=== PATIENT | male | born 1985 | race Caucasian/White ===

== ENCOUNTER → 2016-07-11 | Outpatient (CLI) | payer OTHER ==
[~2016-07-11] MED LIST: ABL10 PO; BYTI10 SC; CGN1 PO; FLUO20CA35 PO; HALO0.5T9 PO; HALO2TAB PO; INSU1.2I SC; INSU100I SC; LISI-729 PO; METF-384 PO; MONT1TAB3 PO; OXYC-57 PO; PERP1TAB PO; PERP1TAB8 PO; REPA1TAB42 PO; VILA1TAB3 PO
== END | disposition home or self-care (01) ==
LOC: C.RDSM 08:30
PROVIDERS: ATTEND Orthopaedic Surgery
DX: M65.4 Radial styloid tenosynovitis [de Quervain] (principal)

== ENCOUNTER → 2016-10-10 | Outpatient (CLI) | payer OTHER ==
[~2016-10-10] MED LIST changes: +BENZ-89 PO; -CGN1 PO; +FLUO40CA8 PO; -INSU1.2I SC; +INSU1.2I SQ; -INSU100I SC; +INSU100I SQ; +LOVA20TA4 PO; +ONDA4TAB10 SL; -OXYC-57 PO; +OXYC1TAB3 PO; +REPA1TAB40 PO; -REPA1TAB42 PO
--- NOTE | 2016-10-10 14:23 | DIAGNOSTIC IMAGING REPORT ---
CT SCAN OF THE ABDOMEN AND PELVIS WITHOUT CONTRAST CLINICAL HISTORY: Bilateral flank pain. Microscopic hematuria. Nausea. COMPARISON STUDY: 03/23/2015 TECHNIQUE: CT scan of the abdomen and pelvis was performed from the lung bases to the proximal femurs. Images are reviewed in the axial, sagittal, and coronal planes. IV contrast was not administered for this examination. CT DOSE: FINDINGS: Lower chest: The heart is normal in size and configuration, without pericardial effusion. The lung bases and pleural spaces are clear. Liver: There is severe hepatic steatosis. No focal masses are visualized. Gallbladder: Unremarkable. Spleen: Normal in size and attenuation. Pancreas: Unremarkable. Adrenal glands: Unremarkable. Kidneys: No renal, ureteral, or bladder calculi are visualized. Bowel: There are no transition zones indicate bowel obstruction. The appendix appears surgically absent. There is no acute diverticulitis. Peritoneum: There is no intraperitoneal free air or abdominal ascites. Vasculature: The abdominal aorta is normal in course and caliber. Adenopathy: None. Pelvic viscera: The bladder, and pelvic viscera are unremarkable. Skeletal structures: No destructive osseous lesions are seen. IMPRESSION: 1. No renal, ureteral, or bladder calculi identified 2. Surgically absent appendix. No evidence of diverticulitis 3. No evidence of bowel obstruction. No evidence of free air 4. Hepatic steatosis Electronically signed by: Ezequiel Merritt M.D. 10/10/2016 2:21 PM Dictated Date/Time: 10/10/2016 2:18 PM
== END | disposition home or self-care (01) ==
LOC: C.CTS 13:34
PROVIDERS: ATTEND Nurse Practitioner Family
DX: R10.9 Unspecified abdominal pain (principal); R31.9 Hematuria, unspecified; Z87.442 Personal history of urinary calculi; R11.0 Nausea; K76.0 Fatty (change of) liver, not elsewhere classified

== ENCOUNTER 2016-12-16 21:39 | Observation (INO) | payer OTHER ==
[~2016-12-16] VITALS: Ht 182.9 cm; Wt 112.3 kg
[~2016-12-16 21:39] MED LIST changes: -FLUO20CA35 PO; -FLUO40CA8 PO; -INSU1.2I SQ; -INSU100I SQ; -LISI-729 PO; -LOVA20TA4 PO; -ONDA4TAB10 SL; -OXYC1TAB3 PO; -PERP1TAB PO; -PERP1TAB8 PO
[2016-12-16] MEDS ORDERED: SODIUM CHLORIDE 0.9% 1000ML 1,000 ML IV STA (22:16)
[2016-12-16 22:24] LABS: BASO % 1.3 %; BASO ABS # 0.08 K/uL (0-0.2); COMPLETE YES; EOS % 2.7 %; HEMATOCRIT 45.6 % (42-52); IG% 0.2 %; LYMPH % 37.1 %; LYMPH ABS # 2.24 K/uL (1.2-3.4); MEAN CELL VOLUME 88.4 fL (80-100); MEAN CORPUSCULAR HEMOGLOBIN 29.8 pg (25-34); MEAN CORPUSCULAR HGB CONC 33.8 g/dl (32-36); MEAN PLATELET VOLUME 11.3 fL (7.4-10.4); NEUT % 50.7 %; PLATELET COUNT 144 K/uL (130-400); RED BLOOD COUNT 5.16 M/uL (4.7-6.1); WHITE BLOOD COUNT 6.03 K/uL (4.8-10.8)
--- NOTE | 2016-12-16 22:31 | EMERGENCY ROOM VISIT NOTE ---
ED Visit Note First contact with patient: 22:07 I have seen and examined this patient with Sam Clarke and generally agree with the treatment plan as discussed. Problem List Medical Problems: (1) Asthma Status: Chronic (2) Diabetes Status: Chronic (3) Hypertension Status: Chronic Current/Historical Medications Scheduled Aripiprazole (Abilify), 1 TAB PO DAILY Benztropine Mesylate (Cogentin), 1 TAB PO DAILY Exenatide (Byetta), 10 MCG SC BID Haloperidol (Haloperidol), 1 TAB PO DAILY Metformin Hcl (Glucophage), 1,000 MG PO BID Montelukast Sodium (Singulair), 10 MG PO DAILY Repaglinide (Prandin), 1 TAB PO DAILY Vilazodone Hcl (Viibryd), 1 TAB PO DAILY Miscellaneous Medications Haloperidol (Haldol), 2 MG PO Allergies Coded Allergies: Clozapine (Verified Allergy, Unknown, 07/28/09) Sulfa Drugs (Verified Allergy, Unknown, 07/28/09) Sulfamethoxazole (Verified Allergy, Unknown, 07/28/09) Replaces SULFAMETHOXAZ Trimethoprim (Verified Allergy, Unknown, 07/28/09) Replaces SULFAMETHOXAZ Vital Signs Date Time Temp Pulse Resp B/P (MAP) Pulse Ox O2 Delivery O2 Flow Rate FiO2 12/16/16 22:08 72 12/16/16 22:03 75 20 134/79 97 Room Air 12/16/16 22:01 96 Room Air 12/16/16 21:41 36.7 69 18 155/93 97 Room Air Laboratory Results 12/16/16 22:04 Red Blood Count 5.16, Mean Corpuscular Volume 88.4, Mean Corpuscular Hemoglobin 29.8, Mean Corpuscular Hemoglobin Concent 33.8, Mean Platelet Volume 11.3, Neutrophils (%) (Auto) 50.7, Lymphocytes (%) (Auto) 37.1, Monocytes (%) (Auto) 8.0, Eosinophils (%) (Auto) 2.7, Basophils (%) (Auto) 1.3, Neutrophils # (Auto) 3.06, Lymphocytes # (Auto) 2.24, Monocytes # (Auto) 0.48, Eosinophils # (Auto) 0.16, Basophils # (Auto) 0.08 Test 12/16/16 22:04 White Blood Count 6.03 K/uL (4.8-10.8) Red Blood Count 5.16 M/uL (4.7-6.1) Hemoglobin 15.4 g/dL (14.0-18.0) Hematocrit 45.6 % (42-52) Mean Corpuscular Volume 88.4 fL (80-100) Mean Corpuscular Hemoglobin 29.8 pg (25-34) Mean Corpuscular Hemoglobin Concent 33.8 g/dl (32-36) Platelet Count 144 K/uL (130-400) Mean Platelet Volume 11.3 fL (7.4-10.4) Neutrophils (%) (Auto) 50.7 % Lymphocytes (%) (Auto) 37.1 % Monocytes (%) (Auto) 8.0 % Eosinophils (%) (Auto) 2.7 % Basophils (%) (Auto) 1.3 % Neutrophils # (Auto) 3.06 K/uL (1.4-6.5) Lymphocytes # (Auto) 2.24 K/uL (1.2-3.4) Monocytes # (Auto) 0.48 K/uL (0.11-0.59) Eosinophils # (Auto) 0.16 K/uL (0-0.5) Basophils # (Auto) 0.08 K/uL (0-0.2) RDW Standard Deviation 39.8 fL (36.4-46.3) RDW Coefficient of Variation 12.3 % (11.5-14.5) Immature Granulocyte % (Auto) 0.2 % Immature Granulocyte # (Auto) 0.01 K/uL (0.00-0.02) Departure Information Referrals Brenna Krueger (PCP) Patient Instructions My [facility]
[2016-12-16] MEDS ORDERED: PERP1TAB PO (22:41)
[2016-12-16] MEDS ORDERED: FLUO20CA35 PO (22:41)
[2016-12-16] MEDS ORDERED: INSU1.2I SQ (22:41)
[2016-12-16] MEDS ORDERED: PERP1TAB8 PO (22:41)
[2016-12-16] MEDS ORDERED: LISI-729 PO (22:41)
[2016-12-16] MEDS ORDERED: INSU100I SQ (22:41)
[2016-12-16] MEDS: NITROGLYCERIN 0.4 MG SL PER TAB CHARGE SL PRN ×3 (22:44→23:19)
--- NOTE | 2016-12-16 22:44 | DIAGNOSTIC IMAGING REPORT ---
CHEST ONE VIEW PORTABLE HISTORY: Atypical CHEST PAIN COMPARISON: Chest 02/28/2009. FINDINGS: The lungs are clear. Cardiac silhouette is normal in size. No pleural effusions. No pneumothorax. IMPRESSION: No acute process. Electronically signed by: Santos Navarrete M.D. 12/16/2016 10:42 PM Dictated Date/Time: 12/16/2016 10:41 PM
[2016-12-16 22:45] LABS: ALKALINE PHOSPHATASE 92 U/L (45-117); ALT/SGPT 62 U/L (12-78); AST/SGOT 46 U/L (15-37); BLOOD UREA NITROGEN 9 mg/dl (7-18); BUN/CREATININE RATIO 10.8 (10-20); CALCIUM 8.8 mg/dl (8.5-10.1); CARBON DIOXIDE 27 mmol/L (21-32); CHLORIDE 102 mmol/L (98-107); CREATININE 0.87 mg/dl (0.60-1.40); GLUCOSE 208 mg/dl (70-99); POTASSIUM 3.9 mmol/L (3.5-5.1); SODIUM 136 mmol/L (136-145)
[2016-12-17] MEDS ORDERED: FLUOXETINE HCL 20 MG CAP PO ONE (00:27)
[2016-12-17] MEDS ORDERED: PERPHENAZINE 2 MG TAB PO ONE (00:27)
[2016-12-17] MEDS ORDERED: BENZTROPINE MESYLATE 1 MG TAB PO ONE (00:27)
[2016-12-17] MEDS ORDERED: GLUCAGON FOR INJ 1 MG VIAL SQ PRN (00:30)
[2016-12-17] MEDS ORDERED: ACETAMINOPHEN 325 MG TAB PO PRN (00:30)
[2016-12-17] MEDS ORDERED: ONDANSETRON INJ 2 MG/ML 2 ML VIAL IV PRN (00:30)
[2016-12-17] MEDS ORDERED: GLUCOSE 10 TABS/TUBE PO PRN (00:30)
[2016-12-17] MEDS ORDERED: ZOLPIDEM TARTRATE 5 MG TAB PO PRN (00:30)
[2016-12-17] MEDS ORDERED: DEXTROSE 50% 50 ML SYR IV PRN (00:30)
[2016-12-17] MEDS ORDERED: GLUCOSE 40% GEL 15 GM TUBE PO PRN (00:30)
[2016-12-17] MEDS ORDERED: NITROGLYCERIN 0.4 MG SL PER TAB CHARGE SL PRN (00:30)
--- NOTE | 2016-12-17 00:42 | History and Physical ---
History & Physical Date & Time of Service: Dec 17, 2016 at 00:33. The patient was examined on 12/16/2016. Chief Complaint: Chest Pain Primary Care Physician: Brenna Krueger History of Present Illness Source: patient, parent The patient is a 31-year-old male who developed acute onset of precordial chest pain with radiation to the left side of his neck and left arm shortly after eating dinner tonight. The pain persisted until he was given 3 sublingual nitroglycerin in the emergency department, when it resolved completely. He does not have a history of reflux, and has not had these type of symptoms in the past. His mother has a history of angina. His other risk factors include diabetes mellitus, obesity and hypertension. He has not had any recent travels or sick exposures. 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 Past Medical/Surgical History Medical Problems: (1) Asthma Status: Chronic (2) Diabetes Status: Chronic (3) Hypertension Status: Chronic Family History Diabetes mellitus FH: heart disease Hypertension Kidney stones Social History Smoking Status: Never Smoker Smokeless Tobacco Use: No Alcohol Use: none Drug Use: none Marital Status: single Housing status: lives with family Occupational Status: employed Multi-Drug Resistant Organisms History of MDRO: No Allergies Coded Allergies: Clozapine (Verified Allergy, Unknown, 07/28/09) Sulfa Drugs (Verified Allergy, Unknown, 07/28/09) Sulfamethoxazole (Verified Allergy, Unknown, 07/28/09) Replaces SULFAMETHOXAZ Trimethoprim (Verified Allergy, Unknown, 07/28/09) Replaces SULFAMETHOXAZ Home Medications Scheduled Benztropine Mesylate (Cogentin), 1 MG PO QPM Fluoxetine (Prozac), 20 MG PO QPM Insulin Glargine (Toujeo Solostar), 85 UNITS SC QPM Insulin Lispro (Human) (Humalog), 28 UNITS SC TIDM Lisinopril (Prinivil), 5 MG PO QPM Metformin Hcl (Glucophage), 1,000 MG PO BID Montelukast Sodium (Singulair), 10 MG PO DAILY Perphenazine (Trilafon), 32 MG PO QPM Perphenazine (Trilafon), 16 MG PO QAM Review of Systems The patient denies palpitations, cough, lower extremity swelling, sore throat , fevers, chills, sweats, weight change, fatigue, nausea, vomiting, abdominal pain, pelvic pain, blood in urine or stool, dysuria, urinary frequency or urgency, lightheadedness, dizziness, headache, memory loss, rash, abnormal bruising or bleeding, imbalance, focal or generalized weakness, numbness or tingling in legs, arthralgias or myalgias, back pain, night sweats, or allergy symptoms. The review of systems is otherwise negative other than for that already noted above, and at least 10 systems have been reviewed. Physical Exam Vital Signs Date Time Temp Pulse Resp B/P (MAP) Pulse Ox O2 Delivery O2 Flow Rate FiO2 12/16/16 23:13 72 20 128/76 98 Room Air 12/16/16 22:08 72 12/16/16 22:03 75 20 134/79 97 Room Air 12/16/16 22:01 96 Room Air 12/16/16 21:41 36.7 69 18 155/93 97 Room Air The patient is awake, well-developed and adequately nourished, alert and oriented 3, normocephalic and atraumatic, lying in bed and in no acute distress. HEENT--PERRL, EOMI, mucous membranes and oropharynx normal. Neck--supple, no JVD or bruits, thyroid normal, trachea midline, no adenopathy. Heart--normal S1 and S2, no extra beats, no murmurs, rubs or gallops. Lungs--clear bilaterally with good air movement, no respiratory distress, no accessory muscle use. Abdomen--normal bowel sounds and soft, nontender and nondistended, no hernias or masses, no organomegaly. Extremities--no cyanosis, clubbing or edema. There are good distal pulses b/l. Dermatologic--normal skin turgor, normal color, warm and dry, no abnormal lymph nodes, no rash. Neurologic--cranial nerves II through XII grossly intact, motor and sensory examination normal. Rheumatologic--normal range of motion, nontender, muscles and joints. Psychiatric--normal affect. Diagnostics Laboratory Results Results Past 24 Hours Test 12/16/16 22:04 12/16/16 22:32 Range/Units White Blood Count 6.03 4.8-10.8 K/uL Red Blood Count 5.16 4.7-6.1 M/uL Hemoglobin 15.4 14.0-18.0 g/dL Hematocrit 45.6 42-52 % Mean Corpuscular Volume 88.4 80-100 fL Mean Corpuscular Hemoglobin 29.8 25-34 pg Mean Corpuscular Hemoglobin Concent 33.8 32-36 g/dl Platelet Count 144 130-400 K/uL Mean Platelet Volume 11.3 7.4-10.4 fL Neutrophils (%) (Auto) 50.7 % Lymphocytes (%) (Auto) 37.1 % Monocytes (%) (Auto) 8.0 % Eosinophils (%) (Auto) 2.7 % Basophils (%) (Auto) 1.3 % Neutrophils # (Auto) 3.06 1.4-6.5 K/uL Lymphocytes # (Auto) 2.24 1.2-3.4 K/uL Monocytes # (Auto) 0.48 0.11-0.59 K/uL Eosinophils # (Auto) 0.16 0-0.5 K/uL Basophils # (Auto) 0.08 0-0.2 K/uL RDW Standard Deviation 39.8 36.4-46.3 fL RDW Coefficient of Variation 12.3 11.5-14.5 % Immature Granulocyte % (Auto) 0.2 % Immature Granulocyte # (Auto) 0.01 0.00-0.02 K/uL Sodium Level 136 136-145 mmol/L Potassium Level 3.9 3.5-5.1 mmol/L Chloride Level 102 98-107 mmol/L Carbon Dioxide Level 27 21-32 mmol/L Anion Gap 7.0 3-11 mmol/L Blood Urea Nitrogen 9 7-18 mg/dl Creatinine 0.87 0.60-1.40 mg/dl Est Creatinine Clear Calc Drug Dose 159.8 ml/min Estimated GFR () 133.3 Estimated GFR (Non- 115.0 BUN/Creatinine Ratio 10.8 10-20 Random Glucose 208 70-99 mg/dl Calcium Level 8.8 8.5-10.1 mg/dl Total Bilirubin 0.3 0.2-1 mg/dl Direct Bilirubin < 0.1 0-0.2 mg/dl Aspartate Amino Transf (AST/SGOT) 46 15-37 U/L Alanine Aminotransferase (ALT/SGPT) 62 12-78 U/L Alkaline Phosphatase 92 45-117 U/L Total Protein 7.2 6.4-8.2 gm/dl Albumin 3.8 3.4-5.0 gm/dl Lipase 275 73-393 U/L Chemistry Specimen Hemolysis Bedside Troponin I < 0.030 0-0.045 ng/ml Diagnostic Radiology Patient Name: EDILMA WINTERS Unit Number: [id number] Dictated: 12/16/162240 Transcribed: 12/16/162240 [facility] Printed Date/Time: [~ rep prt dt]/[~ rep prt tm] [~ rep ct labl] - [~ rep ct ivnm] [facility] [place] [place] [address] Dictated: 12/16/162240 Transcribed: 12/16/162240 [facility] Printed Date/Time: [~ rep prt dt]/[~ rep prt tm] [~ rep ct labl] - [~ rep ct ivnm] [~ rep ct add3]] CHEST ONE VIEW PORTABLE HISTORY: Atypical CHEST PAIN COMPARISON: Chest 02/28/2009. FINDINGS: The lungs are clear. Cardiac silhouette is normal in size. No pleural effusions. No pneumothorax. IMPRESSION: No acute process. Electronically signed by: Santos Navarrete M.D. 12/16/2016 10:42 PM Dictated Date/Time: 12/16/2016 10:41 PM The status of this report is Signed. Draft = Not yet reviewed or approved by Radiologist. Signed = Reviewed and approved by Radiologist. <AttendingPhy></AttendingPhy> <FamilyPhy>Brenna KruegerN.P.</FamilyPhy> < PrimaryPhy>Brenna KruegerN.P.</PrimaryPhy> <UnitNumber>[id number]</ UnitNumber> <VisitNumber>[id number]</VisitNumber> <PatientName>EDILMA WINTERS</PatientName> <DateOfBirth>1985</DateOfBirth> <Location>[facility]</Location > <ServiceDate>12/16/16</ServiceDate> <MNE>ESINDI</MNE> <OrderingPhy>Sam Clarke PA-C</OrderingPhy> <OrderingPhyMNE>f rep ord dr allen</OrderingPhyMNE> < DictatingPhyMNE>f rep dict dr allen</DictatingPhyMNE> <CCListMNE>f rep ct mne</ CCListMNE> <AdmittingPhyMNE>f pt admit dr allen</AdmittingPhyMNE> <AttendingPhyMNE >f pt attend dr allen</AttendingPhyMNE> <ConsultingPhyMNE>f pt consult dr allen</ConsultingPhyMNE> <FamilyPhyMNE>f pt fam dr allen</FamilyPhyMNE> <OtherPhyMNE>f pt other dr allen</OtherPhyMNE> < PrimaryPhyMNE>f pt prim care dr allen</PrimaryPhyMNE> <ReferringPhyMNE>f pt referring dr allen</ReferringPhyMNE> EKG EKG shows normal sinus rhythm at 70 beats minute, there are no acute ST-T changes. Impression Assessment and Plan Precordial chest pain with radiation to neck and left arm with resolution with NTG SL 3--the patient will be admitted to the telemetry unit for serial cardiac enzymes, cardiac rhythm monitoring and a 2-D echocardiogram with Dopplers. Continue lisinopril 5 mg by mouth daily. If his cardiac enzymes and rhythm monitoring are normal overnight, he will require a stress test prior to discharge. Diabetes mellitus--continue Toujeo insulin. Hold metformin. Place on Accu- Cheks before meals and at bedtime with NovoLog coverage. Psychiatric--continue benztropine, fluoxetine and perphenazine at current doses. Allergy seasonal--continue montelukast 10 mg by mouth daily. Level of Care Telemetry Advanced Directives Existing Advance Directive: No Existing Living Will: No Existing Power of Technical Testing Engineer: No Resuscitation Status FULL RESUSCITATION VTE Prophylaxis VTE Risk Assessment Done? Y/N: Yes Risk Level: Moderate Given or contraindicated: SCD's Social Service Consult None Apply
[2016-12-17] MEDS ORDERED: IV FLUIDS COMPLETED PRN (01:30)
[2016-12-17 01:31] LABS: CKMB/CK RATIO 0.6 (0-3.0)
--- NOTE | 2016-12-17 01:37 | EMERGENCY ROOM VISIT NOTE ---
ED Visit Note First contact with patient: 22:07 Chief Complaint: Chest pain. History of Present Illness: Mr. Gibson is a 31 year-old white male who ambulates into the ED accompanied by his mother complaining of chest pain. Historically patient reports diabetes, hypertension and cardiomyopathy. Patient reports a acute onset of chest pain that started approximately 1.5 hours ago. Since that time the pain has been constant. The pain is currently described as pressure and crushing. The pain is located over the mid sternal area. The pain is radiating left neck and into the left shoulder and arm. He has not identified any alleviating factors related to the pain. He has 324 mg of aspirin without relief of his discomfort. Currently rates his discomfort . Associated with his pain he reports he feels dizzy. He denies fevers, chills, sweats, skin eruptions, skin color changes, upper respiratory tract symptoms, wheezing, cough, shortness of breath, orthopnea, dependent edema, previous clots, claudication, cramping, recent surgery/ inactivity/extended travel, abdominal pain, nausea, vomiting, diarrhea, constipation, rectal bleeding, black/tarry stools, urinary symptoms, back/flank pain. Review of Systems: As noted above in history of present illness. All body systems were reviewed and found to be negative as noted above. Past Medical History: As previously noted and asthma, pneumonia, kidney stones, depression, schizophrenia, status post right hand surgery and appendectomy. Current Medications: Allergies to Medications: Bactrim, sulfa, clozapine. Social History: Patient is not employed; he feels safe in his home environment; he denies tobacco use and admits to alcohol use. Physical Examination: Vital Signs: Date Time Temp Pulse Resp B/P (MAP) Pulse Ox O2 Delivery O2 Flow Rate FiO2 12/17/16 01:10 76 20 130/90 95 Room Air 12/16/16 23:13 72 20 128/76 98 Room Air 12/16/16 22:08 72 12/16/16 22:03 75 20 134/79 97 Room Air 12/16/16 22:01 96 Room Air 12/16/16 21:41 36.7 69 18 155/93 97 Room Air GENERAL: 31-year-old male in mild distress due to pain, nontoxic-appearing, afebrile and hemodynamically stable. NEUROLOGICAL: Awake, alert and oriented to person, place and time. Answering questions appropriately and following commands. Normal gait. Good hand eye coordination. Patient's affect is blunted. SKIN: Warm, dry and pink. No soft tissue eruptions or trauma noted. HEENT: Atraumatic and normocephalic. PERRLa. Sclera white and conjunctiva pink. Oral cavity moist and pink. Pharynx is nonerythematous or edematous. Speech normal. No lymphadenopathy. Trachea midline. No jugular venous distention. No carotid bruits. BACK: No tenderness over the bony spine. No CVA tenderness. THORAX: Lungs sounds are clear to auscultation and equal bilaterally with symmetrical chest wall. No wheezing, rales or rhonchi. No crepitus, tenderness , subcutaneous air or deformities noted. HEART: Regular rate and rhythm. No gallops, rubs or murmurs are appreciated. No lifts, heaves or thrills. PMI is not displaced. ABDOMEN: Flat, soft and nontender. Positive bowel sounds in all quadrants. No guarding, rigidity or organomegaly. EXTREMITIES: Moves all extremities well on command and with purpose. All distal neurovascular statuses are intact and equal bilaterally. No dependent edema or calf tenderness/cords. ED Course: Patient is assessed as noted above. Laboratory Testing: Test 12/16/16 22:04 12/16/16 22:32 12/17/16 01:05 Range/Units White Blood Count 6.03 4.8-10.8 K/uL Red Blood Count 5.16 4.7-6.1 M/uL Hemoglobin 15.4 14.0-18.0 g/dL Hematocrit 45.6 42-52 % Mean Corpuscular Volume 88.4 80-100 fL Mean Corpuscular Hemoglobin 29.8 25-34 pg Mean Corpuscular Hemoglobin Concent 33.8 32-36 g/dl Platelet Count 144 130-400 K/uL Mean Platelet Volume 11.3 7.4-10.4 fL Neutrophils (%) (Auto) 50.7 % Lymphocytes (%) (Auto) 37.1 % Monocytes (%) (Auto) 8.0 % Eosinophils (%) (Auto) 2.7 % Basophils (%) (Auto) 1.3 % Neutrophils # (Auto) 3.06 1.4-6.5 K/uL Lymphocytes # (Auto) 2.24 1.2-3.4 K/uL Monocytes # (Auto) 0.48 0.11-0.59 K/uL Eosinophils # (Auto) 0.16 0-0.5 K/uL Basophils # (Auto) 0.08 0-0.2 K/uL RDW Standard Deviation 39.8 36.4-46.3 fL RDW Coefficient of Variation 12.3 11.5-14.5 % Immature Granulocyte % (Auto) 0.2 % Immature Granulocyte # (Auto) 0.01 0.00-0.02 K/uL Sodium Level 136 136-145 mmol/L Potassium Level 3.9 3.5-5.1 mmol/L Chloride Level 102 98-107 mmol/L Carbon Dioxide Level 27 21-32 mmol/L Anion Gap 7.0 3-11 mmol/L Blood Urea Nitrogen 9 7-18 mg/dl Creatinine 0.87 0.60-1.40 mg/dl Est Creatinine Clear Calc Drug Dose 159.8 ml/min Estimated GFR () 133.3 Estimated GFR (Non- 115.0 BUN/Creatinine Ratio 10.8 10-20 Random Glucose 208 70-99 mg/dl Calcium Level 8.8 8.5-10.1 mg/dl Total Bilirubin 0.3 0.2-1 mg/dl Direct Bilirubin < 0.1 0-0.2 mg/dl Aspartate Amino Transf (AST/SGOT) 46 15-37 U/L Alanine Aminotransferase (ALT/SGPT) 62 12-78 U/L Alkaline Phosphatase 92 45-117 U/L Total Protein 7.2 6.4-8.2 gm/dl Albumin 3.8 3.4-5.0 gm/dl Lipase 275 73-393 U/L Chemistry Specimen Hemolysis Bedside Troponin I < 0.030 0-0.045 ng/ml Total Creatine Kinase 501 39-308 U/L Creatine Kinase MB 2.8 0.5-3.6 ng/ml Creatine Kinase MB Ratio 0.6 0-3.0 Troponin I 0.027 0-0.045 ng/ml Chest X-Ray: Was read by myself and the radiologist showing no acute infiltrates , effusions or pneumothorax. Normal heart silhouette and bony anatomy. EKG: Was read by myself and reviewed with Dr. Patricio; shows normal sinus rhythm with a ventricular rate of 70 bpm. Normal axis, intervals and complexes. No acute ST changes indicating ischemia, injury or infarction. This was compared to her previous from March 2010 in no acute changes were noted. Patient was hydrated with normal saline and he initially received a nitroglycerin trial for his chest discomfort. On reassessment patient reportedly had resolution of neck and shoulder pain after his first nitroglycerin tablet and on his second and third nitroglycerin tablet he now rates his discomfort 1/10. Patient's case was reviewed with Dr. Germain; we agreed on diagnostic approach, treatment, disposition and plan. Patient's case was consulted with case management and Dr. Price, hospitalist, for medical observation/admission. Patient was educated about today's findings. Clinical Impression: Acute chest pain. Decision-Making: Initially my differential diagnosis I considered acute coronary syndrome, thoracic aneurysm, pneumothorax, pneumonia, pulmonary embolism, musculoskeletal disorder and other causes. Disposition and Plan: Patient be brought in the hospital by Dr. Price; please see his notes and orders for final disposition and plan.
[2016-12-17 01:53] VITALS: BP 141/84; PULSE 80; TEMP 36.7; O2SAT 96; Ht 182.9 cm; Wt 112.3 kg
[2016-12-17] MEDS ORDERED: INSULIN GLARGINE SC SCH ×2 (03:00→21:00)
[2016-12-17 04:00] VITALS: BP 120/90; PULSE 75; TEMP 36.4; O2SAT 96
[2016-12-17] MEDS ORDERED: INSULIN ASPART 100 UNITS/ML 3 ML PEN SC SCH (07:00)
[2016-12-17 08:28] VITALS: BP 122/91; PULSE 75; TEMP 37; O2SAT 97
[2016-12-17] MEDS ORDERED: MONTELUKAST SOD 10 MG TAB PO SCH (09:00)
[2016-12-17 09:27] LABS: CKMB/CK RATIO 0.7 (0-3.0)
--- NOTE | 2016-12-17 10:23 | Discharge Instructions ---
Discharge Instructions Date of Service Dec 17, 2016. Admission Reason for Admission: Chest Pain Radiating To Arm,Precordial Chest Pain Discharge Discharge Diagnosis / Problem: Anxiety/ Chest pain NYD Discharge Goals Goal(s): Diagnostic testing Activity Recommendations Activity Limitations: resume your previous activity . Instructions / Follow-Up Instructions / Follow-Up You were admitted to the hospital of the evaluation of your chest pain. You were admitted to the telemetry floor which allows us to follow your heart rate and there was no irregularities over night. A blood test was also followed called troponin. This blood test allows us to see if there was any damage to the heart. As this was negative a stress test of the heart was done and did not reveal any abnormalities. Anxiety can produce symptoms of crushing chest pain however considering your history we recommend following up with you psychiatrist Dr Masterson. We wish you well Mj Ramos Current Hospital Diet Patient's current hospital diet: AHA Diet (Heart Healthy), Diabetes Type 2 Diet Discharge Diet Recommended Diet: Diabetes Type 2 Diet Pending Studies Studies pending at discharge: no Laboratory Results Results Past 24 Hours Test 12/16/16 22:04 12/16/16 22:32 12/17/16 01:05 12/17/16 04:01 Range/Units White Blood Count 6.03 4.8-10.8 K/uL Red Blood Count 5.16 4.7-6.1 M/uL Hemoglobin 15.4 14.0-18.0 g/dL Hematocrit 45.6 42-52 % Mean Corpuscular Volume 88.4 80-100 fL Mean Corpuscular Hemoglobin 29.8 25-34 pg Mean Corpuscular Hemoglobin Concent 33.8 32-36 g/dl Platelet Count 144 130-400 K/uL Mean Platelet Volume 11.3 7.4-10.4 fL Neutrophils (%) (Auto) 50.7 % Lymphocytes (%) (Auto) 37.1 % Monocytes (%) (Auto) 8.0 % Eosinophils (%) (Auto) 2.7 % Basophils (%) (Auto) 1.3 % Neutrophils # (Auto) 3.06 1.4-6.5 K/uL Lymphocytes # (Auto) 2.24 1.2-3.4 K/uL Monocytes # (Auto) 0.48 0.11-0.59 K/uL Eosinophils # (Auto) 0.16 0-0.5 K/uL Basophils # (Auto) 0.08 0-0.2 K/uL RDW Standard Deviation 39.8 36.4-46.3 fL RDW Coefficient of Variation 12.3 11.5-14.5 % Immature Granulocyte % (Auto) 0.2 % Immature Granulocyte # (Auto) 0.01 0.00-0.02 K/uL Sodium Level 136 136-145 mmol/L Potassium Level 3.9 3.5-5.1 mmol/L Chloride Level 102 98-107 mmol/L Carbon Dioxide Level 27 21-32 mmol/L Anion Gap 7.0 3-11 mmol/L Blood Urea Nitrogen 9 7-18 mg/dl Creatinine 0.87 0.60-1.40 mg/dl Est Creatinine Clear Calc Drug Dose 159.8 ml/min Estimated GFR () 133.3 Estimated GFR (Non- 115.0 BUN/Creatinine Ratio 10.8 10-20 Random Glucose 208 70-99 mg/dl Calcium Level 8.8 8.5-10.1 mg/dl Total Bilirubin 0.3 0.2-1 mg/dl Direct Bilirubin < 0.1 0-0.2 mg/dl Aspartate Amino Transf (AST/SGOT) 46 15-37 U/L Alanine Aminotransferase (ALT/SGPT) 62 12-78 U/L Alkaline Phosphatase 92 45-117 U/L Total Protein 7.2 6.4-8.2 gm/dl Albumin 3.8 3.4-5.0 gm/dl Lipase 275 73-393 U/L Chemistry Specimen Hemolysis Bedside Troponin I < 0.030 0-0.045 ng/ml Total Creatine Kinase 501 39-308 U/L Creatine Kinase MB 2.8 0.5-3.6 ng/ml Creatine Kinase MB Ratio 0.6 0-3.0 Troponin I 0.027 0-0.045 ng/ml Bedside Glucose 161 70-99 mg/dl Test 12/17/16 06:49 12/17/16 08:42 Range/Units Bedside Glucose 189 70-99 mg/dl Total Creatine Kinase 403 39-308 U/L Creatine Kinase MB 3.0 0.5-3.6 ng/ml Creatine Kinase MB Ratio 0.7 0-3.0 Troponin I 0.030 0-0.045 ng/ml Chemistry Specimen Hemolysis Medical Emergencies . Who to Call and When: Medical Emergencies: If at any time you feel your situation is an emergency, please call 911 immediately. . Non-Emergent Contact Non-Emergency issues call your: Primary Care Provider, Specialist Call Non-Emergent contact if: you have a fever, you have any medication questions . . "Provider Documentation" section prepared by Mindy Ramos. . VTE Core Measure Inpt VTE Proph given/why not?: SCD's
[2016-12-17] MEDS ORDERED: PERPHENAZINE 2 MG TAB PO SCH ×2 (11:00→21:00)
[2016-12-17 11:20] VITALS: BP 122/91; PULSE 75; TEMP 37; O2SAT 97
--- NOTE | 2016-12-17 11:26 | Discharge Summary ---
Discharge Summary Date of Service Dec 17, 2016. (Mindy Ramos MD) Discharge Summary Admission Date: Dec 17, 2016 at 00:27 Discharge Date: Dec 17, 2016 Discharge Disposition: Home Principal Diagnosis: Anxiety, chest pain NYD Procedures: Stress echo- Normal (Mindy Ramos MD) Medication Reconciliation Continued Medications: Benztropine Mesylate (Cogentin) 1 Mg Tab 1 MG PO QPM Fluoxetine (Prozac) 20 Mg Cap 20 MG PO QPM Insulin Glargine (Toujeo Solostar) 300 Unit/Ml Inj 85 UNITS SC QPM Insulin Lispro (Human) (Humalog) 100 Unit/Ml Inj 28 UNITS SC TIDM Lisinopril (Prinivil) 5 Mg Tab 5 MG PO QPM Metformin Hcl (Glucophage) 1,000 Mg Tab 1000 MG PO BID, TAB Montelukast Sodium (Singulair) 10 Mg Tab 10 MG PO DAILY, TAB Perphenazine (Trilafon) 16 Mg Tab 32 MG PO QPM Perphenazine (Trilafon) 8 Mg Tab 16 MG PO QAM Discharge Exam Patient did not have any episodes of chest pain since admission. We did discuss the potential etiology of the chest pain and was reassured that it is most likely not cardiac in nature as the testing was WNL. We discussed discharge with mother and patient and he is agreeable to d/c. We also discussed if he would like us to make arrangements for PCP and psych follow up and he states that he will do it on his own. Review of Systems: Constitutional: No fever Eyes: No worsening of vision ENT: No hearing loss Respiratory: No cough, No sputum, No wheezing, No shortness of breath, No dyspnea on exertion, No dyspnea at rest Cardiovascular: No chest pain Abdomen: No pain, No nausea, No vomiting, No diarrhea, No constipation Musculoskeletal: No joint pain, No muscle pain Genitourinary - Male: No hematuria, No dysuria Neurologic: No weakness, No numbness/tingling, No balance problems Psychiatric: No depression symptoms Endocrine: No fatigue Integumentary: No rash Physical Exam: General Appearance: no apparent distress Eyes: normal inspection ENT: normal ENT inspection Neck: supple Respiratory/Chest: normal breath sounds, no respiratory distress, no accessory muscle use Cardiovascular: regular rate, rhythm, no murmur Abdomen / GI: normal bowel sounds, non tender, soft Extremities: normal inspection, no calf tenderness, no pedal edema 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iatric: alert, oriented x 3 Skin: normal color, warm/dry, no rash Lymphatic: no adenopathy (Mindy Ramos MD) continues to have chest pressure. has been anxious. no heartburn Review of Systems: Constitutional: No fever Respiratory: No shortness of breath Cardiovascular: + chest pain (constant pressure - has been anxious) Abdomen: No pain Physical Exam: General Appearance: WD/WN, no apparent distress Respiratory/Chest: chest non-tender, lungs clear, no respiratory distress Cardiovascular: regular rate, rhythm Abdomen / GI: normal bowel sounds, non tender, soft 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iatric: alert, normal mood/affect, oriented x 3 Skin: warm/dry (Zully Hartman M.D.) Hospital Course This is a 31 yo m with a history of paranoid schizophrenia that presented to us with crushing left sided chest pain after eating dinner. He was admitted to the hospital for evaluation. Troponin was negative in the am so stress echo was performed and was WNL. We did discuss anxiety as a potential etiology and encouraged close follow up with psychiatry. No changes in medications however metformin was held during the admission. Total Time Spent: Less than 30 minutes This includes examination of the patient, discharge planning, medication reconciliation, and communication with other providers. (Mindy Ramos MD) Resident Physician Supervision Note: I was present with Dr. Ramos in bedside. I verified the meyers history and physical, reviewed labs and image studies, discussed the case with the resident and agree with the findings and care plan. Total Time Spent: Greater than 30 minutes (Zully Hartman M.D.) Discharge Instructions Please refer to the electronic Patient Visit Report (Discharge Instructions) for additional information. (Mindy Ramos MD) Additional Copies To Brenna Krueger; Rut Masterson
--- NOTE | 2016-12-17 15:55 | EXERCISE STRESS ECHO ---
*NOTICE TO RECEIVING DEMOCRAT AGENCY This information is strictly Confidential and protected under [place] law. [place] law prohibits you from making any further disclosure of this information unless further disclosure is expressly permitted by the written consent of the person to whom it pertains or is authorized by law. A general authorization for the release of medical or other information is not sufficient for this purpose. Hospital accepts no responsibility if the information is made available to any other person, INCLUDING THE PATIENT. Interpretation Summary * Name: EDILMA WINTERS Study Date: 12/17/2016 08:49 AM BP: 137/90 mmHg * Patient Location: .2E\S\E204\S\1 HR: 66 * : 1985 (M/d/yyyy) Gender: Male Height: 72 in * Age: 31 yrs Ethnicity: CA Weight: 248 lb * Ordering Physician: Zully Hartman * Referring Physician: Self, Referred * Performed By: Tracie Castellano RDCS * * Reason For Study: CHEST PAIN * BSA: 2.3 m2 * -- Conclusions -- * Normal stress echocardiogram at 8.6 METS and a peak heart rate of 86% maximum predicted. * No exercised induced chest pain. * No ECG changes. * Baseline echocardiogram notes normal left ventricular systolic function. Procedure Details * ECHOEX, CPT #98915 Left Ventricle * The left ventricle is normal in size. * There is normal left ventricular wall thickness. * Ejection Fraction = 55-60%. * Left ventricular systolic function is normal. * Resting wall motion: Normal. Stress wall motion: Appropriate increase in Left ventricular systolic function and decrease in cavity size. No stress induced segmental wall motion abnormalities. Right Ventricle * The right ventricle is normal in size and function. * The right ventricular systolic function is normal as assessed by tricuspid annular plane systolic excursion (TAPSE) (normal >1.5 cm). Atria * The left atrial size is normal. * Right atrial size is normal. * No ASD detected; PFO is not assessed. Mitral Valve * The mitral valve is normal in structure and function. * There is no mitral valve stenosis. * There is trace mitral regurgitation. Tricuspid Valve * The tricuspid valve is normal in structure and function. * There is no tricuspid stenosis. * There is trace tricuspid regurgitation. Aortic Valve * The aortic valve is normal in structure and function. * No hemodynamically significant valvular aortic stenosis. * No aortic regurgitation is present. Pulmonic Valve * The pulmonary valve is not well seen, but the Doppler examination is normal without significant regurgitation or stenosis. Great Vessels * The aortic root is not well visualized. Pericardium * There is no pericardial effusion. Stress Parameters * Normal baseline electrocardiogram. * Stress ECG: No ST changes. No arrhythmias. * The stress portion of this study was personally supervised by the undersigned interpreting physician. * Rest heart rate was '66' BPM. * Rest blood pressure was '137/90' * Maximum heart rate achieved was 164 bpm. * Maximum heart rate was 86 % of maximum age-predicted heart rate. * Maximum blood pressure was '207/92' * Total exercise time was '7:04' * Maximum exercise MET level achieved was '8.60' METS * Maximum treadmill speed was '3.40' miles per hour. * Maximum treadmill elevation was '14.00'% grade. * Exercise was terminated due to 'ACHIEVING TARGET HR' MMode 2D Measurements and Calculations IVSd 1.1 cm IVSs 1.6 cm LVIDd 4.5 cm LVIDs 3.3 cm LVPWd 1.1 cm LVPWs 1.8 cm IVS/LVPW 0.95 FS 26.8 % EDV(Teich) 91.4 ml ESV(Teich) 43.5 ml EF(Teich) 52.4 % EDV(cubed) 89.8 ml ESV(cubed) 35.3 ml EF(cubed) 60.7 % % IVS thick 50.6 % % LVPW thick 61.2 % LV mass(C)d 173.1 grams LV mass(C)dI 74.2 grams/m\S\2 LV mass(C)s 221.8 grams LV mass(C)sI 95.1 grams/m\S\2 SV(Teich) 47.9 ml SI(Teich) 20.5 ml/m\S\2 SV(cubed) 54.5 ml SI(cubed) 23.4 ml/m\S\2 Ao root diam 3.4 cm Ao root area 9.2 cm\S\2 LA dimension 3.8 cm LA/Ao 1.1 LVAd ap4 42.7 cm\S\2 LVLd ap4 9.5 cm EDV(MOD-sp4) 157.9 ml EDV(sp4-el) 163.3 ml LVAs ap4 27.3 cm\S\2 LVLs ap4 8.3 cm ESV(MOD-sp4) 75.7 ml ESV(sp4-el) 75.9 ml EF(MOD-sp4) 52.0 % EF(sp4-el) 53.5 % SV(MOD-sp4) 82.2 ml SI(MOD-sp4) 35.2 ml/m\S\2 SV(sp4-el) 87.4 ml SI(sp4-el) 37.5 ml/m\S\2 Doppler Measurements and Calculations MV E max yahaira 92.7 cm/sec MV A max yahaira 48.0 cm/sec MV E/A 1.9 MV dec time 0.22 sec Ao V2 max 117.8 cm/sec Ao max PG 5.5 mmHg Ao max PG (full) 2.6 mmHg LV V1 max PG 2.9 mmHg LV V1 max 85.4 cm/sec
[2016-12-17] MEDS ORDERED: BENZTROPINE MESYLATE 1 MG TAB PO SCH (21:00)
[2016-12-17] MEDS ORDERED: LISINOPRIL 5 MG TAB PO SCH (21:00)
[2016-12-17] MEDS ORDERED: FLUOXETINE HCL 20 MG CAP PO SCH (21:00)
== END 2016-12-17 11:43 | disposition home or self-care (01) ==
LOC: C.EDB 21:40 → C.2E 12-17 00:27 → ENRESERV 12-17 01:02
PROVIDERS: ADMIT Hospitalist; ATTEND Family Medicine
DX: F41.9 Anxiety disorder, unspecified (principal); R07.9 Chest pain, unspecified; E11.9 Type 2 diabetes mellitus without complications; I10 Essential (primary) hypertension; F32.9 Major depressive disorder, single episode, unspecified; J45.909 Unspecified asthma, uncomplicated; Z79.4 Long term (current) use of insulin; Z87.01 Personal history of pneumonia (recurrent); Z87.442 Personal history of urinary calculi; Z98.890 Other specified postprocedural states; Z90.89 Acquired absence of other organs; Z88.1 Allergy status to other antibiotic agents; Z88.2 Allergy status to sulfonamides; Z88.3 Allergy status to other anti-infective agents; Z82.49 Family history of ischemic heart disease and other diseases of the circulatory system

== ENCOUNTER 2017-05-02 23:17 | Emergency (ER) | payer OTHER ==
[~2017-05-02] VITALS: Ht 182.9 cm; Wt 114.1 kg
[~2017-05-02 23:17] MED LIST changes: -ABL10 PO; -BYTI10 SC; +FLUO20CA35 PO; -HALO0.5T9 PO; -HALO2TAB PO; +INSU1.2I SQ; +INSU100I SQ; +LISI-729 PO; +PERP1TAB PO; +PERP1TAB8 PO; -REPA1TAB40 PO; -VILA1TAB3 PO
[2017-05-02 23:25] VITALS: TEMP 36.9; Ht 182.9 cm; Wt 114.1 kg
[2017-05-02] MEDS ORDERED: SODIUM CHLORIDE 0.9% 1000ML 1,000 ML IV STA (23:44)
[2017-05-02] MEDS ORDERED: FAMOTIDINE 20MG/5ML IV PUSH IV STA (23:44)
[2017-05-02] MEDS ORDERED: ONDANSETRON 8 MG/54 ML D5W IV STA (23:44)
[2017-05-02] MEDS ORDERED: HYDROmorphone INJ 0.5 MG/0.5 ML SYR IV STA (23:48)
[2017-05-02 23:58] LABS: BASO % 1.2 %; BASO ABS # 0.08 K/uL (0-0.2); COMPLETE YES; EOS % 2.5 %; HEMATOCRIT 46.6 % (42-52); IG% 0.3 %; LYMPH ABS # 2.41 K/uL (1.2-3.4); MEAN CELL VOLUME 87.8 fL (80-100); MEAN CORPUSCULAR HEMOGLOBIN 31.1 pg (25-34); MEAN CORPUSCULAR HGB CONC 35.4 g/dl (32-36); MONO % 7.9 %; NEUT % 52.1 %; PLATELET COUNT 140 K/uL (130-400); RED BLOOD COUNT 5.31 M/uL (4.7-6.1); WHITE BLOOD COUNT 6.69 K/uL (4.8-10.8)
[2017-05-03 00:01] LABS: URINE APPEARANCE CLEAR (CLEAR); URINE BILIRUBIN NEG (NEG); URINE COLOR YELLOW; URINE NITRITE NEG (NEG); URINE PH 6.5 (4.5-7.5); URINE SPECIFIC GRAVITY 1.031 (1.000-1.030); UROBILINOGEN NEG (NEG); ZZUR CULT IF INDIC CLEAN CATCH NO
[2017-05-03 00:02] LABS: MANUAL MICROSCOPIC REQUIRED? NO; REVIEW REQ? NO
[2017-05-03 00:17] LABS: BUN/CREATININE RATIO 11.7 (10-20); CALCIUM 9.1 mg/dl (8.5-10.1); CREATININE 0.71 mg/dl (0.60-1.40); POTASSIUM 3.9 mmol/L (3.5-5.1)
[2017-05-03] MEDS ORDERED: HYDROmorphone INJ 0.5 MG/0.5 ML SYR IV STA (01:43)
[2017-05-03] MEDS ORDERED: FLUO40CA8 PO (02:03)
[2017-05-03] MEDS ORDERED: LOVA20TA4 PO (02:06)
[2017-05-03] MEDS ORDERED: OXYC1TAB3 PO (02:30)
[2017-05-03] MEDS ORDERED: ONDANSETRON HOME PACK 4MG OD TAB PO ONE (02:30)
[2017-05-03] MEDS ORDERED: OXYCODONE IR HOME PACK PO ONE (02:30)
[2017-05-03] MEDS ORDERED: ONDA4TAB10 SL (02:30)
[2017-05-03 02:38] VITALS: BP 137/90; PULSE 79; O2SAT 96
--- NOTE | 2017-05-03 03:07 | EMERGENCY ROOM VISIT NOTE ---
History Report prepared by Triciaibe: Ayaka Araiza Under the Supervision of: Dr. Sam Coleman M.D. First contact with patient: 23:30 Chief Complaint: GI ASSESSMENT Stated Complaint: UPPER R QUADRANT PAIN,VOMITING,BLOOD IN VOMIT Nursing Triage Summary: pt reprots RUQ pain X 3 days today started vomitting noted blood History of Present Illness The patient is a 31 year old male who presents to the Emergency Room with complaints of intermittent RUQ abdominal pain for the past 3 days. He rates his discomfort as a 5/10 in severity. He denies movement worsening his pain. He has taken no medication for his discomfort yet. Earlier this evening, he started experiencing hematemesis. He states the first time he vomited, his dinner came up, but the second and third time, he noticed bright red "blotches of blood" in the vomit. He notes he did start a new diabetes medication 3 days ago, approximately the same time his pain started. The patient has undergone an appendectomy but still has his gallbladder. He denies any recent LOC, headache, fevers, chills, diaphoresis, visual changes, neck pain, chest pain, breathing difficulties, back pain, melena, hematochezia, urinary symptoms, numbness, weakness, lymphadenopathy, rash, or other complaints. Source of History: patient Onset: 3 days [employer] DEVEL[employer] Position: abdomen (RUQ) Symptom Intensity: 5/10 Timing: intermittent Associated Symptoms: + nausea, + vomiting Review of Systems See HPI for pertinent positives and negatives. A total of ten systems were reviewed and were otherwise negative. Past Medical & Surgical Medical Problems: (1) Acute appendicitis (2) Asthma (3) Asthma, Unspecified (4) Chest pain radiating to arm (5) Depressive Disorder Nec (6) Diabetes (7) Hypertension (8) Hypertension Nos (9) Kidney stones (10) Knee pain (11) Paranoid schizophrenia (12) Pneumonia (13) Pneumonia, Organism Nos (14) Precordial chest pain (15) Right shoulder pain (16) Schizoaffective Disorder, Unspecified Surgical Problems: (1) S/P appendectomy Family History Diabetes mellitus FH: heart disease Hypertension Kidney stones Social History Smoking Status: Never Smoker Alcohol Use: none Drug Use: none Marital Status: single Housing Status: lives with family Occupation Status: employed Current/Historical Medications Scheduled Benztropine Mesylate (Cogentin), 2 MG PO QPM Fluoxetine (Prozac), 40 MG PO QPM Insulin Glargine (Toujeo Solostar), 110 UNITS SQ QPM Insulin Lispro (Human) (Humalog), 30 UNITS SQ TIDM Lisinopril (Prinivil), 5 MG PO QPM Lovastatin (Mevacor), 20 MG PO QPM Montelukast Sodium (Singulair), 10 MG PO QPM Ondasetron Odt (Zofran Odt), 4 MG SL Q6H Perphenazine (Trilafon), 40 MG PO QPM Perphenazine (Trilafon), 20 MG PO QAM Scheduled PRN Oxycodone Ir (Roxicodone Ir), 1-2 TAB PO Q4H PRN for Pain Allergies Coded Allergies: Clozapine (Verified Allergy, Unknown, 07/28/09) Sulfa Drugs (Verified Allergy, Unknown, 07/28/09) Sulfamethoxazole (Verified Allergy, Unknown, 07/28/09) Replaces SULFAMETHOXAZ Trimethoprim (Verified Allergy, Unknown, 07/28/09) Replaces SULFAMETHOXAZ Physical Exam Vital Signs Date Time Temp Pulse Resp B/P (MAP) Pulse Ox O2 Delivery O2 Flow Rate FiO2 05/03/17 02:38 79 18 137/90 96 Room Air 05/03/17 01:00 72 18 138/79 98 Room Air 05/02/17 23:25 36.9 91 20 139/91 98 Room Air Physical Exam GENERAL: Awake, alert, well-appearing, in no distress HENT: Normocephalic, atraumatic. Oropharynx unremarkable. EYES: Normal conjunctiva. Sclera non-icteric. NECK: Supple. No nuchal rigidity. FROM. No JVD. RESPIRATORY: Clear to auscultation. CARDIAC: Regular rate, normal rhythm. Extremities warm and well perfused. Pulses equal. ABDOMEN: Soft, non-distended. RUQ tenderness to palpation. No rebound or guarding. No masses. RECTAL: Deferred. MUSCULOSKELETAL: Chest examination reveals no tenderness. The back is symmetrical on inspection without obvious abnormality. There is no CVA tenderness to palpation. No joint edema. LOWER EXTREMITIES: Calves are equal size bilaterally and non-tender. No edema. No discoloration. NEURO: Normal sensorium. No sensory or motor deficits noted. SKIN: No rash or jaundice noted. Medical Decision & Procedures ER Provider Diagnostic Interpretation: Radiology results as stated below per my review and radiologist interpretation: US RUQ: Comparison: CT abdomen pelvis October 10, 2016 Impression: 1. Gallbladder sludge. No sonographic evidence of cholecystitis. 2. Mildly enlarged fatty liver. Comment: No right hydronephrosis. Gallbladder wall is normal thickness. The common bile duct is normal in size, 4 mm. Pancreas not well visualized. Radiologist: Selin Suggs M.D. Laboratory Results 05/02/17 23:40 Red Blood Count 5.31, Mean Corpuscular Volume 87.8, Mean Corpuscular Hemoglobin 31.1, Mean Corpuscular Hemoglobin Concent 35.4, Mean Platelet Volume 11.0, Neutrophils (%) (Auto) 52.1, Lymphocytes (%) (Auto) 36.0, Monocytes (%) (Auto) 7.9, Eosinophils (%) (Auto) 2.5, Basophils (%) (Auto) 1.2, Neutrophils # (Auto) 3.48, Lymphocytes # (Auto) 2.41, Monocytes # (Auto) 0.53, Eosinophils # (Auto) 0.17, Basophils # (Auto) 0.08 05/02/17 23:40 Test 05/02/17 23:40 White Blood Count 6.69 K/uL (4.8-10.8) Red Blood Count 5.31 M/uL (4.7-6.1) Hemoglobin 16.5 g/dL (14.0-18.0) Hematocrit 46.6 % (42-52) Mean Corpuscular Volume 87.8 fL (80-100) Mean Corpuscular Hemoglobin 31.1 pg (25-34) Mean Corpuscular Hemoglobin Concent 35.4 g/dl (32-36) Platelet Count 140 K/uL (130-400) Mean Platelet Volume 11.0 fL (7.4-10.4) Neutrophils (%) (Auto) 52.1 % Lymphocytes (%) (Auto) 36.0 % Monocytes (%) (Auto) 7.9 % Eosinophils (%) (Auto) 2.5 % Basophils (%) (Auto) 1.2 % Neutrophils # (Auto) 3.48 K/uL (1.4-6.5) Lymphocytes # (Auto) 2.41 K/uL (1.2-3.4) Monocytes # (Auto) 0.53 K/uL (0.11-0.59) Eosinophils # (Auto) 0.17 K/uL (0-0.5) Basophils # (Auto) 0.08 K/uL (0-0.2) RDW Standard Deviation 39.8 fL (36.4-46.3) RDW Coefficient of Variation 12.4 % (11.5-14.5) Immature Granulocyte % (Auto) 0.3 % Immature Granulocyte # (Auto) 0.02 K/uL (0.00-0.02) Urine Color YELLOW Urine Appearance CLEAR (CLEAR) Urine pH 6.5 (4.5-7.5) Urine Specific [place] 1.031 (1.000-1.030) Urine Protein NEG (NEG) Urine Glucose (UA) 3+ (NEG) Urine Ketones TRACE (NEG) Urine Occult Blood NEG (NEG) Urine Nitrite NEG (NEG) Urine Bilirubin NEG (NEG) Urine Urobilinogen NEG (NEG) Urine Leukocyte Esterase NEG (NEG) Anion Gap 7.0 mmol/L (3-11) Est Creatinine Clear Calc Drug Dose 196.6 ml/min Estimated GFR () 144.9 Estimated GFR (Non- 125.0 BUN/Creatinine Ratio 11.7 (10-20) Calcium Level 9.1 mg/dl (8.5-10.1) Total Bilirubin 0.5 mg/dl (0.2-1) Direct Bilirubin 0.1 mg/dl (0-0.2) Aspartate Amino Transf (AST/SGOT) 53 U/L (15-37) Alanine Aminotransferase (ALT/SGPT) 97 U/L (12-78) Alkaline Phosphatase 99 U/L (45-117) Total Protein 8.0 gm/dl (6.4-8.2) Albumin 4.1 gm/dl (3.4-5.0) Lipase 117 U/L (73-393) Laboratory results reviewed by me Medications Administered Medications (Trade) Dose Ordered Sig/Rito Route Start Time Stop Time Status Last Admin Dose Admin Ondansetron HCl (Zofran 8mg Iv) 8 mg NOW STAT IV 05/02/17 23:44 05/02/17 23:46 DC 05/03/17 00:44 8 MG Sodium Chloride 1,000 ml @ 999 mls/hr Q1H1M STAT IV 05/02/17 23:44 05/03/17 00:44 DC 05/02/17 23:59 999 MLS/HR Famotidine (Pepcid 20mg Iv Push) 20 mg ONE STAT IV 05/02/17 23:44 05/02/17 23:46 DC 05/02/17 23:57 20 MG Hydromorphone HCl (Dilaudid Inj) 0.5 mg NOW STAT IV 05/02/17 23:48 05/02/17 23:49 DC 05/02/17 23:58 0.5 MG Hydromorphone HCl (Dilaudid Inj) 0.5 mg NOW STAT IV 05/03/17 01:43 05/03/17 01:44 DC 05/03/17 01:56 0.5 MG Oxycodone HCl (Roxicodone Immediate Rel 5MG Home Pack) 1 homepack UD ONCE PO 05/03/17 02:30 05/03/17 02:31 DC 05/03/17 02:44 1 HOMEPACK Ondansetron HCl (ZOFRAN ODT 4MG Home Pack) 1 homepack UD ONCE PO 05/03/17 02:30 05/03/17 02:31 DC 05/03/17 02:44 1 HOMEPACK ED Course 2342: The patient was evaluated in room A11. A complete history and physical exam was performed. 2344: Famotidine 20 mg IV, NSS 1000 ml @ 999 mls/hr IV, Zofran 8 mg IV. 2348: Dilaudid 0.5 mg IV. 0143: Dilaudid 0.5 mg IV. 0213: I reevaluated the patient. He is feeling much better. I discussed his results and discharge instructions and he verbalized complete understanding and agreement. 0230: Zofran 4 mg 1 homepack PO, Oxycodone 5 mg 1 homepack PO. Medical Decision Triage Nursing notes reviewed. The patient's presentation and history were concerning for RUQ abdominal pain. Patient has history of prior appendectomy. Etiologies such as PUD, biliary pathology, Madina-Gregg tear, gastritis, Diverticulitis, obstruction, inflammatory bowel disease, renal colic, pancreatitis, mesenteric ischemia, aortic pathology, infections, genitourinary, UTI, perforated viscus, as well as others were entertained. patient was evaluated. He did not have any peritoneal findings on examination. Hip tenderness in the right upper quadrant. The patient was given Zofran and Dilaudid for symptom control. He was also given IV Pepcid. The patient had unremarkable CBC. Chemistry panel revealed minimal elevation of LFTs which are slightly more prominent than prior. The patient underwent ultrasound imaging. This revealed sludge in the gallbladder but no signs of cholecystitis. Fatty liver noted. A biliary source for the pain is likely. The patient most likely experienced a gastritis or Madina-Gregg tear given the small amounts of blood mixed with vomit. The patient received a second dose of Dilaudid 0.5 mg. On reassessment he was feeling much better. I discussed treatment options with the patient and family. Since he is doing very well I believe a small amount pain medication and nausea medication at home should hopefully keep him comfortable and allow time for follow-up with general surgery. The patient and family felt comfortable. If he worsens he will come back to emergency department immediately. I gave my usual and customary discussion regarding this issue. By the evaluation outlined above other emergent etiologies such as those listed in the differential, as well as others, were deemed relatively unlikely. The patient was educated about the findings as listed above. All questions were answered and the patient was pleased with the treatment. Return instructions were outlined and the patient was discharged in stable condition. The patient was referred to surgery for follow-up for a recheck of the current condition. Medication Reconcilliation Current Medication List: was personally reviewed by me Blood Pressure Screening Patient's blood pressure: Normal blood pressure Blood pressure disposition: Did not require urgent referral Impression Primary Impression: RUQ abdominal pain Scribe Attestation The scribe's documentation has been prepared under my direction and personally reviewed by me in its entirety. I confirm that the note above accurately reflects all work, treatment, procedures, and medical decision making performed by me. Departure Information Dispostion Home / Self-Care Prescriptions Oxycodone Ir (Roxicodone Ir) 5 Mg Tab 1-2 TAB PO Q4H Y for Pain, #8 TAB Prov: Sam Coleman MD 05/03/17 Ondasetron Odt (ZOFRAN ODT) 4 Mg Tab 4 MG SL Q6H for Nausea, #6 TAB Prov: Sam Coleman MD 05/03/17 Referrals Brenna Krueger (PCP) Patient Instructions My [facility] Additional Instructions ABDOMINAL PAIN INSTRUCTIONS: DO NOT drive, drink alcohol, operate machinery, or perform dangerous activities today. You were given medications in the ER that can affect your ability to safely function or operate a vehicle. Oxycodone (OxyIR) 5mg: Take 1-2 pills every four hours for breakthrough pain. Avoid alcohol, operating machinery or dangerous equipment, working on ladders or roofs, DRIVING, or situations where being under the influence may be dangerous. It is recommended to use an [id number] stool softener such as Colace, 100mg twice daily while taking this medication to avoid constipation. Avoid Tylenol and ibuprofen as discussed. Taken [id number] Zantac twice daily for the next 7 days. Zofran 4 mg oral dissolving tablets: take one tablet and allow it to melt in your mouth every 4 hours as needed for nausea. Rest and drink plenty of fluids as tolerated. Slow sips of water or sports drinks are recommended instead of large amounts all at once. Continue current medications. Once your stomach is settled start with a clear liquid diet (jello, soup broth, etc.) and then advance as tolerated. You should avoid full, heavy meals for about 24 hrs from the time your symptoms resolved. Return to the ER immediately for worsening or persistent abdominal pain, vomiting, fevers, chest pains, difficulty breathing, black or bloody stools, worsening of your condition, or as needed. Follow up with [facility] general surgery for a recheck of your current condition. Call the office on Friday. The number is listed below under Dr. Avina.
--- NOTE | 2017-05-03 06:06 | DIAGNOSTIC IMAGING REPORT ---
GALLBLADDER-ABD LIMITED CLINICAL HISTORY: 31 years-old Male presenting with RUQ abd pain. TECHNIQUE: Real-time grayscale and limited color Doppler ultrasound imaging of the abdomen limited to the right upper quadrant was performed. COMPARISON: CT from 10/10/2016. FINDINGS: Pancreas: Largely obscured due to overlying bowel gas. Liver: Moderately hyperechogenic parenchyma with partial obscuration of the right hemidiaphragm, likely indicating moderate steatosis. The liver measures 19.4 cm in maximal sagittal dimension. No sonographic evidence of hepatic mass. Main portal vein patent with normal directional flow. Biliary: No intrahepatic biliary ductal dilatation. Common bile duct measures up to 4 mm in diameter. Gallbladder: Gallbladder sludge. Otherwise no evidence of gallstones, gallbladder wall thickening, gallbladder distention, or pericholecystic fluid or inflammatory change. Right kidney: Normal in appearance. No hydronephrosis. Ascites: None. IMPRESSION: 1. Moderate hepatic steatosis. Correlate with liver enzymes to exclude steatohepatitis as a cause for abdominal pain. 2. Gallbladder sludge. No cholelithiasis or biliary ductal dilatation. Electronically signed by: Esvin Burns M.D. 05/03/2017 6:05 AM Dictated Date/Time: 05/03/2017 6:03 AM
== END 2017-05-03 02:54 | disposition home or self-care (01) ==
LOC: C.EDB 23:18 → C.EDA 05-03 02:54
DX: R10.11 Right upper quadrant pain (principal); I10 Essential (primary) hypertension; E11.9 Type 2 diabetes mellitus without complications; J45.909 Unspecified asthma, uncomplicated; F32.9 Major depressive disorder, single episode, unspecified; F20.0 Paranoid schizophrenia; Z87.442 Personal history of urinary calculi; Z98.890 Other specified postprocedural states; Z79.4 Long term (current) use of insulin; Z79.899 Other long term (current) drug therapy; Z88.2 Allergy status to sulfonamides; Z88.8 Allergy status to other drugs, medicaments and biological substances; Z83.3 Family history of diabetes mellitus; Z82.49 Family history of ischemic heart disease and other diseases of the circulatory system; Z84.1 Family history of disorders of kidney and ureter

== ENCOUNTER 2017-05-04 12:44 | Inpatient (IN) | payer OTHER ==
[~2017-05-04] VITALS: Ht 182.9 cm; Wt 113.1 kg
[~2017-05-04 12:44] MED LIST changes: -FLUO20CA35 PO; +FLUO40CA8 PO; +LOVA20TA4 PO; -METF-384 PO; +ONDA4TAB10 SL; +OXYC1TAB3 PO
[2017-05-04] MEDS ORDERED: HYDROmorphone INJ 1 MG/ML SYR IV STA (13:00)
[2017-05-04] MEDS ORDERED: ONDANSETRON INJ 2 MG/ML 2 ML VIAL IV STA (13:00)
[2017-05-04 13:13] LABS: BASO % 1.8 %; BASO ABS # 0.11 K/uL (0-0.2); COMPLETE YES; EOS % 2.4 %; IG% 0.3 %; LYMPH % 31.1 %; LYMPH ABS # 1.91 K/uL (1.2-3.4); MEAN CELL VOLUME 88.5 fL (80-100); MEAN CORPUSCULAR HEMOGLOBIN 30.9 pg (25-34); MEAN CORPUSCULAR HGB CONC 34.9 g/dl (32-36); MEAN PLATELET VOLUME 10.4 fL (7.4-10.4); MONO % 7.8 %; NEUT % 56.6 %; PLATELET COUNT 135 K/uL (130-400); RED BLOOD COUNT 5.31 M/uL (4.7-6.1); WHITE BLOOD COUNT 6.15 K/uL (4.8-10.8)
[2017-05-04 13:42] LABS: CALCIUM 8.7 mg/dl (8.5-10.1); CREATININE 0.68 mg/dl (0.60-1.40); POTASSIUM 4.2 mmol/L (3.5-5.1)
[2017-05-04 14:31] LABS: URINE APPEARANCE CLEAR (CLEAR); URINE BILIRUBIN NEG (NEG); URINE COLOR YELLOW; URINE NITRITE NEG (NEG); URINE PH 6.5 (4.5-7.5); URINE SPECIFIC GRAVITY 1.016 (1.000-1.030); UROBILINOGEN NEG (NEG); ZZUR CULT IF INDIC CLEAN CATCH NO
[2017-05-04 14:33] LABS: MANUAL MICROSCOPIC REQUIRED? NO; REVIEW REQ? NO
[2017-05-04] MEDS ORDERED: HYDROmorphone INJ 0.5 MG/0.5 ML SYR IV STA (14:51)
--- NOTE | 2017-05-04 16:02 | DIAGNOSTIC IMAGING REPORT ---
GALLBLADDER-ABD LIMITED HISTORY: 31 years-old Male RUQ pain acute right upper quadrant abdominal pain COMPARISON: Right upper quadrant ultrasound 05/03/2017 TECHNIQUE: Multiple real-time sonographic images of the abdominal right upper quadrant were obtained assessing grayscale appearance and color flow FINDINGS: Pancreas is mostly obscured by bowel gas. The imaged portions of the pancreas are unremarkable. Increased echogenicity of the hepatic parenchyma is again seen without focal mass measuring up to 20 cm in length. No intrahepatic biliary ductal dilation. Common bile duct is normal, 5 mm. Layering sludge is again seen within the gallbladder lumen without shadowing cholelithiasis, pericholecystic fluid or gallbladder wall thickening. Imaged right kidney is unremarkable without hydronephrosis. IMPRESSION: 1. Layering gallbladder sludge without cholelithiasis or sonographic evidence of acute cholecystitis. 2. Fatty infiltration of the liver. 3. No biliary ductal dilation. The above report was generated using voice recognition software. It may contain grammatical, syntax or spelling errors. Electronically signed by: Paras Barron M.D. 05/04/2017 4:01 PM Dictated Date/Time: 05/04/2017 3:59 PM
[2017-05-04] MEDS ORDERED: SODIUM CHLORIDE 0.9% 1000ML 1,000 ML IV STA (17:53)
[2017-05-04] MEDS ORDERED: SODIUM CHLORIDE 0.9% 1000ML 1,000 ML IV ONE (18:00)
--- NOTE | 2017-05-04 18:42 | History and Physical ---
History & Physical Date & Time of Service: May 04, 2017 at 18:26 Chief Complaint: Rt Upper Quad Pain,Vomiting Primary Care Physician: Brenna Krueger History of Present Illness Source: patient, family (mother) 31yo male with T1.5DM and paranoid schizophrenia who presents with 5-6 days of RUQ abdominal pain. Initially his pain was intermittent but on Friday the pain became more severe and constant. The pain on Friday started about 1 hour after eating Mac[employer]cheese. He was seen in the ER at [facility] on Friday and diagnosed with gall bladder sludge. He was treated with anti-emetics & pain meds and discharged home; surgical follow-up was recommended. Apparently he had had 1-2 episodes of a small amount of hematemesis prior to that ER visit. He has had none since. On Friday he had ongoing RUQ pain along with nausea/emesis with trying "to eat anything." Then, this am following breakfast, he again had RUQ pain with vomiting and thus came to the ER for evaluation. The patient reports having taken his Toujeo last evening and had 30 units of humalog this AM with breakfast. No insulin since that time. Denies any fevers, chills, radiation of the pain, diarrhea, or sweats. Denies heartburn symptoms. Past Medical/Surgical History PMH: 1. Type "1.5" DM - followed by [facility] 2. intermittent, mild asthma 3. HTN 4. fatty liver 5. hyperlipidemia 6. paranoid schizophrenia 7. fibromyalgia PSH: appendectomy Family History Diabetes mellitus FH: heart disease Hypertension Kidney stones Social History Smoking Status: Never Smoker Smokeless Tobacco Use: No Alcohol Use: occasionally (beer or wine) Drug Use: none Marital Status: single Housing status: lives with family (mom - in [place]) Occupational Status: unemployed Multi-Drug Resistant Organisms History of MDRO: No Allergies Coded Allergies: Clozapine (Verified Allergy, Unknown, 05/04/17) Sulfa Drugs (Verified Allergy, Unknown, 05/04/17) Sulfamethoxazole (Verified Allergy, Unknown, 05/04/17) Replaces SULFAMETHOXAZ Trimethoprim (Verified Allergy, Unknown, 05/04/17) Replaces SULFAMETHOXAZ Home Medications Scheduled Benztropine Mesylate (Cogentin), 2 MG PO QPM Fluoxetine (Prozac), 40 MG PO QPM Insulin Glargine (Toujeo Solostar), 110 UNITS SQ QPM Insulin Lispro (Human) (Humalog), 30 UNITS SQ TIDM Lisinopril (Prinivil), 5 MG PO QPM Lovastatin (Mevacor), 20 MG PO QPM Montelukast Sodium (Singulair), 10 MG PO QPM Ondasetron Odt (Zofran Odt), 4 MG SL Q6H Perphenazine (Trilafon), 40 MG PO QPM Perphenazine (Trilafon), 20 MG PO QAM Scheduled PRN Oxycodone Ir (Roxicodone Ir), 1-2 TAB PO Q4H PRN for Pain Review of Systems Constitutional: No fever, No chills, No weight loss Eyes: No worsening of vision ENT: + sore throat, No nasal symptoms Respiratory: No cough, No shortness of breath, No dyspnea on exertion Cardiovascular: No chest pain Abdomen: + pain, + nausea, + vomiting, + GI bleeding (hematemesis on Friday 2x , none since ), No diarrhea Genitourinary - Male: No dysuria Neurologic: No weakness Psychiatric: No depression symptoms Endocrine: No excessive urination Hematologic / Lymphatic: No abnormal bleeding/bruising Integumentary: No rash Physical Exam Vital Signs Date Time Temp Pulse Resp B/P (MAP) Pulse Ox O2 Delivery O2 Flow Rate FiO2 05/04/17 17:27 64 16 136/80 94 Room Air 05/04/17 15:55 68 18 122/67 96 Room Air 05/04/17 13:58 72 18 136/71 94 Room Air 05/04/17 12:51 36.9 87 15 142/94 96 Room Air General Appearance: no apparent distress, + obese Head: normocephalic, atraumatic Eyes: normal inspection, PERRL ENT: hearing grossly normal, TMs normal, + pharyngeal erythema Neck: supple, no adenopathy, no JVD Respiratory/Chest: lungs clear, no respiratory distress, no accessory muscle use Cardiovascular: regular rate, rhythm, no gallop, no murmur, normal peripheral pulses Abdomen/GI: normal bowel sounds, soft, no organomegaly, + tenderness (RUQ) Back: normal inspection Extremities/Musculoskelatal: no pedal edema 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: no motor/sensory deficits, alert, oriented x 3, + pertinent finding (flat affect) Skin: + pertinent finding (no jaundice; seborrhea on face) Lymphatic: no adenopathy (cervical ) Diagnostics Laboratory Results Results Past 24 Hours Test 05/04/17 13:00 05/04/17 13:10 Range/Units White Blood Count 6.15 4.8-10.8 K/uL Red Blood Count 5.31 4.7-6.1 M/uL Hemoglobin 16.4 14.0-18.0 g/dL Hematocrit 47.0 42-52 % Mean Corpuscular Volume 88.5 80-100 fL Mean Corpuscular Hemoglobin 30.9 25-34 pg Mean Corpuscular Hemoglobin Concent 34.9 32-36 g/dl Platelet Count 135 130-400 K/uL Mean Platelet Volume 10.4 7.4-10.4 fL Neutrophils (%) (Auto) 56.6 % Lymphocytes (%) (Auto) 31.1 % Monocytes (%) (Auto) 7.8 % Eosinophils (%) (Auto) 2.4 % Basophils (%) (Auto) 1.8 % Neutrophils # (Auto) 3.48 1.4-6.5 K/uL Lymphocytes # (Auto) 1.91 1.2-3.4 K/uL Monocytes # (Auto) 0.48 0.11-0.59 K/uL Eosinophils # (Auto) 0.15 0-0.5 K/uL Basophils # (Auto) 0.11 0-0.2 K/uL RDW Standard Deviation 40.9 36.4-46.3 fL RDW Coefficient of Variation 12.8 11.5-14.5 % Immature Granulocyte % (Auto) 0.3 % Immature Granulocyte # (Auto) 0.02 0.00-0.02 K/uL Sodium Level 139 136-145 mmol/L Potassium Level 4.2 3.5-5.1 mmol/L Chloride Level 103 98-107 mmol/L Carbon Dioxide Level 27 21-32 mmol/L Anion Gap 9.0 3-11 mmol/L Blood Urea Nitrogen 8 7-18 mg/dl Creatinine 0.68 0.60-1.40 mg/dl Est Creatinine Clear Calc Drug Dose 204.4 ml/min Estimated GFR () 147.5 Estimated GFR (Non- 127.3 BUN/Creatinine Ratio 12.0 10-20 Random Glucose 141 70-99 mg/dl Calcium Level 8.7 8.5-10.1 mg/dl Total Bilirubin 0.8 0.2-1 mg/dl Aspartate Amino Transf (AST/SGOT) 97 15-37 U/L Alanine Aminotransferase (ALT/SGPT) 136 12-78 U/L Alkaline Phosphatase 100 45-117 U/L Total Protein 7.7 6.4-8.2 gm/dl Albumin 3.9 3.4-5.0 gm/dl Globulin 3.8 2.5-4.0 gm/dl Albumin/Globulin Ratio 1.0 0.9-2 Lipase 146 73-393 U/L Urine Color YELLOW Urine Appearance CLEAR CLEAR Urine pH 6.5 4.5-7.5 Urine Specific [place] 1.016 1.000-1.030 Urine Protein NEG NEG Urine Glucose (UA) NEG NEG Urine Ketones NEG NEG Urine Occult Blood NEG NEG Urine Nitrite NEG NEG Urine Bilirubin NEG NEG Urine Urobilinogen NEG NEG Urine Leukocyte Esterase NEG NEG Diagnostic Radiology RUQ ultrasound: IMPRESSION: 1. Layering gallbladder sludge without cholelithiasis or sonographic evidence of acute cholecystitis. 2. Fatty infiltration of the liver. 3. No biliary ductal dilation. Impression Assessment and Plan 31yo male with T1.5DM and paranoid schizophrenia presenting with recurrent episodes of RUQ abdominal pain, nausea, and vomiting. He apparently had had 2 small episodes of hematemesis on Friday evening but none since. 1. RUQ abdominal pain - suspicious for biliary colic given the gall bladder sludge on ultrasound, his symptoms, and exam findings. No signs of acute cholecystitis, however. Alternatively he could have PUD, gastritis, esophagitis, and/or mesfin-lisa tear from his vomiting. This is felt to be less likely. Plan - * clear liquids until midnight, then NPO after midnight for HIDA with EF in AM * in the event he has a brewing acute cholecystitis will place on cipro/flagyl * IV PPI for any possible upper GI issue * general surgery consult for the AM * serial labs and LFTs * IVF and IV pain meds prn * IV anti-emetics 2. abnormal transaminases - this is chronic and likely due to his fatty liver. Will recheck LFTs in AM. 3. T1.5DM - he needs to be continued on his basal insulin as he could develop DKA without basal coverage. Since he will be NPO after MN will give HALF of his usual Toujeo; thus, lantus 50 units at HS tonight. Novolog for supplemental coverage with correction factor of 10. BSG ac/hs and at 0200. 4. HTN - continue low-dose KATIA. 5. DVT proph - SCDs for now. 6. abdominal pain, recent hematemesis - place on IV PPI for now. If gall bladder w/u is negative then obtain GI consultation for consideration of EGD. 7. paranoid schizophrenia - continue all home meds. 8. hyperlipidemia - hold statin for now. 9. FEN - clears until MN, then NPO for HIDA tomorrow AM. NS w/ KCL at 150cc/ hr. Repeat lytes/mag in AM. Level of Care Med/Surg Resuscitation Status FULL RESUSCITATION VTE Prophylaxis VTE Risk Assessment Done? Y/N: Yes Risk Level: Low Given or contraindicated: SCD's Social Service Consult None Apply Note patient placed on observation status time: 60 minutes Additional Copies To Brenna Krueger
[2017-05-04] MEDS ORDERED: CIPROFLOXACIN 400MG / 200ML D5W IV STA (18:58)
[2017-05-04] MEDS ORDERED: METRONIDAZOLE 500MG / 100ML NSS IV STA (18:58)
[2017-05-04] MEDS ORDERED: ONDANSETRON INJ 2 MG/ML 2 ML VIAL IV PRN (19:00)
[2017-05-04] MEDS ORDERED: IV FLUIDS COMPLETED PRN (19:00)
[2017-05-04 19:29] VITALS: O2SAT 98
[2017-05-04 20:10] VITALS: BP 131/80; PULSE 67; TEMP 36.8; O2SAT 96
[2017-05-04 20:33] VITALS: BP 131/80; PULSE 67; TEMP 36.8; Ht 182.9 cm; Wt 113.1 kg
[2017-05-04] MEDS ORDERED: PANTOprazole INJ 40 MG in SYRINGE 0 ML IV ONE (21:00)
[2017-05-04] MEDS ORDERED: INSULIN ASPART 100 UNITS/ML 3 ML PEN SC SCH (21:00)
--- NOTE | 2017-05-04 21:11 | EMERGENCY ROOM VISIT NOTE ---
History First contact with patient: 12:56 Chief Complaint: ABDOMINAL PAIN Stated Complaint: RUQ ABDOMINAL PAIN Nursing Triage Summary: Here friday with RUQ pain and vomiting. Put on oxycodone and sent home on clear liquid diet. No improvement. Sludge in gallbladder. Pt continues to have RUQ abd pain. Vomiting. History of Present Illness The patient is a 31 year old male who presents to the Emergency Room via private vehicle accompanied by mother with complaints of "right upper quadrant abdominal pain. Patient states that he was seen here on Friday right upper quadrant abdominal pain which he has had over the past few days. He states that he began with vomiting on Friday. He has tried a clear liquid diet with increasing right upper quadrant abdominal pain. There is been no fever, chills , chest pain or shortness of breath. He rates his pain as a 6/10. He is concerned he may be dehydrated. Review of Systems A complete 10-point Review of Systems was discussed with the patient, with pertinent positives and negatives listed in the History of Present Illness. All remaining Review of Systems questions can be considered negative unless otherwise specified. Past Medical/Surgical History Medical Problems: (1) Acute appendicitis (2) Asthma (3) Asthma, Unspecified (4) Chest pain radiating to arm (5) Depressive Disorder Nec (6) Diabetes (7) Hypertension (8) Hypertension Nos (9) Kidney stones (10) Knee pain (11) Paranoid schizophrenia (12) Pneumonia (13) Pneumonia, Organism Nos (14) Precordial chest pain (15) Right shoulder pain (16) RUQ abdominal pain (17) Schizoaffective Disorder, Unspecified Surgical Problems: (1) S/P appendectomy Family History Diabetes mellitus FH: heart disease Hypertension Kidney stones Social History Smoking Status: Never Smoker Smokeless Tobacco Use: No Alcohol Use: none Drug Use: none Marital Status: single Housing Status: lives with family Occupation Status: unemployed Current/Historical Medications Scheduled Benztropine Mesylate (Cogentin), 2 MG PO QPM Fluoxetine (Prozac), 40 MG PO QPM Insulin Glargine (Toujeo Solostar), 110 UNITS SQ QPM Insulin Lispro (Human) (Humalog), 30 UNITS SQ TIDM Lisinopril (Prinivil), 5 MG PO QPM Lovastatin (Mevacor), 20 MG PO QPM Montelukast Sodium (Singulair), 10 MG PO QPM Ondasetron Odt (Zofran Odt), 4 MG SL Q6H Perphenazine (Trilafon), 40 MG PO QPM Perphenazine (Trilafon), 20 MG PO QAM Scheduled PRN Oxycodone Ir (Roxicodone Ir), 1-2 TAB PO Q4H PRN for Pain Allergies Coded Allergies: Clozapine (Verified Allergy, Unknown, 05/04/17) Sulfa Drugs (Verified Allergy, Unknown, 05/04/17) Sulfamethoxazole (Verified Allergy, Unknown, 05/04/17) Replaces SULFAMETHOXAZ Trimethoprim (Verified Allergy, Unknown, 05/04/17) Replaces SULFAMETHOXAZ Physical Exam Vital Signs Date Time Temp Pulse Resp B/P (MAP) Pulse Ox O2 Delivery O2 Flow Rate FiO2 05/04/17 17:27 64 16 136/80 94 Room Air 05/04/17 15:55 68 18 122/67 96 Room Air 05/04/17 13:58 72 18 136/71 94 Room Air 05/04/17 12:51 36.9 87 15 142/94 96 Room Air Physical Exam VITAL SIGNS - Vital signs and nursing notes were reviewed. Stable. Hypertensive. GENERAL - 31-year-old male appearing his stated age who is in no acute distress. Communicates well with provider and answers questions appropriately. SKIN - Without rashes. HEAD - NC/AT. EYES - Sclera anicteric. EARS - No deformities of external structures noted on gross examination bilaterally. NOSE - Midline and without cyanosis. No epistaxis or purulent drainage noted. MOUTH/OROPHARYNX - Without perioral cyanosis. LUNGS - Chest wall symmetric without accessory muscle use, intercostals retractions, or central cyanosis. Normal vesicular breath sounds CTA B/L. No wheezes, rales, or rhonchi appreciated. CARDIAC - RRR with S1/S2. No murmur, rubs, or gallops appreciated. ABDOMEN - Abdominal contour normal without pulsations or visible masses. BS normoactive all four quadrants. There is RUQ abdominal tenderness. - MURPHYS sign. No palpable masses, hepatosplenomegaly, or ascites noted. EXTREMITIES - No clubbing or peripheral cyanosis. No pretibial edema present. Medical Decision & Procedures ER Provider Diagnostic Interpretation: [~ rep ct add3]] GALLBLADDER-ABD LIMITED HISTORY: 31 years-old Male RUQ pain acute right upper quadrant abdominal pain COMPARISON: Right upper quadrant ultrasound 05/03/2017 TECHNIQUE: Multiple real-time sonographic images of the abdominal right upper quadrant were obtained assessing grayscale appearance and color flow FINDINGS: Pancreas is mostly obscured by bowel gas. The imaged portions of the pancreas are unremarkable. Increased echogenicity of the hepatic parenchyma is again seen without focal mass measuring up to 20 cm in length. No intrahepatic biliary ductal dilation. Common bile duct is normal, 5 mm. Layering sludge is again seen within the gallbladder lumen without shadowing cholelithiasis, pericholecystic fluid or gallbladder wall thickening. Imaged right kidney is unremarkable without hydronephrosis. IMPRESSION: 1. Layering gallbladder sludge without cholelithiasis or sonographic evidence of acute cholecystitis. 2. Fatty infiltration of the liver. 3. No biliary ductal dilation. The above report was generated using voice recognition software. It may contain grammatical, syntax or spelling errors. Electronically signed by: Paras Barron M.D. 05/04/2017 4:01 PM Dictated Date/Time: 05/04/2017 3:59 PM Laboratory Results 05/04/17 13:00 Red Blood Count 5.31, Mean Corpuscular Volume 88.5, Mean Corpuscular Hemoglobin 30.9, Mean Corpuscular Hemoglobin Concent 34.9, Mean Platelet Volume 10.4, Neutrophils (%) (Auto) 56.6, Lymphocytes (%) (Auto) 31.1, Monocytes (%) (Auto) 7.8, Eosinophils (%) (Auto) 2.4, Basophils (%) (Auto) 1.8, Neutrophils # (Auto) 3.48, Lymphocytes # (Auto) 1.91, Monocytes # (Auto) 0.48, Eosinophils # (Auto) 0.15, Basophils # (Auto) 0.11 05/04/17 13:00 Test 05/04/17 13:00 05/04/17 13:10 White Blood Count 6.15 K/uL (4.8-10.8) Red Blood Count 5.31 M/uL (4.7-6.1) Hemoglobin 16.4 g/dL (14.0-18.0) Hematocrit 47.0 % (42-52) Mean Corpuscular Volume 88.5 fL (80-100) Mean Corpuscular Hemoglobin 30.9 pg (25-34) Mean Corpuscular Hemoglobin Concent 34.9 g/dl (32-36) Platelet Count 135 K/uL (130-400) Mean Platelet Volume 10.4 fL (7.4-10.4) Neutrophils (%) (Auto) 56.6 % Lymphocytes (%) (Auto) 31.1 % Monocytes (%) (Auto) 7.8 % Eosinophils (%) (Auto) 2.4 % Basophils (%) (Auto) 1.8 % Neutrophils # (Auto) 3.48 K/uL (1.4-6.5) Lymphocytes # (Auto) 1.91 K/uL (1.2-3.4) Monocytes # (Auto) 0.48 K/uL (0.11-0.59) Eosinophils # (Auto) 0.15 K/uL (0-0.5) Basophils # (Auto) 0.11 K/uL (0-0.2) RDW Standard Deviation 40.9 fL (36.4-46.3) RDW Coefficient of Variation 12.8 % (11.5-14.5) Immature Granulocyte % (Auto) 0.3 % Immature Granulocyte # (Auto) 0.02 K/uL (0.00-0.02) Anion Gap 9.0 mmol/L (3-11) Est Creatinine Clear Calc Drug Dose 204.4 ml/min Estimated GFR () 147.5 Estimated GFR (Non- 127.3 BUN/Creatinine Ratio 12.0 (10-20) Calcium Level 8.7 mg/dl (8.5-10.1) Total Bilirubin 0.8 mg/dl (0.2-1) Aspartate Amino Transf (AST/SGOT) 97 U/L (15-37) Alanine Aminotransferase (ALT/SGPT) 136 U/L (12-78) Alkaline Phosphatase 100 U/L (45-117) Total Protein 7.7 gm/dl (6.4-8.2) Albumin 3.9 gm/dl (3.4-5.0) Globulin 3.8 gm/dl (2.5-4.0) Albumin/Globulin Ratio 1.0 (0.9-2) Lipase 146 U/L (73-393) Urine Color YELLOW Urine Appearance CLEAR (CLEAR) Urine pH 6.5 (4.5-7.5) Urine Specific [place] 1.016 (1.000-1.030) Urine Protein NEG (NEG) Urine Glucose (UA) NEG (NEG) Urine Ketones NEG (NEG) Urine Occult Blood NEG (NEG) Urine Nitrite NEG (NEG) Urine Bilirubin NEG (NEG) Urine Urobilinogen NEG (NEG) Urine Leukocyte Esterase NEG (NEG) Medications Administered Medications (Trade) Dose Ordered Sig/Rito Route Start Time Stop Time Status Last Admin Dose Admin Hydromorphone HCl (Dilaudid Inj) 1 mg NOW STAT IV 05/04/17 13:00 05/04/17 13:03 DC 05/04/17 13:09 1 MG Ondansetron HCl (Zofran Inj) 4 mg NOW STAT IV 05/04/17 13:00 05/04/17 13:03 DC 05/04/17 13:09 4 MG Hydromorphone HCl (Dilaudid Inj) 1 mg NOW STAT IV 05/04/17 14:51 05/04/17 14:52 DC 05/04/17 15:36 1 MG Sodium Chloride 1,000 ml @ 999 mls/hr Q1H1M STAT IV 05/04/17 17:53 05/04/17 18:53 DC 05/04/17 17:53 999 MLS/HR Medical Decision Patient was seen and evaluated as above. He presents to us today with right upper quadrant abdominal pain, vomiting and inability to eat food or liquids. He was seen here 2 days ago. He was discharged home. He has worsened. He has now returned with persistent and worsening right upper quadrant abdominal pain. IV access was initiated, and the above workup was performed. I did consult the general surgeon secondary to the patient's presentation. Dr. Jerome and I discussed the case. He recommended repeat ultrasound and if negative then perhaps a HIDA scan. Ultrasound was repeated and found to be stable. I did believe it reasonable to obtain a HIDA but found that the patient cannot have this until nearly 4 hours after the discussion. Because of his presentation and do believe that other etiologies may also be contained and believe that he be doing best in the inpatient setting as his pain is now worsening his LFTs are now increasing. There is her only other etiologies, however after discussing the case with the attending physician decision was made to consult for potential admission. I spoke with the [facility] as well as Dr. Jerome in coordinating the patient's care. It was ultimately the [facility] who admitted the patient but appears surgical consultation will be had. There is no leukocytosis, concerning anemia or other metabolic abnormality. He was given Dilaudid for pain. He was given fluids through the IV for hydration. Please refer to further documentation regarding his stay. In evaluation and treatment of this patient the following differential diagnoses were entertained: Acute cholecystitis, PUD, liver failure, hepatic steatosis, among others. Impression Primary Impression: RUQ abdominal pain Departure Information Dispostion Still a Patient Condition FAIR Referrals Brenna Krueger (PCP) Forms Call Back Authorization, HOME CARE DOCUMENTATION FORM, IMPORTANT VISIT INFORMATION Patient Instructions My [facility]
[2017-05-04] MEDS ORDERED: GLUCOSE 10 TABS/TUBE PO PRN (21:15)
[2017-05-04] MEDS ORDERED: DEXTROSE 50% 50 ML SYR IV PRN (21:15)
[2017-05-04] MEDS ORDERED: GLUCAGON FOR INJ 1 MG VIAL SQ PRN (21:15)
[2017-05-04] MEDS ORDERED: GLUCOSE 40% GEL 15 GM TUBE PO PRN (21:15)
[2017-05-04] MEDS: NSS + 20MEQ KCL 1000ML 1,000 ML IV SCH (21:45)
[2017-05-04] MEDS: MoRPHine SULFATE 2 MG/ML CARP IV PRN (21:46)
[2017-05-04] MEDS: CIPROFLOXACIN / D5W 400 MG in PREMIXED IN D5W 200 ML IV SCH (21:47)
[2017-05-04] MEDS: BENZTROPINE MESYLATE 1 MG TAB PO SCH (21:48)
[2017-05-04] MEDS: MONTELUKAST SOD 10 MG TAB PO SCH (21:49)
[2017-05-04] MEDS: LISINOPRIL 5 MG TAB PO SCH (21:50)
[2017-05-04] MEDS: INSULIN GLARGINE SOLOSTAR 100 UNITS/ML 3 ML PEN SC SCH (22:08)
[2017-05-04] MEDS: FLUOXETINE HCL 20 MG CAP PO SCH (22:14)
[2017-05-04] MEDS: PERPHENAZINE 2 MG TAB PO SCH (22:15)
[2017-05-04] MEDS: METRONIDAZOLE / NSS 500 MG in PREMIXED NSS 100 ML IV SCH (22:18)
[2017-05-04 23:02] VITALS: BP 125/82; PULSE 63; TEMP 36.7; O2SAT 97
[2017-05-04] MEDS ORDERED: NURSING VERBAL MED ORDER ONE (23:30)
[2017-05-05] MEDS ORDERED: NURSING VERBAL MED ORDER ONE ×4 (00:15→23:15)
[2017-05-05] MEDS: MoRPHine SULFATE 2 MG/ML CARP IV PRN ×5 (01:19→21:59)
[2017-05-05] MEDS ORDERED: INSULIN ASPART 100 UNITS/ML 3 ML PEN SC SCH ×2 (02:00→17:15)
[2017-05-05] MEDS: NSS + 20MEQ KCL 1000ML 1,000 ML IV SCH ×3 (04:50→22:03)
[2017-05-05] MEDS: METRONIDAZOLE / NSS 500 MG in PREMIXED NSS 100 ML IV SCH (05:55)
[2017-05-05] MEDS: INSULIN ASPART 100 UNITS/ML 3 ML PEN SC SCH ×5 (06:00→21:24)
[2017-05-05 06:45] VITALS: BP 122/69; PULSE 68; TEMP 36.5; O2SAT 92
[2017-05-05 06:56] LABS: ALT/SGPT 98 U/L (12-78); AST/SGOT 62 U/L (15-37); BLOOD UREA NITROGEN 7 mg/dl (7-18); BUN/CREATININE RATIO 11.5 (10-20); CALCIUM 8.2 mg/dl (8.5-10.1); CARBON DIOXIDE 27 mmol/L (21-32); CHLORIDE 106 mmol/L (98-107); CREATININE 0.62 mg/dl (0.60-1.40); GLUCOSE 76 mg/dl (70-99); MAGNESIUM 2.1 mg/dl (1.8-2.4); POTASSIUM 3.8 mmol/L (3.5-5.1); SODIUM 141 mmol/L (136-145)
[2017-05-05 06:59] LABS: ALKALINE PHOSPHATASE 81 U/L (45-117)
--- NOTE | 2017-05-05 06:59 | Medical Consult ---
Consultation Date of Consultation: May 05, 2017. Attending Physician: Dennys Griffin MD Reason for Consultation: Abdominal pain History of Present Illness 31-year-old male admitted to the hospital yesterday with chief complaint of right-sided abdominal pain. It started on Friday, and it woke him up from sleep. He does not recall any pain after eating. He is seen in emergency department had a right upper quadrant ultrasound that showed some biliary sludge no evidence of cholecystitis. His labs were normal and he was discharged home. His pain continued and he re-presented to the emergency department. His labs were again normal except for some mild transaminitis. Bilirubin was normal. He had a repeat right upper quadrant ultrasound that again demonstrated biliary sludge, but no evidence of cholecystitis. I was contacted regarding continued workup for the patient I recommended HIDA scan, but the nuclear label dye was not available until this morning. The patient denies any nausea or vomiting, reports he is having normal bowel movements. He is never had pain like this before. Denies any history of postprandial pain. He is scheduled for a HIDA scan this morning. Past Medical/Surgical History Past medical history 1. DM 2. intermittent, mild asthma 3. HTN 4. fatty liver 5. hyperlipidemia 6. paranoid schizophrenia 7. fibromyalgia Past surgical history Lap appendectomy Family History Diabetes mellitus FH: heart disease Hypertension Kidney stones Social History Smoking Status: Never Smoker Smokeless Tobacco Use: No Alcohol Use: occasionally (beer or wine) Drug Use: none Marital Status: single Housing Status: lives with family Occupation Status: unemployed Allergies Coded Allergies: Clozapine (Verified Allergy, Unknown, 05/04/17) Sulfa Drugs (Verified Allergy, Unknown, 05/04/17) Sulfamethoxazole (Verified Allergy, Unknown, 05/04/17) Replaces SULFAMETHOXAZ Trimethoprim (Verified Allergy, Unknown, 05/04/17) Replaces SULFAMETHOXAZ Home Medications Active Roxicodone Ir (Oxycodone HCl) 5 Mg Tab 1-2 Tab PO Q4H PRN Zofran Odt (Ondansetron HCl) 4 Mg Tab 4 Mg SL Q6H Reported Mevacor (Lovastatin) 20 Mg Tab 20 Mg PO QPM Prozac (Fluoxetine HCl) 40 Mg Cap 40 Mg PO QPM Trilafon (Perphenazine) 8 Mg Tab 20 Mg PO QAM Trilafon (Perphenazine) 16 Mg Tab 40 Mg PO QPM Prinivil (Lisinopril) 5 Mg Tab 5 Mg PO QPM Toujeo Solostar (Insulin Glargine) 300 Unit/Ml Inj 110 Units SQ QPM Humalog (Insulin Lispro (Human)) 100 Unit/Ml Inj 30 Units SQ TIDM Singulair (Montelukast Sodium) 10 Mg Tab 10 Mg PO QPM Cogentin (Benztropine Mesylate) 1 Mg Tab 2 Mg PO QPM Current Inpatient Medications Current Inpatient Medications Medications (Trade) Dose Ordered Sig/Rito Route Start Time Stop Time Status Last Admin Dose Admin Miscellaneous (Iv Fluids Completed) 1 ea PRN PRN N/A 05/04/17 19:00 05/04/18 18:59 Ondansetron HCl (Zofran Inj) 4 mg Q6H PRN IV 05/04/17 19:00 06/03/17 18:59 05/04/17 21:45 4 MG Benztropine Mesylate (Cogentin Tab) 2 mg QPM PO 05/04/17 21:00 06/03/17 20:59 05/04/17 21:48 2 MG Fluoxetine HCl (Prozac Cap) 40 mg QPM PO 05/04/17 21:00 06/03/17 20:59 05/04/17 22:14 40 MG Lisinopril (Zestril Tab) 5 mg QPM PO 05/04/17 21:00 06/03/17 20:59 05/04/17 21:50 5 MG Montelukast Sodium (Singulair Tab) 10 mg QPM PO 05/04/17 21:00 06/03/17 20:59 05/04/17 21:49 10 MG Insulin Glargine (Lantus Solostar Pen) 50 units HS SC 05/04/17 21:00 06/03/17 20:59 05/04/17 22:08 50 UNITS Perphenazine (Trilafon Tab) 20 mg QAM PO 05/05/17 09:00 06/04/17 08:59 Perphenazine (Trilafon Tab) 40 mg HS PO 05/04/17 21:00 06/03/17 20:59 05/04/17 22:15 40 MG Morphine Sulfate (MoRPHine SULFATE INJ) 2 mg Q3H PRN IV 05/04/17 19:00 05/18/17 18:59 05/05/17 01:19 2 MG Potassium Chloride/Sodium Chloride 1,000 ml @ 150 mls/hr Q6H40M IV 05/04/17 21:00 06/03/17 20:59 05/05/17 04:50 150 MLS/HR Ciprofloxacin/ Dextrose 400 mg/ Prmx 200 ml @ 100 mls/hr Q12H IV 05/04/17 21:00 05/14/17 20:59 05/04/17 21:47 100 MLS/HR Metronidazole 500 mg/Prmx 100 ml @ 100 mls/hr Q8H IV 05/04/17 22:00 05/14/17 21:59 05/05/17 05:55 100 MLS/HR Pantoprazole Sodium 40 mg/ Syringe 10 ml @ 5 mls/min DAILY@11 IV 05/05/17 11:00 06/04/17 10:59 Glucose (Glucose 40% Gel) 15-30 GRAMS 15 GRAMS... UD PRN PO 05/04/17 21:15 06/03/17 21:14 Glucose (Glucose Chew Tab) 4-8 Tablets 4 Tabl... UD PRN PO 05/04/17 21:15 06/03/17 21:14 Dextrose (Dextrose 50% 50ML Syringe) 25-50ML OF 50% DW IV FOR... UD PRN IV 05/04/17 21:15 06/03/17 21:14 Glucagon (Glucagon Inj) 1 mg UD PRN SQ 05/04/17 21:15 06/03/17 21:14 Insulin Aspart (novoLOG ASPART) SLIDING SCALE G... Q6 SC 05/05/17 00:00 06/04/17 00:00 Review of Systems 10 point review of systems negative except as above Physical Exam Date Time Temp Pulse Resp B/P (MAP) Pulse Ox O2 Delivery O2 Flow Rate FiO2 05/05/17 06:45 36.5 68 18 122/69 (86) 92 Room Air 05/05/17 00:08 Room Air 05/04/17 23:02 36.7 63 16 125/82 (96) 97 Room Air 05/04/17 20:33 36.8 67 16 131/80 Room Air 05/04/17 20:10 36.8 67 18 131/80 (97) 96 Room Air 05/04/17 19:29 62 16 142/76 98 Room Air 05/04/17 17:27 64 16 136/80 94 Room Air 05/04/17 15:55 68 18 122/67 96 Room Air 05/04/17 13:58 72 18 136/71 94 Room Air 05/04/17 12:51 36.9 87 15 142/94 96 Room Air General Appearance: WD/WN, no apparent distress Head: normocephalic, atraumatic Eyes: normal inspection, PERRL ENT: normal ENT inspection, hearing grossly normal Neck: supple, no adenopathy Respiratory/Chest: chest non-tender, lungs clear, normal breath sounds, no respiratory distress Cardiovascular: regular rate, rhythm, no edema, no JVD, no murmur, normal peripheral pulses Abdomen/GI: normal bowel sounds, soft, no organomegaly, no pulsatile mass, + tenderness (mild tenderness to palpation in the right upper quadrant, negative Escoto sign) Back: normal inspection, no CVA tenderness Extremities/Musculoskelatal: normal inspection, no calf tenderness, normal capillary refill, no pedal edema 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: 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 II-XII nml as tested, alert, normal mood/affect, oriented x 3 Skin: normal color, warm/dry, no rash Lymphatic: no adenopathy Laboratory Results Last 24 Hours Test 05/04/17 13:00 05/04/17 13:10 05/04/17 18:45 05/04/17 21:24 White Blood Count 6.15 K/uL Red Blood Count 5.31 M/uL Hemoglobin 16.4 g/dL Hematocrit 47.0 % Mean Corpuscular Volume 88.5 fL Mean Corpuscular Hemoglobin 30.9 pg Mean Corpuscular Hemoglobin Concent 34.9 g/dl Platelet Count 135 K/uL Mean Platelet Volume 10.4 fL Neutrophils (%) (Auto) 56.6 % Lymphocytes (%) (Auto) 31.1 % Monocytes (%) (Auto) 7.8 % Eosinophils (%) (Auto) 2.4 % Basophils (%) (Auto) 1.8 % Neutrophils # (Auto) 3.48 K/uL Lymphocytes # (Auto) 1.91 K/uL Monocytes # (Auto) 0.48 K/uL Eosinophils # (Auto) 0.15 K/uL Basophils # (Auto) 0.11 K/uL RDW Standard Deviation 40.9 fL RDW Coefficient of Variation 12.8 % Immature Granulocyte % (Auto) 0.3 % Immature Granulocyte # (Auto) 0.02 K/uL Sodium Level 139 mmol/L Potassium Level 4.2 mmol/L Chloride Level 103 mmol/L Carbon Dioxide Level 27 mmol/L Anion Gap 9.0 mmol/L Blood Urea Nitrogen 8 mg/dl Creatinine 0.68 mg/dl Est Creatinine Clear Calc Drug Dose 204.4 ml/min Estimated GFR () 147.5 Estimated GFR (Non- 127.3 BUN/Creatinine Ratio 12.0 Random Glucose 141 mg/dl Calcium Level 8.7 mg/dl Total Bilirubin 0.8 mg/dl Aspartate Amino Transf (AST/SGOT) 97 U/L Alanine Aminotransferase (ALT/SGPT) 136 U/L Alkaline Phosphatase 100 U/L Total Protein 7.7 gm/dl Albumin 3.9 gm/dl Globulin 3.8 gm/dl Albumin/Globulin Ratio 1.0 Lipase 146 U/L Urine Color YELLOW Urine Appearance CLEAR Urine pH 6.5 Urine Specific [place] 1.016 Urine Protein NEG Urine Glucose (UA) NEG Urine Ketones NEG Urine Occult Blood NEG Urine Nitrite NEG Urine Bilirubin NEG Urine Urobilinogen NEG Urine Leukocyte Esterase NEG Bedside Glucose 92 mg/dl 88 mg/dl Test 05/04/17 23:48 05/05/17 01:57 05/05/17 05:49 Bedside Glucose 104 mg/dl 102 mg/dl GALLBLADDER-ABD LIMITED HISTORY: 31 years-old Male RUQ pain acute right upper quadrant abdominal pain COMPARISON: Right upper quadrant ultrasound 05/03/2017 TECHNIQUE: Multiple real-time sonographic images of the abdominal right upper quadrant were obtained assessing grayscale appearance and color flow FINDINGS: Pancreas is mostly obscured by bowel gas. The imaged portions of the pancreas are unremarkable. Increased echogenicity of the hepatic parenchyma is again seen without focal mass measuring up to 20 cm in length. No intrahepatic biliary ductal dilation. Common bile duct is normal, 5 mm. Layering sludge is again seen within the gallbladder lumen without shadowing cholelithiasis, pericholecystic fluid or gallbladder wall thickening. Imaged right kidney is unremarkable without hydronephrosis. IMPRESSION: 1. Layering gallbladder sludge without cholelithiasis or sonographic evidence of acute cholecystitis. 2. Fatty infiltration of the liver. 3. No biliary ductal dilation. Assessment & Plan 31-year-old male with right-sided abdominal pain. This pain does not necessarily sound with a biliary source to me, and his ultrasound is unremarkable except for some sludge. I HIDA scan will be performed this morning. HIDA scan this morning Nothing by mouth If HIDA scan normal, consider GI consultation If HIDA scan abnormal, then we'll plan for laparoscopic cholecystectomy We did discuss the risks of surgery to include but are not limited to bleeding, infection, retained stone, bile leak, damage to common bile duct or other structures, conversion to open, failure treat symptoms, need for future more extensive surgery, the risks of anesthesia Surgery will continue to follow, call with questions or concerns
[2017-05-05] MEDS ORDERED: SINCALIDE INJ 2.3 MCG in SODIUM CHLORIDE 0.9% 100ML 100 ML IV ONE (08:30)
--- NOTE | 2017-05-05 10:20 | DIAGNOSTIC IMAGING REPORT ---
HEPATOBILIARY EF IMAGING CLINICAL HISTORY: 31 years-old Male presenting with ruq pain, gall bladder sludge. TECHNIQUE: Dynamic imaging of the gallbladder was initiated 65 minutes after administration of 5.5 mCi of technetium 99m Choletec. Imaging was obtained every 5 minutes over a span of 40 minutes. 2.3 mcg of sincalide was injected 5 minutes prior to the start of imaging. The gallbladder ejection fraction was calculated. COMPARISON: Ultrasound from 05/04/2017. FINDINGS: The hepatobiliary scan shows normal filling of the gallbladder at the start of imaging. Expected activity within the bowel also noted. Gallbladder ejection fraction measured at 93% (normal greater than 50%). IMPRESSION: 1. Normal gallbladder ejection fraction. No evidence of chronic cholecystitis. Electronically signed by: Esvin Burns M.D. 05/05/2017 10:18 AM Dictated Date/Time: 05/05/2017 10:17 AM
[2017-05-05] MEDS: CIPROFLOXACIN / D5W 400 MG in PREMIXED IN D5W 200 ML IV SCH (10:27)
[2017-05-05] MEDS: PERPHENAZINE 2 MG TAB PO SCH ×2 (10:29→21:09)
[2017-05-05] MEDS ORDERED: PANTOprazole INJ 40 MG in SYRINGE 0 ML IV SCH (11:00)
--- NOTE | 2017-05-05 12:10 | Gastrointestinal Consultation ---
Gastrointestinal Consultation Date of Consultation: May 05, 2017 Attending Physician: Kat Lancaster Consulting Physician: Aaron Garcia Reason for Consultation: RUQ abd pain History of Present Illness Patient is a 31 year old male w PMHx of DM I, paranoid schizophrenia, asthma, hyperlipidemia, fatty liver, fibromyalgia who is seen for RUQ abd pain. He presented to ED on 05/02 for n/v, had some "blood blotches" in emesis. Labs showed normal CBC, CMP grossly unremarkable except mildly elevated transaminases <100. Gallbladder u/s showed layering sludge but no inflammation, or stones, + fatty liver. He returned again to ED w RUQ abd shart pain, n/v which started last Friday. Reports was eating Mac n Cheese for dinner when pain came about. Eating/drinking makes pain worse usually 45 mins - 1 hour after ingestion. He denies any fever, chills, CP, SOB, reflux/heartburn, or bowel habit changes, rectal bleeding associated w the pain . He hasn't been able to keep any PO food down much since last Friday. Reports new medication recently started last Friday was Victoza but when he c/o abd pain was told to stop this. Denies any regular uses of NSAIDs, ASA, tobacco/illicit drugs abuses. Drinks about 3-4 beers/wine a week. Labs showed again normal CBC, CMP, except mildly elevated AST/ALT same as prior. Gallbladder u/s repeated again w sludge w/o cholecystitis, CBD dilation. + fatty liver. He had HIDA scan which was normal this AM. Past Medical/Surgical History Medical Problems: (1) RUQ abdominal pain Status: Acute Past Medical History: See above Past Surgical History: Appendectomy R thumb fusion Tonsillectomy and adenoidectomy Family History Diabetes mellitus FH: heart disease Hypertension Kidney stones Social History Smoking Status: Never Smoker Alcohol Use: none Drug Use: none Marital Status: single Housing Status: lives with family Occupation Status: unemployed Allergies Coded Allergies: Clozapine (Verified Allergy, Unknown, 05/04/17) Sulfa Drugs (Verified Allergy, Unknown, 05/04/17) Sulfamethoxazole (Verified Allergy, Unknown, 05/04/17) Replaces SULFAMETHOXAZ Trimethoprim (Verified Allergy, Unknown, 05/04/17) Replaces SULFAMETHOXAZ Current Medications Home Meds and Scripts Medications Dose Route/Sig Max Daily Dose Days Date Category Roxicodone Ir (Oxycodone HCl) 5 Mg Tab 1-2 Tab PO Q4H PRN 05/03/17 Rx Zofran Odt (Ondansetron HCl) 4 Mg Tab 4 Mg SL Q6H 05/03/17 Rx Mevacor (Lovastatin) 20 Mg Tab 20 Mg PO QPM 05/03/17 Reported Prozac (Fluoxetine HCl) 40 Mg Cap 40 Mg PO QPM 05/03/17 Reported Trilafon (Perphenazine) 8 Mg Tab 20 Mg PO QAM 12/16/16 Reported Trilafon (Perphenazine) 16 Mg Tab 40 Mg PO QPM 12/16/16 Reported Prinivil (Lisinopril) 5 Mg Tab 5 Mg PO QPM 12/16/16 Reported Toujeo Solostar (Insulin Glargine) 300 Unit/Ml Inj 110 Units SQ QPM 12/16/16 Reported Humalog (Insulin Lispro (Human)) 100 Unit/Ml Inj 30 Units SQ TIDM 12/16/16 Reported Singulair (Montelukast Sodium) 10 Mg Tab 10 Mg PO QPM 02/18/16 Reported Cogentin (Benztropine Mesylate) 1 Mg Tab 2 Mg PO QPM 02/18/16 Reported Review of Systems Constitutional: No fever, No chills Respiratory: No cough, No shortness of breath Abdomen: + pain (ruq ), + nausea, + vomiting, No diarrhea, No GI bleeding Physical Exam Date Time Temp Pulse Resp B/P (MAP) Pulse Ox O2 Delivery O2 Flow Rate FiO2 05/05/17 07:40 Room Air 05/05/17 06:45 36.5 68 18 122/69 (86) 92 Room Air 05/05/17 00:08 Room Air 05/04/17 23:02 36.7 63 16 125/82 (96) 97 Room Air 05/04/17 20:33 36.8 67 16 131/80 Room Air 05/04/17 20:10 36.8 67 18 131/80 (97) 96 Room Air 05/04/17 19:29 62 16 142/76 98 Room Air 05/04/17 17:27 64 16 136/80 94 Room Air 05/04/17 15:55 68 18 122/67 96 Room Air 05/04/17 13:58 72 18 136/71 94 Room Air 05/04/17 12:51 36.9 87 15 142/94 96 Room Air General Appearance: WD/WN, no apparent distress, + obese Eyes: normal inspection, PERRL, EOMI Neck: supple, no JVD, trachea midline Respiratory/Chest: normal breath sounds, no respiratory distress, no accessory muscle use Cardiovascular: regular rate, rhythm, no gallop, no murmur Abdomen: normal bowel sounds, soft, + tenderness (RUQ) Extremities: normal inspection, no pedal edema, no calf tenderness 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: alert, normal mood/affect, oriented x 3 Skin: normal color, no jaundice, no rash Laboratory Results Last 24 Hours Test 05/04/17 13:00 05/04/17 13:10 05/04/17 18:45 05/04/17 21:24 White Blood Count 6.15 K/uL Red Blood Count 5.31 M/uL Hemoglobin 16.4 g/dL Hematocrit 47.0 % Mean Corpuscular Volume 88.5 fL Mean Corpuscular Hemoglobin 30.9 pg Mean Corpuscular Hemoglobin Concent 34.9 g/dl Platelet Count 135 K/uL Mean Platelet Volume 10.4 fL Neutrophils (%) (Auto) 56.6 % Lymphocytes (%) (Auto) 31.1 % Monocytes (%) (Auto) 7.8 % Eosinophils (%) (Auto) 2.4 % Basophils (%) (Auto) 1.8 % Neutrophils # (Auto) 3.48 K/uL Lymphocytes # (Auto) 1.91 K/uL Monocytes # (Auto) 0.48 K/uL Eosinophils # (Auto) 0.15 K/uL Basophils # (Auto) 0.11 K/uL RDW Standard Deviation 40.9 fL RDW Coefficient of Variation 12.8 % Immature Granulocyte % (Auto) 0.3 % Immature Granulocyte # (Auto) 0.02 K/uL Sodium Level 139 mmol/L Potassium Level 4.2 mmol/L Chloride Level 103 mmol/L Carbon Dioxide Level 27 mmol/L Anion Gap 9.0 mmol/L Blood Urea Nitrogen 8 mg/dl Creatinine 0.68 mg/dl Est Creatinine Clear Calc Drug Dose 204.4 ml/min Estimated GFR () 147.5 Estimated GFR (Non- 127.3 BUN/Creatinine Ratio 12.0 Random Glucose 141 mg/dl Calcium Level 8.7 mg/dl Total Bilirubin 0.8 mg/dl Aspartate Amino Transf (AST/SGOT) 97 U/L Alanine Aminotransferase (ALT/SGPT) 136 U/L Alkaline Phosphatase 100 U/L Total Protein 7.7 gm/dl Albumin 3.9 gm/dl Globulin 3.8 gm/dl Albumin/Globulin Ratio 1.0 Lipase 146 U/L Urine Color YELLOW Urine Appearance CLEAR Urine pH 6.5 Urine Specific [place] 1.016 Urine Protein NEG Urine Glucose (UA) NEG Urine Ketones NEG Urine Occult Blood NEG Urine Nitrite NEG Urine Bilirubin NEG Urine Urobilinogen NEG Urine Leukocyte Esterase NEG Bedside Glucose 92 mg/dl 88 mg/dl Test 05/04/17 23:48 05/05/17 01:57 05/05/17 05:49 05/05/17 06:47 Bedside Glucose 104 mg/dl 102 mg/dl 97 mg/dl Sodium Level 141 mmol/L Potassium Level 3.8 mmol/L Chloride Level 106 mmol/L Carbon Dioxide Level 27 mmol/L Anion Gap 8.0 mmol/L Blood Urea Nitrogen 7 mg/dl Creatinine 0.62 mg/dl Est Creatinine Clear Calc Drug Dose 224.2 ml/min Estimated GFR () > 150.0 Estimated GFR (Non- 132.2 BUN/Creatinine Ratio 11.5 Random Glucose 76 mg/dl Calcium Level 8.2 mg/dl Magnesium Level 2.1 mg/dl Total Bilirubin 0.7 mg/dl Aspartate Amino Transf (AST/SGOT) 62 U/L Alanine Aminotransferase (ALT/SGPT) 98 U/L Alkaline Phosphatase 81 U/L Total Protein 6.5 gm/dl Albumin 3.3 gm/dl Globulin 3.2 gm/dl Albumin/Globulin Ratio 1.0 Impression Patient is a 31 year old male w RUQ abd pain, n/v, mild LFT elevation (likely related to fatty liver). Lipase normal. + gallbladder sludge but no stone or inflammation or CBD dilation on u/s. HIDA normal. Pain worse w ingestion of food or fluids 45 mins to 1 hour afterwards. Plan - Increase Protonix to 40mg IV BID - OK to try CL diet today - Keep NPO after midnight for EGD eval to r/o PUD, gastritis, Hpylori tomorrow AM though I explained to him that suspicious for these issues causing his RUQ pain is low. I Have seen and examined the patient with AIYANA Maldonado whose note reflects our findings and plan.
--- NOTE | 2017-05-05 12:51 | Hospitalist Progress Note ---
Hospitalist Progress Note Date of Service May 05, 2017. Subjective Pt evaluation today including: conversation w/ patient, conversation w/ family , physical exam, lab review, review of studies, review of inpatient medication list Voiding: no voiding problems Patient resting in bed. + RUQ pain at 6/10- unchanged since admission. Currently NPO. Denies nausea or vomiting. Patient denies any fever, chills, sweats, lightheadedness, dizziness, vision changes, CP, palpitations, edema, SOB, wheezing, cough, nausea, vomiting, diarrhea, urinary symptoms, melena, numbness/tingling, weakness, muscle/joint pain, anxiety/depression, active bleeding, or new skin discoloration/changes. Medications Current Inpatient Medications Medications (Trade) Dose Ordered Sig/Rito Route Start Time Stop Time Status Last Admin Dose Admin Miscellaneous (Iv Fluids Completed) 1 ea PRN PRN N/A 05/04/17 19:00 05/04/18 18:59 Ondansetron HCl (Zofran Inj) 4 mg Q6H PRN IV 05/04/17 19:00 06/03/17 18:59 05/04/17 21:45 4 MG Benztropine Mesylate (Cogentin Tab) 2 mg QPM PO 05/04/17 21:00 06/03/17 20:59 05/04/17 21:48 2 MG Fluoxetine HCl (Prozac Cap) 40 mg QPM PO 05/04/17 21:00 06/03/17 20:59 05/04/17 22:14 40 MG Lisinopril (Zestril Tab) 5 mg QPM PO 05/04/17 21:00 06/03/17 20:59 05/04/17 21:50 5 MG Montelukast Sodium (Singulair Tab) 10 mg QPM PO 05/04/17 21:00 06/03/17 20:59 05/04/17 21:49 10 MG Insulin Glargine (Lantus Solostar Pen) 50 units HS SC 05/04/17 21:00 06/03/17 20:59 05/04/17 22:08 50 UNITS Perphenazine (Trilafon Tab) 20 mg QAM PO 05/05/17 09:00 06/04/17 08:59 05/05/17 10:29 20 MG Perphenazine (Trilafon Tab) 40 mg HS PO 05/04/17 21:00 06/03/17 20:59 05/04/17 22:15 40 MG Morphine Sulfate (MoRPHine SULFATE INJ) 2 mg Q3H PRN IV 05/04/17 19:00 05/18/17 18:59 05/05/17 10:36 2 MG Potassium Chloride/Sodium Chloride 1,000 ml @ 150 mls/hr Q6H40M IV 05/04/17 21:00 06/03/17 20:59 05/05/17 04:50 150 MLS/HR Ciprofloxacin/ Dextrose 400 mg/ Prmx 200 ml @ 100 mls/hr Q12H IV 05/04/17 21:00 05/14/17 20:59 05/05/17 10:27 100 MLS/HR Metronidazole 500 mg/Prmx 100 ml @ 100 mls/hr Q8H IV 05/04/17 22:00 05/14/17 21:59 05/05/17 05:55 100 MLS/HR Glucose (Glucose 40% Gel) 15-30 GRAMS 15 GRAMS... UD PRN PO 05/04/17 21:15 06/03/17 21:14 Glucose (Glucose Chew Tab) 4-8 Tablets 4 Tabl... UD PRN PO 05/04/17 21:15 06/03/17 21:14 Dextrose (Dextrose 50% 50ML Syringe) 25-50ML OF 50% DW IV FOR... UD PRN IV 05/04/17 21:15 06/03/17 21:14 Glucagon (Glucagon Inj) 1 mg UD PRN SQ 05/04/17 21:15 06/03/17 21:14 Insulin Aspart (novoLOG ASPART) SLIDING SCALE G... Q6 SC 05/05/17 00:00 06/04/17 00:00 Pantoprazole Sodium 40 mg/ Syringe 10 ml @ 5 mls/min BID IV 05/05/17 21:00 06/04/17 20:59 Objective Vital Signs Date Time Temp Pulse Resp B/P (MAP) Pulse Ox O2 Delivery O2 Flow Rate FiO2 05/05/17 07:40 Room Air 05/05/17 06:45 36.5 68 18 122/69 (86) 92 Room Air 05/05/17 00:08 Room Air 05/04/17 23:02 36.7 63 16 125/82 (96) 97 Room Air 05/04/17 20:33 36.8 67 16 131/80 Room Air 05/04/17 20:10 36.8 67 18 131/80 (97) 96 Room Air 05/04/17 19:29 62 16 142/76 98 Room Air 05/04/17 17:27 64 16 136/80 94 Room Air 05/04/17 15:55 68 18 122/67 96 Room Air 05/04/17 13:58 72 18 136/71 94 Room Air 05/04/17 12:51 36.9 87 15 142/94 96 Room Air Physical Exam General Appearance: no apparent distress, + obese Eyes: PERRL ENT: hearing grossly normal Neck: supple Respiratory/Chest: lungs clear, no respiratory distress, no accessory muscle use Cardiovascular: regular rate, rhythm Abdomen: normal bowel sounds, soft, + tenderness (ttp of RUQ ) Extremities: no pedal edema, no calf tenderness 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iatric: alert, normal mood/affect, oriented x 3 Skin: normal color, warm/dry, no rash Laboratory Results Last 24 Hours Test 05/04/17 13:00 05/04/17 13:10 05/04/17 18:45 05/04/17 21:24 White Blood Count 6.15 K/uL Red Blood Count 5.31 M/uL Hemoglobin 16.4 g/dL Hematocrit 47.0 % Mean Corpuscular Volume 88.5 fL Mean Corpuscular Hemoglobin 30.9 pg Mean Corpuscular Hemoglobin Concent 34.9 g/dl Platelet Count 135 K/uL Mean Platelet Volume 10.4 fL Neutrophils (%) (Auto) 56.6 % Lymphocytes (%) (Auto) 31.1 % Monocytes (%) (Auto) 7.8 % Eosinophils (%) (Auto) 2.4 % Basophils (%) (Auto) 1.8 % Neutrophils # (Auto) 3.48 K/uL Lymphocytes # (Auto) 1.91 K/uL Monocytes # (Auto) 0.48 K/uL Eosinophils # (Auto) 0.15 K/uL Basophils # (Auto) 0.11 K/uL RDW Standard Deviation 40.9 fL RDW Coefficient of Variation 12.8 % Immature Granulocyte % (Auto) 0.3 % Immature Granulocyte # (Auto) 0.02 K/uL Sodium Level 139 mmol/L Potassium Level 4.2 mmol/L Chloride Level 103 mmol/L Carbon Dioxide Level 27 mmol/L Anion Gap 9.0 mmol/L Blood Urea Nitrogen 8 mg/dl Creatinine 0.68 mg/dl Est Creatinine Clear Calc Drug Dose 204.4 ml/min Estimated GFR () 147.5 Estimated GFR (Non- 127.3 BUN/Creatinine Ratio 12.0 Random Glucose 141 mg/dl Calcium Level 8.7 mg/dl Total Bilirubin 0.8 mg/dl Aspartate Amino Transf (AST/SGOT) 97 U/L Alanine Aminotransferase (ALT/SGPT) 136 U/L Alkaline Phosphatase 100 U/L Total Protein 7.7 gm/dl Albumin 3.9 gm/dl Globulin 3.8 gm/dl Albumin/Globulin Ratio 1.0 Lipase 146 U/L Urine Color YELLOW Urine Appearance CLEAR Urine pH 6.5 Urine Specific [place] 1.016 Urine Protein NEG Urine Glucose (UA) NEG Urine Ketones NEG Urine Occult Blood NEG Urine Nitrite NEG Urine Bilirubin NEG Urine Urobilinogen NEG Urine Leukocyte Esterase NEG Bedside Glucose 92 mg/dl 88 mg/dl Test 05/04/17 23:48 05/05/17 01:57 05/05/17 05:49 05/05/17 06:47 Bedside Glucose 104 mg/dl 102 mg/dl 97 mg/dl Sodium Level 141 mmol/L Potassium Level 3.8 mmol/L Chloride Level 106 mmol/L Carbon Dioxide Level 27 mmol/L Anion Gap 8.0 mmol/L Blood Urea Nitrogen 7 mg/dl Creatinine 0.62 mg/dl Est Creatinine Clear Calc Drug Dose 224.2 ml/min Estimated GFR () > 150.0 Estimated GFR (Non- 132.2 BUN/Creatinine Ratio 11.5 Random Glucose 76 mg/dl Calcium Level 8.2 mg/dl Magnesium Level 2.1 mg/dl Total Bilirubin 0.7 mg/dl Aspartate Amino Transf (AST/SGOT) 62 U/L Alanine Aminotransferase (ALT/SGPT) 98 U/L Alkaline Phosphatase 81 U/L Total Protein 6.5 gm/dl Albumin 3.3 gm/dl Globulin 3.2 gm/dl Albumin/Globulin Ratio 1.0 Assessment and Plan 31 y/o male with T1.5DM and paranoid schizophrenia presenting with recurrent episodes of RUQ abdominal pain, nausea, and vomiting. He apparently had had 2 small episodes of hematemesis on Friday evening but none since. RUQ abdominal pain - Admit to med/surg - IV Protonix 40 mg BID - Continue IVF until tolerating full diet - IV Cipro + Flagyl for prophylaxis of acute cholecystis- will discontinue, no indication for antibiotic therapy at this time - IV Morphine PRN for pain management - Gallbladder sludge on ultrasound- HIDA scan unremarkable - Advance to clear liquids as per GI- NPO after MD for EGD - UA unremarkable - Consulted General Surgery, appreciate recommendations - Consulted GI, appreciate recommendations -- Planning for EGD tomorrow Abnormal transaminases: LFTs trending down T1.5DM: - Lantus 50 units at HS while inpatient; hold home regimen of Toujeo 110 u HS - BSG ACHS and ISS HTN- STABLE: Continue Lisinopril 5 mg daily Paranoid schizophrenia: Continue Trilafon 20 mg QAM and 40 mg HS, Prozac 40 mg daily Hyperlipidemia: Continue Lovastatin 20 mg HS GI prophylaxis: IV Protonix DVT prophylaxis: SCDS, ambulation Code Status: LEVEL I, FULL Dispo: Discharge to home once medically stable- no discharge needs anticipated
[2017-05-05 15:00] VITALS: BP 124/78; PULSE 68; TEMP 36.7; O2SAT 92
[2017-05-05 15:15] VITALS: BP 124/78; PULSE 68; TEMP 36.7; O2SAT 92
[2017-05-05] MEDS ORDERED: BOOST BREEZE NUTRITION DRINK 1 BOX PO ONE (18:00)
[2017-05-05] MEDS: BENZTROPINE MESYLATE 1 MG TAB PO SCH (21:08)
[2017-05-05] MEDS: FLUOXETINE HCL 20 MG CAP PO SCH (21:08)
[2017-05-05] MEDS: PANTOprazole INJ 40 MG in SYRINGE 0 ML IV SCH (21:08)
[2017-05-05] MEDS: MONTELUKAST SOD 10 MG TAB PO SCH (21:09)
[2017-05-05] MEDS: LISINOPRIL 5 MG TAB PO SCH (21:09)
[2017-05-05] MEDS: INSULIN GLARGINE SOLOSTAR 100 UNITS/ML 3 ML PEN SC SCH (21:23)
[2017-05-05 22:51] VITALS: BP 124/79; PULSE 68; TEMP 36.5; O2SAT 92
[2017-05-06] MEDS: MoRPHine SULFATE 2 MG/ML CARP IV PRN (01:16)
[2017-05-06] MEDS: NSS + 20MEQ KCL 1000ML 1,000 ML IV SCH ×2 (05:06→13:00)
[2017-05-06] MEDS: INSULIN ASPART 100 UNITS/ML 3 ML PEN SC SCH ×3 (05:50→12:00)
[2017-05-06 07:27] VITALS: BP 127/76; PULSE 63; TEMP 36.4; O2SAT 93
[2017-05-06] MEDS: PANTOprazole INJ 40 MG in SYRINGE 0 ML IV SCH (07:40)
[2017-05-06] MEDS: PERPHENAZINE 2 MG TAB PO SCH (07:40)
--- NOTE | 2017-05-06 10:56 | Surgery Progress Note ---
Surgery Progress Note Date of Service May 06, 2017. Subjective 31 year old male with right sided abdominal pain, RUQUS with sludge but no cholecystitis. HIDA with no cholecystitis, patient reports no pain during exam. GI consulted, plan for EGD today. Pain mildly improved Objective Vital Signs: Date Time Temp Pulse Resp B/P (MAP) Pulse Ox O2 Delivery O2 Flow Rate FiO2 05/06/17 08:15 Room Air 05/06/17 07:27 36.4 63 16 127/76 (93) 93 Room Air 05/06/17 00:00 Room Air 05/05/17 22:51 36.5 68 16 124/79 (94) 92 Room Air 05/05/17 15:15 36.7 68 18 124/78 92 Room Air 05/05/17 15:15 Room Air 05/05/17 15:00 36.7 68 18 124/78 (93) 92 Room Air General Appearance: WD/WN, no apparent distress Abdomen: normal bowel sounds, non distended, soft, + tenderness (mild tenderness to palpation on right, neg ortiz's sign) Laboratory Results: Results Past 24 Hours Test 05/05/17 12:15 05/05/17 17:18 05/05/17 20:55 05/06/17 00:00 Range/Units Bedside Glucose 133 79 191 105 70-99 mg/dl Test 05/06/17 05:46 Range/Units Bedside Glucose 81 70-99 mg/dl Diagnostic Interpretation: HEPATOBILIARY EF IMAGING CLINICAL HISTORY: 31 years-old Male presenting with ruq pain, gall bladder sludge. TECHNIQUE: Dynamic imaging of the gallbladder was initiated 65 minutes after administration of 5.5 mCi of technetium 99m Choletec. Imaging was obtained every 5 minutes over a span of 40 minutes. 2.3 mcg of sincalide was injected 5 minutes prior to the start of imaging. The gallbladder ejection fraction was calculated. COMPARISON: Ultrasound from 05/04/2017. FINDINGS: The hepatobiliary scan shows normal filling of the gallbladder at the start of imaging. Expected activity within the bowel also noted. Gallbladder ejection fraction measured at 93% (normal greater than 50%). IMPRESSION: 1. Normal gallbladder ejection fraction. No evidence of chronic cholecystitis. Assessment & Plan 31 year old male with abdominal pain, does not appear to be biliary in nature. GI planning for scope today. Rec: no surgical intervention indicated at this time surgery will follow peripherally, call with questions or concerns
[2017-05-06] MEDS ORDERED: MIDAZOLAM HCL 1 MG/ML 2ML VIAL ONE (11:56)
--- NOTE | 2017-05-06 11:56 | Progress Note ---
Progress Note Date of Service May 06, 2017. Progress Note Pt with ongoing nausea symptoms for upper endoscopy. Patient is alert and without abdominal pain. Abdomen in soft. Stable for endoscopy.
[2017-05-06] MEDS ORDERED: LIDOCAINE HCL 2% 2 ML VIAL (20MG/ML) ONE (11:57)
[2017-05-06] MEDS ORDERED: PROPOFOL IV EMULSION 10 MG/ML 20 ML VIAL IV ONE (11:57)
[2017-05-06] MEDS ORDERED: ONDANSETRON INJ 2 MG/ML 2 ML VIAL ONE (11:57)
--- NOTE | 2017-05-06 12:07 | GI REPORT ---
Procedure Date: 05/06/2017 11:34 AM Procedure: Upper GI endoscopy Indications: Nausea with vomiting Medicines: See the Anesthesia note for documentation of the administered medications Complications: No immediate complications. Estimated Blood Loss: Estimated blood loss: none. Procedure: Pre-Anesthesia Assessment: - Prior to the procedure, a History and Physical was performed, and patient medications, allergies and sensitivities were reviewed. The patient's tolerance of previous anesthesia was reviewed. - The risks and benefits of the procedure and the sedation options and risks were discussed with the patient. All questions were answered and informed consent was obtained. - Patient identification and proposed procedure were verified prior to the procedure by the physician and the nurse. The procedure was verified in the pre-procedure area. - Pre-procedure physical examination revealed no contraindications to sedation. - After reviewing the risks and benefits, the patient was deemed in satisfactory condition to undergo the procedure. After obtaining informed consent, the endoscope was passed under direct vision. Throughout the procedure, the patient's blood pressure, pulse, and oxygen saturations were monitored continuously. The scope was introduced through the mouth, and advanced to the third part of duodenum. The upper GI endoscopy was accomplished without difficulty. The patient tolerated the procedure well. Findings: The esophagus was normal. The stomach was normal. The examined duodenum was normal. The cardia and gastric fundus were normal on retroflexion. Impression: - Normal esophagus. - Normal stomach. - Normal examined duodenum. - No specimens collected. Recommendation: - [facility] patient [facility] for [facility] care. Dinesh Paul M.D. Dinesh Paul MD 05/06/2017 12:07:13 PM This report has been signed electronically. Note Initiated On: 05/06/2017 11:34 AM I attest to the content of the Intraoperative Record and orders documented therein, exceptions below
[2017-05-06] MEDS ORDERED: OXYC1TAB3 PO ×3 (12:22→12:31)
--- NOTE | 2017-05-06 12:29 | Discharge Instructions ---
Discharge Instructions Date of Service May 06, 2017. Admission Reason for Admission: Ruq Abdominal Pain Discharge Discharge Diagnosis / Problem: Right upper quadrant pain Discharge Goals Goal(s): Decrease discomfort, Improve function, Learn about illness, Diagnostic testing, Therapeutic intervention, Prevent Disease Progression Activity Recommendations Activity Limitations: resume your previous activity . Instructions / Follow-Up Instructions / Follow-Up You were admitted to [facility] due to right upper quadrant pain. You were treated with IV fluids and pain medication. Your workup was unremarkable, which included a HIDA scan (to assess gallbladder function) and an EGD (to look at the throat/stomach). The cause of your symptoms is still unknown- it is recommended your follow-up with your PCP within the next few days to continue further workup and management of symptoms. You may take Oxycodone 1-2 tablets by mouth every 4 hours as needed for pain Resume all regular home medications as prescribed. FOLLOW-UPS: Please follow-up with your PCP within 5-7 days Please follow-up/keep all of your subspecialty appointments Current Hospital Diet Patient's current hospital diet: Clear Liquid Diet, Diabetes Type 2 Diet Discharge Diet Recommended Diet: Diabetes Type 2 Diet Procedures Procedures Performed: EGD Pending Studies Studies pending at discharge: no Medical Emergencies . Who to Call and When: Medical Emergencies: If at any time you feel your situation is an emergency, please call 911 immediately. . Non-Emergent Contact Non-Emergency issues call your: Primary Care Provider Call Non-Emergent contact if: you have a fever, your pain is not controlled, your pain is worsening, your pain is unusual for you, your pain is concerning you . . "Provider Documentation" section prepared by Lexi Oconnell. . VTE Core Measure Inpt VTE Proph given/why not?: SCD's
--- NOTE | 2017-05-06 12:43 | Anesthesiology Progress Note ---
Anesthesia Post Op Note Date & Time May 06, 2017 at 12:43 Vital Signs Pain Intensity: 0 Vital Signs Past 12 Hours Date Time Temp Pulse Resp B/P (MAP) Pulse Ox O2 Delivery O2 Flow Rate FiO2 05/06/17 12:26 65 20 120/78 (92) 96 Room Air 05/06/17 12:11 77 24 114/79 (91) 97 Room Air 05/06/17 11:23 37.0 78 18 119/77 (91) 95 Room Air 05/06/17 08:15 Room Air 05/06/17 07:27 36.4 63 16 127/76 (93) 93 Room Air Notes Mental Status: alert / awake / arousable, participated in evaluation Pt Amnestic to Procedure: Yes Nausea / Vomiting: adequately controlled Pain: adequately controlled Airway Patency, RR, SpO2: stable & adequate BP & HR: stable & adequate Hydration State: stable & adequate Anesthetic Complications: no major complications apparent
--- NOTE | 2017-05-06 13:16 | Discharge Summary ---
Discharge Summary Date of Service May 06, 2017. Discharge Summary Admission Date: May 06, 2017 at 08:47 Discharge Date: May 06, 2017 Discharge Disposition: Home Principal Diagnosis: RUQ pain Problems/Secondary Diagnoses: Abnormal transaminases T1.5DM HTN Paranoid schizophrenia Hyperlipidemia Procedures: GALLBLADDER-ABD LIMITED HISTORY: 31 years-old Male RUQ pain acute right upper quadrant abdominal pain COMPARISON: Right upper quadrant ultrasound 05/03/2017 TECHNIQUE: Multiple real-time sonographic images of the abdominal right upper quadrant were obtained assessing grayscale appearance and color flow FINDINGS: Pancreas is mostly obscured by bowel gas. The imaged portions of the pancreas are unremarkable. Increased echogenicity of the hepatic parenchyma is again seen without focal mass measuring up to 20 cm in length. No intrahepatic biliary ductal dilation. Common bile duct is normal, 5 mm. Layering sludge is again seen within the gallbladder lumen without shadowing cholelithiasis, pericholecystic fluid or gallbladder wall thickening. Imaged right kidney is unremarkable without hydronephrosis. IMPRESSION: 1. Layering gallbladder sludge without cholelithiasis or sonographic evidence of acute cholecystitis. 2. Fatty infiltration of the liver. 3. No biliary ductal dilation. The above report was generated using voice recognition software. It may contain grammatical, syntax or spelling errors. Electronically signed by: Paras Barron M.D. 05/04/2017 4:01 PM Dictated Date/Time: 05/04/2017 3:59 PM The status of this report is Signed. Draft = Not yet reviewed or approved by Radiologist. Signed = Reviewed and approved by Radiologist. HEPATOBILIARY EF IMAGING CLINICAL HISTORY: 31 years-old Male presenting with ruq pain, gall bladder sludge. TECHNIQUE: Dynamic imaging of the gallbladder was initiated 65 minutes after administration of 5.5 mCi of technetium 99m Choletec. Imaging was obtained every 5 minutes over a span of 40 minutes. 2.3 mcg of sincalide was injected 5 minutes prior to the start of imaging. The gallbladder ejection fraction was calculated. COMPARISON: Ultrasound from 05/04/2017. FINDINGS: The hepatobiliary scan shows normal filling of the gallbladder at the start of imaging. Expected activity within the bowel also noted. Gallbladder ejection fraction measured at 93% (normal greater than 50%). IMPRESSION: 1. Normal gallbladder ejection fraction. No evidence of chronic cholecystitis. Electronically signed by: Esvin Burns M.D. 05/05/2017 10:18 AM Dictated Date/Time: 05/05/2017 10:17 AM The status of this report is Signed. Draft = Not yet reviewed or approved by Radiologist. Signed = Reviewed and approved by Radiologist. EGD: Findings: - The esophagus was normal. - The stomach was normal. - The examined duodenum was normal. - The cardia and gastric fundus were normal on retroflexion. Impression: - Normal esophagus. - Normal stomach. - Normal examined duodenum. - No specimens collected. Consultations: General surgery GI Medication Reconciliation New Medications: Oxycodone Ir (Roxicodone Ir) 5 Mg Tab 1-2 TAB PO Q4H PRN for Severe Pain, #12 TAB Continued Medications: Benztropine Mesylate (Cogentin) 1 Mg Tab 2 MG PO QPM Fluoxetine (Prozac) 40 Mg Cap 40 MG PO QPM, CAP Insulin Glargine (Toujeo Solostar) 300 Unit/Ml Inj 110 UNITS SQ QPM Insulin Lispro (Human) (Humalog) 100 Unit/Ml Inj 30 UNITS SQ TIDM Lisinopril (Prinivil) 5 Mg Tab 5 MG PO QPM Lovastatin (Mevacor) 20 Mg Tab 20 MG PO QPM, TAB Montelukast Sodium (Singulair) 10 Mg Tab 10 MG PO QPM, TAB Ondasetron Odt (Zofran Odt) 4 Mg Tab 4 MG SL Q6H for Nausea, #6 TAB Perphenazine (Trilafon) 16 Mg Tab 40 MG PO QPM Perphenazine (Trilafon) 8 Mg Tab 20 MG PO QAM Discharge Exam Review of Systems: Constitutional: No fever, No chills, No sweats, No weakness, No fatigue ENT: No hearing loss Respiratory: No cough, No shortness of breath, No hemoptysis Cardiovascular: No chest pain, No edema, No palpitations Abdomen: + pain (RUQ 5/10), No nausea, No vomiting, No diarrhea, No constipation, No GI bleeding Musculoskeletal: No joint pain, No muscle pain, No swelling, No calf pain Genitourinary - Male: No hematuria, No dysuria Neurologic: No weakness, No numbness/tingling Psychiatric: No depression symptoms, No anxiety Endocrine: No fatigue Hematologic / Lymphatic: No abnormal bleeding/bruising Integumentary: No rash, No itch, No new/changing skin lesions Physical Exam: General Appearance: no apparent distress Eyes: normal inspection, PERRL ENT: hearing grossly normal Neck: supple Respiratory/Chest: lungs clear, no respiratory distress, no accessory muscle use Cardiovascular: regular rate, rhythm Abdomen / GI: normal bowel sounds, soft, + tenderness (mild ttp of RUQ ) Extremities: no calf tenderness, no pedal edema 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iatric: alert, oriented x 3, + depressed affect Skin: normal color, warm/dry, no rash Hospital Course Admission H&P: 31 yo male with T1.5DM and paranoid schizophrenia who presents with 5-6 days of RUQ abdominal pain. Initially his pain was intermittent but on Friday the pain became more severe and constant. The pain on Friday started about 1 hour after eating Mac[employer]cheese. He was seen in the ER at [facility] on Friday and diagnosed with gall bladder sludge. He was treated with anti-emetics & pain meds and discharged home; surgical follow-up was recommended. Apparently he had had 1-2 episodes of a small amount of hematemesis prior to that ER visit. He has had none since. On Friday he had ongoing RUQ pain along with nausea/emesis with trying "to eat anything." Then, this am following breakfast, he again had RUQ pain with vomiting and thus came to the ER for evaluation. The patient reports having taken his Toujeo last evening and had 30 units of humalog this AM with breakfast. No insulin since that time. Denies any fevers, chills, radiation of the pain, diarrhea, or sweats. Denies heartburn symptoms. Physical Exam Vital Signs Date Time Temp Pulse Resp B/P (MAP) Pulse Ox O2 Delivery O2 Flow Rate FiO2 05/04/17 17:27 64 16 136/80 94 Room Air 05/04/17 15:55 68 18 122/67 96 Room Air 05/04/17 13:58 72 18 136/71 94 Room Air 05/04/17 12:51 36.9 87 15 142/94 96 Room Air General Appearance: no apparent distress, + obese Head: normocephalic, atraumatic Eyes: normal inspection, PERRL ENT: hearing grossly normal, TMs normal, + pharyngeal erythema Neck: supple, no adenopathy, no JVD Respiratory/Chest: lungs clear, no respiratory distress, no accessory muscle use Cardiovascular: regular rate, rhythm, no gallop, no murmur, normal peripheral pulses Abdomen/GI: normal bowel sounds, soft, no organomegaly, + tenderness (RUQ) Back: normal inspection Extremities/Musculoskelatal: no pedal edema 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: no motor/sensory deficits, alert, oriented x 3, + pertinent finding (flat affect) Skin: + pertinent finding (no jaundice; seborrhea on face) Lymphatic: no adenopathy (cervical ) Hospital Course: 31 y/o male with T1.5DM and paranoid schizophrenia presenting with recurrent episodes of RUQ abdominal pain, nausea, and vomiting. He apparently had had 2 small episodes of hematemesis on Friday evening but none since. RUQ abdominal pain- unknown cause: - Admit to med/surg - IV Protonix 40 mg BID - Treated w/ IVF while NPO - IV Cipro + Flagyl for prophylaxis of acute cholecystis- discontinued, no indication for antibiotic therapy - IV Morphine PRN for pain management- discharged with Roxicodone PRN for pain management - Gallbladder sludge on ultrasound- HIDA scan unremarkable - UA unremarkable - Consulted General Surgery, appreciate recommendations -- No surgical intervention indicated - Consulted GI, appreciate recommendations -- EGD on 05/06- unremarkable Abnormal transaminases- chronic: LFTs trending down T1.5DM: - Lantus 50 units at HS while inpatient; hold home regimen of Toujeo 110 u HS- resume home regimen at discharge - BSG ACHS and ISS HTN- STABLE: Continue Lisinopril 5 mg daily Paranoid schizophrenia: Continue Trilafon 20 mg QAM and 40 mg HS, Prozac 40 mg daily Hyperlipidemia: Continue Lovastatin 20 mg HS GI prophylaxis: IV Protonix DVT prophylaxis: SCDS, ambulation Code Status: LEVEL I, FULL Dispo: Discharge to home Total Time Spent: Greater than 30 minutes This includes examination of the patient, discharge planning, medication reconciliation, and communication with other providers. Discharge Instructions Please refer to the electronic Patient Visit Report (Discharge Instructions) for additional information. Follow-Up Please follow-up with your PCP within 5-7 days Please follow-up/keep all of your subspecialty appointments Additional Copies To Brenna Krueger
[2017-05-06 13:53] VITALS: BP 124/80; PULSE 64; TEMP 37; O2SAT 94
== END 2017-05-06 14:48 | disposition home or self-care (01) | DRG 392 ==
LOC: C.EDB 12:44 → C.MSW 18:26 → ENRESERV 19:01 → CANBEDREQ 21:50 → OBSVTOIN 05-06 08:47
PROVIDERS: ADMIT Internal Medicine; ATTEND Internal Medicine
PROC: 0DJ08ZZ Inspection of Upper Intestinal Tract, Via Natural or Artificial Opening Endoscopic (ICD-10-PCS; principal; 2017-05-06 11:20)
DX: R10.11 Right upper quadrant pain (principal); F20.0 Paranoid schizophrenia; D11.9 Benign neoplasm of major salivary gland, unspecified; J45.909 Unspecified asthma, uncomplicated; I10 Essential (primary) hypertension; K76.0 Fatty (change of) liver, not elsewhere classified; E78.5 Hyperlipidemia, unspecified; M79.7 Fibromyalgia; Z83.3 Family history of diabetes mellitus; Z82.49 Family history of ischemic heart disease and other diseases of the circulatory system; Z79.4 Long term (current) use of insulin

== ENCOUNTER → 2017-06-12 | Day surgery (SDC) | payer OTHER ==
[2017-06-03 12:22] VITALS: BMI 34.0
[~2017-06-12] VITALS: Ht 182.9 cm; Wt 114.1 kg
[~2017-06-12] MED LIST changes: +ACETAMINOPHEN 1000 MG/100 ML IV IV ONE; +ATROPINE SULFATE 0.1 MG/ML 5ML SYR IV PRN; +CHOL2000 PO; +CONRAY 60% 50 ML VIAL ONE; +EpHEDrine SULFATE INJ 50 MG/ML AMP IV PRN; +FENTANYL CITRATE INJ 50 MCG/1 ML 2 ML VIAL IV PRN; +FENTANYL CITRATE INJ 50 MCG/1 ML 2 ML VIAL ONE; +GLYCOPYRROLATE INJ 0.2 MG/ML VIAL ONE; +HYDROmorphone INJ 1 MG/ML SYR IV PRN; +LACTATED RINGER'S 1000ML 1,000 ML IV SCH; +LIDOCAINE HCL 2% 2 ML VIAL (20MG/ML) ONE; +LIDOCAINE/EPINEPHRINE 1% 20 ML VIAL ONE; +METOCLOPRAMIDE HCL INJ 5 MG/ML 2 ML VIAL IV PRN; +METOCLOPRAMIDE HCL INJ 5 MG/ML 2 ML VIAL ONE; +MIDAZOLAM HCL 1 MG/ML 2ML VIAL ONE; +MoRPHine SULFATE 2 MG/ML CARP IV PRN; +NEOSTIGMINE METHYLSULFATE 5 MG/5 ML SYR ONE; -ONDA4TAB10 SL; +ONDANSETRON INJ 2 MG/ML 2 ML VIAL IV PRN; +ONDANSETRON INJ 2 MG/ML 2 ML VIAL ONE; +OXYC-57 PO; +OXYC-90 PO; -OXYC1TAB3 PO; +OXYCODONE HCL IR 5 MG TAB (IMMEDIATE RELEASE) PO PRN; +PROPOFOL IV EMULSION 10 MG/ML 20 ML VIAL IV ONE; +ROCURONIUM BROMIDE 10 MG/ML 5 ML VIAL IV ONE
[2017-06-12 09:16] VITALS: BP 151/90; PULSE 91; TEMP 37; O2SAT 96; Ht 182.9 cm; Wt 114.1 kg
--- NOTE | 2017-06-12 10:53 | Discharge Instructions ---
Discharge Instructions Date of Service Jun 12, 2017. Visit Reason for Visit: Gallbladder Sludge, Diabetes Discharge Discharge Diagnosis / Problem: laparoscopic cholecystectomy Discharge Goals Goal(s): Decrease discomfort Activity Recommendations Activity Limitations: as noted below Lifting Limitations: no more than 10 pounds Shower/Bathe: tomorrow Driving or Machine Use: resume 3 days after discharge Anesthesia . Post Anesthesia Instructions: If you have had General Anesthesia or IV Sedation: * Do not drive today. * Resume driving when surgeon permits. * Do not make important decisions or sign legal documents today. * Call surgeon for: 1. Temperature elevations greater than 101 degrees F. 2. Uncontrollable pain. 3. Excessive bleeding. 4. Persistent nausea and vomiting. 5. Medication intolerance (nausea, vomiting or rash). * For nausea and vomiting use only clear liquids such as: tea, soda, bouillon until nausea subsides, then gradually increase diet as tolerated. * If you have any concerns or questions, call your surgeon's office. If physician is unavailable and it is an emergency, call 911 or go to the nearest emergency room. . Instructions / Follow-Up Instructions / Follow-Up Dr. Correia in 1 week, call [phone] for any questions or to schedule an appt if you do not already have one Diet Recommendations Recommended Home Diet: no limitations Pending Studies Studies pending at discharge: no Medical Emergencies . Who to Call and When: Medical Emergencies: If at any time you feel your situation is an emergency, please call 911 immediately. . Non-Emergent Contact Non-Emergency issues call your: Surgeon Call Non-Emergent contact if: you have a fever, temperature is above 101.5, your pain is not controlled, you have any medication questions . . "Provider Documentation" section prepared by Arsh Esparza. . [place] Drug Monitoring Program Search Results: no issues identified
--- NOTE | 2017-06-12 11:51 | History & Physical Bridge Note ---
H&P Re-Evaluation Bridge Note: I have examined the patient, reviewed the History & Physical and in the interval since the performance of the History & Physical I have noted the following changes of clinical significance: No changes notedso AT BEDSIDE ALLQUESTIONS ANSWERED
--- NOTE | 2017-06-12 13:47 | [facility] Operative Report ---
Operative Report Operative Date Jun 12, 2017. Pre-Operative Diagnosis Sludge in gallbladder Post-Operative Diagnosis Sludge in gallbladder grossly cirrhosis of liver Procedure(s) Performed Laparoscopic Cholecystectomy with Cholangiogram, Juan-cut Liver Biopsy, Right lobe Surgeon Dr. Robin Correia [employer] Team Leader Surgeon(s) Arsh Esparza PA-C Estimated Blood Loss 10 mL Findings mcronodular liver parenchyma cc Specimens Permanent specimens A: Gallbladder and contents B: Liver biopsy Description of Procedure OR summary dictated #[id number] fluoro dictated [id number] I attest to the content of the Intraoperative Record and any orders documented therein. Any exceptions are noted below.
--- NOTE | 2017-06-12 14:17 | Anesthesiology Progress Note ---
Anesthesia Post Op Note Date & Time Jun 12, 2017 at 14:17 Vital Signs Pain Intensity: 4 Vital Signs Past 12 Hours Date Time Temp Pulse Resp B/P (MAP) Pulse Ox O2 Delivery O2 Flow Rate FiO2 06/12/17 14:05 79 13 147/97 95 Oxymask 10 06/12/17 13:55 78 13 157/103 96 Oxymask 10 06/12/17 13:46 36.0 82 12 163/95 96 Oxymask 10 06/12/17 09:16 37 91 18 151/90 (110) 96 Room Air Notes Mental Status: alert / awake / arousable, participated in evaluation Pt Amnestic to Procedure: Yes Nausea / Vomiting: adequately controlled Pain: adequately controlled Airway Patency, RR, SpO2: stable & adequate BP & HR: stable & adequate Hydration State: stable & adequate Anesthetic Complications: no major complications apparent
[2017-06-12 14:33] VITALS: BP 151/89; PULSE 91; TEMP 36.9; O2SAT 94
--- NOTE | 2017-06-12 14:46 | OPERATIVE REPORT ---
DATE OF OPERATION: 06/12/2017 SURGEON: Dr. Correia. SAW MAN: Dr. Arsh Esparza. PREOPERATIVE DIAGNOSIS: Chronic cholecystitis. POSTOPERATIVE DIAGNOSIS: Same with grossly macronodular liver consistent with cirrhosis. PROCEDURE: Laparoscopic cholecystectomy, intraoperative cholangiogram, Juan-Cut biopsy of right lobe of the liver x2. SUMMARY: The patient was brought into the operating room theater. The abdomen was prepped with Betadine scrubbing solution and properly draped. We made a small incision supraumbilically sufficient enough to place a Veress needle followed by CO2 followed by a 5 mm trocar. Point of entry inspected and no injury identified. Under direct visualization, we placed a 5 mm epigastric and two 5 mm subcostal ports with preemptive local analgesia 1% Xylocaine with epinephrine. Once we entered the abdomen, we could see that the liver was grossly abnormal had macronodular consistency, consistent with cirrhosis. There were adhesions particularly adherent to the gallbladder which was we were taken down, they were wrapped around it in the fundus, which were taken down by sharp dissection to avoid getting into the liver parenchyma. Once we were free this up, we stripped the gallbladder all the way down towards the alvin hepatis area and identified an artery that was coursing quite anteriorly onto the gallbladder, we doubly clipped and divided. Then we identified the cystic duct which was very small in size of a toothpick, we were able then to clip it proximally making a small incision and I placed a 4 urethral catheter transversing the abdominal wall and a 14 Angiocath. We were able to see that free flow into the duodenum. There was no evidence of obstruction. On one of the view, it seemed like there may be artifacts at the distal duct, but certainly was not dilated. At this point, the cholangiocatheter was removed. The cystic duct was doubly clipped and divided. The artery had been divided but they were significant rather posterior branches along the liver that we were able to cauterize and clip. We left much of the peritoneum and the gallbladder on to the liver to avoid getting into the liver, which was minimal bleeding. Gallbladder was freed completely from the liver parenchyma, placed in an Endopouch and taken out intact through the epigastric port. The subhepatic and suprahepatic area was then checked for hemostasis and appeared satisfactory. Then, we placed a Juan-Cut needle subcostally through the abdominal wall, we were able to place the right lobe of the liver, get probably quarter inch specimens of liver. This 2 puncture sites were then cauterized and bleeding was stopped. The procedure was tolerated well by the patient. Prior to taking out the liver, the trocars were placed, the camera in subcostal port to visualize the umbilical opening. There were no adhesions identified. No bleeding from any ports. All the trocars were removed. Wounds were closed with 4-0 Monocryl. Steri-Strips applied. The procedure was tolerated well by the patient. Estimated blood loss approximately 10 mL. The patient was taken to recovery room in good condition. I attest to the content of the Intraoperative Record and any orders documented therein. Any exception s are noted below.
--- NOTE | 2017-06-12 14:55 | DIAGNOSTIC IMAGING REPORT ---
CHOLANGIOGRAM O.R. CLINICAL HISTORY: CHOLANGIOGRAM COMPARISON STUDY: None FLUOROSCOPY TIME: 4 seconds. NUMBER OF FLUOROSCOPIC IMAGES: 4 FINDINGS: Contrast was instilled into the common bile duct. The common bile duct is of normal caliber. No ductal filling defects are visualized. There is free flow into the duodenum. IMPRESSION: No retained calculi are visualized. Electronically signed by: Ezequiel Merritt M.D. 06/12/2017 2:53 PM Dictated Date/Time: 06/12/2017 2:53 PM
--- NOTE | 2017-06-12 14:55 | OPERATIVE REPORT ---
DATE OF OPERATION: 06/12/2017 SURGEON: Dr. Correia. PREOPERATIVE DIAGNOSIS: Chronic cholecystitis. POSTOPERATIVE DIAGNOSIS: Same with fatty liver consistent with a much macronodular cirrhosis. PROCEDURE: Laparoscopic cholecystectomy, but we are using the fluoroscopy for the procedure. DESCRIPTION OF PROCEDURE: At this point, once the abdomen has been prepped and draped for cholecystectomy, the cystic duct had been cannulated. Conray was injected and serial x-rays were taken x3 fluoroscopically to visualize the anatomy of the biliary tree. The procedure was tolerated well. I attest to the content of the Intraoperative Record and any orders documented therein. Any exception s are noted below.
[2017-06-12 15:01] VITALS: BP 141/86; PULSE 78; O2SAT 97
[2017-06-12 15:30] VITALS: BP 144/91; PULSE 87; TEMP 36.6; O2SAT 95
== END | disposition home or self-care (01) ==
LOC: C.ACU 08:24
PROVIDERS: ATTEND Surgery
DX: K81.1 Chronic cholecystitis (principal); K75.81 Nonalcoholic steatohepatitis (NASH); I10 Essential (primary) hypertension; E78.5 Hyperlipidemia, unspecified; J45.909 Unspecified asthma, uncomplicated; Z90.89 Acquired absence of other organs; Z98.890 Other specified postprocedural states; Z79.899 Other long term (current) drug therapy; Z79.4 Long term (current) use of insulin; Z88.1 Allergy status to other antibiotic agents; Z88.2 Allergy status to sulfonamides; Z83.3 Family history of diabetes mellitus; Z82.3 Family history of stroke; Z82.49 Family history of ischemic heart disease and other diseases of the circulatory system; Z80.9 Family history of malignant neoplasm, unspecified

== ENCOUNTER → 2017-07-10 | Outpatient (CLI) | payer OTHER ==
[~2017-07-10] MED LIST changes: -ACETAMINOPHEN 1000 MG/100 ML IV IV ONE; -ATROPINE SULFATE 0.1 MG/ML 5ML SYR IV PRN; -CHOL2000 PO; -CONRAY 60% 50 ML VIAL ONE; -EpHEDrine SULFATE INJ 50 MG/ML AMP IV PRN; -FENTANYL CITRATE INJ 50 MCG/1 ML 2 ML VIAL IV PRN; -FENTANYL CITRATE INJ 50 MCG/1 ML 2 ML VIAL ONE; +GADOXETATE DISODIUM IV PRN; -GLYCOPYRROLATE INJ 0.2 MG/ML VIAL ONE; -HYDROmorphone INJ 1 MG/ML SYR IV PRN; -LACTATED RINGER'S 1000ML 1,000 ML IV SCH; -LIDOCAINE HCL 2% 2 ML VIAL (20MG/ML) ONE; -LIDOCAINE/EPINEPHRINE 1% 20 ML VIAL ONE; -METOCLOPRAMIDE HCL INJ 5 MG/ML 2 ML VIAL IV PRN; -METOCLOPRAMIDE HCL INJ 5 MG/ML 2 ML VIAL ONE; -MIDAZOLAM HCL 1 MG/ML 2ML VIAL ONE; -MoRPHine SULFATE 2 MG/ML CARP IV PRN; -NEOSTIGMINE METHYLSULFATE 5 MG/5 ML SYR ONE; -ONDANSETRON INJ 2 MG/ML 2 ML VIAL IV PRN; -ONDANSETRON INJ 2 MG/ML 2 ML VIAL ONE; -OXYC-57 PO; -OXYC-90 PO; +OXYC1TAB3 PO; -OXYCODONE HCL IR 5 MG TAB (IMMEDIATE RELEASE) PO PRN; -PROPOFOL IV EMULSION 10 MG/ML 20 ML VIAL IV ONE; -ROCURONIUM BROMIDE 10 MG/ML 5 ML VIAL IV ONE
--- NOTE | 2017-07-10 18:29 | DIAGNOSTIC IMAGING REPORT ---
MRI OF THE ABDOMEN COMBO CLINICAL HISTORY: Cirrhosis and steatosis. COMPARISON STUDY: Abdominal CT dated 10/10/2016. TECHNIQUE: MRI of the abdomen is performed transverse T1 and T2-weighted sequences in the axial and coronal planes. Contrast enhanced sequences were acquired following the IV administration of 10 cc of Eovist. Diffusion-weighted imaging and subtraction imaging was utilized. High-resolution MRCP images are acquired. 3-D reformats are created and assessed. FINDINGS: Lower chest: No pleural effusion is identified. The heart is normal in size. Liver: The liver is enlarged, measuring 19.2 cm in length. The liver demonstrates diffuse drop in signal on the opposed phase images consistent with hepatic steatosis. Fatty sparing is seen adjacent to gallbladder fossa. There is no nodularity of the surface contour. No focal hepatic lesion is identified. No intrahepatic biliary ductal dilatation is seen. The hepatic veins and portal veins are patent. Gallbladder: The gallbladder is surgically absent. The common bile duct is normal in caliber, measuring up to 3 mm. There is no evidence of choledocholithiasis. The pancreatic duct is normal in caliber. Spleen: Normal in size and signal intensity. Pancreas: Unremarkable. Adrenal glands: Unremarkable. Kidneys: The kidneys are normal in size and without hydronephrosis. The kidneys enhance and excrete symmetrically. Abdominal aorta: Normal in course and caliber. Bowel: Visualized portions of the small bowel and colon show no evidence of obstruction. Peritoneum: There is no abdominal ascites. Lymphadenopathy: None. Skeletal structures: Visualized skeletal structures times are normal marrow signal intensity. IMPRESSION: Hepatomegaly and severe hepatic steatosis. Electronically signed by: Roel Marie M.D. 07/10/2017 6:27 PM Dictated Date/Time: 07/10/2017 6:22 PM
== END | disposition home or self-care (01) ==
LOC: C.MRI 16:29
PROVIDERS: ATTEND Internal Medicine Gastroenterology
DX: K76.0 Fatty (change of) liver, not elsewhere classified (principal)

== ENCOUNTER → 2017-08-06 | Day surgery (SDC) | payer OTHER ==
[2017-07-24 10:59] VITALS: Ht 182.9 cm; Wt 104.5 kg
[~2017-08-06] VITALS: Ht 182.9 cm; Wt 104.5 kg
[~2017-08-06] MED LIST changes: +CHOL2000 PO; +FENTANYL CITRATE INJ 50 MCG/1 ML 2 ML VIAL ONE; -GADOXETATE DISODIUM IV PRN; +LIDOCAINE HCL 2% 2 ML VIAL (20MG/ML) ONE; -OXYC1TAB3 PO; -PERP1TAB PO; +PROPOFOL IV EMULSION 10 MG/ML 20 ML VIAL IV ONE; +SODIUM CHLORIDE 0.9% 500ML 500 ML IV ONE
--- NOTE | 2017-08-06 13:34 | Endo History and Physical ---
History & Physical Date of Service: Aug 06, 2017. Chief Complaint: abnormal imaging GI tract Referring Physician: Brenna BRONSON History of Present Illness abnormal GI imaginh; assess for varices Past Surgical History Hx Cardiac Surgery: No Hx Abdominal Surgery: Yes (APPENDECTOMY; LAP CHOLEY) Hx of Implantable Prosthesis: No Hx Post-Op Nausea and Vomiting: No Hx Cancer Surgery: No Hx Thoracic Surgery: No Hx Orthopedic: Yes (RIGHT THUMB FUSION) Hx Urinary Tract Surgery: No Family History Esophogeal CA Social History Smoking Status: Never Smoker Hx Substance Use: No Hx Alcohol Use: Yes (2-3 DRINKS/WEEK) Allergies Coded Allergies: Clozapine (Verified Allergy, Unknown, CARDIOMYOPATHY, 07/24/17) Sulfamethoxazole (Verified Allergy, Unknown, HIVES, 07/24/17) Replaces SULFAMETHOXAZ [place] Oil (Verified Adverse Reaction, Unknown, TRIGGERS FIBROMYALGIA, ) Current Medications Reported Home Medications Medications Dose Route/Sig Max Daily Dose Days Date Category Vitamin D3 (Cholecalciferol) 2,000 Unit Cap 2,000 Units PO QAM 07/24/17 Reported Trilafon (Perphenazine) 16 Mg Tab 16 Mg PO QAM 07/24/17 Reported Mevacor (Lovastatin) 20 Mg Tab 20 Mg PO QPM 05/03/17 Reported Prozac (Fluoxetine HCl) 40 Mg Cap 40 Mg PO QPM 05/03/17 Reported Trilafon (Perphenazine) 16 Mg Tab 32 Mg PO HS 12/16/16 Reported Prinivil (Lisinopril) 5 Mg Tab 5 Mg PO QPM 12/16/16 Reported Toujeo Solostar (Insulin Glargine) 300 Unit/Ml Inj 110 Units SQ QPM 12/16/16 Reported Humalog (Insulin Lispro (Human)) 100 Unit/Ml Inj 30 Units SQ TIDM 12/16/16 Reported Singulair (Montelukast Sodium) 10 Mg Tab 10 Mg PO QPM 02/18/16 Reported Cogentin (Benztropine Mesylate) 1 Mg Tab 1 Mg PO QPM 02/18/16 Reported Vital Signs Weight (Kilograms): 104.55 Height (Feet): 6 Height (Inches): 0 Date Time Temp Pulse Resp B/P (MAP) Pulse Ox O2 Delivery O2 Flow Rate FiO2 2/14/18 12:35 36.5 96 20 136/89 (105) 99 Room Air Physical Exam General Appearance: WD/WN, no apparent distress Respiratory/Chest: Auscultation: breath sounds normal Cardiovascular: Heart Auscultation: RRR Abdomen: Bowel Sounds: normal Inspection & Palpation: soft, non-distended, no tenderness, guarding & rebound Assessment and Plan EGD mendy
--- NOTE | 2017-08-06 13:58 | Discharge Instructions ---
Endoscopy Patient Instructions Date / Procedure(s) Performed Aug 06, 2017. EGD Allergy Information Coded Allergies: Clozapine (Verified Allergy, Unknown, CARDIOMYOPATHY, 07/24/17) Sulfamethoxazole (Verified Allergy, Unknown, HIVES, 07/24/17) Replaces SULFAMETHOXAZ [place] Oil (Verified Adverse Reaction, Unknown, TRIGGERS FIBROMYALGIA, ) Discharge Date / Findings Aug 06, 2017. 1) gastritis esophagitis biopsied Medication Instructions Restart Stopped Medication(s): Reported Home Medications Medications Dose Route/Sig Max Daily Dose Days Date Category Vitamin D3 (Cholecalciferol) 2,000 Unit Cap 2,000 Units PO QAM 07/24/17 Reported Trilafon (Perphenazine) 16 Mg Tab 16 Mg PO QAM 07/24/17 Reported Mevacor (Lovastatin) 20 Mg Tab 20 Mg PO QPM 05/03/17 Reported Prozac (Fluoxetine HCl) 40 Mg Cap 40 Mg PO QPM 05/03/17 Reported Trilafon (Perphenazine) 16 Mg Tab 32 Mg PO HS 12/16/16 Reported Prinivil (Lisinopril) 5 Mg Tab 5 Mg PO QPM 12/16/16 Reported Toujeo Solostar (Insulin Glargine) 300 Unit/Ml Inj 110 Units SQ QPM 12/16/16 Reported Humalog (Insulin Lispro (Human)) 100 Unit/Ml Inj 30 Units SQ TIDM 12/16/16 Reported Singulair (Montelukast Sodium) 10 Mg Tab 10 Mg PO QPM 02/18/16 Reported Cogentin (Benztropine Mesylate) 1 Mg Tab 1 Mg PO QPM 02/18/16 Reported Prilosec 40mg daily Prilosec 40mg daily Provider Instructions Activity Restrictions - No exercising or heavy lifting for 24 hours. - Do not drink alcohol the day of the procedure. - Do not drive a car or operate machinery until the day after the procedure. - Do not make any important decisions or sign important papers in 24 hours after the procedure. Following Day: - Return to full activity which may include returning to work/school. Diet Start your diet with liquids and light foods (jello, soup, juice, toast). Then eat your usual diet if not nauseated. Treatment For Common After Affects For mild abdominal pain, bloating, or excessive gas: - Rest - Eat lightly - Lie on right side Follow-Up Information Follow-up with Brenna BRONSON as scheduled Anesthesia Information What You Should Know You have had a procedure that required some medicine to reduce anxiety and discomfort. This treatment is called moderate sedation. After receiving the treatment, you may be sleepy, but you will be able to breathe on your own. The effects of the treatment may last for several hours. Follow these instructions along with Activity/Diet recommendations noted above: * Do NOT do anything where dizziness or clumsiness would be dangerous. * Rest quietly at home today, then you can be up and about tomorrow. * Have a responsible person stay with you the rest of today. * You may have had an I.V. today. If so, you may take the dressing off later today. Recommendations Call your doctor if: * Trouble breathing * Continuous vomiting for more than 24 hours * Temperature above 101 degrees * Severe abdominal pain or bloating * Pain not relieved by pain medicine ordered * There is increased drainage or redness from any incision * A large amount of rectal bleeding greater than 2-3 tablespoons. (If you had a polyp/s removed or have hemorrhoids, a small amount of blood - from the rectum is to be expected.) * You have any unanswered questions or concerns. IN THE EVENT OF A SERIOUS EMERGENCY, GO TO THE NEAREST EMERGENCY ROOM Your discharge instructions were prepared by provider Nicolás Harrington. Patient Instructions Signature Page Jluis Gibson Patient (or Guardian) Signature/Date: I have read and understand the instructions given to me by my caregivers. Caregiver/RN/Doctor Signature/Date: The above-named patient and/or guardian has received patient instructions on this date. + Original Patient Signature Page (only) stays with chart. Please make copy for patient.
--- NOTE | 2017-08-06 14:07 | GI REPORT ---
Procedure Date: 08/06/2017 1:43 PM Procedure: Upper GI endoscopy Indications: Hematemesis, Abnormal CT of the GI tract Medicines: Propofol per Anesthesia Complications: No immediate complications. Estimated blood loss: Minimal. Estimated Blood Loss: Estimated blood loss was minimal. Procedure: Pre-Anesthesia Assessment: - Prior to the procedure, a History and Physical was performed, and patient medications and allergies were reviewed. The patient's tolerance of previous anesthesia was also reviewed. The risks and benefits of the procedure and the sedation options and risks were discussed with the patient. All questions were answered, and informed consent was obtained. Prior Anticoagulants: The patient has taken no previous anticoagulant or antiplatelet agents. ASA Grade Assessment: III - A patient with severe systemic disease. After reviewing the risks and benefits, the patient was deemed in satisfactory condition to undergo the procedure. After obtaining informed consent, the endoscope was passed under direct vision. Throughout the procedure, the patient's blood pressure, pulse, and oxygen saturations were monitored continuously. The Scope was introduced through the mouth, and advanced to the second part of duodenum. The upper GI endoscopy was accomplished without difficulty. The patient tolerated the procedure well. Findings: LA Grade B (one or more mucosal breaks greater than 5 mm, not extending between the tops of two mucosal folds) esophagitis with no bleeding was found 35 to 40 cm from the incisors. Patchy mild inflammation characterized by congestion (edema) and erythema was found in the gastric body and in the gastric antrum. Biopsies were taken with a cold forceps for histology. Estimated blood loss was minimal. Verification of patient identification for the specimen was done by the physician and pulmonology technician using the patient's name and medical record number. The examined duodenum was normal. Biopsies for histology were taken with a cold forceps for evaluation of celiac disease. Estimated blood loss was minimal. Verification of patient identification for the specimen was done by the physician and pulmonology technician using the patient's name and medical record number. No evidence for portsl HTN; No esophageal or gastric varices The cardia and gastric fundus were normal on retroflexion. Bilious fluid was found in the gastric body. Impression: - LA Grade B reflux esophagitis. - Gastritis. Biopsied. - Normal examined duodenum. Biopsied. - Bilious gastric fluid. Recommendation: - Discharge patient to home (ambulatory). - Resume regular diet. - Continue present medications. - Await pathology results. - Return to referring physician as previously scheduled. - Use Prilosec (omeprazole) 40 mg PO daily. MD Nicolás Walls MD 08/06/2017 2:06:39 PM This report has been signed electronically. Note Initiated On: 08/06/2017 1:43 PM I attest to the content of the Intraoperative Record and orders documented therein, exceptions below
[2017-08-06 14:12] VITALS: BP 131/46; PULSE 78; O2SAT 99
--- NOTE | 2017-08-06 15:18 | Anesthesiology Progress Note ---
Anesthesia Post Op Note Date & Time Aug 06, 2017 at 15:18 Vital Signs Pain Intensity: 0 Vital Signs Past 12 Hours Date Time Temp Pulse Resp B/P (MAP) Pulse Ox O2 Delivery O2 Flow Rate FiO2 08/06/17 14:12 78 20 131/46 (74) 99 Room Air 08/06/17 13:57 36.2 66 20 119/66 (83) 99 Room Air 08/06/17 12:35 36.5 96 20 136/89 (105) 99 Room Air Notes Mental Status: alert / awake / arousable, participated in evaluation Pt Amnestic to Procedure: Yes Nausea / Vomiting: adequately controlled Pain: adequately controlled Airway Patency, RR, SpO2: stable & adequate BP & HR: stable & adequate Hydration State: stable & adequate Anesthetic Complications: no major complications apparent
== END | disposition home or self-care (01) ==
LOC: C.GI 12:13
PROVIDERS: ATTEND Internal Medicine Gastroenterology
DX: K92.0 Hematemesis (principal); R93.3 Abnormal findings on diagnostic imaging of other parts of digestive tract; K29.50 Unspecified chronic gastritis without bleeding; E11.9 Type 2 diabetes mellitus without complications; J45.909 Unspecified asthma, uncomplicated; I10 Essential (primary) hypertension; K21.0 Gastro-esophageal reflux disease with esophagitis; F20.9 Schizophrenia, unspecified; M79.7 Fibromyalgia; Z87.442 Personal history of urinary calculi; Z88.2 Allergy status to sulfonamides; Z88.8 Allergy status to other drugs, medicaments and biological substances; Z79.4 Long term (current) use of insulin; Z79.899 Other long term (current) drug therapy; Z90.89 Acquired absence of other organs; Z80.0 Family history of malignant neoplasm of digestive organs

== ENCOUNTER 2018-08-15 19:37 | Inpatient (IN) ==
[2018-08-15] MEDS ORDERED: ACETAMINOPHEN 1,000 MG/100 ML VIAL IV STA (20:00)
[2018-08-15] MEDS ORDERED: SODIUM CHLORIDE 0.9% 1000ML 1,000 ML IV SCH (20:00)
[2018-08-15] MEDS ORDERED: ONDANSETRON INJ 2 MG/ML 2 ML VIAL IV STA (20:00)
[2018-08-15 20:18] LABS: Basophils # (auto) 0.08 K/uL (0-0.2); Basophils % (auto) 1.2 %; Eosinophils # (auto) 0.19 K/uL (0-0.5); Eosinophils % (auto) 2.9 %; Hematocrit (blood only) 47.9 % (42-52); Hemoglobin 16.6 g/dL (14.0-18.0); Immature Granulocytes # (auto) 0.01 K/uL (0.00-0.02); Immature Granulocytes % (auto) 0.2 %; Lymphocytes # (auto) 2.69 K/uL (1.2-3.4); Lymphocytes % (auto) 41.4 %; Mean Corpuscular Hgb Conc 34.7 g/dL (32-36); Mean Corpuscular Volume 86.9 fL (80-100); Mean Platelet Volume 10.9 fL (7.4-10.4); Monocytes # (auto) 0.57 K/uL (0.11-0.59); Monocytes % (auto) 8.8 %; Neutrophils # (auto) 2.96 K/uL (1.4-6.5); Neutrophils % (auto) 45.5 %; Platelet Count 146 K/uL (130-400); RDW Coefficient of Variation 12.7 % (11.5-14.5); RDW Standard Deviation 40.7 fL (36.4-46.3); Red Blood Count 5.51 M/uL (4.7-6.1)
[2018-08-15 20:34] LABS: Albumin Level 3.9 gm/dl (3.4-5.0); BUN Creatinine Ratio 12.5 (10-20); Calcium 8.8 mg/dl (8.5-10.1); Creatinine Clr Calc Pharmacy 208.3 ml/min; Est GFR (African American) 148.2; Est GFR (Non-African American) 127.8; Potassium 3.6 mmol/L (3.5-5.1)
[2018-08-15 20:46] LABS: Albumin Globulin Ratio 1.1 (0.9-2); Bilirubin,Total 0.3 mg/dl (0.2-1); Globulin 3.6 gm/dl (2.5-4.0); Total Protein 7.5 gm/dl (6.4-8.2); Troponin I 0.095 ng/ml (0-0.045)
[2018-08-15] MEDS ORDERED: MoRPHine SULFATE 2 MG/ML CARP IV PRN (20:52)
[2018-08-15] MEDS ORDERED: IOVERSOL 100ml IV PRN (21:10)
--- NOTE | 2018-08-15 21:33 | Emergency Department Note ---
Entered by Juan Bejarano acting as a scribe for History of Present Illness General Chief complaint: GI Assessment Stated complaint: VOMITING,DIZZINESS,ABD PAIN,HEADACHE Time Seen by Provider: 08/15/18 19:51 Source: patient History of Present Illness Provider complaint: blood in vomit Onset (ago): day(s) (yesterday) Location: head (general) Pain Consistency: + other (episode) Maximum Pain Intensity: 9 Quality: + other (vomiting) Associated symptoms: + other (right upper abdominal pain, dizziness, generalized fatigure,dry mouth, excessive thirst); no fever/chills (-fever) Treatments prior to arrival: none The patient is a 33 year old male with a past medical history of type 1 diabetes as well as nonalcoholic cirrhosis of the liver who presents to the Emergency Room with complaints of an episode of vomiting mixed with blood that occurred yesterday and then today. The patient states that his sugar levels have been ranging from 65 to the 300's. He states that his insulin pump has administered 100 units of insulin over the past 24 hours. The patient admits to right upper abdominal pain, dizziness, headache, general fatigue, dry mouth, and excessive thirst, but denies any fevers. The patient reports that he drank 2 sugar free powerade bottles today for hydration. He also states that he has a cyst on his liver that he had an ultrasound of four days ago and states that the results revealed that the cyst has not grown at all. He denies ever having pain with the cyst. The patient denies taking anything for his symptoms. He reports a history of fibromyalgia and a cholecystectomy. Home Medications Home Medications Medication Instructions Recorded Confirmed Type atorvastatin 20 mg PO DAILY 05/14/18 08/15/18 History cariprazine [Vraylar] 3 mg PO DAILY 05/14/18 08/15/18 History lisinopril 5 mg PO DAILY 05/14/18 08/15/18 History montelukast [Singulair] 10 mg PO PM 05/14/18 08/15/18 History insulin lispro [Humalog U-100 1 pump CONTINUOUS SUBCUTANEOUS 08/15/18 08/15/18 History Insulin] INFUSION DIRECTED venlafaxine 300 mg PO DAILY 08/15/18 08/15/18 History Allergies Allergy/AdvReac Type Severity Reaction Status Date / Time trimethoprim [From Bactrim] Allergy Mild Hives Verified 08/15/18 20:39 clozapine Allergy Unknown CARDIOMYOPA Verified 08/15/18 20:39 THY sulfamethoxazole Allergy Unknown HIVES Verified 08/15/18 20:39 corn AdvReac Unknown TRIGGERS Verified 08/15/18 20:39 FIBROMYALGIA Past Med/Surg History Medical History Asthma (Chronic) Diabetes (Chronic) Hypertension (Chronic) Paranoid schizophrenia (Chronic) Fibromyalgia Surgical History History of cholecystectomy Social History Current Living Situation: Family Other Information That Helps Us Care for You: No Feels Safe at Home: Yes and No Any Concerns about Your Family Situation: No Would You Like to Speak to Someone About Your Situation: No Safety Concerns: Feels Safe At This Time Smoking Status: Never smoker Do You Dip or Chew Tobacco: No Second Hand Exposure: No Tobacco Cessation Education Requested by Patient: No Hx Alcohol Use: No Hx Substance Use: No Beliefs That Will Affect Care: None Preferred Language: Ecuadorean Communication Ability: Effective Ui Ux Engineer Required: No Review of Systems See HPI for pertinent positives & negatives. and A total of 10 systems reviewed and were otherwise negative Physical Exam Vital Signs Vital Signs - 24 hr 08/15/18 19:42 08/15/18 20:57 08/15/18 23:27 Temperature 36.7 C Temperature Source Oral Sepsis Recent Fever Within 48 Hours No Sepsis Action Taken by Nursing No Action Required Pulse Rate 86 Pulse Rate [Apical] 94 H Pulse Rate [Right Finger] Respiratory Rate 18 18 Respiratory Effort / Characteristics Non-Labored Spontaneous Respiratory Depth Normal Blood Pressure 149/102 H Blood Pressure [Right Arm] 131/87 Blood Pressure Mean 117 Blood Pressure Mean [Right Arm] 101 Blood Pressure Position [Right Arm] Pulse Oximetry 98 98 98 Oxygen Delivery Method Room Air Room Air Room Air 08/15/18 23:55 08/16/18 01:01 08/16/18 07:00 Temperature 36.4 C L 36.3 C L Temperature Source Oral Oral Sepsis Recent Fever Within 48 Hours Sepsis Action Taken by Nursing Pulse Rate Pulse Rate [Apical] Pulse Rate [Right Finger] 76 82 Respiratory Rate 16 18 Respiratory Effort / Characteristics Non-Labored Respiratory Depth Normal Blood Pressure Blood Pressure [Right Arm] 121/73 118/82 Blood Pressure Mean Blood Pressure Mean [Right Arm] 89 94 Blood Pressure Position [Right Arm] Sitting Pulse Oximetry 96 96 Oxygen Delivery Method Room Air Room Air GENERAL: Patient is in no acute distress. HEENT: No acute trauma, normocephalic atraumatic, mucous membranes dry, no nasal congestion, no scleral icterus. NECK: No stridor, no adenopathy, no meningismus, trachea is midline. LUNGS: Clear to auscultation bilaterally, no wheeze, no rhonchi, breath sounds equal. HEART: Without murmurs gallops or rubs, regular rate and rhythm. ABDOMEN: Soft, bowel sounds positive, no hernias, no peritonitis. Mild tenderness to right upper quadrant. EXTREMITIES: No cyanosis or edema, full range of motion of all the joints without pain or difficulty, no signs for acute trauma. NEUROLOGIC: Oriented x 3, no acute motor or sensory deficits, no focal weakness. SKIN: No rash, no jaundice, no diaphoresis. Course 1951: Past medical records reviewed. The patient was evaluated in room C3, and a complete history and physical examination were performed. 2052: I discussed the test results with the patient. He is agreeable with the intended treatment plan. 2057: I reviewed the patient's case with Dr. Pabon, [facility]. He will evaluate the patient for further management. Consultations Consultation #1: Dr. Pabon, [facility] Time: 20:58 Administered Medications Atorvastatin Calcium (Lipitor) 20 mg PO DAILY [facility] Stop: 09/15/18 08:59 Last Admin: 08/16/18 07:42 Dose: 20 mg Enoxaparin Sodium (Lovenox) 40 mg SQ Q24H ЕЛЕНА Stop: 09/15/18 07:59 Last Admin: 08/16/18 07:41 Dose: Not Given Lactated Ringer's (Lr) 1,000 mls @ 250 mls/hr IV .Q4H ЕЛЕНА Stop: 08/16/18 11:57 Last Admin: 08/16/18 07:41 Dose: 250 mls/hr Infusion: 08/16/18 07:41 Dose: 250 mls/hr Admin: 08/16/18 04:46 Dose: 250 mls/hr Infusion: 08/16/18 04:46 Dose: 250 mls/hr Admin: 08/16/18 00:47 Dose: 250 mls/hr Ioversol (Optiray 320 100ml) 94 ml IV ONCE PRN PRN Reason: Interaction Checking Stop: 08/19/18 21:09 Last Admin: 08/15/18 21:11 Dose: 94 ml Ketorolac Tromethamine (Toradol) 15 mg IV Q6H PRN PRN Reason: Pain Stop: 08/20/18 23:57 Last Admin: 08/16/18 01:30 Dose: 15 mg Lisinopril (Zestril) 5 mg PO DAILY [facility] Stop: 09/15/18 08:59 Last Admin: 08/16/18 07:42 Dose: 5 mg Miscellaneous (Order Awaiting Action) 1 ea N/A QS [facility] Stop: 09/15/18 07:59 Last Admin: 08/16/18 10:41 Dose: Not Given Admin: 08/16/18 07:41 Dose: Not Given Morphine Sulfate (Morphine Sulfate) 2 mg IV Q4H PRN PRN Reason: Pain Stop: 08/29/18 23:57 Last Admin: 08/16/18 10:19 Dose: 2 mg Admin: 08/16/18 07:38 Dose: 2 mg Admin: 08/16/18 04:17 Dose: 2 mg Venlafaxine HCl (Effexor Extended Release) 300 mg PO DAILY [facility] Stop: 09/15/18 08:59 Last Admin: 08/16/18 07:42 Dose: 300 mg Discontinued Medications Acetaminophen (Ofirmev) 1,000 mg in 100 mls @ 400 mls/hr IV NOW STA Stop: 08/15/18 20:14 Last Admin: 08/15/18 20:26 Dose: Not Given Sodium Chloride (Nss 1000ml) 1,000 mls @ 999 mls/hr IV .Q1H1M ЕЛЕНА Stop: 08/15/18 21:00 Last Infusion: 08/15/18 23:12 Dose: 0 mls/hr Admin: 08/15/18 20:13 Dose: 999 mls/hr Insulin Aspart (Novolog Flexpen) 0 units SC ACHS ЕЛЕНА Stop: 09/15/18 00:14 Last Admin: 08/16/18 07:45 Dose: Not Given Admin: 08/16/18 00:57 Dose: Not Given Insulin Glargine (Lantus Solostar Pen) 40 units SC NOW ONE Stop: 08/16/18 09:01 Last Admin: 08/16/18 09:33 Dose: 40 units Morphine Sulfate (Morphine Sulfate) 2 mg IV Q15M PRN PRN Reason: Pain Stop: 08/29/18 20:51 Last Admin: 08/15/18 20:54 Dose: 2 mg Ondansetron HCl (Zofran) 4 mg IV NOW STA Stop: 08/15/18 20:01 Last Admin: 08/15/18 20:12 Dose: 4 mg Medical Decision Making Differential Diagnosis Differential: Dehydration, hyperglycemia, gastritis or ulcer, viral illness, electrolyte imbalance, DKA, foodborne illness, pancreatitis or bowel rupture. Medical Records Attestation: I reviewed the patient's medical records. Home Medications Current Medication List: was personally reviewed by me Laboratory Data Attestation: I reviewed the patient's lab results. Result diagrams: 08/15/18 20:10 08/16/18 02:06 Lab Results 08/15/18 08/15/18 08/15/18 Range/Units 20:10 20:10 23:33 WBC 6.50 (4.8-10.8) K/uL RBC 5.51 (4.7-6.1) M/uL Hgb 16.6 (14.0-18.0) g/dL Hct 47.9 (42-52) % MCV 86.9 (80-100) fL MCH 30.1 (25-34) pg MCHC 34.7 (32-36) g/dL RDW Std Deviation 40.7 (36.4-46.3) fL RDW Coeff of Cira 12.7 (11.5-14.5) % Plt Count 146 (130-400) K/uL MPV 10.9 H (7.4-10.4) fL Immature Gran % (Auto) 0.2 % Neut % (Auto) 45.5 % Lymph % (Auto) 41.4 % [place] % (Auto) 8.8 % Eos % (Auto) 2.9 % Baso % (Auto) 1.2 % Immature Gran # (Auto) 0.01 (0.00-0.02) K/uL Neut # (Auto) 2.96 (1.4-6.5) K/uL Lymph # (Auto) 2.69 (1.2-3.4) K/uL [place] # (Auto) 0.57 (0.11-0.59) K/uL Eos # (Auto) 0.19 (0-0.5) K/uL Baso # (Auto) 0.08 (0-0.2) K/uL PT (9.0-12.0) Seconds INR (0.9-1.1) Sodium 139 (136-145) mmol/L Potassium 3.6 (3.5-5.1) mmol/L Chloride 106 (98-107) mmol/L Carbon Dioxide 26 (21-32) mmol/L Anion Gap 6.0 (3-11) BUN 8 (7-18) mg/dl Creatinine 0.65 (0.6-1.4) mg/dl Est Cr Clr Drug Dosing 208.3 ml/min Est GFR ( Amer) 148.2 Est GFR (Non-Af Amer) 127.8 BUN/Creatinine Ratio 12.5 (10-20) Glucose 130 H (70-99) mg/dl POC Glucose 104 H (70-99) Calcium 8.8 (8.5-10.1) mg/dl Magnesium 2.0 (1.8-2.4) mg/dl Total Bilirubin 0.3 (0.2-1) mg/dl AST 39 H (15-37) U/L ALT 70 (12-78) U/L Alkaline Phosphatase 88 (45-117) U/L Troponin I 0.095 H* (0-0.045) ng/ml Total Protein 7.5 (6.4-8.2) gm/dl Albumin 3.9 (3.4-5.0) gm/dl Globulin 3.6 (2.5-4.0) gm/dl Albumin/Globulin Ratio 1.1 (0.9-2) Lipase 2346 H (73-393) U/L Urine Color Urine Appearance (Clear) Urine pH (4.5-7.5) Ur Specific [place] (1.000-1.030) Urine Protein (Negative) Urine Glucose (UA) (Negative) Urine Ketones (Negative) Urine Blood (Negative) Urine Nitrite (Negative) Urine Bilirubin (Negative) Urine Urobilinogen (Negative) Ur Leukocyte Esterase (Negative) Urine Opiates Screen (Neg) Ur Methadone, Qual (Neg) Urine Barbiturates (Neg) Ur Phencyclidine (PCP) (Neg) U Amphetamin/Meth Scrn (Neg) MDMA (Ecstasy) Screen (Neg) U Benzodiazepines Scrn (Neg) Ur Cocaine Metabolite (Neg) U Marijuana (THC) Screen (Neg) 08/16/18 08/16/18 08/16/18 Range/Units 00:15 00:15 00:38 WBC (4.8-10.8) K/uL RBC (4.7-6.1) M/uL Hgb (14.0-18.0) g/dL Hct (42-52) % MCV (80-100) fL MCH (25-34) pg MCHC (32-36) g/dL RDW Std Deviation (36.4-46.3) fL RDW Coeff of Cira (11.5-14.5) % Plt Count (130-400) K/uL MPV (7.4-10.4) fL Immature Gran % (Auto) % Neut % (Auto) % Lymph % (Auto) % [place] % (Auto) % Eos % (Auto) % Baso % (Auto) % Immature Gran # (Auto) (0.00-0.02) K/uL Neut # (Auto) (1.4-6.5) K/uL Lymph # (Auto) (1.2-3.4) K/uL [place] # (Auto) (0.11-0.59) K/uL Eos # (Auto) (0-0.5) K/uL Baso # (Auto) (0-0.2) K/uL PT (9.0-12.0) Seconds INR (0.9-1.1) Sodium (136-145) mmol/L Potassium (3.5-5.1) mmol/L Chloride (98-107) mmol/L Carbon Dioxide (21-32) mmol/L Anion Gap (3-11) BUN (7-18) mg/dl Creatinine (0.6-1.4) mg/dl Est Cr Clr Drug Dosing ml/min Est GFR ( Amer) Est GFR (Non-Af Amer) BUN/Creatinine Ratio (10-20) Glucose (70-99) mg/dl POC Glucose 88 (70-99) Calcium (8.5-10.1) mg/dl Magnesium (1.8-2.4) mg/dl Total Bilirubin (0.2-1) mg/dl AST (15-37) U/L ALT (12-78) U/L Alkaline Phosphatase (45-117) U/L Troponin I (0-0.045) ng/ml Total Protein (6.4-8.2) gm/dl Albumin (3.4-5.0) gm/dl Globulin (2.5-4.0) gm/dl Albumin/Globulin Ratio (0.9-2) Lipase (73-393) U/L Urine Color Yellow Urine Appearance Clear (Clear) Urine pH 6.5 (4.5-7.5) Ur Specific [place] 1.039 H (1.000-1.030) Urine Protein Negative (Negative) Urine Glucose (UA) Negative (Negative) Urine Ketones Negative (Negative) Urine Blood Negative (Negative) Urine Nitrite Negative (Negative) Urine Bilirubin Negative (Negative) Urine Urobilinogen Negative (Negative) Ur Leukocyte Esterase Negative (Negative) Urine Opiates Screen Pos H (Neg) Ur Methadone, Qual Neg (Neg) Urine Barbiturates Neg (Neg) Ur Phencyclidine (PCP) Neg (Neg) U Amphetamin/Meth Scrn Neg (Neg) MDMA (Ecstasy) Screen Neg (Neg) U Benzodiazepines Scrn Neg (Neg) Ur Cocaine Metabolite Neg (Neg) U Marijuana (THC) Screen Neg (Neg) 08/16/18 08/16/18 08/16/18 Range/Units 01:37 02:06 02:06 WBC (4.8-10.8) K/uL RBC (4.7-6.1) M/uL Hgb (14.0-18.0) g/dL Hct (42-52) % MCV (80-100) fL MCH (25-34) pg MCHC (32-36) g/dL RDW Std Deviation (36.4-46.3) fL RDW Coeff of Cira (11.5-14.5) % Plt Count (130-400) K/uL MPV (7.4-10.4) fL Immature Gran % (Auto) % Neut % (Auto) % Lymph % (Auto) % [place] % (Auto) % Eos % (Auto) % Baso % (Auto) % Immature Gran # (Auto) (0.00-0.02) K/uL Neut # (Auto) (1.4-6.5) K/uL Lymph # (Auto) (1.2-3.4) K/uL [place] # (Auto) (0.11-0.59) K/uL Eos # (Auto) (0-0.5) K/uL Baso # (Auto) (0-0.2) K/uL PT 12.5 H (9.0-12.0) Seconds INR 1.2 H (0.9-1.1) Sodium 142 (136-145) mmol/L Potassium 3.4 L (3.5-5.1) mmol/L Chloride 109 H (98-107) mmol/L Carbon Dioxide 29 (21-32) mmol/L Anion Gap 4.0 (3-11) BUN 7 (7-18) mg/dl Creatinine 0.61 (0.6-1.4) mg/dl Est Cr Clr Drug Dosing 221.7 ml/min Est GFR ( Amer) > 150.0 Est GFR (Non-Af Amer) 131.2 BUN/Creatinine Ratio 11.6 (10-20) Glucose 81 (70-99) mg/dl POC Glucose 85 (70-99) Calcium 7.8 L (8.5-10.1) mg/dl Magnesium (1.8-2.4) mg/dl Total Bilirubin 0.3 (0.2-1) mg/dl AST 35 (15-37) U/L ALT 61 (12-78) U/L Alkaline Phosphatase 66 (45-117) U/L Troponin I 0.089 H* (0-0.045) ng/ml Total Protein 6.4 (6.4-8.2) gm/dl Albumin 3.3 L (3.4-5.0) gm/dl Globulin 3.1 (2.5-4.0) gm/dl Albumin/Globulin Ratio 1.1 (0.9-2) Lipase 389 (73-393) U/L Urine Color Urine Appearance (Clear) Urine pH (4.5-7.5) Ur Specific [place] (1.000-1.030) Urine Protein (Negative) Urine Glucose (UA) (Negative) Urine Ketones (Negative) Urine Blood (Negative) Urine Nitrite (Negative) Urine Bilirubin (Negative) Urine Urobilinogen (Negative) Ur Leukocyte Esterase (Negative) Urine Opiates Screen (Neg) Ur Methadone, Qual (Neg) Urine Barbiturates (Neg) Ur Phencyclidine (PCP) (Neg) U Amphetamin/Meth Scrn (Neg) MDMA (Ecstasy) Screen (Neg) U Benzodiazepines Scrn (Neg) Ur Cocaine Metabolite (Neg) U Marijuana (THC) Screen (Neg) 08/16/18 08/16/18 08/16/18 Range/Units 04:06 07:31 07:50 WBC (4.8-10.8) K/uL RBC (4.7-6.1) M/uL Hgb (14.0-18.0) g/dL Hct (42-52) % MCV (80-100) fL MCH (25-34) pg MCHC (32-36) g/dL RDW Std Deviation (36.4-46.3) fL RDW Coeff of Cira (11.5-14.5) % Plt Count (130-400) K/uL MPV (7.4-10.4) fL Immature Gran % (Auto) % Neut % (Auto) % Lymph % (Auto) % [place] % (Auto) % Eos % (Auto) % Baso % (Auto) % Immature Gran # (Auto) (0.00-0.02) K/uL Neut # (Auto) (1.4-6.5) K/uL Lymph # (Auto) (1.2-3.4) K/uL [place] # (Auto) (0.11-0.59) K/uL Eos # (Auto) (0-0.5) K/uL Baso # (Auto) (0-0.2) K/uL PT (9.0-12.0) Seconds INR (0.9-1.1) Sodium (136-145) mmol/L Potassium (3.5-5.1) mmol/L Chloride (98-107) mmol/L Carbon Dioxide (21-32) mmol/L Anion Gap (3-11) BUN (7-18) mg/dl Creatinine (0.6-1.4) mg/dl Est Cr Clr Drug Dosing ml/min Est GFR ( Amer) Est GFR (Non-Af Amer) BUN/Creatinine Ratio (10-20) Glucose (70-99) mg/dl POC Glucose 93 107 H (70-99) Calcium (8.5-10.1) mg/dl Magnesium (1.8-2.4) mg/dl Total Bilirubin (0.2-1) mg/dl AST (15-37) U/L ALT (12-78) U/L Alkaline Phosphatase (45-117) U/L Troponin I 0.108 H* (0-0.045) ng/ml Total Protein (6.4-8.2) gm/dl Albumin (3.4-5.0) gm/dl Globulin (2.5-4.0) gm/dl Albumin/Globulin Ratio (0.9-2) Lipase (73-393) U/L Urine Color Urine Appearance (Clear) Urine pH (4.5-7.5) Ur Specific [place] (1.000-1.030) Urine Protein (Negative) Urine Glucose (UA) (Negative) Urine Ketones (Negative) Urine Blood (Negative) Urine Nitrite (Negative) Urine Bilirubin (Negative) Urine Urobilinogen (Negative) Ur Leukocyte Esterase (Negative) Urine Opiates Screen (Neg) Ur Methadone, Qual (Neg) Urine Barbiturates (Neg) Ur Phencyclidine (PCP) (Neg) U Amphetamin/Meth Scrn (Neg) MDMA (Ecstasy) Screen (Neg) U Benzodiazepines Scrn (Neg) Ur Cocaine Metabolite (Neg) U Marijuana (THC) Screen (Neg) 08/16/18 Range/Units 10:29 WBC (4.8-10.8) K/uL RBC (4.7-6.1) M/uL Hgb (14.0-18.0) g/dL Hct (42-52) % MCV (80-100) fL MCH (25-34) pg MCHC (32-36) g/dL RDW Std Deviation (36.4-46.3) fL RDW Coeff of Cira (11.5-14.5) % Plt Count (130-400) K/uL MPV (7.4-10.4) fL Immature Gran % (Auto) % Neut % (Auto) % Lymph % (Auto) % [place] % (Auto) % Eos % (Auto) % Baso % (Auto) % Immature Gran # (Auto) (0.00-0.02) K/uL Neut # (Auto) (1.4-6.5) K/uL Lymph # (Auto) (1.2-3.4) K/uL [place] # (Auto) (0.11-0.59) K/uL Eos # (Auto) (0-0.5) K/uL Baso # (Auto) (0-0.2) K/uL PT (9.0-12.0) Seconds INR (0.9-1.1) Sodium (136-145) mmol/L Potassium (3.5-5.1) mmol/L Chloride (98-107) mmol/L Carbon Dioxide (21-32) mmol/L Anion Gap (3-11) BUN (7-18) mg/dl Creatinine (0.6-1.4) mg/dl Est Cr Clr Drug Dosing ml/min Est GFR ( Amer) Est GFR (Non-Af Amer) BUN/Creatinine Ratio (10-20) Glucose (70-99) mg/dl POC Glucose 130 H (70-99) Calcium (8.5-10.1) mg/dl Magnesium (1.8-2.4) mg/dl Total Bilirubin (0.2-1) mg/dl AST (15-37) U/L ALT (12-78) U/L Alkaline Phosphatase (45-117) U/L Troponin I (0-0.045) ng/ml Total Protein (6.4-8.2) gm/dl Albumin (3.4-5.0) gm/dl Globulin (2.5-4.0) gm/dl Albumin/Globulin Ratio (0.9-2) Lipase (73-393) U/L Urine Color Urine Appearance (Clear) Urine pH (4.5-7.5) Ur Specific [place] (1.000-1.030) Urine Protein (Negative) Urine Glucose (UA) (Negative) Urine Ketones (Negative) Urine Blood (Negative) Urine Nitrite (Negative) Urine Bilirubin (Negative) Urine Urobilinogen (Negative) Ur Leukocyte Esterase (Negative) Urine Opiates Screen (Neg) Ur Methadone, Qual (Neg) Urine Barbiturates (Neg) Ur Phencyclidine (PCP) (Neg) U Amphetamin/Meth Scrn (Neg) MDMA (Ecstasy) Screen (Neg) U Benzodiazepines Scrn (Neg) Ur Cocaine Metabolite (Neg) U Marijuana (THC) Screen (Neg) Imaging Data Radiologist's Impression: Radiology results as stated below per my review and the radiologist's interpretation: ABDOMEN AND PELVIS CT WITH IV CONTRAST CT DOSE: 892.63 mGy.cm HISTORY: Acute right upper quadrant abdominal pain ruq pain, poss rupture or bleeding TECHNIQUE: Multiaxial CT images of the abdomen and pelvis were performed following the use of intravenous contrast. A dose lowering technique was utilized adhering to the principles of ALARA. COMPARISON STUDY: Right upper quadrant abdominal ultrasound 08/12/2018, CT abdomen and pelvis 10/10/2016. FINDINGS: The imaged lung bases appear generally clear. There is no pneumatosis or pneumoperitoneum. The imaged inferior cardiac chambers appear unremarkable. Hepatic steatosis with otherwise unremarkable appearance of the liver. Prior cholecystectomy. Patency of the hepatic and portal veins. Mild intrahepatic and extrahepatic biliary ductal dilation is likely on a postsurgical basis. Spleen is mildly enlarged, 13.7 cm. Pancreas and adrenal glands are unremarkable. The kidneys are unremarkable. No hydronephrosis. Mild dilation of the distal ureters bilaterally. Mild circumferential wall thickening about the urinary bladder. Prostate appears unremarkable. Aorta and IVC are within normal limits. No adenopathy. No bowel obstruction or focal bowel wall thickening. Postoperative changes from prior appendectomy. There are several fluid-filled loops of small bowel noted about the abdomen and pelvis with a few scattered air-fluid levels, likely physiologic. No ascites or mesenteric inflammation. Soft tissues are unremarkable. Nonspecific nonspecific mild stranding about the anterior subcutaneous abdominal wall. Tiny fat filled periumbilical hernia. The bones appear to be intact. IMPRESSION: 1. No bowel obstruction or focal bowel wall thickening. 2. Mild circumferential wall thickening of the urinary bladder. Correlate with urinalysis to exclude cystitis. 3. Prior cholecystectomy and appendectomy. 4. Mild splenomegaly. 5. Hepatic steatosis. Electronically signed by: Paras Barron M.D. 08/15/2018 9:33 PM ECG Data Attestation: I personally reviewed and interpreted this ECG as follows: Indication: abdominal pain Rate (beats per minute): 89 Rhythm: normal sinus (with LVH) Findings: no PVC and no ST elevation Blood Pressure Blood Pressure Findings: Normal blood pressure Blood Pressure Disposition: did not require urgent referral MDM Narrative There is no leukocytosis or concerning anemia. No significant electrolyte abnormality or kidney failure. Blood sugar is 130. There is no hepatitis. Lipase is elevated at over 2000, consistent with pancreatitis. EKG shows a sinus rhythm with LVH, no acute ischemia. Cardiac troponin is slightly elevated , this could be from mismatch or possibly some cardiac strain. Abdominal and pelvis CT shows bladder thickening, no issue with the pancreas, no bowel obstruction, no free air. The patient received IV saline 1 L. He was given IV morphine for pain, IV Zofran for nausea. He was kept n.p.o. The patient has acute pancreatitis, this explains his symptoms. He does require a hospital stay. I spoke to the patient and case management. The on- call hospitalist was consulted. Impression & Plan Acute pancreatitis, Elevated troponin, Vomiting, Hyperglycemia Discharge Plan Visit Data *Final* Discharge Date/Time: 08/15/18 23:24 Chief Complaint: GI Assessment Stated Complaint: VOMITING,DIZZINESS,ABD PAIN,HEADACHE ED Provider: Roel Sears Discharge Problem: Acute pancreatitis, Elevated troponin, Vomiting, Hyperglycemia Patient Disposition: Admitted As Inpatient Discharge Instructions Interventions: ED Discharge Assessment Last Done: 08/15/18 23:24 The sathyaibe's documentation has been prepared under my direction and personally reviewed by me in its entirety. I confirm that the note above accurately reflects all work, treatment, procedures, and medical decision making performed by me.
--- NOTE | 2018-08-15 21:34 | CT Scan Report ---
ABDOMEN AND PELVIS CT WITH IV CONTRAST CT DOSE: 892.63 mGy.cm HISTORY: Acute right upper quadrant abdominal pain ruq pain, poss rupture or bleeding TECHNIQUE: Multiaxial CT images of the abdomen and pelvis were performed following the use of intrave nous contrast. A dose lowering technique was utilized adhering to the principles of ALARA. COMPARISON STUDY: Right upper quadrant abdominal ultrasound 08/12/2018, CT abdomen and pelvis 7. FINDINGS: The imaged lung bases appear generally clear. There is no pneumatosis or pneumoperitoneum. The imaged inferior cardiac chambers appear unremarkable. Hepatic steatosis with otherwise unremarkable appearance of the liver. Prior cholecystectomy. Patency of the hepatic and portal veins. Mild intrahepatic and extrahepatic biliary ductal dilation is likel y on a postsurgical basis. Spleen is mildly enlarged, 13.7 cm. Pancreas and adrenal glands are unrema rkable. The kidneys are unremarkable. No hydronephrosis. Mild dilation of the distal ureters bilatera lly. Mild circumferential wall thickening about the urinary bladder. Prostate appears unremarkable. A otto and IVC are within normal limits. No adenopathy. No bowel obstruction or focal bowel wall thickening. Postoperative changes from prior appendectomy. T here are several fluid-filled loops of small bowel noted about the abdomen and pelvis with a few scat tered air-fluid levels, likely physiologic. No ascites or mesenteric inflammation. Soft tissues are u nremarkable. Nonspecific nonspecific mild stranding about the anterior subcutaneous abdominal wall. T iny fat filled periumbilical hernia. The bones appear to be intact. IMPRESSION: 1. No bowel obstruction or focal bowel wall thickening. 2. Mild circumferential wall thickening of the urinary bladder. Correlate with urinalysis to exclude cystitis. 3. Prior cholecystectomy and appendectomy. 4. Mild splenomegaly. 5. Hepatic steatosis. Electronically signed by: Paras Barron M.D. 08/15/2018 9:33 PM
--- NOTE | 2018-08-15 21:53 | History & Physical Report ---
Date of Service August 15, 2018 Assessment & Plan (1) RUQ abdominal pain: Mr. Gibson is a 33 year old male with a history of paranoid schizophrenia , diabetes, hypertension, nonalcoholic liver cirrhosis, and asthma who presents to the emergency department due to nausea, vomiting and abdominal pain. Patient received 2 mg IV morphine, 4 mg IV Zofran and 1 L of normal saline in the emergency department. -Admit to med/surg -CT scan showed hepatic steatosis, mild circumferential wall thickening of urinary bladder, prior cholecystectomy, mild intrahepatic and extrahepatic biliary ductal dilation -Abdominal ultrasound on 08/12/18 did not show any biliary ductal dilation -ddx for RUQ pain, n/v: viral gastroenteritis vs. ?possibly due to gallstone/ sludge in biliary tree causing new biliary ductal dilation -LFTs unremarkable except for slight AST elevation at 39 -Consider MRCP to further investigate if patient does not improve with conservative treatment (2) Elevated lipase: -Lipase elevated at 2346 -No evidence of pancreatitis seen on CT scan -Possibly secondary to a viral process -No other identifiable causes of pancreatitis - no recent alcohol abuse, steroids use, recent trauma. Triglycerides recently checked and within normal limits. Calcium level normal. -Urine drug screen ordered in ER -Patient received 1 L of NS in the emergency department -Begin LR at 250 mLs/hour x3bags -toradol 15mg q6h prn and morphine 2mg q4h prn for pain -zofran 4mg IV q6h prn for nausea -NPO (3) Elevated troponin: -Troponin elevated at 0.095 -Patient does not endorse chest pain, EKG without evidence for ischemia -Trend troponin every 6 hours x2, likely elevated due to supply/demand mismatch in setting of illness (4) Asthma: -Continue Singulair -No evidence of asthma exacerbation at this time (5) Diabetes: -glycemic management, pt has insulin pump at home. States it ran out due to having received large amounts of insulin today -Hba1c checked on 08/14 and was 9% (6) Hypertension: -Continue lisinopril 5 mg daily (7) Paranoid schizophrenia: -Continue cariprazine and venlafaxine (8) Hypercholesteremia: -Continue atorvastatin CODE STATUS: Full DVT prophylaxis: Lovenox q24h F/E/N: N.p.o. No electrolyte abnormalites noted. LR at 250 mls/hr x3 bags. History of Present Illness Primary Care Provider: AIYANA Forbes Mr. Gibson is a 33 year old male with a history of paranoid schizophrenia, diabetes, hypertension, nonalcoholic liver cirrhosis, and asthma who presents to the emergency department due to nausea, vomiting and abdominal pain. He states that he was in his usual state of health until approximately 24 hours ago. He notices at this time his blood sugars were difficult to control and ranged from 65-300. He received 128 units of insulin via his insulin pump in the last 12 hours he also reports that he has had nausea, several episodes of vomiting and severe abdominal pain. He states the pain is located over the right side of his abdomen and can be as severe as a 9/10 in severity. He states the pain is a dull ache and radiates to his back as well as his shoulder. He states that this has never happened to him before. He also endorses a headache, fatigue and several loose stools, without the presence of blood. He denies fever or chills. He notes that he has a history of moderate nonalcoholic cirrhosis, secondary to fatty liver disease. He follows with Dr. Coburn for this. He is was recently given a hepatitis A vaccination. He denies recent use of antibiotics, steroids, recent travel. He had his gallbladder removed 1 year ago. Of note, he is a non-smoker and denies use of alcohol or recreational drugs. Allergies Allergy/AdvReac Type Severity Reaction Status Date / Time trimethoprim [From Bactrim] Allergy Mild Hives Verified 08/15/18 20:39 clozapine Allergy Unknown CARDIOMYOPA Verified 08/15/18 20:39 THY sulfamethoxazole Allergy Unknown HIVES Verified 08/15/18 20:39 corn AdvReac Unknown TRIGGERS Verified 08/15/18 20:39 FIBROMYALGIA Home Medications Home Medications Medication Instructions Recorded Confirmed Type atorvastatin 20 mg PO DAILY 05/14/18 08/15/18 History cariprazine [Vraylar] 3 mg PO DAILY 05/14/18 08/15/18 History lisinopril 5 mg PO DAILY 05/14/18 08/15/18 History montelukast [Singulair] 10 mg PO PM 05/14/18 08/15/18 History insulin lispro [Humalog U-100 1 pump CONTINUOUS SUBCUTANEOUS 08/15/18 08/15/18 History Insulin] INFUSION DIRECTED venlafaxine 300 mg PO DAILY 08/15/18 08/15/18 History Past Med/Surg History Medical History Asthma (Chronic) Diabetes (Chronic) Hypertension (Chronic) Paranoid schizophrenia (Chronic) Fibromyalgia Surgical History History of cholecystectomy Social History Current Living Situation: Family Other Information That Helps Us Care for You: No Feels Safe at Home: Yes and No Any Concerns about Your Family Situation: No Would You Like to Speak to Someone About Your Situation: No Safety Concerns: Feels Safe At This Time Smoking Status: Never smoker Do You Dip or Chew Tobacco: No Second Hand Exposure: No Tobacco Cessation Education Requested by Patient: No Hx Alcohol Use: No Hx Substance Use: No Beliefs That Will Affect Care: None Preferred Language: Swedish Communication Ability: Effective Machine Presser Required: No Review of Systems Constitutional: + fatigue and + anorexia; no fever and no chills Respiratory: no cough and no wheezing Cardiovascular: no chest pain, no edema and no calf pain Gastrointestinal: + abdominal pain, + nausea, + vomiting and + diarrhea/loose stools; no hematemesis Genitourinary (Male): no dysuria, no urinary frequency and no urinary hesitancy Musculoskeletal: + back pain Integumentary: no rash and no lesions Physical Exam 2 Vital Signs (Past 24 Hours): Last Vital Signs Temp 36.7 C 08/15/18 19:42 Pulse 86 08/15/18 19:42 Resp 18 08/15/18 19:42 BP 149/102 H 08/15/18 19:42 Pulse Ox 98 08/15/18 20:57 Constitutional: WD/WN, vitals as above + obese Eyes: PERRL, conjunctivae normal, anicteric sclerae ENMT: external ear and nose normal, oropharynx normal (Dry mucous membranes) Respiratory: normal respiratory effort, lungs clear to auscultation Cardiovascular: RRR, no murmur, no edema Gastrointestinal (Abdomen): Percussion/Palpation: + abdomen tender (Tender over right upper quadrant and to a lesser degree, over epigastric region) and abdomen soft; no guarding and abdomen not rigid No flank tenderness Skin: no rashes, warm and dry Psychiatric: A+Ox3, euthymic affect Results & Data Laboratory Results Laboratory Results - last 24 hr 08/15/18 08/15/18 20:10 20:10 WBC 6.50 RBC 5.51 Hgb 16.6 Hct 47.9 MCV 86.9 MCH 30.1 MCHC 34.7 RDW Std Deviation 40.7 RDW Coeff of Cira 12.7 Plt Count 146 MPV 10.9 H Immature Gran % (Auto) 0.2 Neut % (Auto) 45.5 Lymph % (Auto) 41.4 [place] % (Auto) 8.8 Eos % (Auto) 2.9 Baso % (Auto) 1.2 Immature Gran # (Auto) 0.01 Neut # (Auto) 2.96 Lymph # (Auto) 2.69 [place] # (Auto) 0.57 Eos # (Auto) 0.19 Baso # (Auto) 0.08 Sodium 139 Potassium 3.6 Chloride 106 Carbon Dioxide 26 Anion Gap 6.0 BUN 8 Creatinine 0.65 Est Cr Clr Drug Dosing 208.3 Est GFR ( Amer) 148.2 Est GFR (Non-Af Amer) 127.8 BUN/Creatinine Ratio 12.5 Glucose 130 H Calcium 8.8 Magnesium 2.0 Total Bilirubin 0.3 AST 39 H ALT 70 Alkaline Phosphatase 88 Troponin I 0.095 H* Total Protein 7.5 Albumin 3.9 Globulin 3.6 Albumin/Globulin Ratio 1.1 Lipase 2346 H Medications Administered Current Inpatient Medications Ioversol (Optiray 320 100ml) 94 ml IV ONCE PRN PRN Reason: Interaction Checking Stop: 08/19/18 21:09 Last Admin: 08/15/18 21:11 Dose: 94 ml Morphine Sulfate (Morphine Sulfate) 2 mg IV Q15M PRN PRN Reason: Pain Stop: 08/29/18 20:51 Last Admin: 08/15/18 20:54 Dose: 2 mg Supervising Physician Co-Signing Physician Notes Attending addendum: I have physically seen this patient, have supervised the medical residents activities, and agree with the H&P unless as otherwise noted. Assessment and Plan: Pancreatitis/history nonalcoholic liver cirrhosis-- CT without acute findings specifically related to the pancreas. Mild intrahepatic and extrahepatic biliary ductal dilatation. Order an MRCP. More aggressively replace IV fluids. Zofran 4 mg IV every 6 hours as needed. Pantoprazole 40 mg IV daily. Consult gastroenterology, as patient may need an ERCP. Elevated troponin of 0.095-- The patient will be admitted to telemetry for serial cardiac enzymes, serial EKG's, cardiac rhythm monitoring and a 2-D echocardiogram with Dopplers. Remainder of orders and notations as noted. Resident Activity Tracking Resident Involvement: Resident Care Provided Care Provided: Adult [facility]
[2018-08-15] MEDS ORDERED: ONDANSETRON INJ 2 MG/ML 2 ML VIAL IV PRN (23:58)
[2018-08-16] MEDS ORDERED: PHARMACY GLYCEMIC MGMT CONSULT PRN (00:10)
[2018-08-16] MEDS ORDERED: GLUCOSE 10 TABS/TUBE PO PRN (00:16)
[2018-08-16] MEDS ORDERED: CARBOHYDRATES FOR HYPOGLYCEMIA PO PRN (00:16)
[2018-08-16] MEDS ORDERED: DEXTROSE 50% 50 ML SYRINGE IV PRN (00:16)
[2018-08-16] MEDS ORDERED: GLUCOSE 40% GEL 15 GM TUBE PO PRN (00:16)
[2018-08-16] MEDS ORDERED: GLUCAGON FOR INJ 1 MG VIAL SQ PRN (00:16)
[2018-08-16 00:19] LABS: Appearance Urine Clear (Clear); Bilirubin Urine Negative (Negative); Color Urine Yellow; Glucose Urine UA Negative (Negative); Ketones Urine Negative (Negative); Leukocyte Esterase Urine Negative (Negative); Nitrite Urine Negative (Negative); Protein Urine Negative (Negative); Specific Gravity Urine 1.039 (1.000-1.030); Urobilinogen Urine Negative (Negative); pH Urine 6.5 (4.5-7.5)
[2018-08-16 00:37] LABS: Amphetamines+Metham, Urine Neg (Neg); Barbiturates, Urine Neg (Neg); Benzodiazepine, Urine Neg (Neg); Cocaine, Urine Neg (Neg); MDMA (Ecstacy), Urine Neg (Neg); Methadone, Urine Neg (Neg); Opiate, Urine Pos (Neg); Phencyclidine, Urine Neg (Neg)
[2018-08-16] MEDS: LACTATED RINGER'S 1,000 ML IV SCH ×3 (00:47→07:41)
[2018-08-16] MEDS: INSULIN ASPART 100 UNITS/ML 3 ML PEN SC SCH ×4 (00:57→21:15)
[2018-08-16] MEDS: KETOROLAC TROMETHAMINE 15 MG/ML VIAL IV PRN ×2 (01:30→20:11)
[2018-08-16 03:07] LABS: INR 1.2 (0.9-1.1); Prothrombin Time 12.5 Seconds (9.0-12.0)
[2018-08-16 03:16] LABS: Alanine Aminotransferase 61 U/L (12-78); Albumin Level 3.3 gm/dl (3.4-5.0); Aspartate Aminotransferase 35 U/L (15-37); BUN Creatinine Ratio 11.6 (10-20); Blood Urea Nitrogen 7 mg/dl (7-18); Calcium 7.8 mg/dl (8.5-10.1); Carbon Dioxide 29 mmol/L (21-32); Chloride 109 mmol/L (98-107); Creatinine Clr Calc Pharmacy 221.7 ml/min; Est GFR (African American) > 150.0; Est GFR (Non-African American) 131.2; Glucose 81 mg/dl (70-99); Potassium 3.4 mmol/L (3.5-5.1); Sodium 142 mmol/L (136-145)
[2018-08-16 03:26] LABS: Albumin Globulin Ratio 1.1 (0.9-2); Alkaline Phosphatase 66 U/L (45-117); Bilirubin,Total 0.3 mg/dl (0.2-1); Globulin 3.1 gm/dl (2.5-4.0); Total Protein 6.4 gm/dl (6.4-8.2); Troponin I 0.089 ng/ml (0-0.045)
[2018-08-16] MEDS: MoRPHine SULFATE 4 MG/ML 1 ML CARP\\VIAL IV PRN ×5 (04:17→18:01)
[2018-08-16] MEDS: ENOXAPARIN INJ 40 MG/0.4 ML SYR SQ SCH (07:41)
[2018-08-16] MEDS: [UNRECOGNIZED DRUG - OTHER] SCH ×2 (07:41→10:41)
[2018-08-16] MEDS: LISINOPRIL 5 MG TAB PO SCH (07:42)
[2018-08-16] MEDS: VENLAFAXINE HCL XR 150 MG CAPXR PO SCH (07:42)
[2018-08-16] MEDS: ATORVASTATIN 20 MG TAB PO SCH (07:42)
[2018-08-16] MEDS ORDERED: INSULIN GLARGINE SOLOSTAR 100 UNITS/ML 3 ML PEN SC ONE (09:00)
--- NOTE | 2018-08-16 10:17 | Pharmacy Report ---
Glycemic Control Consultation - Date of Service August 16, 2018 - Scope Scope: Glycemic Pharmacist consulted by Dr Branham on 08/16/18 for glycemic control and to write orders per [facility] inpatient glycemic control protocol - Objective Weight: 111.1 kg Accuchecks BSG (last 24hrs): 08/15/18 08/15/18 08/16/18 20:10 23:33 00:38 Glucose 130 H POC Glucose 104 H 88 08/16/18 08/16/18 08/16/18 01:37 02:06 04:06 Glucose 81 POC Glucose 85 93 08/16/18 07:31 Glucose POC Glucose 107 H Laboratory Data (last 24hrs): 08/15/18 08/16/18 20:10 02:06 Potassium 3.6 3.4 L Carbon Dioxide 26 29 Anion Gap 6.0 4.0 Creatinine 0.65 0.61 Est Cr Clr Drug Dosing 208.3 221.7 - Recent Pertinent Medications Outpatient Anti-diabetic Regimen: * Insulin pump with unknown settings * PRIOR to insulin pump (started about 2 weeks ago) patient receiving * Tresiba 110 units at night * Humalog 40 units with meals plus scale * A1c = 9 % 08/14/18 Risk Factors for Insulin Resistance: * Diet: NPO - Assessment & Plan Assessment & Plan: ASSESSMENT: * Mr Gibson is a 33 y/o M with a history of moderately controlled type 1.5 diabetes (late onset T1DM) dx 2014. Patient did respond to oral agents as an outpatient. Now on insulin. Patient was set up with an insulin pump about 2 weeks ago and he does not know his settings. Settings are also not found in [employer]. Prior to pump the patient received about 230 units of insulin per day. * Since patient is NPO and is a Type 1.5 it is reasonable to start basal insulin as uncertain how much pancreatic function the patient retains. Will give 40 units (about 60% of home dose and weight-based stress of 2 full Lantus dose). Scale ordered this evening in case blood sugars trend upwards. * Novolog ordered at weight-based stress of 2 with slightly higher goal range for NPO status. PLAN FOR INPATIENT GLYCEMIC CONTROL: * Basal insulin * Lantus 40 units SQ x 1 then 10-20 units SQ HS (hold if blood sugar under 160 mg/dL; 10 units if blood sugar 160 -180 mg/dL; 20 units if blood sugar over 180 mg/dL) * Lantus 30-50 units qAM starting tomorrow (30 units if blood sugar under 140 mg/dL; 40 units if blood sugar 140-180 mg/dL; 50 units if blood sugar over 180 mg/dL) * Bolus insulin * NovoLog per scale ACHS or Q6hrs while NPO * Goal Range: Low 120 mg/dL - High 160 mg/dL * Correction Factor: 20 mg/dL/unit * Nutritional / Prandial insulin per carb ratio of 1 unit per 7 grams CHO consumed * Please note that the plan above was derived based on current level of insulin resistance and hospital stress. These recommendations are appropriate for inpatient admission only. Plan of care upon discharge will need to be reassessed to avoid potential outpatient hypo/hyperglycemia. Thank you.
--- NOTE | 2018-08-16 10:46 | Family Medicine Progress Note ---
Date of Service August 16, 2018 Assessment & Plan (1) RUQ abdominal pain: Mr. Gibson is a 33-year-old male with a past medical history of adult onset type 1 diabetes (type 1.5, ID), nonalcoholic fatty liver disease, paranoid schizophrenia, asthma, hypertension, and hyperlipidemia who presented with 24 hours of labile glucose readings, severe right upper quadrant abdominal pain radiating to the back, and emesis with mildly increased lipase and mildly increased troponins noted on admit. RUQ abdominal pain CTA: Hepatic steatosis, bladder thickening, intra-and extra hepatic biliary ductal dilation without evidence of pancreatitis. Comparison abU/S 08/12/18 without biliary ductal dilation AST/ALT WNL today Lipase initially elevated to 2346, down trended to 389 today with aggressive fluids. - s/p cholecystectomy 1 year ago Unclear etiology; Choledocholithiasis/sludge vs oddi dysfunction vs viral gastroenteritis; steatohepatitis unlikely given normal transaminases - MRCP eval pending Denies recent alcohol abuse, triglycerides normal, calcium normal Toradol 15 mg every 6 hours as needed Morphine 2 mg every 4 hours as needed Zofran 4 mg IV every 6 hours as needed N.p.o. - GI cocktail ordered x1 + famotidine x1 IVP - Aggressive IVFM started on admit for concern of pancreatitis (250cc/hr x3L) - Decrease to 75cc-100cc after above. No signs of volume overload. 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 Labile glucose prior to admission with increased insulin requirements, pump currently removed Pharmacy consulted for glycemic control, see note for current basal-bolus dosing -Given his fatty liver disease and A1C=9 would benefit from pioglitazone addition to insulin therapy. Discussed tzd mechanism, treatment, and potential benefit. Clarified and discussed old data on TZD and heart attack risk. Elevated troponin 0.09 on admit, 0.08 on recheck, repeat pending Without chest pain or shortness of breath. EKG shows NSR with no signs of ischemia Troponins are likely demand, although this is unusual given his non-toxic appearance. His Cr is normal, so do not suspect a clearance problem causing transient elevation. He has extensive coronary risk factors including poorly controlled DM and diabetes. Non-stress ECHO shows no wall motion abnormality, would benefit from a stress echo once he is no longer acutely ill to assess for early ischemic/CAD disease. Asthma No acute exacerbation Continue [employer] monteleukast 10mg PO qHS Paranoid schizophrenia Cariprazine 3mg PO daily held Venlafaxine 300mg PO daily Hyperlipidemia [employer] atorvastatin 20 mg daily DVT prophylaxis: Enoxaparin 40 mg SQ daily (2) Diabetes mellitus type 1.5, managed as type 1: (3) Elevated lipase: (4) Elevated troponin: (5) Asthma: (6) Hypertension: (7) Paranoid schizophrenia: (8) Hypercholesteremia: Supervising Physician Co-Signing Physician Notes I personally examined the patient and verified all meyers points of history and exam, discussed case, and agree with decision making with Dr Sylvester. Feeling better although his pain is gone. He does not notice much of a difference with the Maalox/viscous lidocaine/Pepcid although it has only been may be 20 minutes since he had it whenever I come to the room. Vitals noted, in general he is in no distress. H EENT normocephalic atraumatic mucous membranes are moist. Abdomen is soft he has right upper quadrant tenderness without guarding rebound or rigidity and minimal epigastric tenderness far less than the right. The rest of his abdomen is totally benign. Skin shows no rashes no pallor icterus Abdominal paingiven his elevated lipase the dropped precipitously, combined with a degree of biliary ductal dilation on imaging last night that is not present on MRCP today, it seems most consistent with a stone that has passed. However continue to follow, advance diet as tolerated, if he is not able to tolerate diet or his pain does not improve, then we will need to consider endoscopic workup. Nashlifestyle change/diabetes control/ongoing follow-up with GI Otherwise as above Subjective Eliseo reports he feels Ok this morning, but is still having some abdominal pain. He notes that his blood sugars were fluctuating between 65 and the low 300s before admission, and that he was having nausea with one episode of vomiting in addition to abdominal pain, headache, increased thirst, and increased urine output. He has been having 9 out of 10 right upper quadrant abdominal pain not affected by meals and which has improved to 7 out of 10 with morphine. He describes the quality of the pain is dull and achy, like a punch, and which radiates through to his back and shoulder. He has had one episode of loose stool without blood or melena. Denies fever, chills, sweats today. Denies polyuria, dysuria today. He notes that he has a history of nonalcoholic fatty liver disease followed by Dr. Coburn who told him he would have 8-10 years before needing a transplant. He endorses that he would normally drink 1-2 drinks per week, but has had nothing in the last 11 days. Denies any history of tobacco or recreational drug use. Denies easy bruising, bleeding, confusion. Review of Systems All systems reviewed & are unremarkable except as noted in HPI & below See HPI Physical Exam 2 Vital Signs (Past 24 Hours): Last Vital Signs Temp 36.3 C L 08/16/18 07:00 Pulse 82 08/16/18 07:00 Resp 18 08/16/18 07:00 BP 118/82 08/16/18 07:00 Pulse Ox 96 08/16/18 07:00 Physical Exam: General: A&Ox3. NAD. Cooperative. Speech intact with normal volume, prosody. Thought process goal-directed. Good eye contact, euthymic affect. HEENT: Atraumatic, normocephalic. Pulm: CTAB A&P. -wheezes, -rales, -rhonchi. Symmetrical chest rise. No increase work of breathing. No respiratory distress. Cardiac: RRR, -mrg. Radial pulses intact and symmetrical. Abdominal: RUQ tender to palpation. No radiation of pain. LLQ/LUQ minimally tender to palpation. Rovsing's negative. Bowel sounds intact. Soft, no distention. Results & Data Laboratory Results 08/16/18 08/16/18 08/16/18 Range/Units 07:50 07:31 04:06 WBC (4.8-10.8) K/uL RBC (4.7-6.1) M/uL Hgb (14.0-18.0) g/dL Hct (42-52) % MCV (80-100) fL MCH (25-34) pg MCHC (32-36) g/dL RDW Std Deviation (36.4-46.3) fL RDW Coeff of Cira (11.5-14.5) % Plt Count (130-400) K/uL MPV (7.4-10.4) fL Immature Gran % (Auto) % Neut % (Auto) % Lymph % (Auto) % [place] % (Auto) % Eos % (Auto) % Baso % (Auto) % Immature Gran # (Auto) (0.00-0.02) K/uL Neut # (Auto) (1.4-6.5) K/uL Lymph # (Auto) (1.2-3.4) K/uL [place] # (Auto) (0.11-0.59) K/uL Eos # (Auto) (0-0.5) K/uL Baso # (Auto) (0-0.2) K/uL PT (9.0-12.0) Seconds INR (0.9-1.1) Sodium (136-145) mmol/L Potassium (3.5-5.1) mmol/L Chloride (98-107) mmol/L Carbon Dioxide (21-32) mmol/L Anion Gap (3-11) BUN (7-18) mg/dl Creatinine (0.6-1.4) mg/dl Est Cr Clr Drug Dosing ml/min Est GFR ( Amer) Est GFR (Non-Af Amer) BUN/Creatinine Ratio (10-20) Glucose (70-99) mg/dl POC Glucose 107 H 93 (70-99) Calcium (8.5-10.1) mg/dl Magnesium (1.8-2.4) mg/dl Total Bilirubin (0.2-1) mg/dl AST (15-37) U/L ALT (12-78) U/L Alkaline Phosphatase (45-117) U/L Troponin I 0.108 H* (0-0.045) ng/ml Total Protein (6.4-8.2) gm/dl Albumin (3.4-5.0) gm/dl Globulin (2.5-4.0) gm/dl Albumin/Globulin Ratio (0.9-2) Lipase (73-393) U/L Urine Color Urine Appearance (Clear) Urine pH (4.5-7.5) Ur Specific [place] (1.000-1.030) Urine Protein (Negative) Urine Glucose (UA) (Negative) Urine Ketones (Negative) Urine Blood (Negative) Urine Nitrite (Negative) Urine Bilirubin (Negative) Urine Urobilinogen (Negative) Ur Leukocyte Esterase (Negative) Urine Opiates Screen (Neg) U Codeine Confrm GC/MS Ur Morphine (GC/MS) Ur Hydrocodone (GC/MS) Ur Norhydrocodone Ur Noroxycodone Urine Oxycodone (GC/MS) U Oxymorphone GC/MS Ur Methadone, Qual (Neg) Ur Hydromorphone (GC/MS) Urine Barbiturates (Neg) Ur Phencyclidine (PCP) (Neg) U Amphetamin/Meth Scrn (Neg) MDMA (Ecstasy) Screen (Neg) U Benzodiazepines Scrn (Neg) Ur Cocaine Metabolite (Neg) U Marijuana (THC) Screen (Neg) 08/16/18 08/16/18 08/16/18 Range/Units 02:06 02:06 01:37 WBC (4.8-10.8) K/uL RBC (4.7-6.1) M/uL Hgb (14.0-18.0) g/dL Hct (42-52) % MCV (80-100) fL MCH (25-34) pg MCHC (32-36) g/dL RDW Std Deviation (36.4-46.3) fL RDW Coeff of Cira (11.5-14.5) % Plt Count (130-400) K/uL MPV (7.4-10.4) fL Immature Gran % (Auto) % Neut % (Auto) % Lymph % (Auto) % [place] % (Auto) % Eos % (Auto) % Baso % (Auto) % Immature Gran # (Auto) (0.00-0.02) K/uL Neut # (Auto) (1.4-6.5) K/uL Lymph # (Auto) (1.2-3.4) K/uL [place] # (Auto) (0.11-0.59) K/uL Eos # (Auto) (0-0.5) K/uL Baso # (Auto) (0-0.2) K/uL PT 12.5 H (9.0-12.0) Seconds INR 1.2 H (0.9-1.1) Sodium 142 (136-145) mmol/L Potassium 3.4 L (3.5-5.1) mmol/L Chloride 109 H (98-107) mmol/L Carbon Dioxide 29 (21-32) mmol/L Anion Gap 4.0 (3-11) BUN 7 (7-18) mg/dl Creatinine 0.61 (0.6-1.4) mg/dl Est Cr Clr Drug Dosing 221.7 ml/min Est GFR ( Amer) > 150.0 Est GFR (Non-Af Amer) 131.2 BUN/Creatinine Ratio 11.6 (10-20) Glucose 81 (70-99) mg/dl POC Glucose 85 (70-99) Calcium 7.8 L (8.5-10.1) mg/dl Magnesium (1.8-2.4) mg/dl Total Bilirubin 0.3 (0.2-1) mg/dl AST 35 (15-37) U/L ALT 61 (12-78) U/L Alkaline Phosphatase 66 (45-117) U/L Troponin I 0.089 H* (0-0.045) ng/ml Total Protein 6.4 (6.4-8.2) gm/dl Albumin 3.3 L (3.4-5.0) gm/dl Globulin 3.1 (2.5-4.0) gm/dl Albumin/Globulin Ratio 1.1 (0.9-2) Lipase 389 (73-393) U/L Urine Color Urine Appearance (Clear) Urine pH (4.5-7.5) Ur Specific [place] (1.000-1.030) Urine Protein (Negative) Urine Glucose (UA) (Negative) Urine Ketones (Negative) Urine Blood (Negative) Urine Nitrite (Negative) Urine Bilirubin (Negative) Urine Urobilinogen (Negative) Ur Leukocyte Esterase (Negative) Urine Opiates Screen (Neg) U Codeine Confrm GC/MS Ur Morphine (GC/MS) Ur Hydrocodone (GC/MS) Ur Norhydrocodone Ur Noroxycodone Urine Oxycodone (GC/MS) U Oxymorphone GC/MS Ur Methadone, Qual (Neg) Ur Hydromorphone (GC/MS) Urine Barbiturates (Neg) Ur Phencyclidine (PCP) (Neg) U Amphetamin/Meth Scrn (Neg) MDMA (Ecstasy) Screen (Neg) U Benzodiazepines Scrn (Neg) Ur Cocaine Metabolite (Neg) U Marijuana (THC) Screen (Neg) 08/16/18 08/16/18 08/16/18 Range/Units 00:38 00:15 00:15 WBC (4.8-10.8) K/uL RBC (4.7-6.1) M/uL Hgb (14.0-18.0) g/dL Hct (42-52) % MCV (80-100) fL MCH (25-34) pg MCHC (32-36) g/dL RDW Std Deviation (36.4-46.3) fL RDW Coeff of Cira (11.5-14.5) % Plt Count (130-400) K/uL MPV (7.4-10.4) fL Immature Gran % (Auto) % Neut % (Auto) % Lymph % (Auto) % [place] % (Auto) % Eos % (Auto) % Baso % (Auto) % Immature Gran # (Auto) (0.00-0.02) K/uL Neut # (Auto) (1.4-6.5) K/uL Lymph # (Auto) (1.2-3.4) K/uL [place] # (Auto) (0.11-0.59) K/uL Eos # (Auto) (0-0.5) K/uL Baso # (Auto) (0-0.2) K/uL PT (9.0-12.0) Seconds INR (0.9-1.1) Sodium (136-145) mmol/L Potassium (3.5-5.1) mmol/L Chloride (98-107) mmol/L Carbon Dioxide (21-32) mmol/L Anion Gap (3-11) BUN (7-18) mg/dl Creatinine (0.6-1.4) mg/dl Est Cr Clr Drug Dosing ml/min Est GFR ( Amer) Est GFR (Non-Af Amer) BUN/Creatinine Ratio (10-20) Glucose (70-99) mg/dl POC Glucose 88 (70-99) Calcium (8.5-10.1) mg/dl Magnesium (1.8-2.4) mg/dl Total Bilirubin (0.2-1) mg/dl AST (15-37) U/L ALT (12-78) U/L Alkaline Phosphatase (45-117) U/L Troponin I (0-0.045) ng/ml Total Protein (6.4-8.2) gm/dl Albumin (3.4-5.0) gm/dl Globulin (2.5-4.0) gm/dl Albumin/Globulin Ratio (0.9-2) Lipase (73-393) U/L Urine Color Yellow Urine Appearance Clear (Clear) Urine pH 6.5 (4.5-7.5) Ur Specific [place] 1.039 H (1.000-1.030) Urine Protein Negative (Negative) Urine Glucose (UA) Negative (Negative) Urine Ketones Negative (Negative) Urine Blood Negative (Negative) Urine Nitrite Negative (Negative) Urine Bilirubin Negative (Negative) Urine Urobilinogen Negative (Negative) Ur Leukocyte Esterase Negative (Negative) Urine Opiates Screen (Neg) U Codeine Confrm GC/MS Pending Ur Morphine (GC/MS) Pending Ur Hydrocodone (GC/MS) Pending Ur Norhydrocodone Pending Ur Noroxycodone Pending Urine Oxycodone (GC/MS) Pending U Oxymorphone GC/MS Pending Ur Methadone, Qual (Neg) Ur Hydromorphone (GC/MS) Pending Urine Barbiturates (Neg) Ur Phencyclidine (PCP) (Neg) U Amphetamin/Meth Scrn (Neg) MDMA (Ecstasy) Screen (Neg) U Benzodiazepines Scrn (Neg) Ur Cocaine Metabolite (Neg) U Marijuana (THC) Screen (Neg) 08/16/18 08/15/18 08/15/18 Range/Units 00:15 23:33 20:10 WBC (4.8-10.8) K/uL RBC (4.7-6.1) M/uL Hgb (14.0-18.0) g/dL Hct (42-52) % MCV (80-100) fL MCH (25-34) pg MCHC (32-36) g/dL RDW Std Deviation (36.4-46.3) fL RDW Coeff of Cira (11.5-14.5) % Plt Count (130-400) K/uL MPV (7.4-10.4) fL Immature Gran % (Auto) % Neut % (Auto) % Lymph % (Auto) % [place] % (Auto) % Eos % (Auto) % Baso % (Auto) % Immature Gran # (Auto) (0.00-0.02) K/uL Neut # (Auto) (1.4-6.5) K/uL Lymph # (Auto) (1.2-3.4) K/uL [place] # (Auto) (0.11-0.59) K/uL Eos # (Auto) (0-0.5) K/uL Baso # (Auto) (0-0.2) K/uL PT (9.0-12.0) Seconds INR (0.9-1.1) Sodium 139 (136-145) mmol/L Potassium 3.6 (3.5-5.1) mmol/L Chloride 106 (98-107) mmol/L Carbon Dioxide 26 (21-32) mmol/L Anion Gap 6.0 (3-11) BUN 8 (7-18) mg/dl Creatinine 0.65 (0.6-1.4) mg/dl Est Cr Clr Drug Dosing 208.3 ml/min Est GFR ( Amer) 148.2 Est GFR (Non-Af Amer) 127.8 BUN/Creatinine Ratio 12.5 (10-20) Glucose 130 H (70-99) mg/dl POC Glucose 104 H (70-99) Calcium 8.8 (8.5-10.1) mg/dl Magnesium 2.0 (1.8-2.4) mg/dl Total Bilirubin 0.3 (0.2-1) mg/dl AST 39 H (15-37) U/L ALT 70 (12-78) U/L Alkaline Phosphatase 88 (45-117) U/L Troponin I 0.095 H* (0-0.045) ng/ml Total Protein 7.5 (6.4-8.2) gm/dl Albumin 3.9 (3.4-5.0) gm/dl Globulin 3.6 (2.5-4.0) gm/dl Albumin/Globulin Ratio 1.1 (0.9-2) Lipase 2346 H (73-393) U/L Urine Color Urine Appearance (Clear) Urine pH (4.5-7.5) Ur Specific [place] (1.000-1.030) Urine Protein (Negative) Urine Glucose (UA) (Negative) Urine Ketones (Negative) Urine Blood (Negative) Urine Nitrite (Negative) Urine Bilirubin (Negative) Urine Urobilinogen (Negative) Ur Leukocyte Esterase (Negative) Urine Opiates Screen Pos H (Neg) U Codeine Confrm GC/MS Ur Morphine (GC/MS) Ur Hydrocodone (GC/MS) Ur Norhydrocodone Ur Noroxycodone Urine Oxycodone (GC/MS) U Oxymorphone GC/MS Ur Methadone, Qual Neg (Neg) Ur Hydromorphone (GC/MS) Urine Barbiturates Neg (Neg) Ur Phencyclidine (PCP) Neg (Neg) U Amphetamin/Meth Scrn Neg (Neg) MDMA (Ecstasy) Screen Neg (Neg) U Benzodiazepines Scrn Neg (Neg) Ur Cocaine Metabolite Neg (Neg) U Marijuana (THC) Screen Neg (Neg) 08/15/18 Range/Units 20:10 WBC 6.50 (4.8-10.8) K/uL RBC 5.51 (4.7-6.1) M/uL Hgb 16.6 (14.0-18.0) g/dL Hct 47.9 (42-52) % MCV 86.9 (80-100) fL MCH 30.1 (25-34) pg MCHC 34.7 (32-36) g/dL RDW Std Deviation 40.7 (36.4-46.3) fL RDW Coeff of Cira 12.7 (11.5-14.5) % Plt Count 146 (130-400) K/uL MPV 10.9 H (7.4-10.4) fL Immature Gran % (Auto) 0.2 % Neut % (Auto) 45.5 % Lymph % (Auto) 41.4 % [place] % (Auto) 8.8 % Eos % (Auto) 2.9 % Baso % (Auto) 1.2 % Immature Gran # (Auto) 0.01 (0.00-0.02) K/uL Neut # (Auto) 2.96 (1.4-6.5) K/uL Lymph # (Auto) 2.69 (1.2-3.4) K/uL [place] # (Auto) 0.57 (0.11-0.59) K/uL Eos # (Auto) 0.19 (0-0.5) K/uL Baso # (Auto) 0.08 (0-0.2) K/uL PT (9.0-12.0) Seconds INR (0.9-1.1) Sodium (136-145) mmol/L Potassium (3.5-5.1) mmol/L Chloride (98-107) mmol/L Carbon Dioxide (21-32) mmol/L Anion Gap (3-11) BUN (7-18) mg/dl Creatinine (0.6-1.4) mg/dl Est Cr Clr Drug Dosing ml/min Est GFR ( Amer) Est GFR (Non-Af Amer) BUN/Creatinine Ratio (10-20) Glucose (70-99) mg/dl POC Glucose (70-99) Calcium (8.5-10.1) mg/dl Magnesium (1.8-2.4) mg/dl Total Bilirubin (0.2-1) mg/dl AST (15-37) U/L ALT (12-78) U/L Alkaline Phosphatase (45-117) U/L Troponin I (0-0.045) ng/ml Total Protein (6.4-8.2) gm/dl Albumin (3.4-5.0) gm/dl Globulin (2.5-4.0) gm/dl Albumin/Globulin Ratio (0.9-2) Lipase (73-393) U/L Urine Color Urine Appearance (Clear) Urine pH (4.5-7.5) Ur Specific [place] (1.000-1.030) Urine Protein (Negative) Urine Glucose (UA) (Negative) Urine Ketones (Negative) Urine Blood (Negative) Urine Nitrite (Negative) Urine Bilirubin (Negative) Urine Urobilinogen (Negative) Ur Leukocyte Esterase (Negative) Urine Opiates Screen (Neg) U Codeine Confrm GC/MS Ur Morphine (GC/MS) Ur Hydrocodone (GC/MS) Ur Norhydrocodone Ur Noroxycodone Urine Oxycodone (GC/MS) U Oxymorphone GC/MS Ur Methadone, Qual (Neg) Ur Hydromorphone (GC/MS) Urine Barbiturates (Neg) Ur Phencyclidine (PCP) (Neg) U Amphetamin/Meth Scrn (Neg) MDMA (Ecstasy) Screen (Neg) U Benzodiazepines Scrn (Neg) Ur Cocaine Metabolite (Neg) U Marijuana (THC) Screen (Neg) Medications Administered Current Inpatient Medications Atorvastatin Calcium (Lipitor) 20 mg PO DAILY ЕЛЕНА Stop: 09/15/18 08:59 Last Admin: 08/16/18 07:42 Dose: 20 mg Dextrose (Dextrose 50%) 25 - 50 ml IV UD PRN; Protocol PRN Reason: Hypoglycemia Protocol Stop: 09/15/18 00:15 Enoxaparin Sodium (Lovenox) 40 mg SQ Q24H ЕЛЕНА Stop: 09/15/18 07:59 Last Admin: 08/16/18 07:41 Dose: Not Given Glucagon (Glucagen) 1 mg SQ UD PRN; Protocol PRN Reason: Hypoglycemia Protocol Stop: 09/15/18 00:15 Glucose (Glucose 40%) 15 - 30 gm PO UD PRN; Protocol PRN Reason: Hypoglycemia Protocol Stop: 09/15/18 00:15 Glucose (Dex4 Glucose) 4 - 8 tabs PO UD PRN; Protocol PRN Reason: Hypoglycemia Protocol Stop: 09/15/18 00:15 Lactated Ringer's (Lr) 1,000 mls @ 250 mls/hr IV .Q4H ЕЛЕНА Stop: 08/16/18 11:57 Last Admin: 08/16/18 07:41 Dose: 250 mls/hr Insulin Aspart (Novolog Flexpen) 0 units SC Q6 ЕЛЕНА Stop: 09/15/18 11:59 Insulin Glargine (Lantus Solostar Pen) 0 units SC QAM ЕЛЕНА; Protocol Stop: 09/16/18 08:59 Insulin Glargine (Lantus Solostar Pen) 0 units SC HS [facility]; Protocol Stop: 09/15/18 20:59 Ioversol (Optiray 320 100ml) 94 ml IV ONCE PRN PRN Reason: Interaction Checking Stop: 08/19/18 21:09 Last Admin: 08/15/18 21:11 Dose: 94 ml Ketorolac Tromethamine (Toradol) 15 mg IV Q6H PRN PRN Reason: Pain Stop: 08/20/18 23:57 Last Admin: 08/16/18 01:30 Dose: 15 mg Lisinopril (Zestril) 5 mg PO DAILY ЕЛЕНА Stop: 09/15/18 08:59 Last Admin: 08/16/18 07:42 Dose: 5 mg Miscellaneous (Order Awaiting Action) 1 ea N/A QS ЕЛЕНА Stop: 09/15/18 07:59 Last Admin: 08/16/18 07:41 Dose: Not Given Miscellaneous (Carbohydrates For Hypoglycemia) 15 - 30 gm PO UD PRN PRN Reason: Hypoglycemia Treatment Stop: 09/15/18 00:15 Miscellaneous Information (Consult Glycemic Management Pharmacy) 1 ea N/A DAILY PRN PRN Reason: Consult Stop: 09/15/18 00:09 Montelukast Sodium (Singulair) 10 mg PO PM [facility] Stop: 09/15/18 20:59 Morphine Sulfate (Morphine Sulfate) 2 mg IV Q4H PRN PRN Reason: Pain Stop: 08/29/18 23:57 Last Admin: 08/16/18 10:19 Dose: 2 mg Ondansetron HCl (Zofran) 4 mg IV Q6H PRN PRN Reason: nausea Stop: 09/14/18 23:57 Venlafaxine HCl (Effexor Extended Release) 300 mg PO DAILY [facility] Stop: 09/15/18 08:59 Last Admin: 08/16/18 07:42 Dose: 300 mg Resident Activity Tracking Resident Involvement: Resident Care Provided Care Provided: Adult Hospital Medicine
[2018-08-16] MEDS ORDERED: INSULIN ASPART 100 UNITS/ML 3 ML PEN SC SCH (12:00)
[2018-08-16] MEDS ORDERED: FAMOTIDINE 20 MG in SYRINGE 3 ML IV ONE (13:00)
[2018-08-16] MEDS ORDERED: ALUMINUM/MAGNESIUM SUSP 18 ML, LIDOCAINE HCL VISCOUS 2% 6 ML, BARCODE IDENTIFIER 1 EA PO ONE (13:00)
--- NOTE | 2018-08-16 13:45 | Magnetic Resonance Report ---
MR MRCP CLINICAL HISTORY: 33 years-old Male presenting with severe RUQ pain. TECHNIQUE: Multisequence, multiplanar MR imaging of the abdomen was performed without the use of intr avenous contrast. Dedicated MRCP protocol was utilized. 3-D volumetric and/or maximum intensity proje ction (MIP) images were subsequently reconstructed for review. IV contrast: None. COMPARISON: CT from 08/15/2018. FINDINGS: Localizer images: Unremarkable. Lung bases: Lung base clear. Normal heart size. No pericardial or pleural effusion. Liver: Fine micronodular texture of the liver parenchyma. Biliary: Mild biliary ductal prominence likely a reservoir effect in the post cholecystectomy state. Gallbladder surgically absent. Pancreas: Normal noncontrast appearance. Spleen: Normal noncontrast appearance. Adrenal glands: Normal noncontrast appearance. Kidneys and ureters: Normal noncontrast appearance. No hydronephrosis. Normal ureters. Bowel: Normal noncontrast appearance. No bowel obstruction. Peritoneal cavity: No free fluid. Lymph nodes: No gross lymphadenopathy allowing for noncontrast technique. Vasculature: Normal noncontrast appearance. Abdominal wall: Normal. Musculoskeletal: Normal. IMPRESSION: 1. Status post cholecystectomy. No significant biliary ductal dilatation. No evidence of choledochol ithiasis. 2. Micronodular texture of the liver with suggests underlying liver pathology, likely hepatic steato sis. Electronically signed by: Esvin Burns M.D. 08/16/2018 1:44 PM
[2018-08-16] MEDS ORDERED: PIOGLITAZONE HCL 15 MG TAB PO STA (15:21)
[2018-08-16] MEDS ORDERED: Nursing to Pharmacy Communication ONE (16:14)
[2018-08-16] MEDS ORDERED: VRAYLAR 3 MG PO SCH (21:00)
[2018-08-16] MEDS ORDERED: INSULIN GLARGINE SOLOSTAR 100 UNITS/ML 3 ML PEN SC SCH (21:00)
[2018-08-16] MEDS ORDERED: MONTELUKAST SODIUM 10 MG TABLET PO SCH (21:00)
[2018-08-17] MEDS: ENOXAPARIN INJ 40 MG/0.4 ML SYR SQ SCH (07:26)
[2018-08-17] MEDS: ATORVASTATIN 20 MG TAB PO SCH (08:25)
[2018-08-17] MEDS: LISINOPRIL 5 MG TAB PO SCH (08:25)
[2018-08-17] MEDS: VENLAFAXINE HCL XR 150 MG CAPXR PO SCH (08:26)
[2018-08-17] MEDS: INSULIN ASPART 100 UNITS/ML 3 ML PEN SC SCH ×2 (08:28→13:02)
[2018-08-17] MEDS ORDERED: INSULIN GLARGINE SOLOSTAR 100 UNITS/ML 3 ML PEN SC SCH (09:00)
[2018-08-17] MEDS ORDERED: PIOGLITAZONE HCL 15 MG TAB PO SCH (09:00)
[2018-08-17 09:41] LABS: BUN Creatinine Ratio 11.7 (10-20); Calcium 8.2 mg/dl (8.5-10.1); Creatinine Clr Calc Pharmacy 211.3 ml/min; Est GFR (African American) 149.1; Est GFR (Non-African American) 128.6; Potassium 3.9 mmol/L (3.5-5.1)
--- NOTE | 2018-08-17 13:43 | Discharge Summary ---
Date of Service August 17, 2018 Admission HPI Per Admitting Provider Mr. Gibson is a 33 year old male with a history of paranoid schizophrenia, diabetes, hypertension, nonalcoholic liver cirrhosis, and asthma who presents to the emergency department due to nausea, vomiting and abdominal pain. He states that he was in his usual state of health until approximately 24 hours ago. He notices at this time his blood sugars were difficult to control and ranged from 65-300. He received 128 units of insulin via his insulin pump in the last 12 hours he also reports that he has had nausea, several episodes of vomiting and severe abdominal pain. He states the pain is located over the right side of his abdomen and can be as severe as a 9/10 in severity. He states the pain is a dull ache and radiates to his back as well as his shoulder. He states that this has never happened to him before. He also endorses a headache, fatigue and several loose stools, without the presence of blood. He denies fever or chills. He notes that he has a history of moderate nonalcoholic cirrhosis, secondary to fatty liver disease. He follows with Dr. Coburn for this. He is was recently given a hepatitis A vaccination. He denies recent use of antibiotics, steroids, recent travel. He had his gallbladder removed 1 year ago. Of note, he is a non-smoker and denies use of alcohol or recreational drugs. Admission Exam Per Admitting Provider Constitutional: WD/WN, vitals as above + obese Eyes: PERRL, conjunctivae normal, anicteric sclerae ENMT: external ear and nose normal, oropharynx normal (Dry mucous membranes) Respiratory: normal respiratory effort, lungs clear to auscultation Cardiovascular: RRR, no murmur, no edema Gastrointestinal (Abdomen): Percussion/Palpation: + abdomen tender (Tender over right upper quadrant and to a lesser degree, over epigastric region) and abdomen soft; no guarding and abdomen not rigid No flank tenderness Skin: no rashes, warm and dry Psychiatric: A+Ox3, euthymic affect Principal Diagnosis Acute Pancreatitis; elevated troponin Discharge Exam Constitutional WD/WN, vitals as above cooperative and comfortable Eyes + anicteric sclerae and PERRL ENMT Mouth: oral mucous membranes not dry Neck normal visual inspection and trachea midline Respiratory normal respiratory effort, lungs clear to auscultation Cardiovascular RRR, no murmur, no edema Gastrointestinal (Abdomen) Inspection/Auscultation: abdomen normal to inspection and normal bowel sounds Percussion/Palpation: abdomen soft; abdomen nontender, no guarding and abdomen not rigid Musculoskeletal Head/Neck/Chest: normocephalic and head atraumatic Extremities: extremities normal to inspection Skin no rashes, warm and dry Neurologic moves all extremities and awake Psychiatric A+Ox3, euthymic affect Discharge Data Allergies Allergy/AdvReac Type Severity Reaction Status Date / Time trimethoprim [From Bactrim] Allergy Mild Hives Verified 08/15/18 20:39 clozapine Allergy Unknown CARDIOMYOPA Verified 08/15/18 20:39 THY sulfamethoxazole Allergy Unknown HIVES Verified 08/15/18 20:39 corn AdvReac Unknown TRIGGERS Verified 08/15/18 20:39 FIBROMYALGIA Consultations 08/15/18 20:58 ED Decision to Admit Stat Ordered Studies 08/15/18 20:00 CT abd pelvis IV con only Stat IMPRESSION: 1. No bowel obstruction or focal bowel wall thickening. 2. Mild circumferential wall thickening of the urinary bladder. Correlate with urinalysis to exclude cystitis. 3. Prior cholecystectomy and appendectomy. 4. Mild splenomegaly. 5. Hepatic steatosis. 08/16/18 12:28 MR MRCP Routine IMPRESSION: 1. Status post cholecystectomy. No significant biliary ductal dilatation. No evidence of choledocholithiasis. 2. Micronodular texture of the liver with suggests underlying liver pathology, likely hepatic steatosis. Echocardiogram results were normal with an EF of 55-60% Hospital Course (1) RUQ abdominal pain: Mr. Gibson is a 33-year-old male with a past medical history of adult onset type 1 diabetes (type 1.5, ID), nonalcoholic fatty liver disease, paranoid schizophrenia, asthma, hypertension, and hyperlipidemia who presented with 24 hours of labile glucose readings, severe right upper quadrant abdominal pain radiating to the back, and emesis with mildly increased lipase and mildly increased troponins noted on admit. RUQ abdominal pain CTA: Hepatic steatosis, bladder thickening, intra-and extra hepatic biliary ductal dilation without evidence of pancreatitis. Comparison abU/S 08/12/18 without biliary ductal dilation AST/ALT WNL Lipase initially elevated to 2346, down trended to 389 today with aggressive fluids. - s/p cholecystectomy 1 year ago Unclear etiology; Choledocholithiasis/sludge vs oddi dysfunction vs viral gastroenteritis; steatohepatitis unlikely given normal transaminases - MRCP eval no significant biliary ductal dilatation, no evidence of choledoholithiatsius, found micronodular texture of the liver with suggestion for hepatic steatosis. Denies recent alcohol abuse, triglycerides normal, calcium normal Toradol 15 mg every 6 hours as needed Morphine 2 mg every 4 hours as needed Zofran 4 mg IV every 6 hours as needed Tolerated food well prior to discharge - GI cocktail ordered x1 + famotidine x1 IVP during stay - Aggressive IVFM started on admit for concern of pancreatitis (250cc/hr x3L) - Decrease to 75cc-100cc after above. No signs of volume overload. 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 Labile glucose prior to admission with increased insulin requirements, pump currently removed Pharmacy consulted for glycemic control, see note for current basal-bolus dosing -Given his fatty liver disease and A1C=9 was given pioglitazone addition to insulin therapy from weekend team, however discussed with patient to follow up with Endocrinology for diabetic management and will disconintue Actos. Elevated troponin 0.09 on admit, 0.08 on recheck, and was stable with plateau on 3rd value. Most likely demand ischemia because of volume depletion Without chest pain or shortness of breath. EKG shows NSR with no signs of ischemia Troponins are likely demand, although this is unusual given his non-toxic appearance. His Cr is normal, so do not suspect a clearance problem causing transient elevation. He has extensive coronary risk factors including poorly controlled DM and diabetes. Non-stress ECHO shows no wall motion abnormality, would benefit from a stress echo once he is no longer acutely ill to assess for early ischemic/CAD disease. Asthma No acute exacerbation Continue [employer] monteleukast 10mg PO qHS Paranoid schizophrenia Cariprazine 3mg PO daily held Venlafaxine 300mg PO daily Hyperlipidemia [employer] atorvastatin 20 mg daily DVT prophylaxis: Enoxaparin 40 mg SQ daily (2) Diabetes mellitus type 1.5, managed as type 1: (3) Elevated lipase: -Lipase elevated at 2346 -No evidence of pancreatitis seen on CT scan but values 3xgreater than upper limit suggest pancreatitis. -Possibly secondary to a viral process which could be consistent with mild splenomegaly as well. -No other identifiable causes of pancreatitis - no recent alcohol abuse, steroids use, recent trauma. Triglycerides recently checked and within normal limits. Calcium level normal. -Urine drug screen ordered in ER and was negative -Patient received 1 L of NS in the emergency department -Begin LR at 250 mLs/hour x3bags -toradol 15mg q6h prn and morphine 2mg q4h prn for pain -zofran 4mg IV q6h prn for nausea -handling diet without difficulty -patient is pain free on discharge. (4) Elevated troponin: 0.09 on admit, 0.08 on recheck, and was stable with plateau on 3rd value. Most likely demand ischemia because of volume depletion Without chest pain or shortness of breath. EKG shows NSR with no signs of ischemia Troponins are likely demand, although this is unusual given his non-toxic appearance. His Cr is normal, so do not suspect a clearance problem causing transient elevation. He has extensive coronary risk factors including poorly controlled DM and diabetes. Non-stress ECHO shows no wall motion abnormality, would benefit from a stress echo once he is no longer acutely ill to assess for early ischemic/CAD disease. (5) Asthma: -Continue Singulair -No evidence of asthma exacerbation at this time (6) Hypertension: (7) Paranoid schizophrenia: -Continue cariprazine and venlafaxine (8) Hypercholesteremia: -Continue atorvastatin CODE STATUS: Full DVT prophylaxis: Lovenox q24h F/E/N: N.p.o. No electrolyte abnormalites noted. LR at 250 mls/hr x3 bags. Total Time Total Time Spent Total Time Spent (In Minutes): 30 Total Time Includes: Examination of the Patient, Discharge Planning and Medication Reconciliation Discharge Plan Discharge Items Patient Disposition: Home - Self-Care Reason For Visit: PANCREATITIS, ELEVATED TROP Discharge Diagnosis: Pancreatitis, elevated troponin Condition: Good Discharge Goals: Improve disease control Activity: Per 'Additional Instructions' section Non-emergency contact: Primary Care Provider Call non-emergency contact if: you have any medication questions, your symptoms worsen and your pain is not controlled Diet: Carb Count or DM1 Addtl Provider Instructions: We believe that your abdominal pain was related to passing a retained biliary duct stone. Radiology studies did not show a stone present in your biliary duct but possible dilatation of duct, which is because the stone is believed to have passed the stone. Passing of the stone could explain why your pain improved. Radiology imaging also noted Mild circumferential wall thickening of the urinary bladder, but there was no blood in your urine to suggest concern for inflammation of your bladd or interstitial cystitis. You were found to have fatty liver on imaging and a mildly enlarged spleen. Also, your lipase was elevated for the diagnosis of pancreatitis or inflammation of your pancreas. On repeat labwork, your lipase level improved to within normal limits. Your troponin level which is a marker for heart damage was mildly elevated on admission, but this was not consistent with a heart attack. This elevated level likely represents strain on your heart from being dehydrated. You received Actos a diabetic medication in the hospital. You will stop this medication on discharge. We would like you to discuss diabetic management and medications with your [employer]. Please call them for next available appointment. Please continue all your previous medications for your diabetes that you were on prior to this hospitalization. If your pain returns or worsens, please contact your primary care provider. If your pain is concerning for you, return to the Emergency Department for re- evaluation. Please call your primary care provider's office for next available appointment. Please ensure to drink plenty of clear fluids to remain hydrated. Prescriptions: Continue venlafaxine 150 mg capsule,extended release 24hr 300 mg PO DAILY RF: 0 insulin lispro 100 unit/mL solution 1 pump Continuous Subcutaneous Infusion DIRECTED RF: 0 atorvastatin 20 mg Tablet 20 mg PO DAILY RF: 0 montelukast [Singulair] 10 mg Tablet 10 mg PO PM RF: 0 lisinopril 5 mg Tablet 5 mg PO DAILY RF: 0 cariprazine [Vraylar] 3 mg Capsule 3 mg PO DAILY RF: 0 Stand-Alone Forms: My [facility]/Other Patient Handouts: Lipase, Pancreatitis, Dehydration Rehydration Ch , Diabetes Insulin Pump Ch Discharge Orders: Discharge Order (Routine); Ordered 08/17/18 Ordered By: Arsh Garrison Admission Data Admit Date/Time: 08/15/18 22:25 Attending Provider: Russell Zaldivar Admit Provider: Alex Branham Primary Care Provider: Brenna Krueger Other Providers: Anjum Pabon Service: Medical Other Interventions: Discharge Summary Assessment (RN) Last Done: 08/17/18 14:23 DC Date/Time DO NOT enter until pt leaves facility: 08/17/18 15:12 Supervising Physician Co-Signing Physician Notes I saw the patient with resident physician and confirmed the meyers portions of the history and physical exam. I agree with the resident documentation as noted above. Upon my examination, the patient is alert and oriented. He is in no acute distress. He denies any abdominal pain at this time. The patient is tolerating a oral diet without nausea or vomiting. Upon palpation, the patient has no abdominal tenderness noted. Given the patient's elevated lipase combined with degree of biliary ductal dilatation on imaging (that was resolved on subsequent MRCP), a history could be consistent with a past CBD stone. Given that he is now pain-free and tolerating a diet without difficulty, discharge home is reasonable today. The patient will notify our office should he have any recurrent pain or other symptoms post discharged. He will follow-up with his endocrinology as scheduled for continued management of his insulin-dependent diabetes.
[2018-08-19 14:29] LABS: Hydrocodone Urine NEGATIVE NG/ML (CUTOFF=50); Hydromor Urine NEGATIVE NG/ML (CUTOFF=50); Morphine Urine 951 NG/ML (CUTOFF=50); Norhydrocodone Conf Ur NEGATIVE NG/ML (CUTOFF=50); Noroxycodone Urine NEGATIVE NG/ML (CUTOFF=50); Oxycodone Urine NEGATIVE NG/ML (CUTOFF=50)
== END 2018-08-17 15:12 | disposition home or self-care (01) | DRG 439 ==
LOC: ED 19:37 → SUATTDRO 22:25 → 4E 22:25

== ENCOUNTER 2021-01-14 16:51 | Observation (INO) ==
[2021-01-14] MEDS ORDERED: ASPIRIN CHEW 324 MG PO STA (16:56)
[2021-01-14] MEDS: NITROGLYCERIN SL 0.4 MG/TAB TAB SL PRN ×2 (17:05→17:10)
--- NOTE | 2021-01-14 17:10 | Emergency Department Note ---
History of Present Illness General Chief Complaint: Cardiac Assessment Stated Complaint: HERE ON FRIDAY FOR CARDIAC ISSUES-GETTING WORSE Time Seen by Provider: 01/14/21 16:56 History of Present Illness Provider Complaint: chest pain Onset (ago): day(s) 2 Duration: intermittent Onset: during rest Pain Location: substernal Pain Radiation: LUE and neck Severity: moderate Maximum Pain Intensity: 4 Current Pain Intensity: 4 Quality: + dull Relieved By: + nothing Exacerbated By: + nothing Context: no recent illness, no recent surgery, no recent immobilization, no recent travel, no trauma/injury, no new medications or no history of DVT/PE Associated symptoms: no nausea, no vomiting, no dyspnea, no syncope, no palpitations, no fever, no cough or no leg swelling Home Medications Medication Instructions Recorded Confirmed Type montelukast 10 mg tablet 10 mg PO HS 05/14/18 01/14/21 History (Singulair) cariprazine 3 mg capsule (Vraylar) 3 mg PO HS 04/06/19 01/14/21 History empagliflozin 10 mg tablet 10 mg PO QAM 07/30/19 01/14/21 History (Jardiance) metoprolol succinate 25 mg 25 mg PO HS 08/19/19 01/14/21 History tablet,extended release 24 hr (Toprol XL) bupropion HCl 300 mg 24 hr tablet, 300 mg PO QAM 11/25/19 01/14/21 History extended release (Wellbutrin XL) cholecalciferol (vitamin D3) 125 125 mcg PO QAM 11/25/19 01/14/21 History mcg (5,000 unit) tablet (Vitamin D3) krill 1 cap PO QAM 11/25/19 01/14/21 History [id number]-zy-[id number]-vbj-rytmkieifprmb 300 mg-90 mg-24 mg-50 mg capsule (krill oil) insulin lispro 100 unit/mL See Rx Instructions .ROUTE .COMPLEX 03/31/20 01/14/21 History subcutaneous solution (Humalog U-100 Insulin) amlodipine 5 mg tablet (Norvasc) 5 mg PO QAM 08/08/20 01/14/21 History lisinopril 20 mg tablet (Prinivil) 20 mg PO HS 08/08/20 01/14/21 History pantoprazole 40 mg tablet,delayed 40 mg PO QAM 12/25/20 01/14/21 History release (Protonix) rosuvastatin 20 mg tablet (Crestor) 20 mg PO HS 12/25/20 01/14/21 History diclofenac sodium 1 % topical gel 2 g TOPICAL QID PRN #100 g 01/12/21 01/14/21 Rx (Voltaren Arthritis Pain) lorazepam 1 mg tablet (Ativan) 1 mg PO DAILY PRN 01/12/21 01/14/21 History Allergies Allergy/AdvReac Type Severity Reaction Status Date / Time clozapine Allergy Severe Cardiomyopa Verified 01/14/21 17:23 thy losartan [From Cozaar] Allergy Intermediate Gastrointestinal Verified 01/14/21 17:23 Upset Sulfa (Sulfonamide Allergy Intermediate Hives Verified 01/14/21 17:23 Antibiotics) sulfamethoxazole Allergy Intermediate Hives Verified 01/14/21 17:23 trimethoprim [From Bactrim] Allergy Intermediate Hives Verified 01/14/21 17:23 metformin AdvReac Unknown nausea Verified 01/14/21 17:23 Past Med/Surg History Medical History Anxiety and depression Asthma "COUGH INDUCED ASTHMA" NO ACTIVE INHALER PRN CURRENLTY Cardiomyopathy AGE 16 (SEE ALLERGY LIST, MED INDUCED CARDIOMYOPATHY) CURRENT NORMAL HEART FUNCTION Change in bowel habits Degenerative disc disease Depression Diabetes mellitus INSULIN PUMP Fibromyalgia Hypertension 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 follows with [facility] (nonalcoholic steatohepatitis) Schizophrenia Surgical History H/O thumb surgery RT THUMB FUSION WITH HARDWARE History of appendectomy History of cholecystectomy History of esophagogastroduodenoscopy (EGD) History of myringotomy History of tonsillectomy and adenoidectomy [place] teeth removed Family History Father Diabetes Grandfather (Paternal) Family history of esophageal cancer Other Cancer Hypertension Kidney disease Social History Smoking Status: Never smoker Second Hand Exposure: No; Hx Alcohol Use: No Hx Substance Use: No Preferred Language: Tamazight Communication Ability: Effective Visual Impairment: Limited Hearing Ability: Normal Manager Internal Required: No Beliefs That Will Affect Care: None marital status: Single Current Living Situation: Family current occupational status: unemployed Feels Safe at Home: Yes Assistive Devices: Glasses Review of Systems A total of 10 systems reviewed and were otherwise negative Physical Exam Vital Signs Vital Signs - 24 hr 01/14/21 16:51 01/14/21 16:52 01/14/21 16:56 Temperature 37 C 36.8 C Temperature Source Oral Temporal Artery Scan Pulse Rate 89 Pulse Rate [Right Finger] 94 H Pulse Rhythm Regular Respiratory Rate 18 18 Respiratory Effort / Characteristics Non-Labored Spontaneous Respiratory Depth Normal Blood Pressure 158/86 H Blood Pressure [Right Arm] 127/97 Blood Pressure Mean 110 Blood Pressure Mean [Right Arm] 107 Blood Pressure Position [Right Arm] Lying Pulse Oximetry 95 95 95 Oxygen Delivery Method Room Air Room Air Room Air Sepsis Recent Fever Within 48 Hours No Sepsis New/Unexplained Change in Mental Status No Sepsis Action Taken by Nursing No Action Required Physical Exam GENERAL: He is oriented to person, place, and time. He appears well-developed a nd well-nourished. He does not appear distressed. HENT: Exam performed. - Head: Normocephalic and atraumatic. - Right Ear: External ear normal. No mastoid tenderness. - Left Ear: External ear normal. No mastoid tenderness. - Mouth/Throat: The oropharynx is clear and moist. No trismus in the jaw. No dental abscesses or uvula swelling. No oropharyngeal exudate or tonsillar abscesses. EYES: Conjunctivae and EOM are normal. Pupils are equal, round, and reactive to light. Right eye exhibits no discharge. Left eye exhibits no discharge. No scleral icterus. NECK: Normal range of motion. Neck supple. No JVD present. No spinous process tenderness present. No carotid bruit present. No rigidity. No tracheal deviation and normal range of motion present. No Brudzinski's sign and no Kernig's sign noted. CV: Normal rate, regular rhythm, normal heart sounds and intact distal pulses. There is no peripheral edema. Palpable radial pulses bue. PULM/CHEST: Effort normal and breath sounds normal. No respiratory distress. No stridor. He has no wheezes. He has no rales. - Chest Wall: He exhibits no tenderness. ABD: The abdomen is soft. Bowel sounds are normal. He has no distension. No mass is present. There is no tenderness. There is no rebound, no guarding, no Escoto's sign and no tenderness at McBurney's point. Rovsig negative. MUSC/SKEL: Normal range of motion. There is no peripheral edema, tenderness or deformity. LYMPH: No cervical adenopathy. NEURO: He is alert and oriented to person, place, and time. He has normal strength. No cranial nerve deficit or sensory deficit. Coordination and gait normal. GCS eye subscore is 4. GCS verbal subscore is 5. GCS motor subscore is 6. Cerebellar tests wnl. SKIN: Skin is warm and dry. He is not diaphoretic. PSYCH: He has a normal mood and affect. Behavior is normal. Judgment and thought content normal. Course Course 1655: The patient was evaluated in room B7. A complete history and physical exam was performed Cardiac monitoring: An order was placed for continuous cardiac monitoring. The monitor shows a rate of 80 with sinus rhythm EMR reviewed. Patient was seen in the emergency department January 12, 2021, 2 days ago. At that time the patient had 2 negative troponins and a negative CTA of the chest. 180: Vital signs stable. Labs and imaging are within normal limits. Troponin 0 0.024, lower than his previous 2 troponins done 2 days ago. Patient be discharged with follow-up PCP. DISCHARGE - Plan of care discussed with patient and questions answered. The patient was given both verbal and printed discharge instructions. The patient verbalized understanding and ability to comply. The patient is to seek outpatient follow up as noted in the discharge instructions. The patient verbalized understanding and ability to comply. The patient is discharged in stable condition. The patient was instructed to return for worsening symptoms. Administered Medications Nitroglycerin (Nitroglycerin Sl 0.4 Mg/Tab Tab) 0.4 mg SL UD PRN PRN Reason: Chest Pain Stop: 02/13/21 16:55 Last Admin: 01/14/21 17:10 Dose: 0.4 mg Documented by: [id number] Admin: 01/14/21 17:05 Dose: 0.4 mg Documented by: [id number] Discontinued Medications Aspirin (Aspirin Chew 324 Mg) 324 mg PO NOW STA Stop: 01/14/21 16:57 Last Admin: 01/14/21 17:04 Dose: 324 mg Documented by: [id number] Medical Decision Making Laboratory Data Result diagrams: 01/14/21 17:26 01/14/21 17:26 Labs: Lab Results 01/14/21 01/14/2101/14/21 Range/Units 17:26 17:26 17:26 WBC 6.83 (4.8-10.8) K/uL RBC 5.62 (4.7-6.1) M/uL Hgb 17.1 (14.0-18.0) g/dL Hct 49.6 (42-52) % MCV 88.3 (80-100) fL MCH 30.4 (25-34) pg MCHC 34.5 (32-36) g/dL RDW Std Deviation 42.0 (36.4-46.3) fL RDW Coeff of Cira 13.0 (11.5-14.5) % Plt Count 163 (130-400) K/uL MPV 10.6 H (7.4-10.4) fL Immature Gran % (Auto) 0.3 % Neut % (Auto) 61.5 % Lymph % (Auto) 26.1 % [place] % (Auto) 9.8 % Eos % (Auto) 1.6 % Baso % (Auto) 0.7 % Neut # (Auto) 4.20 (1.4-6.5) K/uL Lymph # (Auto) 1.78 (1.2-3.4) K/uL [place] # (Auto) 0.67 H (0.11-0.59) K/uL Eos # (Auto) 0.11 (0-0.5) K/uL Baso # (Auto) 0.05 (0-0.2) K/uL Immature Gran # (Auto) 0.02 (0.00-0.02) K/uL PT 11.4 (9.0-12.0) Seconds INR 1.1 (0.9-1.1) APTT 27.2 (21.0-31.0) Seconds PTT Ratio 1.0 Sodium 138 (136-145) mmol/L Potassium 4.0 (3.5-5.1) mmol/L Chloride 107 (98-107) mmol/L Carbon Dioxide 24 (21-32) mmol/L Anion Gap 7.0 (3-11) BUN 13 (7-18) mg/dl Creatinine 0.78 (0.6-1.4) mg/dl Est Cr Clr Drug Dosing 166.7 ml/min Est GFR ( Amer) 135.5 ml/min Est GFR (Non-Af Amer) 116.9 ml/min BUN/Creatinine Ratio 17.0 (10-20) Glucose 153 H (70-99) mg/dl Calcium 9.3 (8.5-10.1) mg/dl Troponin I 0.024 (0-0.045) ng/ml Lipase 200 (73-393) U/L Specimen Hemolysis Imaging Data Chest x-ray: Radiologist's impression: Chest X-Ray 01/14/21 16:56 XR chest 1V portable CLINICAL HISTORY: Chest Pain COMPARISON STUDY: December 13, 2020 FINDINGS: No pneumothorax. No pleural effusion. No large infiltrates or consolidative lesions are seen. Lung volumes are decreased with crowded lung markings. Cardiomediastinal silhouette is within normal limits in size. No significant pulmonary vascular congestion.. Osseous structures: unremarkable IMPRESSION: 1. No acute pulmonary process. ACT 112: Negative or not required by law. The above report was generated using voice recognition software. It may contain grammatical, syntax or spelling errors. Electronically signed by: Leigh Cristina DO 01/14/2021 5:48 PM ECG Data Indication: chest pain Rate (beats per minute): 83 Rhythm: normal sinus Findings: no ST depression, no ST elevation or no prolonged QT Comparison ECG Date: from (2 days ago) Change: no significant change Additional Comments: [facility] Narrative 1656: The patient was evaluated in room B7. A complete history and physical exam was performed Cardiac monitoring: An order was placed for continuous cardiac monitoring. The monitor shows a rate of 80 with sinus rhythm EMR reviewed. Patient was seen in the emergency department January 12, 2021, 2 days ago. At that time the patient had 2 negative troponins and a negative CTA of the chest. 1808: Vital signs stable. Labs and imaging are within normal limits. Troponin 0 0.024, lower than his previous 2 troponins done 2 days ago. Patient be discharged with follow-up PCP. DISCHARGE - Plan of care discussed with patient and questions answered. The patient was given both verbal and printed discharge instructions. The patient verbalized understanding and ability to comply. The patient is to seek outpatient follow up as noted in the discharge instructions. The patient verbalized understanding and ability to comply. The patient is discharged in stable condition. The patient was instructed to return for wo rsening symptoms. Impression & Plan Chest pain Discharge Plan Visit Data Chief Complaint: Cardiac Assessment Stated Complaint: HERE ON FRIDAY FOR CARDIAC ISSUES-GETTING WORSE ED Provider: Ar Fraser Discharge Problem: Chest pain Patient Disposition: Home - Self-Care Discharge Instructions [place]/Other Patient Handouts: ED Chest Pain, Noncardiac Forms Stand Alone Forms: My [facility], Virtual Emergency Department, Important Visit Information Prescriptions Prescriptions: No Action Jardiance 10 mg tablet 10 mg PO QAM RF: 0 bupropion HCl [Wellbutrin XL] 300 mg tablet extended release 24 hr 300 mg PO QAM RF: 0 [id number]-wtaduw [krill oil] 896-69-85-50 mg capsule 1 cap PO QAM RF: 0 cholecalciferol (vitamin D3) [Vitamin D3] 125 mcg (5,000 unit) tablet 125 mcg PO QAM RF: 0 insulin lispro [Humalog U-100 Insulin] 100 unit/mL solution See Rx Instructions .ROUTE .COMPLEX RF: 0 lisinopril [Prinivil] 20 mg tablet 20 mg PO HS RF: 0 amlodipine [Norvasc] 5 mg tablet 5 mg PO QAM RF: 0 montelukast [Singulair] 10 mg Tablet 10 mg PO HS RF: 0 Vraylar 3 mg capsule 3 mg PO HS RF: 0 metoprolol succinate [Toprol XL] 25 mg tablet extended release 24 hr 25 mg PO HS RF: 0 lorazepam [Ativan] 1 mg tablet 1 mg PO DAILY PRN (Reason: Anxiety) RF: 0 diclofenac sodium [Voltaren Arthritis Pain] 1 % gel 2 g topical QID PRN (Reason: pain) Qty: 100 RF: 0 pantoprazole [Protonix] 40 mg tablet,delayed release (DR/EC) 40 mg PO QAM RF: 0 rosuvastatin [Crestor] 20 mg tablet 20 mg PO HS RF: 0 Referrals Referrals: Angel Cooper MD [Physician] - (Follow-up in 1-7 days.) Brenna Krueger CRNP [Primary Care Provider] - (Follow-up in 1-7 days.) Discharge Problem: Chest pain Qualifiers: Chest pain type: unspecified Qualified Code(s): R07.9 - Chest pain, unspecified
[2021-01-14 17:40] LABS: Basophils # (auto) 0.05 K/uL (0-0.2); Basophils % (auto) 0.7 %; Eosinophils # (auto) 0.11 K/uL (0-0.5); Eosinophils % (auto) 1.6 %; Hematocrit (blood only) 49.6 % (42-52); Hemoglobin 17.1 g/dL (14.0-18.0); Immature Granulocytes # (auto) 0.02 K/uL (0.00-0.02); Immature Granulocytes % (auto) 0.3 %; Lymphocytes # (auto) 1.78 K/uL (1.2-3.4); Lymphocytes % (auto) 26.1 %; Mean Corpuscular Hemoglobin 30.4 pg (25-34); Mean Corpuscular Hgb Conc 34.5 g/dL (32-36); Mean Corpuscular Volume 88.3 fL (80-100); Mean Platelet Volume 10.6 fL (7.4-10.4); Monocytes # (auto) 0.67 K/uL (0.11-0.59); Monocytes % (auto) 9.8 %; Neutrophils % (auto) 61.5 %; Platelet Count 163 K/uL (130-400); Red Blood Count 5.62 M/uL (4.7-6.1); White Blood Count 6.83 K/uL (4.8-10.8)
[2021-01-14 17:48] LABS: INR 1.1 (0.9-1.1); Partial Thromboplastin Time 27.2 Seconds (21.0-31.0); Prothrombin Time 11.4 Seconds (9.0-12.0)
--- NOTE | 2021-01-14 17:49 | XRay Report ---
XR chest 1V portable CLINICAL HISTORY: Chest Pain COMPARISON STUDY: December 13, 2020 FINDINGS: No pneumothorax. No pleural effusion. No large infiltrates or consolidative lesions are seen. Lung volumes are decreased with crowded lung markings. Cardiomediastinal silhouette is within normal limits in size. No significant pulmonary vascular congestion.. Osseous structures: unremarkable IMPRESSION: 1. No acute pulmonary process. ACT 112: Negative or not required by law. The above report was generated using voice recognition software. It may contain grammatical, syntax o r spelling errors. Electronically signed by: Leigh Cristina DO 01/14/2021 5:48 PM
[2021-01-14 17:56] LABS: Calcium 9.3 mg/dl (8.5-10.1); Creatinine Clr Calc Pharmacy 166.7 ml/min; Est GFR (African American) 135.5 ml/min; Est GFR (Non-African American) 116.9 ml/min
[2021-01-14 17:59] LABS: Troponin I 0.024 ng/ml (0-0.045)
--- NOTE | 2021-01-14 19:52 | History & Physical Report ---
Date of Service January 14, 2021 Assessment & Plan (1) Chest pain: Plan: Patient with 9 days of chest discomfort, reports exertional in nature with SOB, diaphoresis. Also pleuritic and positional component. Pain reproducible. EKG with no acute ischemic changes. Troponin is detectable at 0.024 which is near patient's baseline. 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 Diaz - mention [facility] - unable to see more recent Cardiology notes. Patient had a stress echocardiogram performed o 12/17/2016 which was normal. Baseline echo with normal LV size and function with EF of 55- 60%. ?Musculoskeletal cause for current pain. Profound diaphoresis is somewhat concerning. -Telemetry monitoring -Trend troponin -check 2D echo in AM -Continue Toprol XL -Continue Lisinopril -Conitnue Crestor -Voltaren gel PRN (2) Paranoid schizophrenia: Plan: Chronic. Stable. 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 Patient with insulin pump and CGM in place. He manages his blood sugars and pump without difficulty. 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 Electrolytes WNL. CC diet as tolerated Ppx - Low risk Code - Full Dispo - Admit to medical with telemetry History of Present Illness Chief Complaint: Chest pain Primary Care Provider: AIYANA Forbes Jluis Gbison is a 35yo male with history of paranoid schizophrenia, cardiomyopathy, DM, HTN and cirrhosis of the liver presenting with 9 days of intermittent chest pain and SOB. Patient was seen in the ER 2 days ago and had a negative workup therefore was discharged home. He reports substernal and left sided chest discomfort that occurs intermittently, often with exertion - 4/10 in severity currently but to 6/10 with exertion associated with SOB and diaphoresis. He has occasional dizziness and states that "everything feels slowed down and muddy" when he tries to get up to ambulate. He presented to the ER today with these complaints. Workup was unremarkable and patient was to be discharged home. When he got up to leave he had an episode of severe chest pain with profound diaphoresis and unsteady gait. Pain is somewhat pleuritic and positional. Patient reports following with Dr. Diaz. He had an echo on 08/16/18 with a normal LV size and function, EF of 55-60% Allergies Allergy/AdvReac Type Severity Reaction Status Date / Time clozapine Allergy Severe Cardiomyopa Verified 01/14/21 17:23 thy losartan [From Cozaar] Allergy Intermediate Gastrointestinal Verified 01/14/21 17:23 Upset Sulfa (Sulfonamide Allergy Intermediate Hives Verified 01/14/21 17:23 Antibiotics) sulfamethoxazole Allergy Intermediate Hives Verified 01/14/21 17:23 trimethoprim [From Bactrim] Allergy Intermediate Hives Verified 01/14/21 17:23 metformin AdvReac Unknown nausea Verified 01/14/21 17:23 Home Medications Medication Instructions Recorded Confirmed Type montelukast 10 mg tablet 10 mg PO HS 05/14/18 01/14/21 History (Singulair) cariprazine 3 mg capsule (Vraylar) 3 mg PO HS 04/06/19 01/14/21 History empagliflozin 10 mg tablet 10 mg PO QAM 07/30/19 01/14/21 History (Jardiance) metoprolol succinate 25 mg 25 mg PO HS 08/19/19 01/14/21 History tablet,extended release 24 hr (Toprol XL) bupropion HCl 300 mg 24 hr tablet, 300 mg PO QAM 11/25/19 01/14/21 History extended release (Wellbutrin XL) cholecalciferol (vitamin D3) 125 125 mcg PO QAM 11/25/19 01/14/21 History mcg (5,000 unit) tablet (Vitamin D3) krill 1 cap PO QAM 11/25/19 01/14/21 History cca-us-0-kvv-sta-hyxzjwvqmpdmb 300 mg-90 mg-24 mg-50 mg capsule (krill oil) insulin lispro 100 unit/mL See Rx Instructions .ROUTE .COMPLEX 03/31/20 01/14/21 History subcutaneous solution (Humalog U-100 Insulin) amlodipine 5 mg tablet (Norvasc) 5 mg PO QAM 08/08/20 01/14/21 History lisinopril 20 mg tablet (Prinivil) 20 mg PO HS 08/08/20 01/14/21 History pantoprazole 40 mg tablet,delayed 40 mg PO QAM 12/25/20 01/14/21 History release (Protonix) rosuvastatin 20 mg tablet (Crestor) 20 mg PO HS 12/25/20 01/14/21 History diclofenac sodium 1 % topical gel 2 g TOPICAL QID PRN #100 g 01/12/21 01/14/21 Rx (Voltaren Arthritis Pain) lorazepam 1 mg tablet (Ativan) 1 mg PO DAILY PRN 01/12/21 01/14/21 History Past Med/Surg History Medical History (Updated 01/14/21 @ 21:12 by Tracie Yeung DO) Anxiety and depression Asthma "COUGH INDUCED ASTHMA" NO ACTIVE INHALER PRN CURRENLTY Cardiomyopathy AGE 16 (SEE ALLERGY LIST, MED INDUCED CARDIOMYOPATHY) CURRENT NORMAL HEART FUNCTION Change in bowel habits Degenerative disc disease Depression Diabetes mellitus INSULIN PUMP Fibromyalgia Hypertension 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 [facility] [place] (nonalcoholic steatohepatitis) Schizophrenia Surgical History H/O thumb surgery RT THUMB FUSION WITH HARDWARE History of appendectomy History of cholecystectomy History of esophagogastroduodenoscopy (EGD) History of myringotomy History of tonsillectomy and adenoidectomy [place] teeth removed Family History Father Diabetes Grandfather (Paternal) Family history of esophageal cancer Other Cancer Hypertension Kidney disease Social History Smoking Status: Never smoker Second Hand Exposure: No; Hx Alcohol Use: No Hx Substance Use: No Preferred Language: Macedonian Communication Ability: Effective Visual Impairment: Limited Hearing Ability: Normal Superintendent Police Required: No Beliefs That Will Affect Care: None marital status: Single Current Living Situation: Family current occupational status: unemployed Feels Safe at Home: Yes Assistive Devices: Glasses Review of Systems Review of Systems: All systems reviewed & are unremarkable except as noted in HPI & below Denies orthopnea, edema, weight gain Had vomiting last week x 1 episode - non-bloody/non-bilious Has chronic diarrhea Denies fever Physical Exam Physical Exam: General: patient resting comfortably, NAD, non-toxic in appearance, AA&O x 4 Skin: warm, dry, intact, no rashes or lesions HEENT: NC/AT, PERRL, EOMI, anicteric sclera, conjunctiva without injection, e xternal ear normal to inspection and nontender, nares patent, moist mucus membranes, dentition intact, no oropharyngeal lesions, neck supple, trachea midline, no LAD, no thyromegaly, no JVD, tenderness with palpation right SCM muscle and left neck Heart: +S1/S2, regular, no m/r/g, +CW tenderness reproducible Lungs: equal air entry bilaterally, no rales/rhonchi/wheezes Abd: +BS, soft, NT/ND, no masses/organomegaly/ascites Ext: warm, 2+ pulses in UE/LE bilaterally, no clubbing/cyanosis or edema, Dexcom in place LUE Neuro: nonfocal, patient AA&O x 4, speech intact, no facial droop, moving all extremities on command with equal strength 5/5 Results & Data Results & Data ([facility]) Vital Signs (Past 12 Hours) Vital Signs Temp Pulse Pulse Resp BP BP Pulse Ox 01/14/21 19:30 87 10 L 149/97 H 96 01/14/21 19:00 77 21 148/99 H 94 01/14/21 18:46 36.9 C 88 18 128/96 96 01/14/21 18:33 100 H 20 128/96 97 01/14/21 18:00 88 22 158/92 H 95 01/14/21 17:30 105 H 20 127/97 95 01/14/21 17:08 98 H 20 144/99 H 95 01/14/21 16:56 95 01/14/21 16:52 36.8 C 89 18 158/86 H 95 01/14/21 16:51 37 C 94 H 18 127/97 95 Laboratory Results Laboratory Results WBC 6.83 K/uL (4.8-10.8) 01/14/21 17:26 RBC 5.62 M/uL (4.7-6.1) 01/14/21 17: Hgb 17.1 g/dL (14.0-18.0) 01/14/21 17: Hct 49.6 % (42-52) 01/14/21 17: MCV 88.3 fL (80-100) 01/14/21 17: MCH 30.4 pg (25-34) 01/14/21 17: MCHC 34.5 g/dL (32-36) 01/14/21 17: RDW Std Deviation 42.0 fL (36.4-46.3) 01/14/21: RDW Coeff of Cira 13.0 % (11.5-14.5) 01/14/21 17: Plt Count 163 K/uL (130-400) 01/14/21 17: MPV 10.6 fL (7.4-10.4) H 01/14/21 17:26 Immature Gran % (Auto) 0.3 % 01/14/21 17:26 Neut % (Auto) 61.5 % 01/14/21 17:26 Lymph % (Auto) 26.1 % 01/14/21 17:26 [place] % (Auto) 9.8 % 01/14/21 17:26 Eos % (Auto) 1.6 % 01/14/21 17:26 Baso % (Auto) 0.7 % 01/14/21 17:26 Neut # (Auto) 4.20 K/uL (1.4-6.5) 01/14/21 17:26 Lymph # (Auto) 1.78 K/uL (1.2-3.4) 01/14/21 17:26 [place] # (Auto) 0.67 K/uL (0.11-0.59) H 01/14/21 17: Eos # (Auto) 0.11 K/uL (0-0.5) 01/14/21 17:26 Baso # (Auto) 0.05 K/uL (0-0.2) 01/14/21 17: Immature Gran # (Auto) 0.02 K/uL (0.00-0.02) 01/14/21 17:26 PT 11.4 Seconds (9.0-12.0) 01/14/21 17: INR 1.1 (0.9-1.1) 01/14/21 17:26 APTT 27.2 Seconds (21.0-31.0) 01/14/21 17: PTT Ratio 1.0 01/14/21 17:26 Sodium 138 mmol/L (136-145) 01/14/21 17:26 Potassium 4.0 mmol/L (3.5-5.1) 01/14/21 17:26 Chloride 107 mmol/L (98-107) 01/14/21 17:26 Carbon Dioxide 24 mmol/L (21-32) 01/14/21 17:26 Anion Gap 7.0 (3-11) 01/14/21 17: BUN 13 mg/dl (7-18) 01/14/21 17: Creatinine 0.78 mg/dl (0.6-1.4) 01/14/21 17:26 Est Cr Clr Drug Dosing 166.7 ml/min 01/14/21 17:26 Est GFR ( Amer) 135.5 ml/min 01/14/21 17:26 Est GFR (Non-Af Amer) 116.9 ml/min 01/14/21 17:26 BUN/Creatinine Ratio 17.0 (10-20) 01/14/21 17: Glucose 153 mg/dl (70-99) H 01/14/21 17:26 Calcium 9.3 mg/dl (8.5-10.1) 01/14/21 17:26 Troponin I 0.024 ng/ml (0-0.045) 01/14/21 17:26 Lipase 200 U/L (73-393) 01/14/21 17:26 Specimen Hemolysis 01/14/21 17:26 COVID-19 Eval Order Covid19 at [facility] 01/14/21 18:42 SARS-CoV-2 (PCR) NEGATIVE (Negative) 01/14/21 18:42 Impressions Chest X-Ray 01/14/21 16:56 XR chest 1V portable CLINICAL HISTORY: Chest Pain COMPARISON STUDY: December 13, 2020 FINDINGS: No pneumothorax. No pleural effusion. No large infiltrates or consolidative lesions are seen. Lung volumes are decreased with crowded lung markings. Cardiomediastinal silhouette is within normal limits in size. No significant pulmonary vascular congestion.. Osseous structures: unremarkable IMPRESSION: 1. No acute pulmonary process. ACT 112: Negative or not required by law. The above report was generated using voice recognition software. It may contain grammatical, syntax or spelling errors. Electronically signed by: Leigh Cristina DO 01/14/2021 5:48 PM ECG Additional Comments: EKG wtih NSR at 88, ZD=742, QRS=84, DBe=461, no acute ischemic changes present Code Status & VTE Plan VTE Prophylaxis Plan VTE Prophylaxis will be ordered: Yes PG Care Time/CCT Total # of Minutes Spent Total Time Spent with Patient: Total time spent is greater than 50% in coordination of care (as documented) at patient's floor/unit and/or counseling patient: Coding Level of Care Code INT OBSERVATION CARE 50M LVL 2 Diagnoses Chest pain R07.9 Chest pain type: unspecified Occipital neuralgia M54.81 Paranoid schizophrenia F20.0 Hypercholesteremia E78.00 Diabetes mellitus type 1.5, managed as type 1 E13.9 Sleep apnea G47.30 Hypertension I10 Hypertension type: unspecified 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
[2021-01-14] MEDS ORDERED: DEXTROSE 50% 50 ML SYRINGE IV PRN (21:10)
[2021-01-14] MEDS ORDERED: GLUCOSE 10 TABS/TUBE PO PRN (21:10)
[2021-01-14] MEDS ORDERED: ACETAMINOPHEN 325 MG TAB PO PRN (21:10)
[2021-01-14] MEDS ORDERED: DICLOFENAC SOD 1% GEL 100 GM TUBE EXT PRN (21:10)
[2021-01-14] MEDS ORDERED: ONDANSETRON INJ 2 MG/ML 2 ML VIAL IV PRN (21:10)
[2021-01-14] MEDS ORDERED: CARBOHYDRATES FOR HYPOGLYCEMIA PO PRN (21:10)
[2021-01-14] MEDS ORDERED: GLUCOSE 40% GEL 15 GM TUBE PO PRN (21:10)
[2021-01-14] MEDS ORDERED: GLUCAGON FOR INJ 1 MG VIAL SQ PRN (21:10)
[2021-01-14] MEDS ORDERED: LORazepam 1 MG TAB PO PRN (21:13)
[2021-01-14] MEDS ORDERED: ROSUVASTATIN CALCIUM 20 MG TAB PO SCH (21:30)
[2021-01-14] MEDS ORDERED: MONTELUKAST SODIUM 10 MG TABLET PO SCH (21:30)
[2021-01-14] MEDS ORDERED: lisinopril 20 MG TAB PO SCH (21:30)
[2021-01-14] MEDS ORDERED: METOPROLOL SUCC 25MG EXT REL TAB PO SCH (21:30)
[2021-01-14 21:44] LABS: Magnesium 2.1 mg/dl (1.8-2.4)
[2021-01-14] MEDS ORDERED: INSULIN HUMAN LISPRO (humaLOG) 100 UNITS/ML VIAL SC PRN (21:45)
[2021-01-15 06:33] LABS: Basophils # (auto) 0.07 K/uL (0-0.2); Eosinophils % (auto) 1.4 %; Hematocrit (blood only) 49.8 % (42-52); Immature Granulocytes # (auto) 0.01 K/uL (0.00-0.02); Immature Granulocytes % (auto) 0.1 %; Lymphocytes # (auto) 2.18 K/uL (1.2-3.4); Lymphocytes % (auto) 30.5 %; Mean Corpuscular Hemoglobin 30.2 pg (25-34); Mean Corpuscular Hgb Conc 34.1 g/dL (32-36); Mean Corpuscular Volume 88.6 fL (80-100); Mean Platelet Volume 10.3 fL (7.4-10.4); Monocytes # (auto) 0.63 K/uL (0.11-0.59); Monocytes % (auto) 8.8 %; Neutrophils # (auto) 4.15 K/uL (1.4-6.5); Neutrophils % (auto) 58.2 %; Platelet Count 154 K/uL (130-400); RDW Standard Deviation 42.5 fL (36.4-46.3); Red Blood Count 5.62 M/uL (4.7-6.1); White Blood Count 7.14 K/uL (4.8-10.8)
[2021-01-15 07:11] LABS: Albumin Level 3.9 gm/dl (3.4-5.0); BUN Creatinine Ratio 19.9 (10-20); Bilirubin Direct 0.1 mg/dl (0-0.2); Calcium 8.8 mg/dl (8.5-10.1); Est GFR (Non-African American) 118.2 ml/min; Potassium 3.8 mmol/L (3.5-5.1)
[2021-01-15 07:14] LABS: Bilirubin,Total 0.6 mg/dl (0.2-1); Total Protein 7.1 gm/dl (6.4-8.2)
[2021-01-15] MEDS ORDERED: amLODIPine BESYLATE 5 MG TAB PO SCH (09:00)
[2021-01-15] MEDS ORDERED: PANTOprazole 40 MG TAB PO SCH (09:00)
[2021-01-15] MEDS ORDERED: buPROPion XL 300 MG TABCR PO SCH (09:00)
--- NOTE | 2021-01-15 09:00 | Electrocardiogram Report ---
Test Reason : Blood Pressure : / mmHG Vent. Rate : 083 BPM Atrial Rate : 083 BPM P-R Int : 146 ms QRS Dur : 090 ms QT Int : 362 ms P-R-T Axes : 030 -13 018 degrees QTc Int : 425 ms Normal sinus rhythm Moderate voltage criteria for LVH, may be normal variant Borderline ECG When compared with ECG of 12-JAN-2021 13:00, No significant change was found Confirmed by Doc Wells ([id number]) on 01/15/2021 8:59:49 AM Referred By: Gisele Alexandra Confirmed By:Doc Wells
--- NOTE | 2021-01-15 09:06 | Electrocardiogram Report ---
Test Reason : Blood Pressure : / mmHG Vent. Rate : 088 BPM Atrial Rate : 088 BPM P-R Int : 140 ms QRS Dur : 084 ms QT Int : 350 ms P-R-T Axes : 039 -11 017 degrees QTc Int : 423 ms Poor data quality, interpretation may be adversely affected Normal sinus rhythm Moderate voltage criteria for LVH, may be normal variant Borderline ECG When compared with ECG of 14-JAN-2021 16:57, No significant change was found Confirmed by Doc Wells ([id number]) on 01/15/2021 9:06:20 AM Referred By: Gisele Alexandra Confirmed By:Doc Wells
--- NOTE | 2021-01-15 10:10 | XCELERA ---
[id number]
--- NOTE | 2021-01-15 10:49 | Hospitalist Progress Note ---
Date of Service January 15, 2021 Assessment & Plan (1) Chest pain: Plan: 35 yo with PMH of paranoid schizophrenia, liver cirrhosis, HLD, HTN presenting with 9 days of chest pain. 1) Chest pain Plan: -Left sided substernal chest pain 5/10 severity with radiation to left neck and left arm, associated with exertional dyspnea and occasional nausea, as well as diaphoresis. ED workup- troponins non-elevated (0.024, 0.021), EKG showing sinus rhythm without ST elevations, clear CXR. Differential includes primary cardiac pathology such as ischemic CAD/angina, less likely to be acute CO. Echo in 2019 showed EF of 55-60%. Other etiologies include chest wall muscle spasm, PE, GERD, somatic anxiety symptoms. -Stress test today per Dr. Wells revealed no evidence of ischemia with fatigue although study nondiagnostic due to patient unable to reach target HR due to his metoprolol. 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 -Echo performed today, awaiting read. May consult cardiology pending results. -Continue trending troponin -Continue telemetry -No PRN pain medications at this time due to low pain severity (2) Diarrhea Plan: -Patient has apparently been experiencing loose stools for at least several months and was scheduled for colonoscopy 01/[address] Coburn prior to admission. Pt can likely receive colonoscopy during this admission. (3) Paranoid schizophrenia: Plan: Chronic. Stable. He reports moods have been fine. -Continue Vraylar at home dose (4) Hypercholesteremia: Plan: Chronic. Stable. -Continue rosuvastatin (5) Diabetes mellitus type 1.5, managed as type 1: Plan: Chronic. Patient with insulin pump and CGM in place. He manages his blood sugars and pump without difficulty. -He may continue home pump -Hold oral agents (6) Sleep apnea: Plan: Chronic. Stable. 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 Electrolytes WNL. 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 Pt states his chest pain has not significantly changed, still 5/10 severity and associated with exertional dyspnea, radiation of pain to left arm and left side of neck, minor nausea. He was able to sleep last night, eating and drinking without issue. He is having loose stools and prior to this admission, was scheduled for colonoscopy with Dr. Coburn for 01/16. Review of Systems Review of Systems: All systems reviewed & are unremarkable except as noted in Subjective Chest pain with exertional dyspnea Minor nausea, loose stools, denies vomiting Denies fever, chills, fatigue Physical Exam Physical Exam: General: patient resting comfortably, NAD, non-toxic in appearance Skin: warm, dry, intact, no rashes or lesions HEENT: NC/AT, EOMI, anicteric sclera, conjunctiva without injection, external ear normal to inspection and nontender, moist mucus membranes, dentition intact, no oropharyngeal lesions, neck supple, trachea midline, no lymphadenopathy, no thyromegaly Heart: Regular rate and rhythm, normal S1/S2 Lungs: equal air entry bilaterally, no rales/rhonchi/wheezes Abd: Soft, nontender, nondistended, no hepatosplenomegaly Ext: warm, 2+ pulses in UE/LE bilaterally, no clubbing/cyanosis or edema Neuro: grossly intact cranial nerves Results & Data Results & Data ([facility]) Vital Signs (Past 12 Hours) Vital Signs Temp Pulse Pulse Resp BP Pulse Ox 01/15/21 09:25 64 01/15/21 07:00 36.5 C 62 20 131/82 94 01/15/21 04:00 36.5 C 72 18 120/69 95 01/15/21 00:00 36.6 C 70 18 114/67 97 01/14/21 23:41 73 01/14/21 22:52 37 C 85 20 153/94 H 94 CBC w Diff Results Results CBC w Diff: RBC 5.62 M/uL (4.7-6.1) 01/15/21 WBC 7.14 K/uL (4.8-10.8) 01/15/21 Hgb 17.0 g/dL (14.0-18.0) 01/15/21 Hct 49.8 % (42-52) 01/15/21 MCV 88.6 fL (80-100) 01/15/21 MCH 30.2 pg (25-34) 01/15/21 MCHC 34.1 g/dL (32-36) 01/15/21 RDW Standard Deviation 42.5 fL (36.4-46.3) 01/15/21 RDW Coefficient of Variation 13.0 % (11.5-14.5) 01/15/21 Plt Count 154 K/uL (130-400) 01/15/21 MPV 10.3 fL (7.4-10.4) 01/15/21 Neutrophils (%) (Auto) 58.2 % 01/15/21 Lymphocytes (%) (Auto) 30.5 % 01/15/21 Monocytes # (Auto) 0.63 K/uL (0.11-0.59) H 01/15/21 Eosinophils # (Auto) 0.10 K/uL (0-0.5) 01/15/21 Immature Granulocyte % (Auto) 0.1 % 01/15/21 Neutrophils # (Auto) 4.15 K/uL (1.4-6.5) 01/15/21 Lymphocytes # (Auto) 2.18 K/uL (1.2-3.4) 01/15/21 Monocytes # (Auto) 0.63 K/uL (0.11-0.59) H 01/15/21 Eosinophils # (Auto) 0.10 K/uL (0-0.5) 01/15/21 Basophils # (Auto) 0.07 K/uL (0-0.2) 01/15/21 Immature Granulocyte # (Auto) 0.01 K/uL (0.00-0.02) 01/15/21 Chemistry Results CMP Results: Na 139 mmol/L (136-145) 01/15/21 K 3.8 mmol/L (3.5-5.1) 01/15/21 Cl 107 mmol/L (98-107) 01/15/21 CO2 30 mmol/L (21-32) 01/15/21 Anion Gap 2.0 (3-11) L 01/15/21 BUN 15 mg/dl (7-18) 01/15/21 Creatinine 0.76 mg/dl (0.6-1.4) 01/15/21 Estimated GFR ( Amer) 137.0 ml/min 01/15/21 Estimated GFR (Non-Af Amer) 118.2 ml/min 01/15/21 BUN/Creatinine Ratio 19.9 (10-20) 01/15/21 Glu 108 mg/dl (70-99) H 01/15/21 Ca 8.8 mg/dl (8.5-10.1) 01/15/21 Phosphorus Level 3.0 mg/dl (2.5-4.9) 01/14/21 Total Bilirubin 0.6 mg/dl (0.2-1) 01/15/21 Direct Bilirubin 0.1 mg/dl (0-0.2) 01/15/21 AST 31 U/L (15-37) 01/15/21 ALT 67 U/L (12-78) 01/15/21 Alkaline Phosphatase 60 U/L (45-117) 01/15/21 TP 7.1 gm/dl (6.4-8.2) 01/15/21 Albumin 3.9 gm/dl (3.4-5.0) 01/15/21 Globulin 3.7 gm/dl (2.5-4.0) 01/12/21 Albumin/Globulin Ratio 1.2 (0.9-2) 01/12/21 Lactate Dehydrogenase 206 U/L (87-241) 03/27/20 (1) Chest pain Chest pain type: unspecified Qualified Code(s): R07.9 - Chest pain, unspecified (2) Hypertension Hypertension type: unspecified Qualified Code(s): I10 - Essential (primary) hypertension
--- NOTE | 2021-01-15 12:03 | Exercise Stress Test ---
Date of Service January 15, 2021 Exercise Stress Test Report Exercise Stress Test Report Exercise treadmill test to rule out myocardial ischemia. Patient exercised for 8 minutes on a Gab protocol achieving a peak heart rate of 142 bpm (76% maximum predicted heart rate, 10 METS). Test terminated due to fatigue and patient discomfort. Patient noted 34/10 chest discomfort at baseline which increased to 67/10 intensity during stress, returned to baseline intensity during recovery. Chest discomfort had a pleuritic component. Baseline ECG showed sinus rhythm and was completely unremarkable. During exercise, ECG showed no ST deviation. No ectopy or dysrhythmias. At the conclusion of the study, patient was hemodynamically stable and had baseline level symptoms (mild chest discomfort). Impression: 1. Nondiagnostic exercise treadmill test for myocardial ischemia due to failure to achieve target heart rate. However, no evidence of myocardial ischemia at fatiguing workload and 76% maximum predicted heart rate. 2. Appropriate blood pressure and blunted heart rate response to exercise and patient on beta-alli therapy. 3. Patient had chest discomfort at baseline which increased during stress, but was atypical for myocardial ischemia (pleuritic component). 4. Good exercise tolerance. [employer] [employer] functional class I. 10 met workload. 5. No ectopy or dysrhythmias. PG Exercise Stress Test Codes Indication for Procedure (1) Chest pain: Procedure Code 58018 Cardiovascular Stress Test
[2021-01-15] MEDS ORDERED: FAMOTIDINE 20 MG TAB PO SCH (12:15)
--- NOTE | 2021-01-15 13:59 | Discharge Summary ---
Date of Service January 15, 2021 Admission HPI Per Admitting Provider Jluis Gibson is a 35yo male with history of paranoid schizophrenia, cardiomyopathy, DM, HTN and cirrhosis of the liver presenting with 9 days of intermittent chest pain and SOB. Patient was seen in the ER 2 days ago and had a negative workup therefore was discharged home. He reports substernal and left sided chest discomfort that occurs intermittently, often with exertion - 4/10 in severity currently but to 6/10 with exertion associated with SOB and diaphoresis. He has occasional dizziness and states that "everything feels slowed down and muddy" when he tries to get up to ambulate. He presented to the ER today with these complaints. Workup was unremarkable and patient was to be discharged home. When he got up to leave he had an episode of severe chest pain with profound diaphoresis and unsteady gait. Pain is somewhat pleuritic and positional. Patient reports following with Dr. Diaz. He had an echo on 08/16/20 with a normal LV size and function, EF of 55-60% Admission Exam Per Admitting Provider General: patient resting comfortably, NAD, non-toxic in appearance, AA&O x 4 Skin: warm, dry, intact, no rashes or lesions HEENT: NC/AT, PERRL, EOMI, anicteric sclera, conjunctiva without injection, external ear normal to inspection and nontender, nares patent, moist mucus membranes, dentition intact, no oropharyngeal lesions, neck supple, trachea midline, no LAD, no thyromegaly, no JVD, tenderness with palpation right SCM muscle and left neck Heart: +S1/S2, regular, no m/r/g, +CW tenderness reproducible Lungs: equal air entry bilaterally, no rales/rhonchi/wheezes Abd: +BS, soft, NT/ND, no masses/organomegaly/ascites Ext: warm, 2+ pulses in UE/LE bilaterally, no clubbing/cyanosis or edema, Dexcom in place LUE Neuro: nonfocal, patient AA&O x 4, speech intact, no facial droop, moving all extremities on command with equal strength 5/5 Principal Diagnosis Chest pain Discharge Exam Constitutional WD/WN, vitals as above cooperative and comfortable Eyes + anicteric sclerae and EOM intact bilaterally ENMT Mouth: oral mucous membranes not dry Neck normal visual inspection and trachea midline Respiratory normal respiratory effort, lungs clear to auscultation Cardiovascular RRR, no murmur, no edema Gastrointestinal (Abdomen) Inspection/Auscultation: abdomen normal to inspection and normal bowel sounds Percussion/Palpation: abdomen soft; abdomen nontender, no guarding and abdomen not rigid Musculoskeletal Head/Neck/Chest: normocephalic and head atraumatic Extremities: extremities normal to inspection Skin no rashes, warm and dry Neurologic moves all extremities and awake Psychiatric A+Ox3, euthymic affect Discharge Data Allergies Allergy/AdvReac Type Severity Reaction Status Date / Time clozapine Allergy Severe Cardiomyopa Verified 01/14/21 17:23 thy losartan [From Cozaar] Allergy Intermediate Gastrointestinal Verified 01/14/21 17:23 Upset Sulfa (Sulfonamide Allergy Intermediate Hives Verified 01/14/21 17:23 Antibiotics) sulfamethoxazole Allergy Intermediate Hives Verified 01/14/21 17:23 trimethoprim [From Bactrim] Allergy Intermediate Hives Verified 01/14/21 17:23 metformin AdvReac Unknown nausea Verified 01/14/21 17:23 Consultations 01/14/21 18:23 ED Decision to Admit Stat Procedures Performed Operation Date: 01/16/21 14:00 <No data on this case meets the specified criteria> Hospital Course (1) Chest pain: 1) Chest pain -Patient was admitted to [facility] from 01/14-01/15 for chest pain. He received supportive care in the ED and underwent extensive workup for his chest pain to rule out myocardial infarction. Serial troponins were consistently within normal limits. EKG on admission showed sinus rhythm without ST elevations. CXR was also unremarkable. Pt's previous echocardiogram from 2019 was non-concerning and featured EF of 55-60%. Repeat echocardiogram during this admission was similarly non-concerning. Pt also received stress testing to rule out ischemic causes of chest pain and study was found to be nondiagnostic due to patient's inability to reach the target HR on metoprolol, though there was no preceding evidence of ischemia with fatigue. Pt's CBC, coagulation studies and CMP were unremarkable. Pt follows with Dr. Diaz for cardiology and was instructed to see him for follow-up soon after discharge. (2) Diarrhea -Patient had apparently been experiencing loose stools for at least several months and was scheduled for colonoscopy 01/[address] Coburn prior to admission. Pt is to receive colonoscopy after discharge as scheduled. (3) Paranoid schizophrenia: -Patient's schizophrenia was managed with home medications without any adjustment. There were no psychiatric symptoms during his hospital stay and he did not experience any adverse effects. (4) Hypercholesteremia: -Patient was continued on his home rosuvastatin and did not experience any adverse effects. 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 (6) Sleep apnea: -Patient continued to receive CPAP qHs for his JUNIOR during hospital course. (7) Hypertension: -Patient's HTN was managed with home medications of Metoprolol, Lisinopril, Amlodipine. 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: (9) Diarrhea: Total Time Total Time Spent Total Time Spent (In Minutes): 40 Discharge Plan Discharge Items Patient Disposition: Home - Self-Care Reason For Visit: CHEST PAIN, DIAPHORESIS Discharge Diagnosis: Chest pain Activity: Per Instructions section Non-emergency contact: Primary Care Provider and Wheat Grower Call non-emergency contact if: you have any medication questions, your symptoms worsen and your pain is worsening Follow-up/Referrals: Brenna Krueger CRNP [Primary Care Provider] - 01/18/21 9:30 am Diet: Regular Addtl Attending Provider Instructions: You were admitted to the hospital for chest pain. You were treated with fluids, pain medication, oxygen and aspirin. You received workup to determine the source of your chest pain. Chest pain -Our workup was comprehensive and included a chest x-ray, electrocardiograms, echocardiograms, bloodwork and stress testing. Our workup was not suggestive of heart disease, heart attack or blood clots. At this time, we don't have a clear understanding of the cause of your chest pain but it is less likely due to serious causes such as heart attack. Other potential causes include acid reflux or muscle spasms. We continued your medications for your other medical conditions as prescribed while you were in the hospital. A discharge summary will be sent to your primary care physician to ensure continuity of care. Please bring this discharge summary with you to your next office appointment so that your provider can review it at that time. Follow-up appointments: Make a follow-up appointment with your PCP within the next week. It is very important that you follow up with them shortly after discharge from the hospital. Follow up with your surface grinder tender Dr. Diaz to discuss this hospital visit and your chest pain. Keep all your follow-up appointments as already scheduled. If you cannot make an appointment, notify your provider. You will be able to receive your colonoscopy with Dr. Coburn on 01/16 as scheduled. Medications: Your medication list has been reviewed and reconciled upon discharge to ensure accuracy and continuity of care. An updated list of all your medications is included with your hospital discharge paperwork. Please review this list closely, and make note of any c hanges. Take your medications as instructed; do not skip a dose of your medicines. Make sure all of your doctors know every medicine you are taking (including [id number] medicines, vitamins, and supplements). Call your primary care provider before taking any new medicines (including [id number] medicines, vitamins, and supplements), because some of these may interact with your current medications, or may make your symptoms worse. Tell your primary care provider if you cannot afford your medications. CONTACT YOUR PRIMARY CARE PROVIDER if you experience any of the following: Persistent moderate chest pain or shortness of breath Fever Difficulty following your treatment plan, or difficulty taking medications CALL 911 OR GO TO THE EMERGENCY DEPARTMENT if you experience any of the following: Sudden, severe abdominal pain or nausea/vomiting Severe chest pain, or chest pain that radiates (moves) to your jaw or arm Sudden, severe shortness of breath or difficulty breathing Thank you for allowing us to participate in your care. Pending Studies at Discharge: No Stand-Alone Forms: My [employer], Smoking Cessation Medications and DC Order Prescriptions: Continued Jardiance 10 mg tablet 10 mg PO QAM RF: 0 bupropion HCl [Wellbutrin XL] 300 mg tablet extended release 24 hr 300 mg PO QAM RF: 0 [id number] [krill oil] 822-90-66-50 mg capsule 1 cap PO QAM RF: 0 cholecalciferol (vitamin D3) [Vitamin D3] 125 mcg (5,000 unit) tablet 125 mcg PO QAM RF: 0 insulin lispro [Humalog U-100 Insulin] 100 unit/mL solution See Rx Instructions .ROUTE .COMPLEX RF: 0 lisinopril [Prinivil] 20 mg tablet 20 mg PO HS RF: 0 amlodipine [Norvasc] 5 mg tablet 5 mg PO QAM RF: 0 montelukast [Singulair] 10 mg Tablet 10 mg PO HS RF: 0 Vraylar 3 mg capsule 3 mg PO HS RF: 0 metoprolol succinate [Toprol XL] 25 mg tablet extended release 24 hr 25 mg PO HS RF: 0 lorazepam [Ativan] 1 mg tablet 1 mg PO DAILY PRN (Reason: Anxiety) RF: 0 diclofenac sodium [Voltaren Arthritis Pain] 1 % gel 2 g topical QID PRN (Reason: pain) Qty: 100 RF: 0 pantoprazole [Protonix] 40 mg tablet,delayed release (DR/EC) 40 mg PO QAM RF: 0 rosuvastatin [Crestor] 20 mg tablet 20 mg PO HS RF: 0 Discharge Orders: Discharge Order (Routine); Ordered 01/15/21 Ordered By: Yessica Burrell Admission Data Admit Date/Time: 01/14/21 19:51 Attending Provider: Zully Hartman Admit Provider: Tracie Yeung Primary Care Provider: Brenna Krueger Other Providers: Shane White ; Tracie Yeung Other Interventions: Discharge Summary Assessment (RN) Last Done: 01/15/21 14:58 Supervising Physician Co-Signing Physician Notes Resident Physician Supervision Note: I independently interviewed and examined the patient and verified the meyers history and physical, reviewed labs and image studies and agree with resident Dr. Burrell findings and care plan.
== END 2021-01-15 15:51 | disposition home or self-care (01) | DRG 313 ==
LOC: ED 16:51 → INTOOBSV 19:51 → 2N 19:51 → SUATTDRO 19:51 → 2N 20:46

== ENCOUNTER 2022-03-14 16:31 | Observation (INO) ==
[2022-03-14 17:09] LABS: Hematocrit (blood only) 47.4 % (40.1-51.0); Hemoglobin 16.3 g/dl (14.0-18.0); Mean Corpuscular Hemoglobin 30.4 pg (25.0-34.0); Mean Corpuscular Hgb Conc 34.4 g/dL (32.0-36.0); Mean Corpuscular Volume 88.3 fL (80.0-100.0); Mean Platelet Volume 10.4 fL (9.4-12.4); Platelet Count 137 K/uL (130-400); RDW Coefficient of Variation 12.8 % (11.5-14.5); RDW Standard Deviation 41.3 fL (36.4-46.3); Red Blood Count 5.37 M/uL (4.63-6.08); White Blood Count 5.69 K/ul (4.8-10.8)
[2022-03-14 17:11] LABS: INR 1.2 (0.9-1.1); Partial Thromboplastin Time 26.8 Seconds (21.0-31.0); Prothrombin Time 12.8 Seconds (9.0-12.0)
[2022-03-14 17:27] LABS: Basophils # (auto) 0.09 K/uL (0-0.2); Basophils % (auto) 1.6 %; Eosinophils # (auto) 0.08 K/uL (0-0.50); Eosinophils % (auto) 1.4 %; Immature Granulocytes # (auto) 0.01 K/uL (0.00-0.02); Immature Granulocytes % (auto) 0.2 %; Lymphocytes # (auto) 1.67 K/uL (1.2-3.4); Lymphocytes % (auto) 29.3 %; Monocytes # (auto) 0.63 K/uL (0.24-0.82); Monocytes % (auto) 11.1 %; Neutrophils # (auto) 3.21 K/uL (1.4-6.5); Neutrophils % (auto) 56.4 %
[2022-03-14 17:30] LABS: Albumin Globulin Ratio 1.5 (0.9-2); Albumin Level 4.6 gm/dl (3.4-5.0); BUN Creatinine Ratio 17.1 (10-20); Bilirubin,Total 0.8 mg/dl (0.2-1.0); Calcium 9.2 mg/dl (8.5-10.1); Creatinine Clr Calc Pharmacy 183.2 ml/min; Est GFR (African American) 140.7 ml/min; Est GFR (Non-African American) 121.4 ml/min; Potassium 3.4 mmol/L (3.5-5.1); Total Protein 7.6 gm/dl (6.0-8.3)
[2022-03-14 17:33] LABS: Troponin I High Sensitivity 13.6 pg/ml (0-20)
--- NOTE | 2022-03-14 17:35 | XRay Report ---
XR chest 1V portable HISTORY: 36 years-old Male Chest Pain acute atypical chest pain COMPARISON: CTA chest and chest radiograph study the 2021 TECHNIQUE: Portable AP view of the chest FINDINGS: Cardiomediastinal and hilar silhouettes are within normal limits. No pneumothorax, pleural effusion, airspace consolidation or overt pulmonary edema. Bones of the chest appear grossly intact. IMPRESSION: No acute process. ACT 112: Negative or not required by law. The above report was generated using voice recognition software. It may contain grammatical, syntax o r spelling errors. Electronically signed by: Phong Barron M.D. 03/14/2022 5:34 PM
[2022-03-14] MEDS ORDERED: MoRPHine SULFATE 2 MG/ML CARP IV STA (17:44)
[2022-03-14] MEDS ORDERED: ONDANSETRON INJ 2 MG/ML 2 ML VIAL IV STA (17:44)
--- NOTE | 2022-03-14 17:53 | Emergency Department Note ---
History of Present Illness General Chief complaint: Chest Pain Stated complaint: REFERRED BY DOCTOR,CHEST PAIN, FATIGUE Time Seen by Provider: 03/14/22 17:29 Source: patient and family (Mother who is at the bedside) Mode of arrival: ambulatory Limitations: no limitations History of Present Illness Maximum Pain Intensity: 6 This patient is 36-year-old male who has a history of diabetes and a hemic cardiomyopathy among other medical problems comes in after chest pain around noon he said it started while sit in a car he describes as achy pressure in the center of his chest he passed out for about 5 minutes he woke up and has pain all over his generalized pain he still feels like he has some discomfort in his chest at times that is worse when he breathes or moves particularly. No trauma or injury. No lower extremity pain or swelling. He is a type I diabetic and says his blood sugars run about 100 all day. He had some nausea. He does a history of fibromyalgia but says this feels different. He has no history of blood clot or PE. He did have an echo last month which she tells me looked okay he was told. He did receive aspirin prior to arrival Home Medications Medication Instructions Recorded Confirmed Type montelukast 10 mg tablet 10 mg PO HS 05/14/18 03/14/22 History (Singulair) cariprazine 3 mg capsule (Vraylar) 3 mg PO HS 04/06/19 03/14/22 History empagliflozin 10 mg tablet 10 mg PO QAM 07/30/19 03/14/22 History (Jardiance) metoprolol succinate 25 mg 25 mg PO HS 08/19/19 03/14/22 History tablet,extended release 24 hr (Toprol XL) bupropion HCl 300 mg 24 hr tablet, 300 mg PO QAM 11/25/19 03/14/22 History extended release (Wellbutrin XL) cholecalciferol (vitamin D3) 125 125 mcg PO QAM 11/25/19 03/14/22 History mcg (5,000 unit) tablet (Vitamin D3) krill 1 cap PO QAM 11/25/19 03/14/22 History [id number]-[id number] 300 mg-90 mg-24 mg-50 mg capsule (krill oil) insulin lispro 100 unit/mL See Rx Instructions .Route .COMPLEX 03/31/20 03/14/22 History subcutaneous solution (Humalog U-100 Insulin) pantoprazole 40 mg tablet,delayed 40 mg PO QAM 12/25/20 03/14/22 History release (Protonix) diclofenac sodium 1 % topical gel 2 g topical QID PRN pain #100 grams 01/12/21 03/14/22 Rx (Voltaren Arthritis Pain) lorazepam 1 mg tablet (Ativan) 1 mg PO DAILY PRN Anxiety 01/12/21 03/14/22 History amlodipine 5 mg tablet (Norvasc) 10 mg PO QAM 07/20/21 03/14/22 History sacubitril 49 mg-valsartan 51 mg 1 tab PO BID 11/16/21 03/14/22 History tablet (Entresto) sertraline 50 mg tablet 50 mg PO DAILY 11/16/21 03/14/22 History rosuvastatin 20 mg tablet (Crestor) 20 mg PO DAILY #90 tabs 02/01/22 03/14/22 Rx Allergies Allergy/AdvReac Type Severity Reaction Status Date / Time clozapine Allergy Severe Cardiomyopa Verified 02/22/22 13:34 thy losartan [From Cozaar] Allergy Intermediate Gastrointestinal Verified 02/22/22 13:34 Upset Sulfa (Sulfonamide Allergy Intermediate Hives Verified 02/22/22 13:34 Antibiotics) sulfamethoxazole Allergy Intermediate Hives Verified 02/22/22 13:34 trimethoprim [From Bactrim] Allergy Intermediate Hives Verified 02/22/22 13:34 lisinopril AdvReac Intermediate Chest pain Verified 02/22/22 13:34 metformin AdvReac Unknown nausea Verified 02/22/22 13:34 Past Med/Surg History Medical History Anxiety and depression Asthma cough variant asthma - treated with Singulair Cardiomyopathy medication induced Degenerative disc disease Diabetes mellitus type 1.5, managed as type 1 Dyslipidemia Hypertension Kidney stones 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 [place] [facility] [place] Obstructive sleep apnea treated with CPAP Occipital neuralgia Schizophrenia Vitamin D deficiency Surgical History H/O thumb surgery RT THUMB FUSION WITH HARDWARE History of appendectomy History of cholecystectomy History of esophagogastroduodenoscopy (EGD) History of myringotomy History of tonsillectomy and adenoidectomy [place] teeth removed Family History Father Diabetes Grandfather (Paternal) Family history of esophageal cancer Other Cancer Hypertension Kidney disease Social History Smoking Status: Never smoker Second Hand Exposure: No; Hx Alcohol Use: No Hx Substance Use: No Preferred Language: Nauruan Communication Ability: Effective Visual Impairment: Limited Hearing Ability: Normal Insurance Processor Required: No Beliefs That Will Affect Care: None marital status: Single Current Living Situation: Family Current Living Situation Comment: Lives with mother current occupational status: unemployed Feels Safe at Home: Yes caffeine: Yes Dental Care, Regularly: No Physical Activity Frequency: Daily Physical Activity Frequency Comment: Walking/ uses standing desk at work Seatbelt Use: always Sunscreen Use: Yes Assistive Devices: CPAP and Glasses Review of Systems A total of 10 systems reviewed and were otherwise negative Physical Exam Vital Signs Vital Signs - 24 hr 03/14/22 16:38 03/14/22 16:38 03/14/22 18:02 Temperature 36.3 C L Temperature Source Temporal Artery Scan Pulse Rate 84 Pulse Rate [Apical] Pulse Rhythm [Apical] Pulse Strength [Apical] Respiratory Rate 21 Respiratory Effort / Characteristics SOB on Exertion Respiratory Depth Respiratory Pattern Blood Pressure 143/90 H Blood Pressure [Left Arm] Blood Pressure Mean 107 Blood Pressure Mean [Left Arm] Blood Pressure Position [Left Arm] Pulse Oximetry 97 Oxygen Delivery Method Room Air Room Air Oxygen Flow Rate 97 Sepsis Recent Fever Within 48 Hours No Sepsis New/Unexplained Change in Mental Status N/A Sepsis Action Taken by Nursing No Action Required 03/14/22 18:02 03/14/22 18:57 Temperature Temperature Source Pulse Rate Pulse Rate [Apical] 75 69 Pulse Rhythm [Apical] Regular Regular Pulse Strength [Apical] Normal Normal Respiratory Rate 18 18 Respiratory Effort / Characteristics Non-Labored Non-Labored Respiratory Depth Normal Normal Respiratory Pattern Regular Blood Pressure Blood Pressure [Left Arm] 139/86 125/72 Blood Pressure Mean Blood Pressure Mean [Left Arm] 103 89 Blood Pressure Position [Left Arm] Lying Pulse Oximetry 95 97 Oxygen Delivery Method Room Air Room Air Oxygen Flow Rate Sepsis Recent Fever Within 48 Hours Sepsis New/Unexplained Change in Mental Status Sepsis Action Taken by Nursing General: Well developed well nourished middle-age male who appears in no acute distress, breathing comfortably on room air. Normal speech HEENT: Normal cephalic atraumatic. Pupils are equal round and reactive to light. Extraocular movements are intact. Oropharynx is pink with moist mucous membranes. No swelling of the mouth lips or tongue. Neck: Supple with a midline trachea. No meningeal signs or stiffness, no JVD or bruits. No Stridor. Chest: Clear to auscultation bilaterally. No wheezes or rhonchi. No increased work of breathing. Heart: Regular rate and rhythm without murmurs or gallops. Abdomen: Soft nontender, nondistended without rebound guarding or rigidity. Extremities: No cyanosis clubbing or edema. No calf tenderness or assymetry Spine/Back. Non tender to palpation. No CVA tenderness Skin: Good turgor without rashes. Neurologic exam: Cranial nerves two through 12 are intact. Motor and sensation are intact and symmetrical throughout. Course Administered Medications Discontinued Medications Ioversol (Optiray 300 500ml) 104 ml IV ONCE ONE Stop: 03/14/22 18:16 Last Admin: 03/14/22 18:17 Dose: 104 ml Documented By: FUAD Morphine Sulfate (Morphine Sulfate 2 Mg/Ml Carp) 2 mg IV NOW STA Stop: 03/14/22 17:45 Last Admin: 03/14/22 17:58 Dose: 2 mg Documented By: RSL Morphine Sulfate (Morphine Sulfate 4 Mg/Ml 1 Ml Carp\Vial) 4 mg IV NOW STA Stop: 03/14/22 19:05 Last Admin: 03/14/22 19:12 Dose: 4 mg Documented By: RSL Ondansetron HCl (Ondansetron Inj 2 Mg/Ml 2 Ml Vial) 4 mg IV NOW STA Stop: 03/14/22 17:45 Last Admin: 03/14/22 17:59 Dose: 4 mg Documented By: RSL Medical Decision Making Differential Diagnosis Acute coronary syndrome, arrhythmia, PE, musculoskeletal, infection, electrolyte or metabolic abnormality Medical Records Attestation: I reviewed the patient's medical records. Home Medications Current Medication List: was personally reviewed by me Laboratory Data Attestation: I reviewed the patient's lab results. Result diagrams: 03/14/22 16:50 03/14/22 16:50 Lab Results 09/22/22 09/22/22 09/22/22 Range/Units 16:50 16:50 16:50 WBC 5.69 (4.8-10.8) K/ul RBC 5.37 (4.63-6.08) M/uL Hgb 16.3 (14.0-18.0) g/dl Hct 47.4 (40.1-51.0) % MCV 88.3 (80.0-100.0) fL MCH 30.4 (25.0-34.0) pg MCHC 34.4 (32.0-36.0) g/dL RDW Std Deviation 41.3 (36.4-46.3) fL RDW Coeff of Cira 12.8 (11.5-14.5) % Plt Count 137 (130-400) K/uL MPV 10.4 (9.4-12.4) fL Immature Gran % (Auto) 0.2 % Neut % (Auto) 56.4 % Lymph % (Auto) 29.3 % [place] % (Auto) 11.1 % Eos % (Auto) 1.4 % Baso % (Auto) 1.6 % Neut # (Auto) 3.21 (1.4-6.5) K/uL Lymph # (Auto) 1.67 (1.2-3.4) K/uL [place] # (Auto) 0.63 (0.24-0.82) K/uL Eos # (Auto) 0.08 (0-0.50) K/uL Baso # (Auto) 0.09 (0-0.2) K/uL Immature Gran # (Auto) 0.01 (0.00-0.02) K/uL PT 12.8 H (9.0-12.0) Seconds INR 1.2 H (0.9-1.1) APTT 26.8 (21.0-31.0) Seconds PTT Ratio 1.0 Sodium 138 (136-145) mmol/L Potassium 3.4 L (3.5-5.1) mmol/L Chloride 102 (98-107) mmol/L Carbon Dioxide 27 (21-32) mmol/L Anion Gap 9 (3-11) BUN 12 (6-23) mg/dl Creatinine 0.70 (0.6-1.4) mg/dl Est Cr Clr Drug Dosing 183.2 ml/min Est GFR ( Amer) 140.7 ml/min Est GFR (Non-Af Amer) 121.4 ml/min BUN/Creatinine Ratio 17.1 (10-20) Glucose 92 (70-99(Fasting)) mg/dl Calcium 9.2 (8.5-10.1) mg/dl Total Bilirubin 0.8 (0.2-1.0) mg/dl AST 88 H (13-39) U/L ALT 95 H (7-52) U/L Alkaline Phosphatase 100 (34-104) U/L Troponin I High Sens 13.6 D (0-20) pg/ml Total Protein 7.6 (6.0-8.3) gm/dl Albumin 4.6 (3.4-5.0) gm/dl Globulin 3.0 (2.5-4.0) gm/dl Albumin/Globulin Ratio 1.5 (0.9-2) SARS-CoV-2, RNA, NAAT (NEGATIVE) 03/14/22 Range/Units 18:05 WBC (4.8-10.8) K/ul RBC (4.63-6.08) M/uL Hgb (14.0-18.0) g/dl Hct (40.1-51.0) % MCV (80.0-100.0) fL MCH (25.0-34.0) pg MCHC (32.0-36.0) g/dL RDW Std Deviation (36.4-46.3) fL RDW Coeff of Cira (11.5-14.5) % Plt Count (130-400) K/uL MPV (9.4-12.4) fL Immature Gran % (Auto) % Neut % (Auto) % Lymph % (Auto) % [place] % (Auto) % Eos % (Auto) % Baso % (Auto) % Neut # (Auto) (1.4-6.5) K/uL Lymph # (Auto) (1.2-3.4) K/uL [place] # (Auto) (0.24-0.82) K/uL Eos # (Auto) (0-0.50) K/uL Baso # (Auto) (0-0.2) K/uL Immature Gran # (Auto) (0.00-0.02) K/uL PT (9.0-12.0) Seconds INR (0.9-1.1) APTT (21.0-31.0) Seconds PTT Ratio Sodium (136-145) mmol/L Potassium (3.5-5.1) mmol/L Chloride (98-107) mmol/L Carbon Dioxide (21-32) mmol/L Anion Gap (3-11) BUN (6-23) mg/dl Creatinine (0.6-1.4) mg/dl Est Cr Clr Drug Dosing ml/min Est GFR ( Amer) ml/min Est GFR (Non-Af Amer) ml/min BUN/Creatinine Ratio (10-20) Glucose (70-99(Fasting)) mg/dl Calcium (8.5-10.1) mg/dl Total Bilirubin (0.2-1.0) mg/dl AST (13-39) U/L ALT (7-52) U/L Alkaline Phosphatase (34-104) U/L Troponin I High Sens (0-20) pg/ml Total Protein (6.0-8.3) gm/dl Albumin (3.4-5.0) gm/dl Globulin (2.5-4.0) gm/dl Albumin/Globulin Ratio (0.9-2) SARS-CoV-2, RNA, NAAT NEGATIVE (NEGATIVE) Imaging Data Attestation: I personally reviewed and interpreted this imaging study as follows: My Impression: Chest x-rayno acute infiltrate, failure, pneumothorax seen Radiologist's Impression: Chest X-Ray 03/14/22 16:42 XR chest 1V portable HISTORY: 36 years-old Male Chest Pain acute atypical chest pain COMPARISON: CTA chest and chest radiograph study the 2021 TECHNIQUE: Portable AP view of the chest FINDINGS: Cardiomediastinal and hilar silhouettes are within normal limits. No pneumothorax, pleural effusion, airspace consolidation or overt pulmonary edema. Bones of the chest appear grossly intact. IMPRESSION: No acute process. ACT 112: Negative or not required by law. The above report was generated using voice recognition software. It may contain grammatical, syntax or spelling errors. Electronically signed by: Phong Barron M.D. 03/14/2022 5:34 PM Chest CTA 03/14/22 17:45 CT angio chest PE protocol CT DOSE: 799.37 mGy.cm HISTORY: 36 years-old Male with PE. Acute chest pain with shortness of breath TECHNIQUE: Multiple CTA images of the chest were obtained after the intravenous administration of 104 ml Optiray. Coronal and sagittal MIPS were obtained from the axial data set and were submitted for review. All measurements were obtained according to NASCET criteria. A dose lowering technique was utilized adhering to the principles of ALARA. COMPARISON: Chest radiograph of same day, CTA chest 01/29/2022 FINDINGS: CTA: The heart is normal in size. Bovine morphology of the thoracic aortic arch. No thoracic aortic aneurysm or dissection. The segmental and subsegmental pulmonary arterial branches are not well opacified secondary to contrast bolus timing. No pulmonary emboli identified. CT CHEST: No thyroid nodule or lymphadenopathy. No pneumothorax, pleural effusion or overt pulmonary edema. No airspace consolidation typical for pneumonia. Mild subsegmental left greater than right bibasilar atelectasis. No suspicious pulmonary nodules or masses. The central airways are patent. Cholecystectomy. Nonspecific distal esophageal wall thickening. Diffusely heterogeneous appearance of the liver with hepatic steatosis. Marginal nodularity of the liver. Mild gynecomastia. No acute fracture. IMPRESSION: 1. No pulmonary emboli identified. 2. No pleural effusion, lymphadenopathy or airspace consolidation. 3. Severe hepatic steatosis. Marginal nodularity of the liver is suggestive of early cirrhosis. 4. Cholecystectomy. ACT 112: Negative or not required by law. The above report was generated using voice recognition software. It may contain grammatical, syntax or spelling errors. Electronically signed by: Phong Barron M.D. 03/14/2022 6:52 PM ECG Data Attestation: I personally reviewed and interpreted this ECG as follows: Indication: + chest pain Rate (beats per minute): 74 Rhythm: + sinus with SA ECG Intervals/blocks: + Normal QRS, + Normal QT, + Normal RI and + Normal QT-c ECG [place]: + Normal ECG ST segments: + Normal ST segments ECG Findings: no PACs or no PVCs Comparison ECG Date: from (03/01/22) Change: no significant change Additional Comments: EKG #2: Normal sinus rhythm rate of 70. LVH. No acute ischemic changes or ectopy seen. No change compared EKG #1 MDM Narrative This patient comes in as described above. He had chest pain and a syncopal episode. Although some of the symptoms are somewhat atypical for cardiac disease he does have multiple cardiac risk factors including diabetes hypertension hypercholesteremia. He also has history of cardiomyopathy which he says was from Clozaril that was used to treat his schizophrenia in the past. His schizophrenia is been stable for many years on the medications he is on. His initial EKG was unremarkable troponin was unremarkable .chest x-ray does not show congestive heart failure pneumonia or pneumothorax he has no significant electrolyte or metabolic abnormalities. I did order a CT as well as additional troponin and chest x-ray. He was given morphine 2 mg IV and Zofran 4 mg IV he was reassessed. His pain is getting better. He was given additional IV morphine. His EKGs x2 do not show any ischemic changes. CTA shows no PE. His second troponin is pending. I do think the patient should be admitted/observed overnight for further cardiac work-up given his syncope and his chest pain and his history I discussed case with Dr. March who agrees. The patient will be admitted/observed for these measures Continuous cardiac monitoring: Orders were placed in the EMR for continuous cardiac monitoring. Upon my interpretation patient noted to be normal sinus rhythm with a of 70. Impression & Plan Anterior chest wall pain, Cardiomyopathy, Schizophrenia, Syncope Discharge Plan Visit Data Chief Complaint: Chest Pain Stated Complaint: REFERRED BY DOCTOR,CHEST PAIN, FATIGUE ED Provider: Luan Escamilla Discharge Problem: Anterior chest wall pain, Cardiomyopathy, Schizophrenia, Syncope Discharge Instructions Activity Restrictions/Additional Instructions: Follow-up with Dr. Magallanes in the office on Friday, his office will call in a Forms Stand Alone Forms: My [facility] Prescriptions Prescriptions: No Action Jardiance 10 mg tablet 10 mg PO QAM rosuvastatin [Crestor] 20 mg tablet 20 mg PO DAILY Qty: 90 3RF bupropion HCl [Wellbutrin XL] 300 mg tablet extended release 24 hr 300 mg PO QAM [id number] [krill oil] [id number] mg capsule 1 cap PO QAM cholecalciferol (vitamin D3) [Vitamin D3] 125 mcg (5,000 unit) tablet 125 mcg PO QAM Entresto 49-51 mg tablet 1 tab PO BID sertraline 50 mg tablet 50 mg PO DAILY insulin lispro [Humalog U-100 Insulin] 100 unit/mL solution See Rx Instructions .ROUTE .COMPLEX Rx Instructions: VIA CONTINUOUS PUMP INFUSION amlodipine [Norvasc] 5 mg tablet 10 mg PO QAM montelukast [Singulair] 10 mg Tablet 10 mg PO HS Vraylar 3 mg capsule 3 mg PO HS metoprolol succinate [Toprol XL] 25 mg tablet extended release 24 hr 25 mg PO HS lorazepam [Ativan] 1 mg tablet 1 mg PO DAILY PRN (Reason: Anxiety) diclofenac sodium [Voltaren Arthritis Pain] 1 % gel 2 g topical QID PRN (Reason: pain) Qty: 100 0RF Rx Instructions: apply to single elbow, wrist or hand; for hand includes palm/fingers/back of hand pantoprazole [Protonix] 40 mg tablet,delayed release (DR/EC) 40 mg PO QAM Referrals Referrals: Maru Ortiz MD [Primary Care Provider] - : Cardiomyopathy Qualifiers: Cardiomyopathy type: due to drug Qualified Code(s): I42.7 - Cardiomyopathy due to drug and external agent Schizophrenia Qualifiers: Schizophrenia type: unspecified Qualified Code(s): F20.9 - Schizophrenia, unspecified Syncope Qualifiers: Syncope type: unspecified Qualified Code(s): R55 - Syncope and collapse
[2022-03-14] MEDS ORDERED: OPTIRAY 300 500mL IV ONE (18:15)
--- NOTE | 2022-03-14 18:54 | CT Scan Report ---
CT angio chest PE protocol CT DOSE: 799.37 mGy.cm HISTORY: 36 years-old Male with PE. Acute chest pain with shortness of breath TECHNIQUE: Multiple CTA images of the chest were obtained after the intravenous administration of 104 ml Optiray. Coronal and sagittal MIPS were obtained from the axial data set and were submitted for review. All measurements were obtained according to NASCET criteria. A dose lowering technique was u tilized adhering to the principles of ALARA. COMPARISON: Chest radiograph of same day, CTA chest 01/29/2022 FINDINGS: CTA: The heart is normal in size. Bovine morphology of the thoracic aortic arch. No thoracic aortic aneury sm or dissection. The segmental and subsegmental pulmonary arterial branches are not well opacified s econdary to contrast bolus timing. No pulmonary emboli identified. CT CHEST: No thyroid nodule or lymphadenopathy. No pneumothorax, pleural effusion or overt pulmonary edema. No airspace consolidation typical for pneumonia. Mild subsegmental left greater than right bibasilar ate lectasis. No suspicious pulmonary nodules or masses. The central airways are patent. Cholecystectomy. Nonspecific distal esophageal wall thickening. Diffusely heterogeneous appearance of the liver with hepatic steatosis. Marginal nodularity of the liver. Mild gynecomastia. No acute frac ture. IMPRESSION: 1. No pulmonary emboli identified. 2. No pleural effusion, lymphadenopathy or airspace consolidation. 3. Severe hepatic steatosis. Marginal nodularity of the liver is suggestive of early cirrhosis. 4. Cholecystectomy. ACT 112: Negative or not required by law. The above report was generated using voice recognition software. It may contain grammatical, syntax o r spelling errors. Electronically signed by: Phong Barron M.D. 03/14/2022 6:52 PM
[2022-03-14] MEDS ORDERED: MoRPHine SULFATE 4 MG/ML 1 ML CARP\\VIAL IV STA (19:04)
--- NOTE | 2022-03-14 20:38 | History & Physical Report ---
Date of Service March 14, 2022 Assessment & Plan (1) Syncope: Plan: Low risk syncope per Czech Syncope Risk Score (-1, 1.2% 30-day risk of , arrhythmia, OK, PE, aortic dissection, hemorrhage, etc.). Likely vasovagal, possibly from chest pain. OK ruled out with two negative troponins. Arrhythmia unlikely with HR ~110 bpm preceding and during the episode. Stroke and seizure unlikely given symptoms/history. - Discussed with cardiology who will see the patient tomorrow ~11:30. Likely discharge home after that, possibly with Holter monitor ordered; defer to cardiology - Monitor on telemetry overnight - Given 2 negative troponins, >6 hours after event, do not see need to trend further. (2) Anterior chest wall pain: Plan: Long-standing hx of chest wall pain. Prior stress testing negative. - Symptomatic treatment PRN (3) Diabetes mellitus type 1.5, managed as type 1: Plan: Uses insulin pump. This was removed in the ER for his CTA. Believes basal rate is 1.8 units/hr. Not sure on bolus dosing. - Insulin glargine 20 units tonight - Entered medium sliding scale - Glycemic pharmacy consult to help with smooth transition to basal-bolus, then back to pump tomorrow hopefully (4) Cardiomyopathy: Plan: Medication-induced. Now EF is 60% per most recent echo (per report from [facility]). - Continue usual meds (5) Schizophrenia: Plan: Well-controlled. - Continue usual meds. Will not have Vraylar tonight as it is non-formulary, but he is ok with missing a single dose. 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 - No inpatient needs (7) Hypertension: Plan: BP in the ER is stable at 130/70. - Continue home meds (8) Asthma: Plan: No acute needs. No wheezing. Some chronic shortness of breath per patient. - Continue montelukast - DuoNebs PRN (9) DVT prophylaxis: Plan: Early ambulation and discharge History of Present Illness Primary Care Provider: Maru Ortiz MD 36yo M w/ hx of medication-related cardiomyopathy who presents with syncope and chest pain. Patient reports he was in his totally normal state of health this morning. He dropped some food off for his mother and was walking back to his car around noon. He had an onset of some left-sided chest pain as he walked back. He reports the pain radiated up to his left jaw and shoulder and was accompanied by palpitations (or "twinges"). He notes that his vision became tunneled, and he reports he passed out for about 5 minutes. He knows this because he was texting with a friend and when he came to, about that much time had elapsed. He reports he had a headache when he woke up and felt overall body aches. He has an Apple watch, and he reports his heart rate was 113 bpm prior to the episode and during that general time. The watch does not have an EKG function, so he was not able to see a heart rhythm. He reports stable home meds with no recent changes. Allergies Allergy/AdvReac Type Severity Reaction Status Date / Time clozapine Allergy Severe Cardiomyopa Verified 02/22/22 13:34 thy losartan [From Cozaar] Allergy Intermediate Gastrointestinal Verified 02/22/22 13:34 Upset Sulfa (Sulfonamide Allergy Intermediate Hives Verified 02/22/22 13:34 Antibiotics) sulfamethoxazole Allergy Intermediate Hives Verified 02/22/22 13:34 trimethoprim [From Bactrim] Allergy Intermediate Hives Verified 02/22/22 13:34 lisinopril AdvReac Intermediate Chest pain Verified 02/22/22 13:34 metformin AdvReac Unknown nausea Verified 02/22/22 13:34 Home Medications Medication Instructions Recorded Confirmed Type montelukast 10 mg tablet 10 mg PO HS 05/14/18 03/14/22 History (Singulair) cariprazine 3 mg capsule (Vraylar) 3 mg PO HS 04/06/19 03/14/22 History empagliflozin 10 mg tablet 10 mg PO QAM 07/30/19 03/14/22 History (Jardiance) metoprolol succinate 25 mg 25 mg PO HS 08/19/19 03/14/22 History tablet,extended release 24 hr (Toprol XL) bupropion HCl 300 mg 24 hr tablet, 300 mg PO QAM 11/25/19 03/14/22 History extended release (Wellbutrin XL) cholecalciferol (vitamin D3) 125 125 mcg PO QAM 11/25/19 03/14/22 History mcg (5,000 unit) tablet (Vitamin D3) krill 1 cap PO QAM 11/25/19 03/14/22 History [id number] 300 mg-90 mg-24 mg-50 mg capsule (krill oil) insulin lispro 100 unit/mL See Rx Instructions .Route .COMPLEX 03/31/20 03/14/22 History subcutaneous solution (Humalog U-100 Insulin) pantoprazole 40 mg tablet,delayed 40 mg PO QAM 12/25/20 03/14/22 History release (Protonix) diclofenac sodium 1 % topical gel 2 g topical QID PRN pain #100 grams 01/12/21 03/14/22 Rx (Voltaren Arthritis Pain) lorazepam 1 mg tablet (Ativan) 1 mg PO DAILY PRN Anxiety 01/12/21 03/14/22 History amlodipine 5 mg tablet (Norvasc) 10 mg PO QAM 07/20/21 03/14/22 History sacubitril 49 mg-valsartan 51 mg 1 tab PO BID 11/16/21 03/14/22 History tablet (Entresto) sertraline 50 mg tablet 50 mg PO DAILY 11/16/21 03/14/22 History rosuvastatin 20 mg tablet (Crestor) 20 mg PO DAILY #90 tabs 02/01/22 03/14/22 Rx Past Med/Surg History Medical History Anxiety and depression Asthma cough variant asthma - treated with Singulair Cardiomyopathy medication induced Degenerative disc disease Diabetes mellitus type 1.5, managed as type 1 Dyslipidemia Hypertension Kidney stones 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 [place] [facility] [place] Obstructive sleep apnea treated with CPAP Occipital neuralgia Schizophrenia Vitamin D deficiency Surgical History H/O thumb surgery RT THUMB FUSION WITH HARDWARE History of appendectomy History of cholecystectomy History of esophagogastroduodenoscopy (EGD) History of myringotomy History of tonsillectomy and adenoidectomy [place] teeth removed Family History Father Diabetes Grandfather (Paternal) Family history of esophageal cancer Other Cancer Hypertension Kidney disease Social History Smoking Status: Never smoker Second Hand Exposure: No; Hx Alcohol Use: No Hx Substance Use: No Preferred Language: Montenegrin Communication Ability: Effective Visual Impairment: Limited Hearing Ability: Normal 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 Beliefs That Will Affect Care: None marital status: Single Current Living Situation: Family Current Living Situation Comment: Lives with mother current occupational status: unemployed Feels Safe at Home: Yes caffeine: Yes Dental Care, Regularly: No Physical Activity Frequency: Daily Physical Activity Frequency Comment: Walking/ uses standing desk at work Seatbelt Use: always Sunscreen Use: Yes Assistive Devices: CPAP and Glasses Review of Systems Review of Systems: All systems reviewed & are unremarkable except as noted in HPI & below Physical Exam Constitutional: WD/WN, vitals as above Eyes: EOM intact bilaterally; no conjunctival abnormality ENMT: external ear and nose normal, oropharynx normal Neck: trachea midline, no thyromegaly normal visual inspection Respiratory: normal respiratory effort, lungs clear to auscultation no respiratory distress Cardiovascular: RRR, no murmur, no edema Gastrointestinal (Abdomen): Inspection/Auscultation: abdomen normal to inspection; abdomen not distended Musculoskeletal: no cyanosis or clubbing, extremities motor strength 5/5 Skin: no rashes, warm and dry Neurologic: moves all extremities and awake Psychiatric: Orientation: alert, oriented to person and cooperative Results & Data Results & Data ([facility]) Vital Signs (Past 12 Hours) Vital Signs Temp Pulse Pulse Resp BP BP Pulse Ox 03/14/22 18:57 69 18 125/72 97 03/14/22 18:02 75 18 139/86 95 03/14/22 18:02 03/14/22 16:38 36.3 C L 84 21 143/90 H 97 O2 Del Method O2 Flow Rate 03/14/22 18:57 Room Air 03/14/22 18:02 Room Air 03/14/22 18:02 Room Air 97 03/14/22 16:38 Room Air Code Status & VTE Plan VTE Prophylaxis Plan VTE Prophylaxis will be ordered: Yes PG Care Time/CCT Total # of Minutes Spent Total Time Spent with Patient: Total time spent is greater than 50% in coordination of care (as documented) at patient's floor/unit and/or counseling patient: Coding Level of Care Code INT OBSERVATION CARE 70M LVL 3 Diagnoses Syncope R55 Syncope type: unspecified Anterior chest wall pain R07.89 Diabetes mellitus type 1.5, managed as type 1 E13.9 Cardiomyopathy I42.7 Cardiomyopathy type: due to drug Schizophrenia F20.9 Schizophrenia type: unspecified 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
[2022-03-14] MEDS ORDERED: GLUCOSE 40% GEL 15 GM TUBE PO PRN (22:01)
[2022-03-14] MEDS ORDERED: PHARMACY GLYCEMIC MGMT CONSULT PRN (22:01)
[2022-03-14] MEDS ORDERED: GLUCOSE 10 TAB/TUBE PO PRN (22:01)
[2022-03-14] MEDS ORDERED: GLUCAGON FOR INJ 1 MG VIAL SQ PRN (22:01)
[2022-03-14] MEDS ORDERED: LORazepam 1 MG TAB PO PRN (22:01)
[2022-03-14] MEDS ORDERED: LANTUS PER UNIT CHARGE SQ SCH (22:01)
[2022-03-14] MEDS ORDERED: ONDANSETRON INJ 2 MG/ML 2 ML VIAL IV PRN (22:01)
[2022-03-14] MEDS ORDERED: DEXTROSE 50% 50 ML SYRINGE IV PRN (22:01)
[2022-03-14] MEDS ORDERED: CARBOHYDRATES FOR HYPOGLYCEMIA PO PRN (22:01)
[2022-03-14] MEDS ORDERED: METOPROLOL SUCC 25MG EXT REL TAB PO SCH (22:01)
[2022-03-14] MEDS ORDERED: MONTELUKAST SODIUM 10 MG TABLET PO SCH (22:01)
[2022-03-14] MEDS: INSULIN ASPART PER UNIT SC SCH (22:24)
[2022-03-14] MEDS: VALSARTAN/SACUBITRIL 51/49 MG TAB PO SCH (22:49)
[2022-03-15] MEDS ORDERED: ACETAMINOPHEN 500 MG TAB PO PRN ×2 (01:47→01:53)
[2022-03-15] MEDS ORDERED: ACETAMINOPHEN 325 MG TAB PO PRN (01:48)
[2022-03-15] MEDS ORDERED: ACETAMINOPHEN 500 MG TAB PO STA (01:51)
[2022-03-15] MEDS ORDERED: KETOROLAC TROMETHAMINE 15 MG/ML VIAL IV ONE (01:51)
[2022-03-15] MEDS ORDERED: INSULIN ASPART PER UNIT SC SCH (02:00)
[2022-03-15] MEDS: INSULIN ASPART PER UNIT SC SCH ×2 (08:37→12:21)
[2022-03-15] MEDS: VALSARTAN/SACUBITRIL 51/49 MG TAB PO SCH (08:38)
[2022-03-15] MEDS ORDERED: PANTOprazole 40 MG TAB PO SCH (09:00)
[2022-03-15] MEDS ORDERED: buPROPion XL 300 MG TABCR PO SCH (09:00)
[2022-03-15] MEDS ORDERED: SERTRALINE HCL 50 MG TABLET PO SCH (09:00)
[2022-03-15] MEDS ORDERED: amLODIPine BESYLATE 5 MG TAB PO SCH (09:00)
[2022-03-15] MEDS ORDERED: ROSUVASTATIN CALCIUM 20 MG TAB PO SCH (09:00)
--- NOTE | 2022-03-15 12:02 | Cardiology Progress Note ---
Date of Service March 15, 2022 Assessment & Plan (1) Syncope: Plan: IMPRESSIONS: 1. a. Nonischemic cardiomyopathy secondary to Clozaril. b. History of mild nonischemic cardiomyopathy with an ejection fraction in the range of 40% now with normal LV function by echo, 01/2022, with normal strain imaging. 2. Improvement in his contractile reserve with exercise. 3. Hypertensive response to exercise with associated baseline hypertension. 4. Non cardiac chest discomfort likely exacerbated by his fibromyalgia. Mr. Nicholss syncope is most likely secondary to vagal episode with his description of nausea and tunnel vision. However, his symptom of right sided weakness is concerning. I discussed with Dr. Covarrubias who will send him for an MRI. If his brain imaging is normal and he is able to be discharged this afternoon, we can put an event monitor on him at the office today. Otherwise, this could be scheduled for Friday. He did not have any events on the tele monitor - sinus renee in the 50s - NSR. He does not have any concerning s/s of ischemia. EKG is stable. HS troponin stayed wnl. Plan Mr. Gibson's syncope Admission and Anticipated Discharge Date Admission Date: March 14, 2022 Subjective Mr. Gibson presents for evaluation of syncope. Yesterday he got in his car and had tunnel vision and nausea and lost consciousness for a few minutes. Upon awakening he had right sided weakness and struggled into his mother's office where someone checked his blood pressure which was 160s/90s. He had chest pain that started just before he fainted and persisted until this morning. His blood sugar was normal and have been well controlled lately. HS Troponins stayed wnl. Review of Systems Review of Systems: All systems reviewed & are unremarkable except as noted in HPI & below Physical Exam Constitutional: WD/WN, vitals as above Cardiovascular: RRR, no murmur, no edema Skin: no rashes, warm and dry Neurologic: Cranial Nerves: PERRL, normal accommodation, EOM intact bilaterally, normal facial strength, tongue midline and symmetric palate elevation right arm and leg weakness Psychiatric: A+Ox3, euthymic affect Results & Data ([facility]) Vital Signs (Past 12 Hours) Vital Signs Temp Pulse Pulse Pulse Resp BP Pulse Ox 03/15/22 10:58 36.5 C 65 16 128/72 96 03/15/22 10:24 52 L 03/15/22 06:21 36.6 C 57 L 18 111/73 97 03/15/22 04:21 36.5 C 60 16 106/66 97 O2 Del Method 03/15/22 10:58 Room Air 03/15/22 10:24 03/15/22 06:21 Room Air 03/15/22 04:21 Room Air (1) Syncope Syncope type: unspecified Qualified Code(s): R55 - Syncope and collapse
--- NOTE | 2022-03-15 12:32 | Electrocardiogram Report ---
Test Reason : Blood Pressure : / mmHG Vent. Rate : 074 BPM Atrial Rate : 074 BPM P-R Int : 140 ms QRS Dur : 084 ms QT Int : 380 ms P-R-T Axes : 048 002 047 degrees QTc Int : 421 ms Normal sinus rhythm with sinus arrhythmia Normal ECG When compared with ECG of 29-JAN-2022 17:34, No significant change was found Confirmed by Wilver Palacios ([id number]) on 03/15/2022 12:31:46 PM Referred By: Maru Ortiz Confirmed By:Wilver Palacios
--- NOTE | 2022-03-15 12:40 | Electrocardiogram Report ---
Test Reason : Blood Pressure : / mmHG Vent. Rate : 070 BPM Atrial Rate : 070 BPM P-R Int : 152 ms QRS Dur : 096 ms QT Int : 414 ms P-R-T Axes : 025 -05 019 degrees QTc Int : 447 ms Normal sinus rhythm Minimal voltage criteria for LVH, may be normal variant Borderline ECG When compared with ECG of 14-MAR-2022 16:44, (unconfirmed) No significant change was found Confirmed by Wilver Palacios ([id number]) on 03/15/2022 12:39:59 PM Referred By: Maru Ortiz Confirmed By:Wilver Palacios
--- NOTE | 2022-03-15 12:53 | Pharmacy Report ---
Pharmacy Glycemic Short Note 2 - Date of Service March 15, 2022 - Glycemic Short BSG Results (Last 24 hours): 03/14/22 03/14/22 03/15/22 16:50 22:13 01:38 Glucose 92 POC Glucose 88 130 H 03/15/22 03/15/22 07:44 11:52 Glucose POC Glucose 113 H 126 H OUTPATIENT ANTIDIABETIC REGIMEN: * Humalog insulin pump * 1.8 units/hr basal * Empagliflozin 10mg PO daily * HbA1c: pending with AM labs tomorrow ASSESSMENT: * Mr Gibson is a 36yo diabetic M admitted last evening after an episode of syncope. * Pt is reportedly a Type 1.5 diabetic, who generally manages himself with an insulin pump. His pump was removed in the ED yesterday prior to CT scan. * Pt was initiated on SQ basal/bolus regimen on admission, which he will continue during inpatient stay. * BSGs have been well-controlled today following 20 units of Lantus last night. Will continue this dose for now. * Pre-lunch BSG was reasonable, indicating that Novolog parameters are appropriate for now. * Will continue to monitor and adjust regimen as indicated. PLAN FOR INPATIENT GLYCEMIC CONTROL: * Hold outpatient oral diabetes medications * Basal insulin * Lantus 20 units SQ qPM * Bolus insulin * NovoLog per scale ACHS or Q6hrs while NPO * Goal Range: Low 110 mg/dL - High 140 mg/dL * Correction Factor: 30 mg/dL/unit * Nutritional / Prandial insulin per carb ratio of 1 unit per 10 grams CHO consumed
[2022-03-15] MEDS ORDERED: GADOBUTROL 65ML VIAL IV ONE (13:09)
--- NOTE | 2022-03-15 13:27 | Magnetic Resonance Report ---
MRI OF THE BRAIN COMBO CLINICAL HISTORY: Right-sided weakness. COMPARISON STUDY: MRI of the brain dated 05/24/2021. TECHNIQUE: MRI of the brain was performed utilizing various T1 and T2-weighted sequences in the axial , sagittal, and coronal planes. Contrast-enhanced sequences were acquired following the administratio n of 10.5 cc of Gadavist. FINDINGS: Brain parenchyma: The brain parenchyma is normal in appearance. There is no hemorrhage or mass effect . There is no restricted diffusion to suggest acute ischemia. No enhancing mass lesion is identified on the postcontrast images. Zhang-white matter differentiation is preserved. No extra-axial fluid luiza ection is seen. The cerebellar tonsils are normal in configuration. Ventricles, sulci, and cisterns: Normal in configuration. Pituitary and sella: Unremarkable. Intracranial vasculature: Normal flow voids are maintained at the skull base. Orbits: The bony orbits are grossly intact. Orbital contents are normal in appearance. Sinuses and mastoids: There is a 1.5 cm retention cyst in the right maxillary antrum. The paranasal s inuses and mastoid vessels are otherwise clear. Calvarium: Unremarkable. Cervical cord: Partially visualized cervical spinal cord is normal in morphology and signal intensity . IMPRESSION: No intracranial abnormality is identified. ACT 112: Negative or not required by law. Electronically signed by: Roel Marie M.D. 03/15/2022 1:26 PM
--- NOTE | 2022-03-15 14:42 | Discharge Summary ---
Date of Service March 15, 2022 Admission HPI Per Admitting Provider 36yo M w/ hx of medication-related cardiomyopathy who presents with syncope and chest pain. Patient reports he was in his totally normal state of health this morning. He dropped some food off for his mother and was walking back to his car around noon. He had an onset of some left-sided chest pain as he walked back. He reports the pain radiated up to his left jaw and shoulder and was accompanied by palpitations (or "twinges"). He notes that his vision became tunneled, and he reports he passed out for about 5 minutes. He knows this because he was texting with a friend and when he came to, about that much time had elapsed. He reports he had a headache when he woke up and felt overall body aches. He has an [employer] watch, and he reports his heart rate was 113 bpm prior to the episode and during that general time. The watch does not have an EKG function, so he was not able to see a heart rhythm. He reports stable home meds with no recent changes. Principal Diagnosis Syncope, possible complex migraine Discharge Exam Vitals reviewed Gen: [AAOx3, NAD] HEENT: [anicteric sclerae, EOMI,PERRLA] CV: [RRR no mgr nl S1S2] Pulm: [CTAB no wcr] Abd: [+BS soft NT ND no masses or hernias] Ext: [no edema, 2+ DP pulses] Skin: [no rashes, warm/dry] Neuro: [full strength throughout except very slight decrease at 4+/5 in RUE and RLE, CN 2-12 intact, DTRs and sensation intact throughout] Discharge Data Allergies Allergy/AdvReac Type Severity Reaction Status Date / Time clozapine Allergy Severe Cardiomyopa Verified 03/25/22 13:47 thy losartan [From Cozaar] Allergy Intermediate Gastrointestinal Verified 03/25/22 13:47 Upset Sulfa (Sulfonamide Allergy Intermediate Hives Verified 03/25/22 13:47 Antibiotics) sulfamethoxazole Allergy Intermediate Hives Verified 03/25/22 13:47 trimethoprim [From Bactrim] Allergy Intermediate Hives Verified 03/25/22 13:47 lisinopril AdvReac Intermediate Chest pain Verified 03/25/22 13:47 metformin AdvReac Unknown nausea Verified 03/25/22 13:47 Consultations 03/14/22 19:11 ED Decision to Admit Stat 03/14/22 22:01 Consult Cardiology Routine Ordered Studies 03/14/22 17:45 CT angio chest PE protocol Stat 03/15/22 12:01 MRI Brain [MR brain wo/w con] Stat Hospital Course (1) Syncope: Presented with syncope preceded by HR 110s, tunnel vision, followed by headache and some right sided mild hemiplegia. Trop neg x 3, ECHO negative, no arrhythmias on tele Seen by Cardiology and not felt to be cardiogenic but recommends cardiac event monitor as outpt after discharge Review of records shows reports of a very similar episode in the past that preceded a migraine headache, Has a h/o tension type ESCALANTE also for which he received injections of steroids and saw a headache specialist at [place]. MRI brain nega for CVA or mass lesion. Do not suspect aneurysm or hemorrhage. Could be vasovagal syncope related to complex migraine headache -dc to home with event monitor to be obtained at Cardiology office -recommend f/u with Neuro and contacted his primary Neurologist, Dr. Jc, to advise of upcoming follow up -otherwise doing well (2) Anterior chest wall pain: Long-standing hx of chest wall pain. Prior stress testing negative. - Symptomatic treatment PRN trop and ECG negative (3) Headache: (4) Diabetes mellitus type 1.5, managed as type 1: Uses insulin pump-was removed on admission and he will replace on discharge treated with Lantus and Novolog here (5) Cardiomyopathy: Medication-induced. Now EF is 60% per most recent echo (per report from [facility]). - Continue usual meds (6) Schizophrenia: Well-controlled. 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 - No inpatient needs (8) Hypertension: BP stable - Continue home meds (9) Asthma: No acute needs. No wheezing. Some chronic shortness of breath per patient. - Continue montelukast - DuoNebs PRN (10) DVT prophylaxis: Early ambulation and discharge Plan Dispo-dc to home Total Time Total Time Spent Total Time Spent (In Minutes): 35 min Discharge Plan Discharge Items Patient Disposition: Home - Self-Care Reason For Visit: SYNCOPE Discharge Diagnosis: Syncope, possible complex migraine Condition on Discharge: Good Activity: Resume your previous activity Non-emergency contact: Primary Care Provider Call non-emergency contact if: you have any medication questions and your symptoms worsen Follow-up/Referrals: Maru Ortiz MD [Primary Care Provider] - 03/25/22 2:00 pm (Follow up within 1-2 weeks) Diet: Carb Count or DM1 and Heart Healthy Addtl Attending Provider Instructions: You were admitted after passing out. Your workup for causes of passing out was n ormal thus far for the heart and the [employer] is recommending you wear a heart monitor. Please go to the [employer]'s office today to get your monitor placed. You had some right sided weakness and your brain MRI was negative for stroke or tumors. It is a possibility that perhaps this weakness along with your initial tunnel vision and passing out are related to a complex migraine of sorts. Please follow up with Dr. Jc of Neurology whom you have seen in the past for headaches. Pending Studies at Discharge: No Stand-Alone Forms: My [place], Smoking Cessation Medications and DC Order Prescriptions: Continued Jardiance 10 mg tablet 10 mg PO QAM rosuvastatin [Crestor] 20 mg tablet 20 mg PO DAILY Qty: 90 3RF bupropion HCl [Wellbutrin XL] 300 mg tablet extended release 24 hr 300 mg PO QAM [id number] [krill oil] [id number] mg capsule 1 cap PO QAM cholecalciferol (vitamin D3) [Vitamin D3] 125 mcg (5,000 unit) tablet 125 mcg PO QAM Entresto 49-51 mg tablet 1 tab PO BID sertraline 50 mg tablet 50 mg PO DAILY insulin lispro [Humalog U-100 Insulin] 100 unit/mL solution See Rx Instructions .ROUTE .COMPLEX Rx Instructions: VIA CONTINUOUS PUMP INFUSION amlodipine [Norvasc] 5 mg tablet 10 mg PO QAM montelukast [Singulair] 10 mg Tablet 10 mg PO HS Vraylar 3 mg capsule 3 mg PO HS metoprolol succinate [Toprol XL] 25 mg tablet extended release 24 hr 25 mg PO HS lorazepam [Ativan] 1 mg tablet 1 mg PO DAILY PRN (Reason: Anxiety) diclofenac sodium [Voltaren Arthritis Pain] 1 % gel 2 g topical QID PRN (Reason: pain) Qty: 100 0RF Rx Instructions: apply to single elbow, wrist or hand; for hand includes palm/fingers/back of hand pantoprazole [Protonix] 40 mg tablet,delayed release (DR/EC) 40 mg PO QAM No Action (DME) medical marijuinia 0 .ROUTE .MEDSUPPLY Discharge Orders: Discharge Order (Routine); Ordered 03/15/22 Ordered By: Britany Erazo/Other Patient Handouts: Causes of Syncope, Self-Care for Headaches, Understanding the Pain Response, Dizziness Fainting Causes, Understanding Headache Pain Admission Data Admit Date/Time: 03/14/22 20:09 Attending Provider: Britany Covarrubias Admit Provider: Blaise March Primary Care Provider: Maru Ortiz Other Providers: Rick Diaz Other Interventions: Discharge Summary Assessment (RN) Last Done: 03/15/22 14:52 Coding Level of Care Code 71226 OBS Care - Discharge Diagnoses Syncope R55 Syncope type: unspecified Anterior chest wall pain R07.89 Headache R51.9 Diabetes mellitus type 1.5, managed as type 1 E13.9 Cardiomyopathy I42.7 Cardiomyopathy type: due to drug Schizophrenia F20.9 Schizophrenia type: unspecified 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
[2022-03-15] MEDS ORDERED: LANTUS PER UNIT CHARGE SQ SCH (21:00)
== END 2022-03-15 15:13 | disposition home or self-care (01) ==
LOC: ED 16:31 → 2W 16:31 → SUATTDRO 20:09 → 2W 21:47
DX: I42.7 Cardiomyopathy due to drug and external agent; J45.909 Unspecified asthma, uncomplicated; K75.81 Nonalcoholic steatohepatitis (NASH); Z88.2 Allergy status to sulfonamides; R55 Syncope and collapse; K74.60 Unspecified cirrhosis of liver; Z88.1 Allergy status to other antibiotic agents; I10 Essential (primary) hypertension; Z79.899 Other long term (current) drug therapy; Z79.4 Long term (current) use of insulin; E13.9 Other specified diabetes mellitus without complications; Z88.8 Allergy status to other drugs, medicaments and biological substances

== ENCOUNTER 2024-09-05 00:23 | Observation (INO) ==
--- OUTSIDE RECORDS SUMMARY | 2024-09-05 00:28 | External Medical Summary | Summary of Care ---
Author Name Unknown Organization [facility] Address [address] [place] [address] Phone [phone] Care Team Providers Care Assistant Boys Track Coach Name Role Phone Maru Ortiz MD Primary Care Provid er Reason for Visit * Reason Onset Date Comments Returning Call 05/24/2024 Encounter Details Date Type Department Care Team (Late st Contact Info) Description 05/24/2024 Telephone Interventional Pain Center, [facility] [address] [place] [phone] Milton Alcocer DO [address] [place] [phone] Returning Call Allergies Active Allergy Reactions Criticality Noted Date Comments Clozapine 10/15/2022 Other reaction(s): cardiomyopathy, purpura Food (See Comments) Nausea/vomiting 04/26/2024 Avocados Lisinopril 10/15/2022 Other reaction(s): chest pain Losartan Cough 10/15/2022 Metformin Nausea/vomiting 10/15/2022 Phenothiazines 06/11/2002 Sulfa Antibiotics 02/19/2001 hives Sulfamethoxazole-Trimethop rim Hives 10/15/2022 documented as of this encounter (statuses as of 08/24/2024) Medications amLODIPine (NORVASC) 2.5 MG Tablet Take 2 Tablets by mouth in the morning. 01/24/2020 Active VRAYLAR 3 MG CAPS Take 1 Capsule by mouth in the morning. 02/14/2020 Active JARDIANCE 10 MG TABS Take 2.5 Tablets by mouth in the morning. In the morning.. 01/18/2020 Active Insulin Disposable Pump (OMNIPOD 5 PACK) MISC CHANGE POD Q 48 H 02/04/2020 Active HUMALOG 100 UNIT/ML injection 2 units and hour 12/23/2019 Active metoprolol succinate XL (TOPROL XL) 25 MG TB24 Take 2 Tablets by mouth every night at bedtime. 02/03/2020 Active nitroglycerin (NITROSTAT) 0.[address] 1 Tablet under the tongue as needed. 12/23/2016 Active rosuvastatin (CRESTOR) 10 MG Tablet Take 1 Tablet by mouth in the morning. 02/04/2020 Active Cholecalciferol (VITAMIN D3) 125 MCG (5000 UT) Tablet Take 1 Capsule by mouth in the morning. 01/13/2017 Active Continuation of patient use of medical marijuana is approved Start: 10/04/22 14:31:00 EDT, 1 cap, PO 03/11/2022 Active Pantoprazole Sodium 40 MG Oral Tablet Delayed Release 1 Tablet. 08/07/2021 Act mynor Promethazine HCl 25 MG Oral Tablet (Phenergan) Take 1 Tablet by mouth every 6 hours as needed for Nausea. Active Entresto 97-103 MG Oral Tablet (sacubitril-norberto sartan 97-103 mg per tab) Take 1 Tablet by mouth in the morning and 1 Tablet before bedtime. Active Sertraline HCl 50 MG Oral Tablet (Zoloft) Take 2 Tablets by mouth in the morning. Takes 150mg daily. 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 Myalgia and myositis documented as of this encounter (statuses as of 08/24/2024) Social History Tobacco Use Types Packs/Day Years Used Date Smoking Tobacco: Never Smokeless Tobacco: Never Alcohol Use Standard Drinks/Week Comments Yes 0 (1 standard drink = 0.6 oz pur e alcohol) rare Sex and Gender Information Value Date Recorded Sex Assigned at Not on file Legal Sex Male 6:01 AM EST Gender Identity Not on file Sexual Orientation Not on file Occupation Industry Job Start Date Job End Date student Not on file Not on file Not on file documented as of this encounter Miscellaneous Notes * Telephone Encounter - Ele Quiroz LPN - 05/24/2024 2:36 PM EST See nurse enc from today. * Telephone Encounter - Maria Victoria Hernandez OSA - 05/24/2024 1:39 PM EST Patient returned missed call from the clinic Please call to further assist, thank you documented in this encounter Plan of Treatment Upcoming Encounters Date Type Department Care Team (Late st Contact Info) Description 09/20/2024 11:00 AM EDT Scheduled Telephone Interventional Pain Center [facility] [address] [place] [phone] Nurse Shine Phone Call Interventional Pain [facility] [address] [place] [phone] 10/04/2024 2:11 PM EDT Hospital Encounter [facility], Operating [facility] [address] [place] [address] [place] [address] Milton Alcocer, [address] [place] [phone] 10/04/2024 2:11 PM EDT - 10/04/2024 2:32 PM EDT Surgery [place] [facility], Operating Room [facility] [address] [place] [address] [place] [phone] Milton Alcocer, [address] [place] [phone] INJECTION SACROILIAC JOINT Scheduled Procedures Name Priority Associated Diagnoses Date/Ti me INJECTION SACROILIAC JOINT Sacroiliac pain 10/04/2024 2:11 PM EDT Health Maintenance Due Date Last Done Comments Depression Screening 1997 HIV Screening 2000 DTap/Tdap Vaccines (1 - Tdap) 2004 Hepatitis B Vaccine (1 of 3 - 19+ 3-dose series) 2004 COVID-19 Vaccine (6 - 2023- season) 2024 04/15/2023, 03/07/2022, 04/18/2021, Additional history exists Influenza Vaccine (FLU shot) (#1) 2024 05/15/2018, 05/09/2017, 03/17/2015, Additional history exists Diabetes Screening 04/21/2027 04/21/2024, 0 08/06/2002, 11/07/2001, Additional history exists Pneumococcal Vaccine: Pediatrics (0 to 5 Years) and At-Risk Patients (6 to 18 Years and 19+ Years) Completed 06/20/2023, 03/19/2012 HPV (Gardasil) Vaccine Aged Out No lo nger eligible based on patient's age to complete this topic MENINGOCOCCAL (MENACTRA/MENVEO) Aged Out No longer eligible based on patient's age to complete this topic Meningitis B Vaccine (Bexsero/Trumemba) Aged Out No longer eligible based on patient's age to complete this topic documented as of this encounter Medical Devices Not on filedocumented as of this encounter Care Teams Assistant Boys Track Coach Relationship Specialty Start Date End Date Maru Ortiz MD [address] [place] [address] [place] [phone] PCP - General Internal Medicine 11/11/22 documented as of this encounter
--- OUTSIDE RECORDS SUMMARY | 2024-09-05 00:28 | External Medical Summary | Summary of Care ---
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] Procedures PARAVERTEBRAL BLOCK, THORACIC; SINGLE INJ PARAVERTEBRAL BLOCK (PVB) (PARASPINOUS BLOCK), THORACIC; SINGLE INJECTION SITE (INCLUDES IMAGING GUIDANCE, WHEN PERFORMED) Milton Alcocer DO [address] [place] [phone] Phone: tel: fax: OR [facility], Operating Room [facility] [address] [place] [phone] Phone: tel: Referral ID Status Reason Start Date Expiration Date Visits Re quested Visits Authorized [id number] Encounter Details Date Type Department Care Team (Latest Contact Info) Description 08/16/2024 7:51 AM EST - 08/16/2024 9:09 AM EST Hospital Encounter [facility], Operating Room [facility] [address] [place] [phone] Milton Alcocer DO [address] [place] [phone] Discharge Disposition: Home - Self Care Allergies Active Allergy Reactions Criticality Noted Date Comments Clozapine 10/15/2022 Other reaction(s): cardiomyopathy, purpura Food (See Comments) Nausea/vomiting 04/26/2024 Avocados Lisinopril 10/15/2022 Other reaction(s): chest pain Losartan Cough 10/15/2022 Metformin Nausea/vomiting 10/15/2022 Phenothiazines 06/11/2002 Sulfa Antibiotics 02/19/2001 hives Sulfamethoxazole-Trimethop rim Hives 10/15/2022 documented as of this encounter (statuses as of 08/17/2024) Medications amLODIPine (NORVASC) 2.5 MG Tablet Take [...] in the morning. Takes 150mg daily. Active traMADol HCl 100 MG Oral Tablet Take by mouth. 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 Myalgia and myositis documented as of this encounter (statuses as of 08/17/2024) Social History Tobacco Use Types Packs/Day Years [...] on file documented as of this encounter Last Filed Vital Signs Vital Sign Reading Time Taken Comments Blood Pressure 126/71 08/16/2024 9:05 AM EST Pulse 73 08/16/2024 9:05 AM EST Temperature 36.2 C (97.1 F) 08/16/2024 9:05 AM ES T Respiratory Rate 15 08/16/2024 9:05 AM EST Oxygen Saturation 100% 08/16/2024 9:05 AM EST Inhaled Oxygen Concentration - - Weight - - Height - - Body Mass Index - - documented in this encounter Discharge Instructions * Discharge Instr - AVS* Milton Alcocer DO - 08/16/2024 9:05 AM EST [facility] [address] [facility], [place] [id number] Discharge Date: 08/16/2024 You may call [facility] at [phone] during business hours. For after-hours emergencies call 911. Your attending physician at the time of your discharge was: Milton Alcocer DO [address] [place] [phone] The information below provides you with the instructions and the list of medications you need to betaking following discharge from the hospital. If you have any questions, please ask before leaving.Please carry this letter with you when you see your doctor in the clinic. Diet: Resume your normal diet If you are diabetic, follow your blood sugars closely for next 2-3 days as they are likely to be elevated. If you are having difficulty controlling your blood sugars call your family doctor or the physician that treats your diabetes. Activity: Do not engage in strenuous activity today Resume your normal activities tomorrow Do not soak in water for 24 hours. No swimming, hot tub or bath but showering is allowed. Do not use heat on the injection site for 24 hours. If uncomfortable ice may be helpful. Some injections may make your arms or legs weak for a few hours. Be extremely careful when walking or changing positions that you do not fall. Have someone assist you for the next 6 hours. If weakness or numbness becomes progressive CALL IMMEDIATELY or GO TO THE NEAREST EMERGENCY ROOM Do not restart physical therapy or chiropractic manipulation until 48 hours after your injection Call : If weakness or numbness suddenly becomes worse or become progressive If the injection site becomes red, swollen, warm to the touch, begins to bleed or drain fluid, or is excessively painful. If you have any questions Medications: Resume all the medications you were taking prior to your injection. Resume your anticoagulants tomorrow unless otherwise instructed by your family physician, dental laboratory worker or the anticoagulation clinic. Additional Instructions: None Driving: You may resume driving in 12-24 hours if no weakness is noted . Date you may return to work or school: N/A Follow Up: Please make a follow-up telephone appointment with our nursing staff in 4-6 weeks. documented in this encounter Progress Notes * Milton Alcocer DO - 08/16/2024 9:05 AM EST [facility] [place] [address] [place] [phone] OUTPATIENT SURGERY DISCHARGE SUMMARY NOTE Name: Jluis Gibson Location: OR [facility]/OR Date: 08/16/2024 Time: 9:05 AM Surgery Date: 08/16/2024 Procedure: PARAVERTEBRAL BLOCK (PVB) (PARASPINOUS BLOCK), THORACIC; SINGLE INJECTION SITE (INCLUDESIMAGING GUIDANCE, WHEN PERFORMED) No laterality found for procedure #1 Surgeon: Milton Alcocer DO Discharge Diagnosis: 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 Discharge instructions were given to the patient. Milton Alcocer DO OR [facility], Operating Room [facility] [address] [facility] [phone] documented in this encounter H&P Notes * Milton Alcocer DO - 08/16/2024 8:44 AM EST Interventional Pain H&P Subjective: History of Present Illness: Jluis Gibson is a 39 year old year-old male with a past medical history significant for chronicchest wall pain and intercostal neuralgia who is presenting for repeat T10 BEATA to improve his pain and function. his pain is essentially unchanged since our last office visit with him. ASA 3 AW nml Review of Systems: A focused 12-pt ROS were of reviewed with the patient including difficulty with sleep, snoring, aspiration history, dysphagia, stomach pain, nausea and vomiting, severe headaches, confusion, open skin lesions or wounds, chest pain, shortness of breath, excessive thirst, somnolence, dysuria, incomplete bladder emptying, easy bruising, recent clotting problems or bleeding, depression or rushed thoughts unless noted previously. Review of patient's allergies indicates: Allergen Reactions Clozapine Other reaction(s): cardiomyopathy, purpura Food (See Comments) Nausea/vomiting Avocados Lisinopril Other reaction(s): chest pain Losartan Cough Metformin Nausea/vomiting Phenothiazines Sulfa Antibiotics hives Sulfamethoxazole-Trimethoprim Hives Medications, Past Medical History, Past Surgical History reviewed and documented in Epic. See detailed report if needed. Pertinent Labs/Test Results: INR (no units) Date Value 08/06/2002 1.01 INR - OUTSIDE LAB (no units) Date Value 06/14/2024 1.4 No results found for: "CREATININE" Hemoglobin A1C (%) Date Value 04/20/2001 5.1 HEMOGLOBIN, [id number] LAB (%) Date Value 04/21/2024 5.9 Lab Results Component Value Date/Time AMPHETAMINES SCREEN - [facility] NOT DETECTED 10/30/2001 06:40 AM BARBITURATES SCREEN - [facility] NOT DETECTED 10/30/2001 06:40 AM BENZODIAZEPINES SCREEN - [facility] NOT DETECTED 10/30/2001 06:40 AM CANNABINOIDS SCREEN - [facility] NOT DETECTED 10/30/2001 06:40 AM FLUORO INTERVENTIONAL PAIN PROCEDURE NONBILLABLE This procedure will not be read by a Radiologist. Please see operative note. Objective Physical Exam: Vital Signs: BP 136/65 | Pulse 81 | Temp 36.2 C (97.1 F) (Tympanic) | Resp 16 | SpO2 99% There is no height or weight on file to calculate BMI. General: No apparent distress. Eyes: pupils equal and round, sclera white, pupils midsize. ENT: mucous membranes moist Resp: Non-labored breathing CV: Extremities warm and well-perfused. Psych: Oriented; affect warm, insight good. Skin: No rashes or lesions appreciated on exposed skin Neuromuscular Exam: TTP over thoracic spine Assessment: Jluis is a 39 year old year-old male with: Right-sided chronic chest wall pain Intercostal neuralgia Plan: The patient is undergoing right T10 therapeutic erector spinae plane block today to alleviate his pain and improve his function. The risks, benefits and alternatives to the procedure were reviewed atlength and the patient was provided the opportunity to ask questions which were answered to their voiced understanding. Following this comprehensive discussion, the patient opted to proceed. The patient was consented to the procedure following this comprehensive conversation. Milton Alcocer DO OR [facility], Operating Room [facility] [address] [facility] [phone] documented in this encounter Nursing Notes * Ai Clay, RN - 08/16/2024 9:09 AM EST Pt tolerated procedure well. Pt has been visited by Dr. Alcocer. Discharge instructions reviewed with pt and pt has verbalized understanding of these teachings. Pt ready for discharge. * Jessica Valenzuela RN - 08/16/2024 9:02 AM EST Band aid applied to area. Patient transferred to PACU 11 via wheelchair * Jessica Valenzuela RN - 08/16/2024 8:59 AM EST Patient tolerating pain management injection well. documented in this encounter OR Notes * OR Surgeon - Milton Alcocer DO - 08/16/2024 9:04 AM EST THERAPEUTIC ERECTOR SPINAE PLANE BLOCK DATE: 08/16/2024 PHYSICIAN: Milton Alcocer DO PREOPERATIVE DIAGNOSIS: Right-sided Chest Wall Pain Right-sided Intercostal Neuralgia POSTOPERATIVE DIAGNOSIS: Right-sided Chest Wall Pain Right-sided Intercostal Neuralgia PROCEDURE PERFORMED: Right-sided Therapeutic Erector Spinae Plane Block with a Corticosteroid and Local Anesthetic at the level of T10 Fluoroscopy for precise needle placement. ANESTHESIA: Local infiltration with 1% lidocaine. MONITORS: Automatic blood pressure cuff, pulse oximetry. There was no medical records assistant, EBL or drains placed during this procedure. INDICATIONS: I had the pleasure of seeing Jluis Gibson ([id number]) in the [facility]. Jluis Gibson is a 39 year old year-old male has a history of chest wallpain. he is here today for an erector spinae plane block to alleviate his pain. MEDICATIONS: No current facility-administered medications for this encounter. ALLERGIES: Review of patient's allergies indicates: Allergen Reactions Clozapine Other reaction(s): cardiomyopathy, purpura Food (See Comments) Nausea/vomiting Avocados Lisinopril Other reaction(s): chest pain Losartan Cough Metformin Nausea/vomiting Phenothiazines Sulfa Antibiotics hives Sulfamethoxazole-Trimethoprim Hives REVIEW OF SYSTEMS: Negative for fever, chills, chest pain, SOB, bleeding abnormalities, nausea, vomiting, diarrhea, worsening edema, or new rashes. FOCUSED PHYSICAL EXAMINATION: The patient is awake, alert and oriented, and is in no acute distress. Vital signs are stable. The patient is afebrile. The rest of the PE is essentially unchanged from the patient's recent visit to our office. I explained the procedure to the patient including the risks, benefits and alternatives to the procedure. The risks discussed with the patient included but were not limited to: bleeding, infection, and damage to surrounding nerves, tissues, and organs, paralysis, increased pain, pain at the site ofinjection, allergic reaction, blood pressure instability, seizures, heart block, headaches, increase in blood sugar, worsening of glaucoma, blindness, manic episodes, mood instability, . Alternatives to the procedure were also explained and include: do nothing, surgery, medications, and physical therapy. The patient verbalized understanding and was willing to proceed. PROCEDURE IN DETAIL: An informed consent was obtained. The patient was taken to the procedure room,was positively identified by the staff and attending physician. The patient was positioned prone onthe procedure bed. Vital signs were monitored as above and remained stable throughout the procedure. The skin was prepped and draped in a standard sterile fashion. A surgical pause time-out was performed and agreed upon by the members of the team. Fluoroscopic view of the thoracic spine was obtained and the area of interest was identified on the right side. The skin and subcutaneous tissues were anesthetized using 1% lidocaine and 25-gauge 1-1/2 inch needle. After that, the same needle was advanced toward the transverse process of T10 on the right side in the AP view. The needle's position was additionally verified by injecting radiopaque dye, which showed longitudinal spread of the dye deep to the the erector spinae muscle. After negative aspiration for CSF and blood, 40 mg of Kenalog diluted in 5 mL of 0.25% bupivacaine and 4mL of sterile PFNS was i njected into erector spinae plane. The needle was withdrawn. The patient tolerated the procedure well. COMPLICATIONS: None. DISPOSITION: 1. Return to clinic in 1-2 months for follow-up evaluation, sooner as needed. 2. Resume activity as tolerated. 3. Patient can drive after 12-24 hours if no weakness noted. Milton Alcocer DO [facility], Operating Room [facility] [address] [place] [address] documented in this encounter Plan of Treatment Upcoming Encounters Date Type Department Care Team (Late st Contact Info) Description 09/20/2024 11:00 AM EDT Scheduled Telephone Interventional Pain Center [facility] [address] [place] [phone] Nurse Shine Phone Call Interventional Pain [facility] [address] [place] [phone] 10/04/2024 2:11 PM EDT Hospital Encounter [facility], Operating Room [facility] [address] [place] [phone] Milton Alcocer DO [address] [place] [phone] 10/04/2024 2:11 PM EDT - 10/04/2024 2:32 PM EDT Surgery [facility], [facility] [address] [place] [phone] Milton Alcocer DO [address] [place] [phone] INJECTION SACROILIAC JOINT Scheduled Procedures Name Priority Associated Diagnoses Date/Ti me INJECTION SACROILIAC JOINT Sacroiliac pain 10/04/2024 2:11 PM EDT Health Maintenance Due Date Last Done Comments Depression Screening 1997 HIV Screening 2000 DTap/Tdap Vaccines (1 - Tdap) 2004 Hepatitis B Vaccine (1 of 3 - 19+ 3-dose series) 2004 COVID-19 Vaccine ( season) 2024 04/15/2023, 03/07/2022, 04/18/2021, Additional history [...] Not on filedocumented as of this encounter Procedures Procedure Name Priority Date/Time Associated Diagnosis Comments FLUORO INTERVENTIONAL PAIN PROCEDURE NONBILLABLE Routine 08/16/2024 9:08 AM EST documented in this encounter Results * FLUORO INTERVENTIONAL PAIN PROCEDURE NONBILLABLE (08/16/2024 9:08 AM EST) Narrative Scheduling, Silent - 08/16/2024 9:08 AM EST This procedure will not be read by a Radiologist. Please see operative note. Milton Alcocer DO RAD FLUOROSCOPY Final Result documented in this encounter Administered Medications Inactive Administered Medications - up to 3 most recent administrations Medication Order MAR Action Action Date Dose Rate Site bupivacaine (Sensorcaine) 0.25 % inj 2.5 mg 2.5 mg (1 mL), Injection, ONCE, On Fri08/16/24 at 0900, For 1 dose Given 08/16/2024 9:01 AM EST 5 mL Iohexol (Omnipaque 240) inj 0.25 mL 0.25 mL, Epidural, ONCE, On Fri08/16/24 at 0845, For 1 dose, For cervical epidural Given 08/16/2024 9:01 AM EST 1.5 mL lidocaine 1 % inj 15 mg 15 mg (1.5 mL), Subcutaneous, ONCE, On Fri08/16/24 at 0845, For 1 dose Given 08/16/2024 8:59 AM EST 5 mL Other -Specify Triamcinolone Acetonide (Kenalog) 40 MG/ML inj 40 mg 40 mg, Injection, ONCE, On Fri08/16/24 at 0845, For 1 dose Given 08/16/2024 9:01 AM EST 40 mg documented in this encounter Active and Recently Administered Medications Times are shown in EST. Scheduled Medication Order 08/14/2024 08/15/2024 08/16/2024 bupivacaine (Sensorcaine) 0.25 % inj 2.5 mg (COMPLETED) 2.5 mg (1 mL), Injection, ONCE, On Fri08/16/24 at 0900, For 1 dose 09 (Given - Provid er: Jessica Valenzuela RN) Iohexol (Omnipaque 240) inj 0.25 mL (COMPLETED) 0.25 mL, Epidural, ONCE, On Fri08/16/24 at 0845, For 1 dose, For cervical epidural 09 (Given - Provid er: Jessica Valenzuela RN) lidocaine 1 % inj 15 mg (COMPLETED) 15 mg (1.5 mL), Subcutaneous, ONCE, On Fri08/16/24 at 0845, For 1 dose 0859 (Given - Provid er: Jessica Valenzuela RN) Triamcinolone Acetonide (Kenalog) 40 MG/ML inj 40 mg (COMPLETED) 40 mg, Injection, ONCE, On Fri08/16/24 at 0845, For 1 dose 09 (Given - Provid er: Jessica Valenzuela RN) documented in this encounter Care Teams Electrical Apprentice Relationship Specialty Start Date End Date Maru Ortiz MD [address] [place] [address] [place] [id number] PCP - General Internal Medicine 11/11/22 documented as of this encounter
[2024-09-05] MEDS: SODIUM CHLORIDE 0.9% 500 ML IV ONE (00:47)
[2024-09-05] MEDS: ONDANSETRON INJ 2 MG/ML 2 ML VIAL IV STA (00:47)
[2024-09-05] MEDS: FAMOTIDINE 20MG IV PUSH 20 MG/5 ML SYR IV STA (00:47)
--- NOTE | 2024-09-05 00:56 | Emergency Department Note ---
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 PLAN: Disposition: Admit MEDICAL DECISION MAKING: The patient is a 39-year-old gentleman with a past medical history of cirrhosis secondary to Angeles, chronic pain, fibromyalgia, schizophrenia, hyperlipidemia, diabetes, medical marijuana use, alcohol use, depression anxiety who presents to the emergency department via walk-in for evaluation of ongoing abdominal pain worse from his baseline over the past several days and development of bloody emesis that occurred tonight where he reports having 3 episodes that were bright red to dark red. He reports the "blood filled the toilet". Patient reports he suspected his abdominal pain may have been related to a recurrence of pancreatitis and had an attempt to manage this at home with a clear diet. Patient follows with [facility] hepatology in [place]. He reports last having an endoscopy in the fall 2023. Review of prior records demonstrates EGD performed in August 2023 aft [facility] which demonstrated no obvious esophageal varices, mild gastropathy and question of nodular type GAVE was present. EGD at [facility] [place] in November 2023 demonstrated normal esophagus. Gastritis seen. Duodenum was normal. On evaluation the patient is no acute distress, afebrile stable vital signs. He appears clinically dry. He exhibits generalized abdominal discomfort without discrete tenderness. There is no crepitus of the neck or chest. EKG without overt acute ischemia. CXR negative for acute cardiopulmonary process per my personal preliminary review/interpretation with lungs better characterized on CT imaging subsequently. WBC 4.7K with out neutrophilia no left shift. H/H 14.4/42.4, within normal limits. Platelets 57K in the setting of chronic thrombocytopenia. INR 1.4, similar to prior range of values. Chemistry without metabolic acidosis. Potassium 3.3 and electrolytes otherwise without significant normality. LFTs with total bilirubin 2.8, direct bilirubin 1.1 and AST and ALT 158 and 114, respectively. Alk phos is 126. LFTs are similar to prior values over the past year. Lipase is not elevated. Medical alcohol was 50.5. CT of the chest and CT of the abdomen pelvis were performed and did not demonstrate acute findings. Patient is known cirrhosis with evidence of portal hypertension is described. The patient was treated with IV fluid hydration, IV Protonix, famotidine, Zofran, octreotide bolus and drip as well as IM dicyclomine. Upon evaluation the patient denied any improvement in his abdominal pain (though component of this is chronic) however he did not have any hematemesis in the emergency department. Given the patient's history of cirrhosis he does agree with plan for admission for further monitoring and management. Suspect symptoms likely related to patient's known gastritis likely provoked by patient's alcohol use. Case was discussed with Dr. Pabon, [facility] hospitalist, who will evaluate the patient for admission. Further management per admitting team. Triage Nursing notes reviewed and agree them. Prior/external medical records reviewed Vital Signs: reviewed Differential diagnosis: Diverticulosis, AVM, coagulopathy, colitis, inflammatory bowel disease, malignancy, Madina-Gregg tear, esophagitis, peptic ulcer disease, variceal bleed, gastritis, epistaxis, fissure, hemorrhoids, as well as other pathologies. ER treatment provided: See below. Diagnostics interpreted by me: ECG: Normal sinus rhythm, 78 bpm, no ectopy, no overt ST elevation or depression, QTc 437, QRS 94. Cardiac Monitoring: An order for continuous cardiac monitoring was placed and demonstrated normal sinus rhythm, 78 bpm, no ectopy. Laboratory studies: See below Imaging studies: See below Consultation(s): Case was discussed with Dr. Pabon, [facility] hospitalist, who will evaluate the patient for admission. HPI: The patient is a 39-year-old gentleman with a past medical history of cirrhosis secondary to Angeles, chronic pain, fibromyalgia, schizophrenia, hyperlipidemia, diabetes, medical marijuana use, alcohol use, depression anxiety who presents to the emergency department via walk-in for evaluation of ongoing abdominal pain worse from his baseline over the past several days and development of bloody emesis that occurred tonight where he reports having 3 episodes that were bright red to dark red. He reports the "blood filled the toilet". Patient reports he suspected his abdominal pain may have been related to a recurrence of pancreatitis and had an attempt to manage this at home with a clear diet. Patient follows with [facility] hepatology in [place]. He reports last having an endoscopy in the fall 2023. Review of prior records demonstrates EGD performed in August 2023 aft [facility] which demonstrated no obvious esophageal varices, mild gastropathy and question of nodular type GAVE was present. EGD at [facility] [place] in November 2023 demonstrated normal esophagus. Gastritis seen. Duodenum was normal. ROS: See above HPI for pertinent positives & negatives. A total of 10 systems reviewed and were otherwise negative. VITALS:See Below PHYSICAL EXAMINATION: GENERAL: Awake, alert, in no distress HENT: Normocephalic, atraumatic. Oropharynx with dry mucous membranes and otherwise unremarkable. EYES: Normal conjunctiva. Sclera non-icteric. NECK: Supple. No nuchal rigidity. FROM. No JVD. No crepitus. RESPIRATORY: Clear to auscultation. CARDIAC: Regular rate, normal rhythm. Extremities warm and well perfused. Pulses equal. ABDOMEN: Soft, non-distended. Generalized abdominal discomfort without discrete tenderness to palpation. No rebound or guarding. MUSCULOSKELETAL: Chest examination reveals no tenderness. No crepitus. The back is symmetrical on inspection without obvious abnormality. There is no CVA tenderness to palpation. No joint edema. LOWER EXTREMITIES: Calves are equal size bilaterally and non-tender. No edema. No discoloration. NEURO: Normal sensorium. No sensory or motor deficits noted. SKIN: No rash or jaundice noted. 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 (Chronic) Schizophrenia (Chronic) Dyslipidemia (Chronic) Anxiety and depression (Chronic) 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, managed as type 1 (Chronic) Hypertension (Chronic) Asthma (Chronic) cough variant asthma - treated with Singulair Medical History Alcohol intoxication Schizophrenia Sleep apnea CPAP 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 Liver doctor - [facility] - Yearly visit Insulin pump in place Hypertension Dyslipidemia MAHMOOD (dyspnea on exertion) follows [facility] Diabetes mellitus type 1.5 Insulin Pump Chronic pain Lower back and LUQ Hx of migraines Cardiomyopathy medicatin induced - follows [facility] History of asthma Occipital neuralgia Vitamin D deficiency Gastritis Hematemesis intermittent as per pt History of kidney stones x2 - one time passed on own - other time surgical intervention needed Surgical History Hx of lithotripsy History of colonoscopy H/O thumb surgery Right - with hardware History of esophagogastroduodenoscopy (EGD) [place] teeth removed History of myringotomy History of tonsillectomy and adenoidectomy History of appendectomy History of cholecystectomy Family History Father Diabetes Grandfather (Paternal) Family history of esophageal cancer Cancer Grandmother (Maternal) Hypertension Stroke Mother Hypertension Grandfather (Maternal) Hypertension Other Heart disease Kidney disease Denies family history of Ovarian cancer Prostate cancer Breast cancer Colorectal cancer Social History Smoking Status: Never smoker Second Hand Exposure: No; Do You Dip or Chew Tobacco: No; Hx Alcohol Use: Yes Alcohol type: beer, wine and hard liquor Hx Substance Use: Yes Last Used Substance: Unknown Last Used Substance Other:: Advised Substance Use Type Other:: Medical MJ Vape Preferred Language: Iranian Communication Ability: Effective Visual Impairment: Limited Hearing Ability: Normal Tobacco Sampler Required: No Beliefs That Will Affect Care: None marital status: Single Current Living Situation: Parent Current Living Situation Comment: Lives with mother current occupational status: unemployed and disabled Feels Safe at Home: Yes Childhood Exposure to Second-Hand Smoke: Yes Diet: regular caffeine: Yes Dental Care, Regularly: Yes Physical Activity Frequency: Daily Physical Activity Frequency Comment: Walking/ uses standing desk at work Seatbelt Use: always Sunscreen Use: Yes Assistive Devices: CPAP, Glasses and Other Allergies Allergies Allergy/AdvReac Type Severity Reaction Status Date / Time Sulfa (Sulfonamide Allergy Intermediate Hives Verified 08/05/24 14:38 Antibiotics) sulfamethoxazole Allergy Intermediate Hives Verified 08/05/24 14:38 trimethoprim [From Bactrim] Allergy Intermediate Hives Verified 08/05/24 14:38 avocado AdvReac Severe Gastrointestinal Verified 08/05/24 14:38 Upset and nausea clozapine AdvReac Severe Cardiomyopa Verified 08/05/24 14:38 thy coconut AdvReac Severe Gastrointestinal Verified 08/05/24 14:38 Upset and nausea lisinopril AdvReac Severe Chest pain Verified 08/05/24 14:38 losartan [From Cozaar] AdvReac Intermediate Gastrointestinal Verified 08/05/24 14:38 Upset metformin AdvReac Intermediate Nausea Verified 08/05/24 14:38 pregabalin [From Lyrica] AdvReac Intermediate Nausea Verified 08/05/24 14:38 Colarel AdvReac Severe Cardiomyopa Uncoded 08/05/24 14:38 thy Home Meds Home Medications Medication Instructions Recorded Confirmed cariprazine 3 mg capsule (Vraylar) 3 mg PO HS 04/06/19 09/05/24 cholecalciferol (vitamin D3) 125 125 mcg PO QAM 11/25/19 09/05/24 mcg (5,000 unit) tablet (Vitamin D3) insulin lispro 100 unit/mL 0 unit continuous subcutaneous 03/31/20 09/05/24 subcutaneous solution (Humalog infusion CONTINOUS U-100 Insulin) Medical Marijuana 1 dose inhalation DIRECTED PRN 09/19/22 09/05/24 Pain amlodipine 5 mg tablet (Norvasc) 5 mg PO QAM 02/21/23 09/05/24 empagliflozin 25 mg tablet 25 mg PO QAM 04/14/23 09/05/24 (Jardiance) metoprolol succinate 50 mg 50 mg PO HS 09/07/23 09/05/24 tablet,extended release 24 hr potassium chloride 10 mEq 10 meq PO BID 12/05/23 09/05/24 tablet,extended release sertraline 100 mg tablet (Zoloft) 100 mg PO QAM 01/30/24 09/05/24 pantoprazole 40 mg tablet,delayed 40 mg PO BID 04/06/24 09/05/24 release (Protonix) rosuvastatin 20 mg tablet 20 mg PO QAM 04/06/24 09/05/24 tizanidine 4 mg tablet (Zanaflex) 4 mg PO BID PRN muscle spasticity 04/30/24 09/05/24 sertraline 50 mg tablet (Zoloft) 50 mg PO QAM 07/06/24 09/05/24 tramadol 50 mg tablet 50 - 100 mg PO HS PRN Pain 09/05/24 09/05/24 Previous Rx's Medication Instructions Recorded sacubitril 97 mg-valsartan 103 mg 1 tab PO BID #60 tabs 02/21/23 tablet (Entresto) promethazine 25 mg tablet 25 mg PO TID PRN nausea and 07/06/24 vomiting #20 tabs Results & Data (ED) Vital Signs Vital Signs - 24 hr 09/05/24 00:29 09/05/24 00:45 09/05/24 01:26 Temperature 36.6 C Temperature Source Temporal Artery Scan Pulse Rate 86 83 83 Pulse Rate [Apical] Pulse Rate from SpO2 Sensor Respiratory Rate 18 Respiratory Effort / Characteristics Respiratory Depth Respiratory Pattern Blood Pressure 139/83 125/74 Blood Pressure [Left Arm] Blood Pressure Mean 101 89 Blood Pressure Mean [Left Arm] Blood Pressure Position [Left Arm] Pulse Oximetry 97 96 Oxygen Delivery Method Room Air Room Air Sepsis Recent Fever Within 48 Hours No Sepsis New/Unexplained Change in Mental Status No Sepsis Action Taken by Nursing No Action Required 09/05/24 02:06 09/05/24 02:42 09/05/24 03:00 Temperature Temperature Source Pulse Rate 86 104 H Pulse Rate [Apical] 90 Pulse Rate from SpO2 Sensor 85 106 H Respiratory Rate 14 18 20 Respiratory Effort / Characteristics Non-Labored Spontaneous Respiratory Depth Normal Respiratory Pattern Regular Blood Pressure 133/87 Blood Pressure [Left Arm] 131/73 Blood Pressure Mean 102 Blood Pressure Mean [Left Arm] 92 Blood Pressure Position [Left Arm] Pulse Oximetry 96 97 96 Oxygen Delivery Method Room Air Room Air Room Air Sepsis Recent Fever Within 48 Hours Sepsis New/Unexplained Change in Mental Status Sepsis Action Taken by Nursing 09/05/24 04:45 09/05/24 06:00 09/05/24 07:28 Temperature Temperature Source Pulse Rate 77 Pulse Rate [Apical] 84 78 Pulse Rate from SpO2 Sensor Respiratory Rate 19 17 Respiratory Effort / Characteristics Non-Labored Spontaneous Non-Labored Spontaneous Respiratory Depth Normal Normal Respiratory Pattern Regular Blood Pressure Blood Pressure [Left Arm] 123/77 125/78 Blood Pressure Mean Blood Pressure Mean [Left Arm] 92 93 Blood Pressure Position [Left Arm] Semi-fowlers Pulse Oximetry 95 92 Oxygen Delivery Method Room Air Room Air Sepsis Recent Fever Within 48 Hours Sepsis New/Unexplained Change in Mental Status Sepsis Action Taken by Nursing Laboratory Data Attestation: I reviewed the patient's lab results. 09/05/24 00:38 09/05/24 00:38 Lab Results 09/05/24 09/05/24 09/05/24 Range/Units 00:38 00:46 01:16 WBC 4.71 L (4.8-10.8) K/ul RBC 4.55 L (4.70-6.10) M/uL Hgb 14.4 (14.0-18.0) g/dl Hct 42.4 (42.0-52.0) % MCV 93.2 (80.0-100.0) fL MCH 31.6 (25.0-34.0) pg MCHC 34.0 (32.0-36.0) g/dL RDW Std Deviation 59.4 H (36.4-46.3) fL RDW Coeff of Cira 17.4 H (11.5-14.5) % Plt Count 57 L (130-400) K/uL MPV 11.3 (9.4-12.4) fL Immature Gran % (Auto) 0.2 % Neut % (Auto) 62.6 % Lymph % (Auto) 22.7 % Polk % (Auto) 11.7 % Eos % (Auto) 1.7 % Baso % (Auto) 1.1 % Neut # (Auto) 2.95 (1.40-6.50) K/uL Lymph # (Auto) 1.07 L (1.20-3.40) K/uL Polk # (Auto) 0.55 (0.11-0.59) K/uL Eos # (Auto) 0.08 (0.00-0.50) K/uL Baso # (Auto) 0.05 (0.00-0.20) K/uL Immature Gran # (Auto) 0.01 (0.01-0.20) K/uL PT 14.8 H (9.0-12.0) Seconds INR 1.4 H (0.9-1.1) Sodium 137 (136-145) mmol/L Potassium 3.3 L (3.5-5.1) mmol/L Chloride 101 (98-107) mmol/L Carbon Dioxide 32 (21-32) mmol/L Anion Gap 4 (3-11) BUN 6 (6-23) mg/dl Creatinine 0.46 L (0.6-1.4) mg/dl Est Cr Clr Drug Dosing 256.8 ml/min eGFR 136.45 BUN/Creatinine Ratio 13.0 (10-20) Glucose 136 H (70-99(Fasting)) mg/dl Calcium 8.8 (8.6-10.3) mg/dl Magnesium 1.7 (1.7-2.4) mg/dl Total Bilirubin 2.8 H (0.2-1.0) mg/dl Direct Bilirubin 1.1 H (0-0.2) mg/dl AST 158 H (13-39) U/L ALT 114 H (7-52) U/L Alkaline Phosphatase 126 H (34-104) U/L Troponin I High Sens 19.2 (0-20) pg/ml Total Protein 7.1 (6.0-8.3) gm/dl Albumin 3.8 (3.4-5.0) gm/dl Globulin 3.3 (2.5-4.0) gm/dl Albumin/Globulin Ratio 1.2 (0.9-2) Lipase 74 (11-82) U/L Ethyl Alcohol mg/dL 50.5 H (<10.0) mg/dl Blood Type A Positive Antibody Screen NEGATIVE Administered Medications Octreotide Acetate 500 mcg/ (Sodium Chloride) 100.5 mls @ 10.05 mls/hr IV .Q10H ЕЛЕНА Stop: 10/05/24 00:59 Last Admin: 09/05/24 01:23 Dose: 50 mcg/hr, 10.1 mls/hr Documented By: MIA Potassium Chloride (K Mason / Wtr) 10 meq in 100 mls @ 100 mls/hr IV Q1H ЕЛЕНА Stop: 09/05/24 09:59 Last Admin: 09/05/24 07:41 Dose: 100 mls/hr Documented By: AMS Discontinued Medications Dicyclomine HCl (Dicyclomine Hcl 10 Mg/Ml 2 Ml Amp/Vial) 20 mg IM NOW ONE Stop: 09/05/24 00:54 Last Admin: 09/05/24 01:05 Dose: 20 mg Documented By: BLAKEF Famotidine (Pepcid 20mg Iv Push) 20 mg in 5 mls @ 2.5 mls/min IV NOW STA Stop: 09/05/24 00:40 Last Admin: 09/05/24 00:47 Dose: 2.5 mls/min Documented By: MIA Sodium Chloride (Nss) 500 mls @ 999 mls/hr IV .Q31M ONE Stop: 09/05/24 01:11 Last Infusion: 09/05/24 01:39 Dose: Infused Documented By: Admin: 09/05/24 00:47 Dose: 999 mls/hr Documented By: MIA Pantoprazole Sodium (Protonix) 40 mg in 10 mls @ 5 mls/min IV NOW ONE Stop: 09/05/24 00:54 Last Admin: 09/05/24 01:05 Dose: 5 mls/min Documented By: MIA Octreotide Acetate 50 mcg/ (Syringe) 10 mls @ 3 mls/min IV ONE STA Stop: 09/05/24 00:56 Last Admin: 09/05/24 01:22 Dose: 3 mls/min Documented By: MIA Ioversol (Optiray 320 100ml) 93 ml IV ONCE ONE Stop: 09/05/24 01:35 Last Admin: 09/05/24 01:34 Dose: 93 ml Documented By: LISBET Miscellaneous (Stat Iv/Im) 1 each N/A NOW STA Stop: 09/05/24 00:54 Last Admin: 09/05/24 01:23 Dose: Not Given Documented By: MIA Ondansetron HCl (Ondansetron Inj 2 Mg/Ml 2 Ml Vial) 4 mg IV NOW STA Stop: 09/05/24 00:40 Last Admin: 09/05/24 00:47 Dose: 4 mg Documented By: MIA Sucralfate (Sucralfate 1 Gm/10 Ml Udc) 1 gm PO NOW STA Stop: 09/05/24 04:40 Last Admin: 09/05/24 05:13 Dose: 1 gm Documented By: [facility] Imaging Data Radiologist's Impression: Chest X-Ray 09/05/24 00:38 EXAM: XR chest 1V portable CLINICAL HISTORY: Chest pain, nonspecific. TECHNIQUE: An X-ray image of the chest is obtained in AP projection. COMPARISON: 04/06/[address] dated same day (09/05/2024). FINDINGS: Pulmonary Parenchyma: Bilateral parahilar congestion with suggestion of focal opacities. No evidence of consolidation, collapse, or focal opacities. No pulmonary nodules are identified. No evidence of pleural effusion or pleural thickening. Heart and Mediastinum: Apparent cardiomegaly may be due to supine AP expiratory film. No mediastinal widening or masses. No hilar or mediastinal lymphadenopathy. Bony Thorax: Bony thorax appears intact without fractures or deformities. Soft Tissues: Soft tissues overlying the chest wall are unremarkable. IMPRESSION: Bilateral parahilar congestion with additional focal opacities, mildly increased since the last examination. Clinical?lab correlation is suggested to rule out infective/inflammatory etiology. Electronically signed by Daniel Garrison 09-05-2024 02:44 AM Abdomen/Pelvis CT 09/05/24 00:53 EXAM: CT abd pelvis IV con only CLINICAL HISTORY: hematemesis, abdominal pain, cirrhosis. TECHNIQUE: Contrast-enhanced CT of the abdomen and pelvis was performed, with the following protocol: axial images with and reconstructed coronal and sagittal images. 93 cc opti 320 Intravenous contrast was administered. One of the following dose reduction techniques was utilized for this exam: Automated exposure control, adjustment of the mA and/or kV according to patient size, and use of iterative reconstruction. DLP: 2326.05 mGy.cm. COMPARISON: 07/24/2023 CT. FINDINGS: Abdomen: Liver: Cirrhotic liver with irregular undulating margins and nodular appearance. Multiple bilobar, small, sub-centimeter hypodense nodules are seen. Dilated portal vein and branches. Biliary ducts are unremarkable. Multiple dilated tortuous collateral vessels seen in the marianne hepatis, lower esophagus, splenic hilum, and gastrosplenic region, secondary to the hepatic disease. Multiple prominent marianne hepatis nodes with mesenteric congestion and stranding. Gallbladder and Biliary System: Cholecystectomy. The common bile duct is normal in caliber without dilation. Pancreas: Pancreatic head, body, and tail are visualized and appear normal in size and density. No pancreatic masses or calcifications were noted. The pancreatic duct is not dilated. Spleen: Enlarged. No splenic lesions or masses were identified. Kidneys and Adrenal Glands: Both kidneys are normal in size, shape, and position. Cortical thickness is within normal limits. No renal calculi or hydronephrosis. Adrenal glands are unremarkable, with no evidence of masses or hyperplasia. Pelvis: Urinary Bladder: Normal in contour and wall thickness. No intraluminal lesions were identified. Prostate: Normal in size and contour. No focal lesions or masses were identified. Seminal Vesicles: Normal in size and appearance. No abnormalities were noted. Rectum and Sigmoid Colon: Normal wall thickness and no evidence of mass. Peritoneal and Retroperitoneal Structures: No free fluid or abnormal fluid collections were identified within the abdomen or pelvis. No lymphadenopathy was noted. Bowel: Minimal wall congestion seen in small and large bowel. No evidence of bowel obstruction or wall thickening. Bones and Soft Tissues: Pelvic bones and soft tissues are unremarkable. No fractures or abnormal masses were identified. IMPRESSION: 1. Cirrhotic liver with nodular appearance. Dedicated triple phase liver imaging (CT/MR) is recommended to characterise the hepatic nodules 2. Splenomegaly. 3. Marianne hepatis, lower esophagus, and splenic hilum variceal collaterals 4. Mesenteric congestion. Findings keeping with sequelae of chronic liver parenchymal disease unchanged since the prior CT study Electronically signed by Daniel Garrison 09-05-2024 03:[address] 09/05/24 00:53 EXAM: CT chest diagnostic w con CLINICAL HISTORY: hematemesis, abd pain, cirrhosis TECHNIQUE: Contiguous axial images were obtained from the neck base through the upper abdomen without contrast. In addition, sagittal and coronal reconstructions were performed to potentially increase the sensitivity for the detection of disease. CT scan was performed according to ALARA (as low as reasonable achievable). COMPARISON: April 06/2024 13:05:16 CONTROL INSPECTOR FINDINGS: The lungs are clear, with no focal areas of consolidation. No pulmonary nodules are seen. The central airways are patent. There are no pleural effusions. No pneumothorax is seen. Evaluation of the mediastinum and jimenez is limited due to the lack of intravenous contrast. No axillary or mediastinal adenopathy is identified. The thyroid is unremarkable. The heart, aorta, and pulmonary arteries are of normal size and configuration. There are no appreciable coronary artery and aortic atherosclerotic calcifications. No pericardial effusion is identified. Imaged portions of the upper abdomen shows hepatomegaly with heterogeneous parenchymal nodular surface - cirrhosis changes. Splenomegaly. No aggressive appearing osseous lesions are identified. IMPRESSION: No significant intrathoracic abnormality seen. Prior upper lobe lung infiltrates are completely resolved in present scan. Electronically signed by Cosmo Moore 09-05-2024 02:59 AM Discharge Plan Visit Data Chief Complaint: Vomiting Stated Complaint: VOMITING BRIGHT RED AND RUST COLORED BLOOD ED Provider: Herbert Balderrama Discharge Problem: Gastritis, 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, Chronic abdominal pain, Hematemesis Forms Stand Alone Forms: My [facility] [employer] Prescriptions Prescriptions: No Action amlodipine [Norvasc] 5 mg tablet 5 mg PO QAM Entresto 97-103 mg tablet 1 tab PO BID Qty: 60 2RF cholecalciferol (vitamin D3) [Vitamin D3] 125 mcg (5,000 unit) tablet 125 mcg PO QAM metoprolol succinate 50 mg tablet extended release 24 hr 50 mg PO HS sertraline [Zoloft] 50 mg tablet 50 mg PO QAM promethazine 25 mg tablet 25 mg PO TID PRN (Reason: nausea and vomiting) Qty: 20 0RF sertraline [Zoloft] 100 mg tablet 100 mg PO QAM insulin lispro [Humalog U-100 Insulin] 100 unit/mL solution 0 unit continuous subcutaneous infusion CONTINOUS Rx Instructions: VIA CONTINUOUS PUMP INFUSION Vraylar 3 mg capsule 3 mg PO HS Medical Marijuana 1 dose inhalation DIRECTED PRN (Reason: Pain) Rx Instructions: PER PT VAPS Jardiance 25 mg tablet 25 mg PO QAM pantoprazole [Protonix] 40 mg tablet,delayed release (DR/EC) 40 mg PO BID Rx Instructions: TAKE 1 TABLET BY MOUTH TWICE DAILY rosuvastatin 20 mg tablet 20 mg PO QAM Rx Instructions: TAKE 1 TABLET BY MOUTH DAILY potassium chloride 10 mEq tablet extended release 10 meq PO BID tizanidine [Zanaflex] 4 mg tablet 4 mg PO BID PRN (Reason: muscle spasticity) tramadol 50 mg tablet 50 - 100 mg PO HS PRN (Reason: Pain) Referrals Referrals: Maru Ortiz MD [Primary Care Provider] - Discharge Problem: Gastritis Qualifiers: Gastritis type: unspecified gastritis Chronicity: chronic Gastritis bleeding: p resence of bleeding unspecified Qualified Code(s): K29.50 - Unspecified chronic gastritis without bleeding Hematemesis Qualifiers: Nausea presence: with nausea Qualified Code(s): K92.0 - Hematemesis
[2024-09-05] MEDS: DICYCLOMINE HCL 10 MG/ML 2 ML AMP/VIAL IM ONE (01:05)
[2024-09-05] MEDS: PANTOprazole 40 MG/10 ML SYR IV ONE (01:05)
[2024-09-05 01:15] LABS: Basophils # (auto) 0.05 K/uL (0.00-0.20); Basophils % (auto) 1.1 %; Eosinophils # (auto) 0.08 K/uL (0.00-0.50); Eosinophils % (auto) 1.7 %; Hematocrit (blood only) 42.4 % (42.0-52.0); Hemoglobin 14.4 g/dl (14.0-18.0); Immature Granulocytes # (auto) 0.01 K/uL (0.01-0.20); Immature Granulocytes % (auto) 0.2 %; Lymphocytes # (auto) 1.07 K/uL (1.20-3.40); Lymphocytes % (auto) 22.7 %; Mean Corpuscular Hemoglobin 31.6 pg (25.0-34.0); Mean Corpuscular Volume 93.2 fL (80.0-100.0); Mean Platelet Volume 11.3 fL (9.4-12.4); Monocytes # (auto) 0.55 K/uL (0.11-0.59); Monocytes % (auto) 11.7 %; Neutrophils # (auto) 2.95 K/uL (1.40-6.50); Neutrophils % (auto) 62.6 %; Platelet Count 57 K/uL (130-400); RDW Coefficient of Variation 17.4 % (11.5-14.5); RDW Standard Deviation 59.4 fL (36.4-46.3); Red Blood Count 4.55 M/uL (4.70-6.10); White Blood Count 4.71 K/ul (4.8-10.8)
[2024-09-05 01:18] LABS: Albumin Globulin Ratio 1.2 (0.9-2); Albumin Level 3.8 gm/dl (3.4-5.0); Bilirubin Direct 1.1 mg/dl (0-0.2); Bilirubin,Total 2.8 mg/dl (0.2-1.0); Calcium 8.8 mg/dl (8.6-10.3); Creatinine Clr Calc Pharmacy 256.8 ml/min; Globulin 3.3 gm/dl (2.5-4.0); Magnesium 1.7 mg/dl (1.7-2.4); Potassium 3.3 mmol/L (3.5-5.1); Total Protein 7.1 gm/dl (6.0-8.3)
[2024-09-05] MEDS: OCTREOTIDE ACETATE 50 MCG in SYRINGE 9.5 ML IV STA (01:22)
[2024-09-05] MEDS: STAT IV/IM STA (01:23)
[2024-09-05] MEDS: OCTREOTIDE ACETATE 500 MCG in SODIUM CHLORIDE 0.9% 100 ML IV SCH (01:23)
[2024-09-05 01:24] LABS: Troponin I High Sensitivity 19.2 pg/ml (0-20)
[2024-09-05 01:27] LABS: INR 1.4 (0.9-1.1); Prothrombin Time 14.8 Seconds (9.0-12.0)
[2024-09-05] MEDS: OPTIRAY 320 100ml IV ONE (01:34)
--- NOTE | 2024-09-05 02:44 | XRay Report ---
EXAM: XR chest 1V portable CLINICAL HISTORY: Chest pain, nonspecific. TECHNIQUE: An X-ray image of the chest is obtained in AP projection. COMPARISON: 04/06/[address] dated same day (09/05/2024). FINDINGS: Pulmonary Parenchyma: Bilateral parahilar congestion with suggestion of focal opacities. No evidence of consolidation, collapse, or focal opacities. No pulmonary nodules are identified. No evidence of pleural effusion or pleural thickening. Heart and Mediastinum: Apparent cardiomegaly may be due to supine AP expiratory film. No mediastinal widening or masses. No hilar or mediastinal lymphadenopathy. Bony Thorax: Bony thorax appears intact without fractures or deformities. Soft Tissues: Soft tissues overlying the chest wall are unremarkable. IMPRESSION: Bilateral parahilar congestion with additional focal opacities, mildly increased since the last examination. Clinical?lab correlation is suggested to rule out infective/inflammatory etiology. Electronically signed by Daniel Garrison 09-05-2024 02:44 AM
--- NOTE | 2024-09-05 02:59 | CT Scan Report ---
EXAM: CT chest diagnostic w con CLINICAL HISTORY: hematemesis, abd pain, cirrhosis TECHNIQUE: Contiguous axial images were obtained from the neck base through the upper abdomen without contrast. In addition, sagittal and coronal reconstructions were performed to potentially increase the sensitivity for the detection of disease. CT scan was performed according to ALARA (as low as reasonable achievable). COMPARISON: April 06/2024 13:05:16 REEL WINDER FINDINGS: The lungs are clear, with no focal areas of consolidation. No pulmonary nodules are seen. The central airways are patent. There are no pleural effusions. No pneumothorax is seen. Evaluation of the mediastinum and jimenez is limited due to the lack of intravenous contrast. No axillary or mediastinal adenopathy is identified. The thyroid is unremarkable. The heart, aorta, and pulmonary arteries are of normal size and configuration. There are no appreciable coronary artery and aortic atherosclerotic calcifications. No pericardial effusion is identified. Imaged portions of the upper abdomen shows hepatomegaly with heterogeneous parenchymal nodular surface - cirrhosis changes. Splenomegaly. No aggressive appearing osseous lesions are identified. IMPRESSION: No significant intrathoracic abnormality seen. Prior upper lobe lung infiltrates are completely resolved in present scan. Electronically signed by Cosmo Moore 09-05-2024 02:59 AM
--- NOTE | 2024-09-05 03:40 | CT Scan Report ---
EXAM: CT abd pelvis IV con only CLINICAL HISTORY: hematemesis, abdominal pain, cirrhosis. TECHNIQUE: Contrast-enhanced CT of the abdomen and pelvis was performed, with the following protocol: axial images with and reconstructed coronal and sagittal images. 93 cc opti 320 Intravenous contrast was administered. One of the following dose reduction techniques was utilized for this exam: Automated exposure control, adjustment of the mA and/or kV according to patient size, and use of iterative reconstruction. DLP: 2326.05 mGy.cm. COMPARISON: 07/24/2023 CT. FINDINGS: Abdomen: Liver: Cirrhotic liver with irregular undulating margins and nodular appearance. Multiple bilobar, small, sub-centimeter hypodense nodules are seen. Dilated portal vein and branches. Biliary ducts are unremarkable. Multiple dilated tortuous collateral vessels seen in the marianne hepatis, lower esophagus, splenic hilum, and gastrosplenic region, secondary to the hepatic disease. Multiple prominent marianne hepatis nodes with mesenteric congestion and stranding. Gallbladder and Biliary System: Cholecystectomy. The common bile duct is normal in caliber without dilation. Pancreas: Pancreatic head, body, and tail are visualized and appear normal in size and density. No pancreatic masses or calcifications were noted. The pancreatic duct is not dilated. Spleen: Enlarged. No splenic lesions or masses were identified. Kidneys and Adrenal Glands: Both kidneys are normal in size, shape, and position. Cortical thickness is within normal limits. No renal calculi or hydronephrosis. Adrenal glands are unremarkable, with no evidence of masses or hyperplasia. Pelvis: Urinary Bladder: Normal in contour and wall thickness. No intraluminal lesions were identified. Prostate: Normal in size and contour. No focal lesions or masses were identified. Seminal Vesicles: Normal in size and appearance. No abnormalities were noted. Rectum and Sigmoid Colon: Normal wall thickness and no evidence of mass. Peritoneal and Retroperitoneal Structures: No free fluid or abnormal fluid collections were identified within the abdomen or pelvis. No lymphadenopathy was noted. Bowel: Minimal wall congestion seen in small and large bowel. No evidence of bowel obstruction or wall thickening. Bones and Soft Tissues: Pelvic bones and soft tissues are unremarkable. No fractures or abnormal masses were identified. IMPRESSION: 1. Cirrhotic liver with nodular appearance. Dedicated triple phase liver imaging (CT/MR) is recommended to characterise the hepatic nodules 2. Splenomegaly. 3. Marianen hepatis, lower esophagus, and splenic hilum variceal collaterals 4. Mesenteric congestion. Findings keeping with sequelae of chronic liver parenchymal disease unchanged since the prior CT study Electronically signed by Daniel Garrison 09-05-2024 03:40 AM
--- NOTE | 2024-09-05 04:47 | History & Physical Report ---
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 EGD at [facility] in November 2023 demonstrated normal esophagus. Gastritis seen. Duodenum was normal. - CBC, BMP ordered (Timed, 12:00 noon) - Gastroenterology consult placed - continue octreotide acetate, 50 mcg/hr, IV (gtt) 2) Cirrhosis (due to ANGELES)/Excessive alcohol use - Plts, 57; INR, 1.4; TBili, 2.8; AST, 158; ALT, 114; Alk Phos, 126 - EtOH, 50.5 - currently follows with [facility] Hematology - consider Hep B, C serologies if pt not already screened in outpt setting Chronic conditions #Chronic pain/fibromyalgia - tramadol, 50 mg, PO, HS; can start other pain meds during stay if only takes IV #Schizophrenia - cariprazine and Zoloft continued #Diabetes - Pharmacy glycemic consult placed - Basal, 45 glargine daily --> 22.5 U, BID, (provider can modify if NPO status continued) #Cardiomyopathy/HTN - metoprolol tartrate, 25 mg, BID, IV; held Entresto and amlodipine for now Code status: Conditional code (chest compressions and defibrillator only) Disposition: PCU-Tele Diet: NPO VTE Prophylaxis: ambulation History of Present Illness Chief Complaint: vomiting/coughing up blood Primary Care Provider: Maru Ortiz MD Patient is a 39 yo M w/ a PMHx of cirrhosis secondary to [place], chronic pain, fibromyalgia, schizophrenia, hyperlipidemia, diabetes, medical marijuana use, alcohol use, depression anxiety who presented to the [facility] ED via walk-in for evaluation of ongoing abdominal pain worse from his baseline over the past several days and development of bloody emesis that occurred tonight where he reports having 3 vomiting episodes of ~ 40 mL total that bright red (consistency of blood). Patient states that he vomited up about 40 mL of blood in all earlier this evening in 3 episodes of vomiting blood and then vomited up about 40 mL again once arriving to the [facility] ED. Patient does state this has happened to him before both before and after getting his latest EGD's through [facility] where no evidence of esophageal varices were found (although there may have been the finding of "gastric varices" or GAVE). Patient states he came to the ED mainly because he is aware of his baseline thrombocytopenia and was concerned that any bleeding could lead to prolonged bleeding that would be difficult to clot. Patient feels a really weird lump in his throat but denies CP or AP or anything similar to GERD or acid reflux type pain. Patient has vomited twice earlier this week and had attributed it to a recurrent bout of pancreatitis and had started himself on a clear liquid diet to help himself Allergies Allergy/AdvReac Type Severity Reaction Status Date / Time Sulfa (Sulfonamide Allergy Intermediate Hives Verified 08/05/24 14:38 Antibiotics) sulfamethoxazole Allergy Intermediate Hives Verified 08/05/24 14:38 trimethoprim [From Bactrim] Allergy Intermediate Hives Verified 08/05/24 14:38 avocado AdvReac Severe Gastrointestinal Verified 08/05/24 14:38 Upset and nausea clozapine AdvReac Severe Cardiomyopa Verified 08/05/24 14:38 thy coconut AdvReac Severe Gastrointestinal Verified 08/05/24 14:38 Upset and nausea lisinopril AdvReac Severe Chest pain Verified 08/05/24 14:38 losartan [From Cozaar] AdvReac Intermediate Gastrointestinal Verified 08/05/24 14:38 Upset metformin AdvReac Intermediate Nausea Verified 08/05/24 14:38 pregabalin [From Lyrica] AdvReac Intermediate Nausea Verified 08/05/24 14:38 Colarel AdvReac Severe Cardiomyopa Uncoded 08/05/24 14:38 thy Home Medications Medication Instructions Recorded Confirmed Type cariprazine 3 mg capsule (Vraylar) 3 mg PO HS 04/06/19 09/05/24 History cholecalciferol (vitamin D3) 125 125 mcg PO QAM 11/25/19 09/05/24 History mcg (5,000 unit) tablet (Vitamin D3) insulin lispro 100 unit/mL 0 unit continuous subcutaneous 03/31/20 09/05/24 History subcutaneous solution (Humalog infusion CONTINOUS U-100 Insulin) Medical Marijuana 1 dose inhalation DIRECTED PRN 09/19/22 09/05/24 History Pain amlodipine 5 mg tablet (Norvasc) 5 mg PO QAM 02/21/23 09/05/24 History sacubitril 97 mg-valsartan 103 mg 1 tab PO BID #60 tabs 02/21/23 09/05/24 Rx tablet (Entresto) empagliflozin 25 mg tablet 25 mg PO QAM 04/14/23 09/05/24 History (Jardiance) metoprolol succinate 50 mg 50 mg PO HS 09/07/23 09/05/24 History tablet,extended release 24 hr potassium chloride 10 mEq 10 meq PO BID 12/05/23 09/05/24 History tablet,extended release sertraline 100 mg tablet (Zoloft) 100 mg PO QAM 01/30/24 09/05/24 History pantoprazole 40 mg tablet,delayed 40 mg PO BID 04/06/24 09/05/24 History release (Protonix) rosuvastatin 20 mg tablet 20 mg PO QAM 04/06/24 09/05/24 History tizanidine 4 mg tablet (Zanaflex) 4 mg PO BID PRN muscle spasticity 04/30/24 09/05/24 History promethazine 25 mg tablet 25 mg PO TID PRN nausea and 07/06/24 09/05/24 Rx vomiting #20 tabs sertraline 50 mg tablet (Zoloft) 50 mg PO QAM 07/06/24 09/05/24 History tramadol 50 mg tablet 50 - 100 mg PO HS PRN Pain 09/05/24 09/05/24 History Past Med/Surg History Problem List Hematemesis (Acute) Chronic abdominal pain (Acute) Gastritis (Acute) MAHMOOD (dyspnea on exertion) Chronic pain (Chronic) SONDRA positive (Chronic) No evidence of SONDRA associated connective tissue disorder (October 2023) Disc degeneration, lumbar (Chronic) Thrombocytopenia (Chronic) Insomnia (Chronic) Insulin pump in place (Chronic) Complicated migraine (Chronic) Obstructive sleep apnea (Chronic) treated with CPAP 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 (Chronic) Schizophrenia (Chronic) Dyslipidemia (Chronic) Anxiety and depression (Chronic) 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, managed as type 1 (Chronic) Hypertension (Chronic) Asthma (Chronic) cough variant asthma - treated with Singulair Medical History Alcohol intoxication Schizophrenia Sleep apnea CPAP 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 Liver doctor - [facility] - Yearly visit Insulin pump in place Hypertension Dyslipidemia MAHMOOD (dyspnea on exertion) follows [facility] Diabetes mellitus type 1.5 Insulin Pump Chronic pain Lower back and LUQ Hx of migraines Cardiomyopathy medicatin induced - follows [facility] History of asthma Occipital neuralgia Vitamin D deficiency Gastritis Hematemesis intermittent as per pt History of kidney stones x2 - one time passed on own - other time surgical intervention needed Surgical History Hx of lithotripsy History of colonoscopy H/O thumb surgery Right - with hardware History of esophagogastroduodenoscopy (EGD) [place] teeth removed History of myringotomy History of tonsillectomy and adenoidectomy History of appendectomy History of cholecystectomy Family History Father Diabetes Grandfather (Paternal) Family history of esophageal cancer Cancer Grandmother (Maternal) Hypertension Stroke Mother Hypertension Grandfather (Maternal) Hypertension Other Heart disease Kidney disease Denies family history of Ovarian cancer Prostate cancer Breast cancer Colorectal cancer Social History Smoking Status: Never smoker Second Hand Exposure: No; Do You Dip or Chew Tobacco: No; Hx Alcohol Use: Yes Alcohol type: beer and wine Hx Substance Use: Yes Last Used Substance: Days (ago) Last Used Substance Other:: 2 days ago. MJ Substance Use Type Other:: Medical MJ Vape Preferred Language: [place] Communication Ability: Effective Visual Impairment: Limited Hearing Ability: Normal Account Service Representative Required: No Beliefs That Will Affect Care: None marital status: Single Current Living Situation: Family Current Living Situation Comment: Lives with mother current occupational status: unemployed and disabled Other Information That Helps Us Care for You: Yes Feels Safe at Home: Yes Safety Concerns: Feels Safe At This Time Childhood Exposure to Second-Hand Smoke: Yes Diet: regular caffeine: Yes Dental Care, Regularly: Yes Physical Activity Frequency: Daily Physical Activity Frequency Comment: Walking/ uses standing desk at work Seatbelt Use: always Sunscreen Use: Yes Assistive Devices: Glasses Review of Systems Constitutional: + fatigue and + malaise; no fever and no chills Ear, Nose, Mouth, Throat: + sore throat and + pain with swallowing ; no dysphagia Respiratory: no cough, no dyspnea and no wheezing Cardiovascular: + chest pain at rest Gastrointestinal: + abdominal pain, + vomiting and + hemat emesis; no blood in stools Hematologic / Lymphatic: + easy bleeding and + easy bruising Physical Exam Constitutional: WD/WN, vitals as above Respiratory: normal respiratory effort, lungs clear to auscultation Cardiovascular: RRR, no murmur, no edema Gastrointestinal (Abdomen): Inspection/Auscultation: abdomen normal to inspection and normal bowel sounds; abdomen not distended Percussion/Palpation: + abdomen tender (pt endorses chronic RUQ and LUQ pain; gets nerve blocks) and abdomen soft Psychiatric: A+Ox3, euthymic affect Results & Data Results & Data Vital Signs (Past 12 Hours) Vital Signs Temp Pulse Pulse Resp BP BP Pulse Ox 09/05/24 03:00 90 20 131/73 96 09/05/24 02:42 104 H 18 97 09/05/24 02:06 86 14 133/87 96 09/05/24 01:26 83 125/74 96 09/05/24 00:45 83 09/05/24 00:29 36.6 C 86 18 139/83 97 O2 Del Method 09/05/24 03:00 Room Air 09/05/24 02:42 Room Air 09/05/24 02:06 Room Air 09/05/24 01:26 Room Air 09/05/24 00:45 03/16/25 00:29 Room Air Supervising Physician Co-Signing Physician Notes Attending addendum: I have physically seen this patient, have supervised the medical residents activities, and agree with the H&P unless as otherwise noted. Assessment and Plan: The patient is a 39-year-old male with a past medical history including cirrhosis secondary to ANGELES, chronic pain syndrome, fibromyalgia, schizophrenia, hyperlipidemia, diabetes mellitus, medical marijuana use, alcohol use disorder, depression/anxiety. He presents to the emergency department with ongoing abdominal pain, worse than his baseline chronic pain, over the past several days, and the development of bloody emesis that occurred earlier in the evening, reporting that he had 3 episodes of approximately 40 mL of bright red blood. #Hematemesis/possible history of GAVE/multiple varices/history of alcohol use disorder- The patient will be admitted to telemetry for serial cardiac enzymes, serial EKG's, cardiac rhythm monitoring H&H every 6 hours EGD in August 2023 at [facility] demonstrated no obvious esophageal varices, mild gastropathy, and question of nodular type GAVE. EGD at [facility] December 14 demonstrates normal esophagus. Gastritis. Duodenum was normal. CT scan of the abdomen and pelvis with cirrhotic liver with nodular appearance. Dedicated triple phase liver imaging is recommended. Splenomegaly. Marianne hepatis, lower esophagus and splenic hilum containing variceal collaterals. Mesenteric congestion. Chronic liver parenchymal disease unchanged since the prior CT study Continue octreotide continuous infusion begun in the ED Continue pantoprazole bolus/drip begun in the ED Type and screen Consult gastroenterology Liver cirrhosis/ANGELES/excessive alcohol use- Currently following [facility] hematology Review records to see if hepatitis A, B and C have been documented Hypokalemia- Potassium 3.3 on admission Replace IV and repeat in a.m. Chronic medical conditions: Fibromyalgia/chronic pain syndrome-hold oral tramadol at this time Schizophrenia-continue cariprazine and Zoloft Diabetes mellitus-adjustment in glargine as noted. Placed on NovoLog SSI Cardiomyopathy/hypertension-hold Entresto and amlodipine Metoprolol tartrate to be converted to IV as needed CODE STATUS conditional code, DO NOT INTUBATE (5) Schizophrenia Schizophrenia type: unspecified Qualified Code(s): F20.9 - Schizophrenia, unspecified (6) Cardiomyopathy Cardiomyopathy type: due to drug Qualified Code(s): I42.7 - Cardiomyopathy due to drug and external agent (9) Hypertension Hypertension type: unspecified Qualified Code(s): I10 - Essential (primary) hypertension
[2024-09-05] MEDS ORDERED: ONDANSETRON INJ 2 MG/ML 2 ML VIAL IV PRN (04:56)
[2024-09-05] MEDS: SUCRALFATE 1 GM/10 ML UDC PO STA (05:13)
[2024-09-05] MEDS ORDERED: PHARMACY GLYCEMIC MGMT CONSULT PRN (06:56)
[2024-09-05] MEDS: POTASSIUM CHLORIDE / WTR 10 MEQ/100 ML PLCT IV SCH (07:41)
[2024-09-05] MEDS ORDERED: DEXTROSE 50% 50 ML SYRINGE IV PRN (09:15)
[2024-09-05] MEDS ORDERED: CARBOHYDRATES FOR HYPOGLYCEMIA PO PRN (09:15)
[2024-09-05] MEDS ORDERED: GLUCOSE 10 TAB/TUBE PO PRN (09:15)
[2024-09-05] MEDS ORDERED: GLUCOSE 40% GEL 15 GM TUBE PO PRN (09:15)
[2024-09-05] MEDS ORDERED: GLUCAGON FOR INJ 1 MG VIAL SQ PRN (09:15)
[2024-09-05 09:57] LABS: Appearance Urine Clear (Clear); Bacteria Urine Automated None Seen (None Seen); Bilirubin Urine 1+ (Negative); Blood Urine Negative (Negative); Cast Urine Automated 0-2 /lpf (0-2); Color Urine Dark Yellow; Epithelial Cell Urine Auto 0-2 /hpf (0-2); Glucose Urine UA Negative (Negative); Ketones Urine Negative (Negative); Leukocyte Esterase Urine Trace (Negative); Nitrite Urine Negative (Negative); Protein Urine 1+ (Negative); RBC Urine Automated 0-2 /hpf (0-2); Specific Gravity Urine 1.039 (1.000-1.030); Urobilinogen Urine Positive (Negative); WBC Urine Automated 0-5 /hpf (0-5); pH Urine 8.5 (4.5-7.5)
[2024-09-05] MEDS: CHOLECALCIFEROL 125 MCG (5,000 UNITS) TAB PO SCH (10:01)
[2024-09-05] MEDS: SERTRALINE HCL 100 MG TABLET PO SCH (10:01)
[2024-09-05] MEDS: SERTRALINE HCL 50 MG TABLET PO SCH (10:01)
[2024-09-05] MEDS: LANTUS PER UNIT CHARGE SQ ONE (10:04)
[2024-09-05 10:23] LABS: Amphetamines+Metham, Urine Neg (Neg); Barbiturates, Urine Neg (Neg); Benzodiazepine, Urine Neg (Neg); Cocaine, Urine Neg (Neg); Fentanyl, Urine Neg (Neg); MDMA (Ecstacy), Urine Neg (Neg); Marijuana, Urine Pos (Neg); Methadone, Urine Neg (Neg); Opiate, Urine Neg (Neg); Phencyclidine, Urine Neg (Neg)
[2024-09-05] MEDS: INSULIN ASPART PER UNIT CHARGE SC SCH ×2 (10:58→13:54)
--- NOTE | 2024-09-05 11:03 | Gastrointestinal Consultation ---
Date of Consultation September 05, 2024 Assessment & Plan (1) Hematemesis: Gives a history of vomiting for for 5 days prior to the hematemesis. I suspect his hematemesis is Madina-Gregg. However he does have a history of cirrhosis and CT suggesting perihepatic lower esophageal and splenic hilum varices. An EGD a year ago did not document esophageal varices. There is also question of GAVE syndrome though review of previous endoscopy from year ago the pictures did not suggest GAVE syndrome. No need for urgent endoscopy at this time. PPI and octreotide drip. Endoscopy tomorrow. (2) Chronic abdominal pain: Chronic abdominal pain. Also associated nausea and vomiting describes vomiting for at least a week prior to his admission. Discussed the possibility of marijuana hyperemesis syndrome with him. 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 Carries a diagnosis of MANDUJANO. Enzyme elevation elevated AST to ALT ratio potentially consistent with alcohol though patient denies. History of Present Illness Reason for Consultation: Hematemesis melena Attending Physician: Anjum Pabon MD History of Present Illness 39-year-old male with history of cirrhosis from schizophrenic medication fatty infiltration. Patient's chart notes history of alcohol use though patient states he rarely drinks alcohol on today's questioning. Patient is also currently a type I diabetic though states this was adult onset. History of multiple bouts of pancreatitis for unclear reasons. Never smoked. Alcohol ingestion is noted. Comes in with a history of 4 to 5 days of vomiting a couple times per day followed the last 2 to 3 days by hematemesis of bright to rust colored blood states he did notice some clotting. Was concerned based on his history of thrombocytopenia so he presented to the emergency room. Patient has had dark stools also he states these been present for at least a couple of months. He denies iron ingestion. Current hemoglobin 14.4, platelets low at 57. Typically runs in the 60s. INR 1.4. This is his baseline. Elevated liver enzymes bili 3.1 AST of 122 with an ALT of 69. This could be consistent with alcohol effect. Slightly higher than his usual enzyme levels. Of note patient uses medical grade marijuana 6 or so times per week has been doing so for a few years Allergies Allergy/AdvReac Type Severity Reaction Status Date / Time Sulfa (Sulfonamide Allergy Intermediate Hives Verified 08/05/24 14:38 Antibiotics) sulfamethoxazole Allergy Intermediate Hives Verified 08/05/24 14:38 trimethoprim [From Bactrim] Allergy Intermediate Hives Verified 08/05/24 14:38 avocado AdvReac Severe Gastrointestinal Verified 08/05/24 14:38 Upset and nausea clozapine AdvReac Severe Cardiomyopa Verified 08/05/24 14:38 thy coconut AdvReac Severe Gastrointestinal Verified 08/05/24 14:38 Upset and nausea lisinopril AdvReac Severe Chest pain Verified 08/05/24 14:38 losartan [From Cozaar] AdvReac Intermediate Gastrointestinal Verified 08/05/24 14:38 Upset metformin AdvReac Intermediate Nausea Verified 08/05/24 14:38 pregabalin [From Lyrica] AdvReac Intermediate Nausea Verified 08/05/24 14:38 Colarel AdvReac Severe Cardiomyopa Uncoded 08/05/24 14:38 thy Home Medications Medication Instructions Recorded Confirmed Type cariprazine 3 mg capsule (Vraylar) 3 mg PO HS 04/06/19 09/05/24 History cholecalciferol (vitamin D3) 125 125 mcg PO QAM 11/25/19 09/05/24 History mcg (5,000 unit) tablet (Vitamin D3) insulin lispro 100 unit/mL 0 unit continuous subcutaneous 03/31/20 09/05/24 History subcutaneous solution (Humalog infusion CONTINOUS U-100 Insulin) Medical Marijuana 1 dose inhalation DIRECTED PRN 09/19/22 09/05/24 History Pain amlodipine 5 mg tablet (Norvasc) 5 mg PO QAM 02/21/23 09/05/24 History sacubitril 97 mg-valsartan 103 mg 1 tab PO BID #60 tabs 02/21/23 09/05/24 Rx tablet (Entresto) empagliflozin 25 mg tablet 25 mg PO QAM 04/14/23 09/05/24 History (Jardiance) metoprolol succinate 50 mg 50 mg PO HS 09/07/23 09/05/24 History tablet,extended release 24 hr potassium chloride 10 mEq 10 meq PO BID 12/05/23 09/05/24 History tablet,extended release sertraline 100 mg tablet (Zoloft) 100 mg PO QAM 01/30/24 09/05/24 History pantoprazole 40 mg tablet,delayed 40 mg PO BID 04/06/24 09/05/24 History release (Protonix) rosuvastatin 20 mg tablet 20 mg PO QAM 04/06/24 09/05/24 History tizanidine 4 mg tablet (Zanaflex) 4 mg PO BID PRN muscle spasticity 04/30/24 09/05/24 History promethazine 25 mg tablet 25 mg PO TID PRN nausea and 07/06/24 09/05/24 Rx vomiting #20 tabs sertraline 50 mg tablet (Zoloft) 50 mg PO QAM 07/06/24 09/05/24 History tramadol 50 mg tablet 50 - 100 mg PO HS PRN Pain 09/05/24 09/05/24 History Patient History Medical History Alcohol intoxication Schizophrenia Sleep apnea CPAP 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 Liver doctor - [facility] - Yearly visit Insulin pump in place Hypertension Dyslipidemia MAHMOOD (dyspnea on exertion) follows [facility] Diabetes mellitus type 1.5 Insulin Pump Chronic pain Lower back and LUQ Hx of migraines Cardiomyopathy medicatin induced - follows [facility] [place] History of asthma Occipital neuralgia Vitamin D deficiency Gastritis Hematemesis intermittent as per pt History of kidney stones x2 - one time passed on own - other time surgical intervention needed Surgical History Hx of lithotripsy History of colonoscopy H/O thumb surgery Right - with hardware History of esophagogastroduodenoscopy (EGD) Rover teeth removed History of myringotomy History of tonsillectomy and adenoidectomy History of appendectomy History of cholecystectomy Family History Father Diabetes Grandfather (Paternal) Family history of esophageal cancer Cancer Grandmother (Maternal) Hypertension Stroke Mother Hypertension Grandfather (Maternal) Hypertension Other Heart disease Kidney disease Denies family history of Ovarian cancer Prostate cancer Breast cancer Colorectal cancer Social History Smoking Status: Never smoker Second Hand Exposure: No; Do You Dip or Chew Tobacco: No; Hx Alcohol Use: Yes Alcohol type: beer and wine Hx Substance Use: Yes Last Used Substance: Days (ago) Last Used Substance Other:: 2 days ago. MJ Substance Use Type Other:: Medical MJ Vape Preferred Language: Mozambican Communication Ability: Effective Visual Impairment: Limited Hearing Ability: Normal Periodontist Required: No Beliefs That Will Affect Care: None marital status: Single Current Living Situation: Family Current Living Situation Comment: Lives with mother current occupational status: unemployed and disabled Other Information That Helps Us Care for You: Yes Feels Safe at Home: Yes Safety Concerns: Feels Safe At This Time Childhood Exposure to Second-Hand Smoke: Yes Diet: regular caffeine: Yes Dental Care, Regularly: Yes Physical Activity Frequency: Daily Physical Activity Frequency Comment: Walking/ uses standing desk at work Seatbelt Use: always Sunscreen Use: Yes Assistive Devices: Glasses Review of Systems Review of Systems: No fevers chills night sweats unexplained weight loss Denies increased cough sputum production denies chest pain at this time GI as mentioned above Review of systems otherwise as per admitting H&P per hospitalist service no changes Physical Exam Physical Exam: Patient examined at the bedside. Has rosacea. Appears alert and orientated nontoxic Mild scleral icterus Chest and heart sounds per hospitalist admitting H&P no changes Abdomen is benign the liver and spleen were not palpably enlarged. No masses guarding rebound identified Bowel sounds were normal [employer] psych negative Skin scleral icterus and rosacea. No peripheral edema Exam otherwise negative Results & Data Vital Signs (Past 12 Hours) Vital Signs Temp Pulse Pulse Resp BP BP Pulse Ox 09/05/24 09:31 36.5 C 67 22 128/77 95 09/05/24 08:00 74 17 126/79 92 09/05/24 07:28 78 17 125/78 92 09/05/24 06:00 84 19 123/77 95 09/05/24 04:45 77 09/05/24 03:00 90 20 131/73 96 09/05/24 02:42 104 H 18 97 09/05/24 02:06 86 14 133/87 96 09/05/24 01:26 83 125/74 96 09/05/24 00:45 83 09/05/24 00:29 36.6 C 86 18 139/83 97 O2 Del Method 09/05/24 09:31 Room Air 09/05/24 08:00 Room Air 09/05/24 07:28 Room Air 09/05/24 06:00 Room Air 09/05/24 04:45 09/05/24 03:00 Room Air 09/05/24 02:42 Room Air 09/05/24 02:06 Room Air 09/05/24 01:26 Room Air 09/05/24 00:45 09/05/24 00:29 Room Air PG Care Time/CCT Total # of Minutes Spent Total Time Spent with Patient: Total time spent is greater than 50% in coordination of care (as documented) at patient's floor/unit and/or counseling patient: Coding Level of Care Code 60846 INT INP/OBS CARE 2/55MIN Diagnoses Hematemesis K92.0 Nausea presence: with nausea Chronic abdominal pain R10.9; G89.29 Thrombocytopenia D69.6 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
[2024-09-05] MEDS: HYDROmorphone INJ 0.5 MG/0.5 ML SYR IV STA (11:36)
--- NOTE | 2024-09-05 12:13 | Electrocardiogram Report ---
Test Reason : Blood Pressure : */* mmHG Vent. Rate : 78 BPM Atrial Rate : 78 BPM P-R Int : 146 ms QRS Dur : 94 ms QT Int : 384 ms P-R-T Axes : 24 3 26 degrees QTcB Int : 437 ms Normal sinus rhythm Normal ECG When compared with ECG of 06-Apr-2024 08:57, No significant change was found Confirmed by Donal Solares ([id number]) on 09/05/2024 12:12:40 PM Referred By: REFERRED SELF Confirmed By: Donal Solares
[2024-09-05] MEDS: METOPROLOL TARTRATE 25 MG TAB PO SCH (12:37)
[2024-09-05] MEDS: PANTOprazole 40 MG/10 ML SYR IV SCH (12:37)
[2024-09-05 12:40] LABS: Basophils # (auto) 0.08 K/uL (0.00-0.20); Basophils % (auto) 2.1 %; Eosinophils # (auto) 0.09 K/uL (0.00-0.50); Eosinophils % (auto) 2.3 %; Hematocrit (blood only) 38.9 % (42.0-52.0); Hemoglobin 13.5 g/dl (14.0-18.0); Immature Granulocytes # (auto) 0.01 K/uL (0.01-0.20); Immature Granulocytes % (auto) 0.3 %; Lymphocytes % (auto) 20.9 %; Mean Corpuscular Hemoglobin 32.2 pg (25.0-34.0); Mean Corpuscular Hgb Conc 34.7 g/dL (32.0-36.0); Mean Corpuscular Volume 92.8 fL (80.0-100.0); Mean Platelet Volume 11.4 fL (9.4-12.4); Monocytes % (auto) 13.1 %; Neutrophils # (auto) 2.35 K/uL (1.40-6.50); Neutrophils % (auto) 61.3 %; Platelet Count 49 K/uL (130-400); RDW Coefficient of Variation 17.3 % (11.5-14.5); RDW Standard Deviation 60.1 fL (36.4-46.3); Red Blood Count 4.19 M/uL (4.70-6.10); White Blood Count 3.83 K/ul (4.8-10.8)
[2024-09-05 12:58] LABS: Albumin Globulin Ratio 1.2 (0.9-2); Albumin Level 3.5 gm/dl (3.4-5.0); Bilirubin,Total 4.5 mg/dl (0.2-1.0); Calcium 8.1 mg/dl (8.6-10.3); Creatinine Clr Calc Pharmacy 231.6 ml/min; Potassium 4.2 mmol/L (3.5-5.1); Total Protein 6.5 gm/dl (6.0-8.3)
[2024-09-05] MEDS ORDERED: HYDROmorphone INJ 0.5 MG/0.5 ML SYR IV PRN (13:59)
--- NOTE | 2024-09-05 15:16 | Hospitalist Progress Note ---
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: (5) Schizophrenia: (6) Cardiomyopathy: (7) Anxiety and depression: (8) Diabetes mellitus type 1.5, managed as type 1: (9) Hypertension: Plan Patient is a 39 yo M w/ a PMHx of cirrhosis secondary to Angeles, chronic pain, fibromyalgia, schizophrenia, hyperlipidemia, diabetes, medical marijuana use, alcohol use, depression anxiety who presented to the [facility] ED via walk-in for evaluation of ongoing abdominal pain worse from his baseline over the past several days and development of bloody emesis that occurred tonight where he reports having 3 vomiting episodes of ~ 40 mL total that bright red (consistency of blood). Hematemesis - multiple episodes of bloody vomiting; Hgb, 14.4 (on admission) - Review of prior records demonstrates EGD performed in August 2023 aft [facility] which demonstrated no obvious esophageal varices, mild gastropathy and question of nodular type GAVE was present. EGD at [facility] in November 2023 demonstrated normal esophagus. Gastritis seen. Duodenum was normal. - CBC, BMP QAM - continue octreotide acetate, 50 mcg/hr and Pantoprazole 40mg IV BID therapy - Pain control with Hydromorphone 0.25mg for moderate pain and 0.50mg IV for severe pain - Gastroenterology consulted and following, plan for EGD in AM; NPO at midnight Cirrhosis (due to ANGELES)/Excessive alcohol use - Chronic thrombocytopenia, pltl 49 ; INR, 1.4; TBili, 2.8; AST, 158; ALT, 114; Alk Phos, 126 - EtOH, 50.5 - currently follows with [facility] Hematology Chronic conditions #Chronic pain/fibromyalgia - tramadol, 50 mg, PO, HS; can start other pain meds during stay if only takes IV #Schizophrenia - cariprazine and Zoloft continued #Diabetes - Pharmacy glycemic consult placed - Basal, 45 glargine daily --> 22.5 U, BID, (provider can modify if NPO status continued) #Cardiomyopathy/HTN - metoprolol tartrate, 25 mg, BID, IV; held Entresto and amlodipine for now Code status: Conditional code (chest compressions and defibrillator only) Disposition: PCU-Tele Diet: NPO VTE Prophylaxis: ambulation Admission and Anticipated Discharge Date Admission Date: September 05, 2024 Supervising Physician Co-Signing Physician Notes I personally examined the patient and verified all meyers points of history and exam, discussed case, and agree with decision making with Dr Persaud feeling OK. for EGD tomorrow. GI input appreciated. seen in f/u from early AM admit. hemodynamically stable. continue current plan. Subjective Jluis Gibson is a 39 y/o M with a past medical hisotry of cirrhosis 2/2 ANGELES, fibromyalgia, schizophrenia, HLD, diabetes, depression/anxiety presenting with acute hematemesis. Patient reports that he typically drinks 1 alcoholic beverage per week and did have a drink the night before admission. Patient does have acute abdominal pain 8/10 and chronic mild SOB on exertion. Patient denies fevers, chills, chest pain, palpitations, cough, and headache. Patient remains afebrile and hemodynamically stable. Physical Exam Physical Exam: General: patient resting comfortably, NAD, non-toxic in appearance, answers questions appropriately. Skin: warm, dry, intact HEENT: NC/AT, anicteric sclera, conjunctiva without injection, moist mucus membranes. Heart: +S1/S2, regular, no m/r/g Lungs: equal air entry bilaterally, no rales/rhonchi/wheezes Abd: +BS, soft, NT/ND Ext: warm, no clubbing/cyanosis or edema Neuro: nonfocal, speech intact, no facial droop, moving all extremities. Results & Data Results & Data Vital Signs (Past 12 Hours) Vital Signs Temp Pulse Pulse Resp BP Pulse Ox O2 Del Method 09/05/24 14:21 70 09/05/24 12:49 76 09/05/24 11:08 36.9 C 69 17 135/80 97 Room Air 09/05/24 09:31 36.5 C 67 22 128/77 95 Room Air 09/05/24 08:00 74 17 126/79 92 Room Air 09/05/24 07:28 78 17 125/78 92 Room Air 09/05/24 06:00 84 19 123/77 95 Room Air 09/05/24 04:45 77 Resident Activity Tracking Resident Involvement: Resident Care Provided Care Provided: Adult Hospital Medicine (1) Hematemesis Nausea presence: with nausea Qualified Code(s): K92.0 - Hematemesis (5) Schizophrenia Schizophrenia type: unspecified Qualified Code(s): F20.9 - Schizophrenia, unspecified (6) Cardiomyopathy Cardiomyopathy type: due to drug Qualified Code(s): I42.7 - Cardiomyopathy due to drug and external agent (9) Hypertension Hypertension type: unspecified Qualified Code(s): I10 - Essential (primary) hypertension
--- NOTE | 2024-09-05 15:44 | Pharmacy Report ---
Pharmacy Glycemic Short Note 2 - Date of Service September 05, 2024 - Glycemic Short BSG Results (Last 24 hours): 09/05/24 09/05/24 09/05/24 00:38 09:42 11:42 Glucose 136 H POC Glucose 122 H 122 H 09/05/24 12:23 Glucose 144 H POC Glucose OUTPATIENT ANTIDIABETIC REGIMEN: * Insulin pump- lispro * Basal - 45 units per day * SF: 16 * CR: 4 A1c -pending ASSESSMENT: * Jluis is a 39 yo M with h/o of DM on insulin pump as an outpatient. He presented due to ongoing abdominal pain and hematemesis. Insulin pump being held on admission and patient ordered SQ basal + bolus insulin. * Per H&P: PMHx of cirrhosis secondary to [place], chronic pain, fibromyalgia, schizophrenia, hyperlipidemia, diabetes, medical marijuana use, alcohol use, depression. * Confirmed with patient that insulin pump was disconnected overnight (around 0300). Obtained outpatient insulin usage data from patient. Patient reports rare hypoglycemia at home. Patient is NPO with BSG of 136 and 122 mg/dL at time of consultation. * Will decrease home basal by ~28%. PLAN FOR INPATIENT GLYCEMIC CONTROL: * Basal insulin * Lantus 32 units SQ daily * Bolus insulin * NovoLog per scale ACHS or Q6hrs while NPO * Goal Range: Low 120 mg/dL - High 150 mg/dL * Correction Factor: 20 mg/dL/unit * Nutritional / Prandial insulin per carb ratio of 1 unit per 5 grams CHO consumed
[2024-09-05] MEDS: HYDROmorphone INJ 0.5 MG/0.5 ML SYR IV PRN (17:18)
[2024-09-05] MEDS: CARIPRAZINE HCL 3 MG CAP PO SCH (20:38)
[2024-09-05] MEDS: traMADol HCL 50 MG TABLET PO SCH (20:39)
--- NOTE | 2024-09-05 21:33 | Billing Data ---
Date of Service September 05, 2024 Coding Level of Care Code 58508 INT INP/OBS CARE
[2024-09-06 06:18] LABS: Basophils # (auto) 0.09 K/uL (0.00-0.20); Basophils % (auto) 1.6 %; Eosinophils # (auto) 0.15 K/uL (0.00-0.50); Eosinophils % (auto) 2.7 %; Hematocrit (blood only) 44.1 % (42.0-52.0); Hemoglobin 14.7 g/dl (14.0-18.0); Immature Granulocytes # (auto) 0.02 K/uL (0.01-0.20); Immature Granulocytes % (auto) 0.4 %; Lymphocytes # (auto) 1.11 K/uL (1.20-3.40); Lymphocytes % (auto) 19.9 %; Mean Corpuscular Hemoglobin 32.2 pg (25.0-34.0); Mean Corpuscular Hgb Conc 33.3 g/dL (32.0-36.0); Mean Corpuscular Volume 96.5 fL (80.0-100.0); Mean Platelet Volume 11.9 fL (9.4-12.4); Monocytes # (auto) 0.55 K/uL (0.11-0.59); Monocytes % (auto) 9.8 %; Neutrophils # (auto) 3.67 K/uL (1.40-6.50); Neutrophils % (auto) 65.6 %; Platelet Count 60 K/uL (130-400); RDW Coefficient of Variation 16.9 % (11.5-14.5); RDW Standard Deviation 60.3 fL (36.4-46.3); Red Blood Count 4.57 M/uL (4.70-6.10); White Blood Count 5.59 K/ul (4.8-10.8)
[2024-09-06 06:38] LABS: Albumin Globulin Ratio 1.2 (0.9-2); BUN Creatinine Ratio 12.7 (10-20); Bilirubin,Total 6.2 mg/dl (0.2-1.0); Calcium 8.5 mg/dl (8.6-10.3); Globulin 3.4 gm/dl (2.5-4.0); Potassium 4.4 mmol/L (3.5-5.1); Total Protein 7.4 gm/dl (6.0-8.3)
[2024-09-06 06:52] LABS: INR 1.4 (0.9-1.1); Prothrombin Time 14.8 Seconds (9.0-12.0)
--- NOTE | 2024-09-06 07:26 | Hospitalist Progress Note ---
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: (6) Schizophrenia: (7) Cardiomyopathy: (8) Anxiety and depression: (9) Diabetes mellitus type 1.5, managed as type 1: (10) Hypertension: Plan Patient is a 39 yo M w/ a PMHx of cirrhosis secondary to Mandujano, chronic pain, fibromyalgia, schizophrenia, hyperlipidemia, diabetes, medical marijuana use, alcohol use, depression anxiety who presented to the [facility] ED via walk-in for evaluation of ongoing abdominal pain worse from his baseline over the past several days and development of bloody emesis that occurred tonight where he reports having 3 vomiting episodes of ~ 40 mL total that bright red (consistency of blood). Portal Hypertensive Gastropathy EGD 09/06/24 no significant bleeding or varices seen discontinue octreotide continue IV PPI, discharge on oral GI rec to avoid NSAIDS Advancing to full liquid diet Chronic abdominal pain Pain prns on board Nightly tramadol 100mg as this is his max home dosage Hematemesis - multiple episodes of bloody vomiting; Hgb, 13.5 -> 14.7 today - No current bleeding per EGD 09/06/24 but portal HTsive gastritis seen, likely prone to bleeding above recommendations for gastritis - CBC, BMP QAM - Pantoprazole 40mg IV BID Cirrhosis (due to MANDUJANO)/Excessive alcohol use - Chronic thrombocytopenia, pltl 49 ; INR, 1.4; TBili, 2.8; AST, 158; ALT, 114; Alk Phos, 126 - EtOH, 50.5 - currently follows with [facility] Hematology Chronic conditions #Chronic pain/fibromyalgia - tramadol, 50 mg, PO, HS; can start other pain meds during stay if only takes IV #Schizophrenia - cariprazine and Zoloft continued #Diabetes - Pharmacy glycemic consult placed - Basal, 45 glargine daily --> 22.5 U, BID, (provider can modify if NPO status continued) #Cardiomyopathy/HTN - metoprolol tartrate, 25 mg, BID, IV; hold Entresto and amlodipine for now Code status: Conditional code (chest compressions and defibrillator only) Disposition: PCU-Tele Diet: full liquids starting tonight 09/06/24 VTE Prophylaxis: ambulation Admission and Anticipated Discharge Date Admission Date: September 05, 2024 Supervising Physician Co-Signing Physician Notes ATTESTATION I also saw the patient and confirmed meyers portions of the history and exam. I agree with the impression and plan in the resident documentation, and as summarized below. Patient is seen in the preoperative area, awaiting EGD. He still complains of abdominal pain which seem to be located in the bilateral upper quadrants - he notes the pain is "near my gallbladder and your my spleen, and me in the middle." I received communication with the patient's PCP earlier today who in turn have received a call from the patient's psychiatrist who had seen him via Zoom last and was concerned that the patient is acutely psychotic (he was talking about the [place] contacting him). His outpatient psychiatrist had recommended that he be seen by psychiatry while here in the hospital. I let Jluis know that his outpatient psychiatrist (Dr. Masterson) had in fact reach out to his PCP, who in turn reached out to me - and after this explanation, he was open to the idea of seeing psychiatry while here in the hospital. EXAM 130/77, 65, 14, 36.7, 94% on room air no distress appreciated alert and oriented heart regular respirations nonlabored DATA Labs hemoglobin 14.7 Platelet count 60 Sodium 138, potassium 4.4 AST 156, ALT 113, alkaline phosphatase 118 IMPRESSION & PLAN hematemesis acute on chronic abdominal pain thrombocytopenia cirrhosis schizophrenia EGD scheduled for today; further recommendations based on results of EGD based on above information, will consult psychiatry Additional per resident documentation Subjective Jluis was seen and evaluated at bedside this AM, appearing in no acute distress. Endorses feeling okay this morning, not as much pain as yesterday but still having b/l upper abdominal and epigastric pain. Endorses one small bloody emesis this morning as well as a small BM which pt notes was also a bit bloody. Understands that he was NPO in order to have EGD done to assess for source of bleeding. Physical Exam Physical Exam: General: patient resting comfortably, NAD, non-toxic in appearance, answers questions appropriately. Skin: warm, dry, intact HEENT: NC/AT, anicteric sclerae, mild scleral icterus, moist mucus membranes Heart: RRR, no m/r/g Lungs: equal air entry bilaterally, no rales/rhonchi/wheezes Abd: +BS, soft, tenderness to palpation of RUQ, LUQ, and epigastric region, no significant hepatosplenomegaly Ext: warm, no clubbing/cyanosis or edema Neuro: nonfocal, speech intact, no facial droop, moving all extremities Results & Data Results & Data Vital Signs (Past 12 Hours) Vital Signs Temp Pulse Pulse Resp BP Pulse Ox O2 Del Method 09/06/24 07:20 36.6 C 61 19 115/68 96 Room Air 09/06/24 04:28 36.5 C 59 L 18 129/78 91 Room Air 09/05/24 23:23 60 09/05/24 23:03 36.7 C 57 L 18 118/74 93 Room Air 09/05/24 19:44 36.7 C 63 18 127/79 94 Room Air Resident Activity Tracking Resident Involvement: Resident Care Provided Care Provided: Adult Hospital Medicine (2) Hematemesis Nausea presence: with nausea Qualified Code(s): K92.0 - Hematemesis (6) Schizophrenia Schizophrenia type: unspecified Qualified Code(s): F20.9 - Schizophrenia, unspecified (7) Cardiomyopathy Cardiomyopathy type: due to drug Qualified Code(s): I42.7 - Cardiomyopathy due to drug and external agent (10) Hypertension Hypertension type: unspecified Qualified Code(s): I10 - Essential (primary) hypertension
[2024-09-06] MEDS ORDERED: LANTUS PER UNIT CHARGE SQ SCH (09:00)
[2024-09-06] MEDS: LANTUS PER UNIT CHARGE SQ ONE (09:03)
[2024-09-06] MEDS: ACETAMINOPHEN 500 MG TAB PO PRN (09:08)
--- NOTE | 2024-09-06 09:31 | History & Physical Bridge Note ---
<Statement entered by Dennys Thornton MD - 09/06/24 14:23> I have reviewed the history, physical exam, lab and imaging findings as dictated by the mid-level provider, made any necessary modifications, and agree with the stated assessment and recommendations. Dennys Thornton MD Date of Service September 06, 2024 History & Physical Bridge Note I have examined the patient, reviewed the History & Physical and in the interval since the performance of the History & Physical I have noted the following changes of clinical significance: no changes noted. Patient continues on IV PPI & Octreotide. He notes persistent dark stools. Last EGD in November 2023 was without esophageal varices. Keep NPO & proceed with EGD today.
[2024-09-06 11:36] LABS: Estimated Average Glucose 111 mg/dl; Hemoglobin A1C 5.5 % (4.5-5.6)
--- NOTE | 2024-09-06 11:44 | Anesthesiology Consultation ---
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 Thornton - Dennys Thornton MD Height/Weight Height: 6 ft Weight: 95.3 kg Allergies Allergy/AdvReac Type Severity Reaction Status Date / Time Sulfa (Sulfonamide Allergy Intermediate Hives Verified 08/05/24 14:38 Antibiotics) sulfamethoxazole Allergy Intermediate Hives Verified 08/05/24 14:38 trimethoprim [From Bactrim] Allergy Intermediate Hives Verified 08/05/24 14:38 avocado AdvReac Severe Gastrointestinal Verified 08/05/24 14:38 Upset and nausea clozapine AdvReac Severe Cardiomyopa Verified 08/05/24 14:38 thy coconut AdvReac Severe Gastrointestinal Verified 08/05/24 14:38 Upset and nausea lisinopril AdvReac Severe Chest pain Verified 08/05/24 14:38 losartan [From Cozaar] AdvReac Intermediate Gastrointestinal Verified 08/05/24 14:38 Upset metformin AdvReac Intermediate Nausea Verified 08/05/24 14:38 pregabalin [From Lyrica] AdvReac Intermediate Nausea Verified 08/05/24 14:38 Colarel AdvReac Severe Cardiomyopa Uncoded 08/05/24 14:38 thy Medications Home Medications Medication Instructions Recorded Confirmed Last Taken cariprazine 3 mg capsule (Vraylar) 3 mg PO HS 04/06/19 09/05/24 05/06/24 cholecalciferol (vitamin D3) 125 125 mcg PO QAM 11/25/19 09/05/24 05/07/24 mcg (5,000 unit) tablet (Vitamin D3) insulin lispro 100 unit/mL 0 unit continuous subcutaneous 03/31/20 09/05/24 05/07/24 subcutaneous solution (Humalog infusion CONTINOUS U-100 Insulin) Medical Marijuana 1 dose inhalation DIRECTED PRN 09/19/22 09/05/24 05/02/24 Pain amlodipine 5 mg tablet (Norvasc) 5 mg PO QAM 02/21/23 09/05/24 05/07/24 sacubitril 97 mg-valsartan 103 mg 1 tab PO BID #60 tabs 02/21/23 09/05/24 05/07/24 tablet (Entresto) empagliflozin 25 mg tablet 25 mg PO QAM 04/14/23 09/05/24 05/04/24 (Jardiance) metoprolol succinate 50 mg 50 mg PO HS 09/07/23 09/05/24 05/07/24 tablet,extended release 24 hr potassium chloride 10 mEq 10 meq PO BID 12/05/23 09/05/24 05/07/24 tablet,extended release sertraline 100 mg tablet (Zoloft) 100 mg PO QAM 01/30/24 09/05/24 05/07/24 pantoprazole 40 mg tablet,delayed 40 mg PO BID 04/06/24 09/05/24 05/07/24 release (Protonix) rosuvastatin 20 mg tablet 20 mg PO QAM 04/06/24 09/05/24 05/07/24 tizanidine 4 mg tablet (Zanaflex) 4 mg PO BID PRN muscle spasticity 04/30/24 09/05/24 05/07/24 promethazine 25 mg tablet 25 mg PO TID PRN nausea and 07/06/24 09/05/24 Unknown vomiting #20 tabs sertraline 50 mg tablet (Zoloft) 50 mg PO QAM 07/06/24 09/05/24 Unknown tramadol 50 mg tablet 50 - 100 mg PO HS PRN Pain 09/05/24 09/05/24 Unknown Active Medications Generic Name Dose Route Start Last Admin Trade Name Freq PRN Reason Stop Dose Admin Acetaminophen 500 mg 09/05/24 21:29 09/06/24 09:08 Acetaminophen 500 Mg Tab PO 10/05/24 21:28 500 mg Q6H PRN Administration Fever or headache Cariprazine 3 mg 09/05/24 21:00 09/05/24 20:38 Cariprazine Hcl 3 Mg Cap PO 10/05/24 20:59 3 mg HS ЕЛЕНА Administration Hydromorphone HCl 0.5 mg 09/05/24 13:59 09/06/24 10:43 Hydromorphone Inj 0.5 Mg/0.5 Ml Syr IV 09/19/24 13:58 0.5 mg Q6H PRN Administration Pain scale 7-10 Octreotide Acetate 500 mcg/ 100.5 mls @ 10.05 mls/hr 09/05/24 01:00 09/06/24 09:01 Sodium Chloride IV 10/05/24 00:59 50.25 mcg/hr .Q10H ЕЛЕНА 10.1 mls/hr Administration 50 MCG/HR Pantoprazole Sodium 40 mg in 10 mls @ 5 mls/min 09/05/24 09:00 09/06/24 10:18 Protonix IV 10/05/24 08:59 5 mls/min BID ЕЛЕНА Administration Insulin Aspart 0 units 09/05/24 11:45 09/06/24 08:13 Insulin Aspart Per Unit Charge SC 10/05/24 11:44 Not Given ACHS ЕЛЕНА Metoprolol Tartrate 25 mg 09/05/24 09:00 09/06/24 09:09 Metoprolol Tartrate 25 Mg Tab PO 10/05/24 08:59 Not Given BID ЕЛЕНА Sertraline HCl 50 mg 09/05/24 09:24 09/06/24 09:02 Sertraline Hcl 50 Mg Tablet PO 10/05/24 09:23 50 mg QAM ЕЛЕНА Administration Sertraline HCl 100 mg 09/05/24 09:24 09/06/24 09:02 Sertraline Hcl 100 Mg Tablet PO 10/05/24 09:23 100 mg QAM ЕЛЕНА Administration Tramadol HCl 50 mg 09/05/24 21:00 09/05/24 20:39 Tramadol Hcl 50 Mg Tablet PO 10/05/24 20:59 50 mg HS ЕЛЕНА Administration Vitamin D 125 mcg 09/05/24 09:24 09/06/24 09:02 Cholecalciferol 125 Mcg (5,000 Units) Tab PO 10/05/24 09:23 125 mcg QAM ЕЛЕНА Administration Past Medical History Medical History Alcohol intoxication Schizophrenia Sleep apnea CPAP 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 Liver doctor - [facility], operated by [facility] - Yearly visit Insulin pump in place Hypertension Dyslipidemia MAHMOOD (dyspnea on exertion) follows [facility] [place] Diabetes mellitus type 1.5 Insulin Pump Chronic pain Lower back and LUQ Hx of migraines Cardiomyopathy medicatin induced - follows [facility] [place] History of asthma Occipital neuralgia Vitamin D deficiency Gastritis Hematemesis intermittent as per pt History of kidney stones x2 - one time passed on own - other time surgical intervention needed Past Family History Family History Father Diabetes Grandfather (Paternal) Family history of esophageal cancer Cancer Grandmother (Maternal) Hypertension Stroke Mother Hypertension Grandfather (Maternal) Hypertension Other Heart disease Kidney disease Denies family history of Ovarian cancer Prostate cancer Breast cancer Colorectal cancer Past Surgical History Surgical History Hx of lithotripsy History of colonoscopy H/O thumb surgery Right - with hardware History of esophagogastroduodenoscopy (EGD) [place] teeth removed History of myringotomy History of tonsillectomy and adenoidectomy History of appendectomy History of cholecystectomy Social History Smoking Status: Never smoker Do You Dip or Chew Tobacco: No Hx Alcohol Use: Yes Alcohol type: beer and wine alcohol intake frequency: holidays/special occasions only Hx Substance Use: Yes substance use type: marijuana Substance Use Type Other:: Medical MJ Vape Last Used Substance: Days (ago) Last Used Substance Other:: 2 days ago. MJ Physical Exam Vital Signs Last Vital Signs Temp 36.6 C 09/06/24 11:05 Pulse 71 09/06/24 11:05 Resp 17 09/06/24 11:05 BP 131/76 09/06/24 11:05 Pulse Ox 93 09/06/24 11:05 O2 Del Method Room Air 09/06/24 11:05 Testing Laboratory Results 09/06/24 05:40 09/06/24 05:40 PT 14.8 Seconds (9.0-12.0) H 09/06/24 05:40 INR 1.4 (0.9-1.1) H 09/06/24 05:40 Hemoglobin A1c 5.5 % (4.5-5.6) 09/06/24 05:40 Urine Color Dark Yellow 09/05/24 Unknown Urine Appearance Clear (Clear) 09/05/24 Unknown Urine pH 8.5 (4.5-7.5) H 09/05/24 Unknown Ur Specific [place] 1.039 (1.000-1.030) H 09/05/24 Unknown Urine Protein 1+ (Negative) H 09/05/24 Unknown Urine Glucose (UA) Negative (Negative) 09/05/24 Unknown Urine Ketones Negative (Negative) 09/05/24 Unknown Urine Nitrite Negative (Negative) 09/05/24 Unknown Ur Leukocyte Esterase Trace (Negative) H 09/05/24 Unknown Urine WBC (Auto) 0-5 /hpf (0-5) 09/05/24 Unknown Urine RBC (Auto) 0-2 /hpf (0-2) 09/05/24 Unknown U Hyaline Cast (Auto) 0-2 /lpf (0-2) 09/05/24 Unknown U Epithel Cells (Auto) 0-2 /hpf (0-2) 09/05/24 Unknown Urine Bacteria (Auto) None Seen (None Seen) 09/05/24 Unknown Blood Type A Positive 09/05/24 01:16 Antibody Screen NEGATIVE 09/05/24 01:16 09/06/24 09/06/24 09/06/24 11:28 06:04 04:45 POC Glucose 127 H 105 H 104 H Electrocardiogram Date: 09/05/24 Findings: + NSR @ Echocardiogram Date: 08/25/23 EF: 59 LV Function: normal Valvular Disease: + no significant valvular disease
--- NOTE | 2024-09-06 13:26 | Pharmacy Report ---
Pharmacy Glycemic Short Note 2 - Date of Service September 06, 2024 - Glycemic Short BSG Results (Last 24 hours): 09/05/24 09/05/24 09/06/24 16:13 20:21 04:45 Glucose POC Glucose 137 H 138 H 104 H 09/06/24 09/06/24 09/06/24 05:40 06:04 11:28 Glucose 109 H POC Glucose 105 H 127 H OUTPATIENT ANTIDIABETIC REGIMEN: * Insulin pump - lispro * Basal - 45 units per day * SF: 16 * CR: 4 HbA1c: 5.5% (09/06/24) ASSESSMENT: 09/06: * Received 46 units of insulin yesterday, 32 of which were basal. BSGs were [phone] mg/dL. * Fasting BSG this AM was 105 mg/dL. Will reduce basal dose by ~33% today given fasting below goal and patient is NPO for EGD today. * No change to Novolog at this time. Basal will likely need increased tomorrow if diet is resumed. 09/05: * Jluis is a 39 yo M with h/o of DM on insulin pump as an outpatient. He presented due to ongoing abdominal pain and hematemesis. Insulin pump being held on admission and patient ordered SQ basal + bolus insulin. * Per H&P: PMHx of cirrhosis secondary to [place], chronic pain, fibromyalgia, schizophrenia, hyperlipidemia, diabetes, medical marijuana use, alcohol use, depression. * Confirmed with patient that insulin pump was disconnected overnight (around 0300). Obtained outpatient insulin usage data from patient. Patient reports rare hypoglycemia at home. Patient is NPO with BSG of 136 and 122 mg/dL at time of consultation. * Will decrease home basal by ~28%. PLAN FOR INPATIENT GLYCEMIC CONTROL: * Holding home insulin pump for now * Basal insulin * Lantus 20 units SC x 1 for NPO status today * Reassess basal in AM * Bolus insulin * NovoLog per scale ACHS or Q6hrs while NPO * Goal Range: Low 120 mg/dL - High 150 mg/dL * Correction Factor: 20 mg/dL/unit * Nutritional / Prandial insulin per carb ratio of 1 unit per 5 grams CHO consumed
--- NOTE | 2024-09-06 14:51 | Anesthesiology Progress Note ---
Date of Service September 06, 2024 Anesthesia Post Procedure Vital Signs Vital Signs: Temp Pulse Pulse Pulse Resp BP Pulse Ox 09/06/24 14:43 68 14 98/61 L 98 09/06/24 11:05 36.6 C 71 17 131/76 93 09/06/24 09:20 58 L 09/06/24 08:41 58 L 09/06/24 07:20 36.6 C 61 19 115/68 96 09/06/24 04:28 36.5 C 59 L 18 129/78 91 09/05/24 23:23 60 09/05/24 23:03 36.7 C 57 L 18 118/74 93 09/05/24 19:44 36.7 C 63 18 127/79 94 09/05/24 15:32 36.6 C 61 17 125/68 94 O2 Del Method O2 Flow Rate 09/06/24 14:43 Oxymask 10 09/06/24 11:05 Room Air 09/06/24 09:20 09/06/24 08:41 09/06/24 07:20 Room Air 09/06/24 04:28 Room Air 09/05/24 23:23 09/05/24 23:03 Room Air 09/05/24 19:44 Room Air 09/05/24 15:32 Room Air Pain Intensity Abdomen: Pain Intensity: 5 Transfer of Care Handoff Completed per policy Notes Mental Status: alert / awake / arousable Patient Amnestic to Procedure: Yes Nausea / Vomiting: adequately controlled Pain: adequately controlled Airway Patency, RR, SpO2: stable & adequate BP & HR: stable & adequate Hydration State: stable & adequate Anesthetic Complications: no major complications apparent and Pt Satisfied with anesthetic care
--- NOTE | 2024-09-06 15:08 | GI REPORT ---
[facility] Patient: EDILMA WINTERS : 1985 Sex at : Male Age: 39 Years Procedure: Upper GI endoscopy Date: 09/06/2024 Attending Physician: Dennys Thornton MD Referring MD: Sam Rogers DO Indications: - Hematemesis; cirrhosis with no prior identified varices Medications: - Monitored Anesthesia Care Complications: - No immediate complications. Estimated Blood Loss: - Estimated blood loss: None. Procedure: - Prior to the procedure, a History and Physical was performed, and patient medications and allergies were reviewed. The patient's tolerance of previous anesthesia was also reviewed. The risks and benefits of the procedure and the sedation options and risks were discussed with the patient. All questions were answered, and informed consent was obtained. Prior Anticoagulants: The patient has taken no anticoagulant or antiplatelet agents. ASA Grade Assessment: III - A patient with severe systemic disease. After reviewing the risks and benefits, the patient was deemed in satisfactory condition to undergo the procedure. - The egd scope was introduced through the mouth and advanced to the third part of the duodenum. - The upper GI endoscopy was accomplished without difficulty. - The patient tolerated the procedure well. Findings: - The examined esophagus was normal. No significant varices noted - The examined duodenum was normal. - Moderate portal hypertensive gastropathy was found in the entire examined stomach with contact friability including the cardia just below the squamocolumnar line. Typical nodular antral changes seen; no distinct GAVE. - There is no endoscopic evidence of recent significant bleeding or gastric varices in the stomach. Impression: - Normal esophagus. No significant varices. - Friable portal hypertensive gastropathy. Likely source No significant upper GI active bleeding; likely from gastropathy Recommendation: - Full liquid diet. - Observe patient's clinical course. Avoid NSAIDs Continue PPI for now; discuss needs further in follow up Procedure Code(s): - 43746, Esophagogastroduodenoscopy, flexible, transoral; diagnostic, including collection of specimen(s) by brushing or washing, when performed (separate procedure) Diagnosis Code(s): - K92.0, Hematemesis - K76.6, Portal hypertension - K31.89, Other diseases of stomach and duodenum CPT(R) - 2022 copyright [employer]. All Rights Reserved. The CPT codes, CCI edits and ICD codes generated are intended as suggestions and were generated based on input data. These codes are preliminary and upon cement sack breaker review may be revised to meet current compliance and payer requirements. The provider is responsible for the final determination of appropriate codes, and modifiers. Dennys Thornton MD This document has been electronically signed. Note Initiated:09/06/2024 Note Completed:09/06/2024 3:08 PM \\[id number]
[2024-09-06] MEDS: traMADol HCL 50 MG TABLET PO SCH (20:43)
[2024-09-07 07:44] LABS: Hemoglobin 13.5 g/dl (14.0-18.0); Mean Corpuscular Hemoglobin 31.6 pg (25.0-34.0); Mean Corpuscular Hgb Conc 32.9 g/dL (32.0-36.0); Mean Platelet Volume 11.4 fL (9.4-12.4); Platelet Count 46 K/uL (130-400); RDW Coefficient of Variation 16.6 % (11.5-14.5); Red Blood Count 4.27 M/uL (4.70-6.10); White Blood Count 4.42 K/ul (4.8-10.8)
[2024-09-07 07:50] LABS: Calcium 8.3 mg/dl (8.6-10.3); Creatinine Clr Calc Pharmacy 252.6 ml/min; Potassium 4.2 mmol/L (3.5-5.1)
--- NOTE | 2024-09-07 08:58 | Communication Note ---
<Statement entered by Dennys Thornton MD - 09/07/24 16:35> I have reviewed the assessment and recommendations. Dennys Thornton MD Date of Service: September 07, 2024 Patient underwent an EGD on 09/06/24 and was noted to have moderate portal hypertensive gastropathy. H/H 13.5/41.0. Patient already takes Protonix 40 mg BID at home. From a GI standpoint, no active contraindications to discharge. Patient should follow-up with his outpatient hepatology/GI team.
[2024-09-07] MEDS: LANTUS PER UNIT CHARGE SQ ONE (09:03)
--- NOTE | 2024-09-07 09:57 | Discharge Summary ---
Date of Service September 07, 2024 Admission HPI Per Admitting Provider Patient is a 39 yo M w/ a PMHx of cirrhosis secondary to [place], chronic pain, fibromyalgia, schizophrenia, hyperlipidemia, diabetes, medical marijuana use, alcohol use, depression anxiety who presented to the [facility] ED via walk-in for evaluation of ongoing abdominal pain worse from his baseline over the past several days and development of bloody emesis that occurred tonight where he reports having 3 vomiting episodes of ~ 40 mL total that bright red (consistency of blood). Patient states that he vomited up about 40 mL of blood in all earlier this evening in 3 episodes of vomiting blood and then vomited up about 40 mL again once arriving to the [facility] ED. Patient does state this has happened to him before both before and after getting his latest EGD's through [facility] where no evidence of esophageal varices were found (although there may have been the finding of "gastric varices" or GAVE). Patient states he came to the ED mainly because he is aware of his baseline thrombocytopenia and was concerned that any bleeding could lead to prolonged bleeding that would be difficult to clot. Patient feels a really weird lump in his throat but denies CP or AP or anything similar to GERD or acid reflux type pain. Patient has vomited twice earlier this week and had attributed it to a recurrent bout of pancreatitis and had started himself on a clear liquid diet to help himself Admission Exam Per Admitting Provider Constitutional: WD/WN, vitals as above Respiratory: normal respiratory effort, lungs clear to auscultation Cardiovascular: RRR, no murmur, no edema Gastrointestinal (Abdomen): Inspection/Auscultation: abdomen normal to inspection and normal bowel sounds; abdomen not distended Percussion/Palpation: + abdomen tender (pt endorses chronic RUQ and LUQ pain; gets nerve blocks) and abdomen soft Psychiatric: A+Ox3, euthymic affect Principal Diagnosis hematemesis, portal hypertensive gastropathy Discharge Exam General: patient resting comfortably, NAD, non-toxic in appearance, answers questions appropriately. Skin: warm, dry, intact HEENT: NC/AT, anicteric sclerae, mild scleral icterus, moist mucus membranes Heart: RRR, no m/r/g Lungs: equal air entry bilaterally, no rales/rhonchi/wheezes Abd: +BS, soft, tenderness to palpation of RUQ, LUQ, and epigastric region Ext: warm, no clubbing/cyanosis or edema Neuro: nonfocal, speech intact, no facial droop, moving all extremities Discharge Data Allergies Allergy/AdvReac Type Severity Reaction Status Date / Time Sulfa (Sulfonamide Allergy Intermediate Hives Verified 09/06/24 13:17 Antibiotics) sulfamethoxazole Allergy Intermediate Hives Verified 09/06/24 13:17 trimethoprim [From Bactrim] Allergy Intermediate Hives Verified 09/06/24 13:17 avocado AdvReac Severe Gastrointestinal Verified 09/06/24 13:17 Upset and nausea clozapine AdvReac Severe Cardiomyopa Verified 09/06/24 13:17 thy coconut AdvReac Severe Gastrointestinal Verified 09/06/24 13:17 Upset and nausea lisinopril AdvReac Severe Chest pain Verified 09/06/24 13:17 losartan [From Cozaar] AdvReac Intermediate Gastrointestinal Verified 09/06/24 13:17 Upset metformin AdvReac Intermediate Nausea Verified 09/06/24 13:17 pregabalin [From Lyrica] AdvReac Intermediate Nausea Verified 09/06/24 13:17 Consultations 09/05/24 03:46 ED Decision to Admit Stat 09/05/24 05:01 Consult Gastroenterology Routine 09/06/24 14:42 Consult Psychiatry Routine Procedures Performed Operation Date: 09/06/24 16:45 Actual Procedures p Esophagogastroduodenoscopy - Dennys Thornton MD Ordered Studies 09/05/24 00:53 CT abd pelvis IV con only Stat CT chest diagnostic w con Stat Hospital Course (1) Portal hypertensive gastropathy: (2) Hematemesis: (3) Chronic abdominal pain: (4) Thrombocytopenia: (5) 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 Portal Hypertensive Gastropathy EGD 09/06/24 no significant bleeding or varices seen discontinue octreotide continue IV PPI, discharge on oral GI rec to avoid NSAIDS Tolerating regular diet Chronic abdominal pain Pain prns on board Nightly tramadol 100mg as this is his max home dosage Hematemesis - multiple episodes of bloody vomiting; Hgb, 13.5 -> 14.7 today - No current bleeding per EGD 09/06/24 but portal HTsive gastritis seen, likely prone to bleeding above recommendations for gastritis - CBC, BMP QAM - Pantoprazole 40mg IV BID Cirrhosis (due to ANGELES)/Excessive alcohol use - Chronic thrombocytopenia, pltl 49 ; INR, 1.4; TBili, 2.8; AST, 158; ALT, 114; Alk Phos, 126 - EtOH, 50.5 - currently follows with [facility] Hematology Chronic conditions #Chronic pain/fibromyalgia - tramadol, 50 mg, PO, HS; can start other pain meds during stay if only takes IV #Schizophrenia - cariprazine and Zoloft continued #Diabetes - Pharmacy glycemic consult placed - Basal, 45 glargine daily --> 22.5 U, BID, (provider can modify if NPO status continued) #Cardiomyopathy/HTN - metoprolol tartrate, 25 mg, BID, IV; hold Entresto and amlodipine for now Code status: Conditional code (chest compressions and defibrillator only) Disposition: PCU-Tele Diet: full liquids starting tonight 09/06/24 VTE Prophylaxis: ambulation Total Time Total Time Spent Total Time Spent (In Minutes): Ulises Kearney DO, attending physician, spent 25 minutes myself seeing the patient, reviewing the chart, and documenting today. Discharge Plan Discharge Items Patient Disposition: Home - Self-Care Reason For Visit: VOMITING BLOOD Discharge Diagnosis: hematemesis, portal hypertensive gastropathy Activity: Per Instructions section Non-emergency contact: Primary Care Provider Call non-emergency contact if: your symptoms worsen and your pain is not controlled Follow-up/Referrals: Maru Ortiz MD [Primary Care Provider] - (Follow up within 1 week) Diet: Regular Addtl Attending Provider Instructions: You were seen and evaluated for hematemesis (vomiting up blood) at [facility] ED, admitted for concern for upper gastrointestinal bleed, for which you had an EGD done on 09/06/24. No significant bleeding or varices were found, but the stomach findings showed evidence of portal hypertensive gastropathy, likely sec ondary to known liver cirrhosis. This condition makes the tissue of the stomach relatively weak and prone to bleeding. Since your vital signs have remained stable, hemoglobin has remained relatively stable, and you have not had hematemesis in the past day, we feel you are safe to go home and follow up on an outpatient basis. Please contact your PCP office to have an appointment with Dr. Ortiz for close followup, ideally this week if possible. Thank you for allowing us to participate in your care. Pending Studies at Discharge: No Stand-Alone Forms: My [facility] Science, Smoking Cessation Medications and DC Order Prescriptions: Continued amlodipine [Norvasc] 5 mg tablet 5 mg PO QAM Entresto 97-103 mg tablet 1 tab PO BID Qty: 60 2RF cholecalciferol (vitamin D3) [Vitamin D3] 125 mcg (5,000 unit) tablet 125 mcg PO QAM metoprolol succinate 50 mg tablet extended release 24 hr 50 mg PO HS sertraline [Zoloft] 50 mg tablet 50 mg PO QAM promethazine 25 mg tablet 25 mg PO TID PRN (Reason: nausea and vomiting) Qty: 20 0RF sertraline [Zoloft] 100 mg tablet 100 mg PO QAM insulin lispro [Humalog U-100 Insulin] 100 unit/mL solution 0 unit continuous subcutaneous infusion CONTINOUS Rx Instructions: VIA CONTINUOUS PUMP INFUSION Vraylar 3 mg capsule 3 mg PO HS Medical Marijuana 1 dose inhalation DIRECTED PRN (Reason: Pain) Rx Instructions: PER PT VAPS Jardiance 25 mg tablet 25 mg PO QAM pantoprazole [Protonix] 40 mg tablet,delayed release (DR/EC) 40 mg PO BID Rx Instructions: TAKE 1 TABLET BY MOUTH TWICE DAILY rosuvastatin 20 mg tablet 20 mg PO QAM Rx Instructions: TAKE 1 TABLET BY MOUTH DAILY potassium chloride 10 mEq tablet extended release 10 meq PO BID tizanidine [Zanaflex] 4 mg tablet 4 mg PO BID PRN (Reason: muscle spasticity) tramadol 50 mg tablet 50 - 100 mg PO HS PRN (Reason: Pain) Discharge Orders: Discharge Order (Routine); Ordered 09/07/24 Ordered By: Sam Erazo/Other Patient Handouts: GI Bleeding Causes and Tests, Understanding Gastritis, ED Upper GI Bleeding (Stable) Admission Data Admit Date/Time: 09/05/24 04:56 Attending Provider: Ulises Holliday Admit Provider: Abraham Cowan Primary Care Provider: Maru Ortiz Other Providers: Anjum Pabon; Franko Carlisle; Tatiana Reece; Dusty Doan; Arti Blancas; Africa Martinez; Bj Wick; Jez Savage Other Interventions: Discharge Summary Assessment (RN) Last Done: 09/07/24 11:53 Supervising Physician Co-Signing Physician Notes ATTESTATION I also saw the patient and confirmed meyers portions of the history and exam. I agree with the impression and plan in the resident documentation, and as summarized below. Patient feeling better this morning. Symptoms not resolved, but improved to the point that he would like to go home and manage follow up as an outpatient. EXAM VSS no distress appreciated alert and oriented heart regular respirations nonlabored abd soft and non tender DATA Labs hemoglobin 13.5 Platelet count 46 IMPRESSION & PLAN hematemesis acute on chronic abdominal pain thrombocytopenia cirrhosis schizophrenia Continue PPI BID Follow up with GI ([facility]) Follow up with PCP and psychiatry as schedued Additional per resident documentation Resident Activity Tracking Resident Involvement: Resident Care Provided Care Provided: Adult Hospital Medicine
--- NOTE | 2024-09-07 10:00 | Psychiatric Consultation ---
Date of Consultation September 07, 2024 Impression / Recommendations Impression Diagnostically no acute psychiatric concerns. He reports good effect and no side effects from his psychiatric medications and has outpatient psychiatric follow- up. No acute safety concerns nor signs of psychosis nor flavio nor disorganization. He speaks with good insight about his medical conditions and outpatient providers and how he has managed his psychiatric medications over time. Overall, I spent a total of 45 minutes with this case including review of chart records, review of labwork, direct evaluation of the patient at bedside, counseling the patient, discussion of the patient with the hospitalist provider, discussion with the psychiatric liason during clinical rounds and documentation in the electronic health record. 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 No current evidence to suggest need for Vraylar dose changes in setting of liver impairment. Recommend discussion of risks/benefits of this with his outpatient psychiatrist -Psych liason to send this consult note to Dr. Masterson for continuity of care Psych History Identifying Data Jluis is a 39 yo man with a history of schizophrenia, cirrhosis secondary to [place], chronic pain, fibromyalgia, hyperlipidemia, diabetes, medical marijuana use, alcohol use, depression, anxiety admitted medically for hematemesis. Psychiatry consulted for "history of schizophrenia" and outpatient concerns for increased psychosis. Chief Complaint "I've stable on medication for over ten years". History of Present Illness Jluis was admitted for bloody emesis and had EGD yesterday. Plan for discharge today. Reviewed his psychiatric medications, he feels this work well for him and doesn't want to make any changes. Reviewed currently on sertraline and Vraylar. Discussed that typically no dose adjustments required for liver disease with Vraylar, often considered with sertraline. He is not interested in considering any alternative psychiatric medications as he notes only haldol worked as well as Vraylar and had a lot more side effects. He denies any safety concerns (no SI, no HI), denies any symptoms of psychosis and none observed during interview nor noted by other providers or nursing during this admission. He struggled with sleep and was upset yesterday when he did not see a provider right away after his EGD but otherwise mood has been stable and he denies any concerns. He's looking forward to discharge later this morning and has outpatient psychiatry follow-up with Dr. Masterson and outpatient GI. He signed HUA for Dr. Masterson and asked appropriate questions related to this and laughed appropriately with a joke. Additional information per psych liason note from 09/06/2024: "Patient seen on rounds, per resident patient's outpatient provider called in with concerns that he was in a psychosis, patient alert and oriented x 4, denies SI/HI, denies hallucinations/delusions, patient frustrated by consultation stating he feels he has had inadequate medical care during his admission and that he is being visited by psychiatry and not his medical team - "honestly not a single doctor has come by to explain to me what's going on, my pain has been poorly controlled, and I'm operating on 2 hours of sleep. Yes, I do have a history of schizophrenia but I've been stable for the last 10 years", patient confirms med ications of Vraylar 3mg PO HS and 150mg Setraline PO AM, patient states that Dr. Masterson had only mentioned to him to have his ammonia checked when he informed her he was coming to the hospital but is unsure what symptoms he displayed to her that made her concerned, patient was agreeable to signing an HUA for Dr. Masterson and denies any psychiatric needs, he is mostly hoping to get a better night of sleep and more information from his primary team tomorrow regarding his medical prognosis and test results." Allergies Allergy/AdvReac Type Severity Reaction Status Date / Time Sulfa (Sulfonamide Allergy Intermediate Hives Verified 09/06/24 13:17 Antibiotics) sulfamethoxazole Allergy Intermediate Hives Verified 09/06/24 13:17 trimethoprim [From Bactrim] Allergy Intermediate Hives Verified 09/06/24 13:17 avocado AdvReac Severe Gastrointestinal Verified 09/06/24 13:17 Upset and nausea clozapine AdvReac Severe Cardiomyopa Verified 09/06/24 13:17 thy coconut AdvReac Severe Gastrointestinal Verified 09/06/24 13:17 Upset and nausea lisinopril AdvReac Severe Chest pain Verified 09/06/24 13:17 losartan [From Cozaar] AdvReac Intermediate Gastrointestinal Verified 09/06/24 13:17 Upset metformin AdvReac Intermediate Nausea Verified 09/06/24 13:17 pregabalin [From Lyrica] AdvReac Intermediate Nausea Verified 09/06/24 13:17 Home Medications Medication Instructions Recorded Confirmed Type cariprazine 3 mg capsule (Vraylar) 3 mg PO HS 04/06/19 09/05/24 History cholecalciferol (vitamin D3) 125 125 mcg PO QAM 11/25/19 09/05/24 History mcg (5,000 unit) tablet (Vitamin D3) insulin lispro 100 unit/mL 0 unit continuous subcutaneous 03/31/20 09/05/24 History subcutaneous solution (Humalog infusion CONTINOUS U-100 Insulin) Medical Marijuana 1 dose inhalation DIRECTED PRN 09/19/22 09/05/24 History Pain amlodipine 5 mg tablet (Norvasc) 5 mg PO QAM 02/21/23 09/05/24 History sacubitril 97 mg-valsartan 103 mg 1 tab PO BID #60 tabs 02/21/23 09/05/24 Rx tablet (Entresto) empagliflozin 25 mg tablet 25 mg PO QAM 04/14/23 09/05/24 History (Jardiance) metoprolol succinate 50 mg 50 mg PO HS 09/07/23 09/05/24 History tablet,extended release 24 hr potassium chloride 10 mEq 10 meq PO BID 12/05/23 09/05/24 History tablet,extended release sertraline 100 mg tablet (Zoloft) 100 mg PO QAM 01/30/24 09/05/24 History pantoprazole 40 mg tablet,delayed 40 mg PO BID 04/06/24 09/05/24 History release (Protonix) rosuvastatin 20 mg tablet 20 mg PO QAM 04/06/24 09/05/24 History tizanidine 4 mg tablet (Zanaflex) 4 mg PO BID PRN muscle spasticity 04/30/24 09/05/24 History promethazine 25 mg tablet 25 mg PO TID PRN nausea and 07/06/24 09/05/24 Rx vomiting #20 tabs sertraline 50 mg tablet (Zoloft) 50 mg PO QAM 07/06/24 09/05/24 History tramadol 50 mg tablet 50 - 100 mg PO HS PRN Pain 09/05/24 09/05/24 History Patient History Medical History Alcohol intoxication Schizophrenia Sleep apnea CPAP 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 Liver doctor - [facility] - Yearly visit Insulin pump in place Hypertension Dyslipidemia MAHMOOD (dyspnea on exertion) follows [facility] Diabetes mellitus type 1.5 Insulin Pump Chronic pain Lower back and LUQ Hx of migraines Cardiomyopathy medicatin induced - follows [facility] History of asthma Occipital neuralgia Vitamin D deficiency Gastritis Hematemesis intermittent as per pt History of kidney stones x2 - one time passed on own - other time surgical intervention needed Surgical History Hx of lithotripsy History of colonoscopy H/O thumb surgery Right - with hardware History of esophagogastroduodenoscopy (EGD) Drift teeth removed History of myringotomy History of tonsillectomy and adenoidectomy History of appendectomy History of cholecystectomy Family History Father Diabetes Grandfather (Paternal) Family history of esophageal cancer Cancer Grandmother (Maternal) Hypertension Stroke Mother Hypertension Grandfather (Maternal) Hypertension Other Heart disease Kidney disease Denies family history of Ovarian cancer Prostate cancer Breast cancer Colorectal cancer Social History Smoking Status: Never smoker Second Hand Exposure: No; Do You Dip or Chew Tobacco: No; Hx Alcohol Use: Yes Alcohol type: beer and wine Hx Substance Use: Yes Last Used Substance: Days (ago) Last Used Substance Other:: 2 days ago. MJ Substance Use Type Other:: Medical MJ Vape Preferred Language: Swedish Communication Ability: Effective Visual Impairment: Limited Hearing Ability: Normal Bottom Scrubber Required: No Beliefs That Will Affect Care: None marital status: Single Current Living Situation: Family Current Living Situation Comment: Lives with mother current occupational status: unemployed and disabled Other Information That Helps Us Care for You: Yes Feels Safe at Home: Yes Safety Concerns: Feels Safe At This Time Childhood Exposure to Second-Hand Smoke: Yes Diet: regular caffeine: Yes Dental Care, Regularly: Yes Physical Activity Frequency: Daily Physical Activity Frequency Comment: Walking/ uses standing desk at work Seatbelt Use: always Sunscreen Use: Yes Assistive Devices: None Physical Exam Psychiatric: Orientation: alert, oriented x 3 and cooperative Apperance: appropriately dressed and appropriately groomed Eye Contact: good eye contact Motor Behavior: no abnormal motor movements Speech: normal rate/rhythm/volume of speech Affect: euthymic affect Mood: no depressed mood and no anxious mood Thought Process: goal directed thought process and linear/logical thought process Thought Content: reality based without delusions Suicidal Thoughts: denies suicidal thoughts Homicidal Thoughts: denies homicidal thoughts Hallucinations: no auditory hallucinations and no visual hallucinations Cognition: recent memory grossly intact, remote memory grossly intact, attention grossly intact and language grossly intact Insight: good insight Judgment: + fair judgement Vital Signs (Past 24 Hours): Last Vital Signs Temp 36.4 C L 09/07/24 07:05 Pulse 56 L 09/07/24 07:05 Resp 20 09/07/24 07:05 BP 107/76 09/07/24 07:05 Pulse Ox 95 09/07/24 07:05 O2 Del Method Room Air 09/07/24 07:05 O2 Flow Rate 5 09/06/24 15:13 Results & Data (PSY) Medications Administered Acetaminophen (Acetaminophen 500 Mg Tab) 500 mg PO Q6H PRN PRN Reason: Fever or headache Stop: 10/05/24 21:28 Last Admin: 09/06/24 09:08 Dose: 500 mg Documented By: PAUL Cariprazine (Cariprazine Hcl 3 Mg Cap) 3 mg PO HS [facility] Stop: 10/05/24 20:59 Last Admin: 09/06/24 20:43 Dose: 3 mg Documented By: Admin: 09/05/24 20:38 Dose: 3 mg Documented By: AZALEA Hydromorphone HCl (Hydromorphone Inj 0.5 Mg/0.5 Ml Syr) 0.5 mg IV Q6H PRN PRN Reason: Pain scale 7-10 Stop: 09/19/24 13:58 Last Admin: 09/07/24 09:03 Dose: 0.5 mg Documented By: Admin: 09/07/24 01:39 Dose: 0.5 mg Documented By: Admin: 09/06/24 19:40 Dose: 0.5 mg Documented By: Admin: 09/06/24 10:43 Dose: 0.5 mg Documented By: Admin: 09/05/24 17:18 Dose: 0.5 mg Documented By: PAUL Pantoprazole Sodium (Protonix) 40 mg in 10 mls @ 5 mls/min IV BID ЕЛЕНА Stop: 10/05/24 08:59 Last Admin: 09/07/24 09:46 Dose: 5 mls/min Documented By: Admin: 09/06/24 20:44 Dose: 5 mls/min Documented By: Admin: 09/06/24 10:18 Dose: 5 mls/min Documented By: Admin: 09/05/24 21:40 Dose: 5 mls/min Documented By: Admin: 09/05/24 12:37 Dose: 5 mls/min Documented By: PAUL Insulin Aspart (Insulin Aspart Per Unit Charge) 0 units SC ACHS ЕЛЕНА Stop: 10/05/24 11:44 Last Admin: 09/07/24 09:01 Dose: 9 units Documented By: PAUL Co-signed By: MARITA Admin: 09/06/24 20:40 Dose: Not Given Documented By: Admin: 09/06/24 17:24 Dose: 4 units Documented By: PAUL Co-signed By: DEEP Admin: 09/06/24 11:48 Dose: Not Given Documented By: Admin: 09/06/24 08:13 Dose: Not Given Documented By: Admin: 09/05/24 20:38 Dose: Not Given Documented By: Admin: 09/05/24 16:35 Dose: 14 units Documented By: PAUL Co-signed By: CHANTELL Admin: 09/05/24 13:54 Dose: Not Given Documented By: PAUL Metoprolol Tartrate (Metoprolol Tartrate 25 Mg Tab) 25 mg PO BID ЕЛЕНА Stop: 10/05/24 08:59 Last Admin: 09/07/24 09:01 Dose: 25 mg Documented By: Admin: 09/06/24 20:45 Dose: 25 mg Documented By: Admin: 09/06/24 09:09 Dose: Not Given Documented By: Admin: 09/05/24 20:39 Dose: 25 mg Documented By: Admin: 09/05/24 12:37 Dose: 25 mg Documented By: PAUL Sertraline HCl (S[facility]raline Hcl 50 Mg Tablet) [facility]: 10/05/24 09:23 Last Admin: 09/07/24 09:01 Dose: 50 mg Documented By: Admin: 09/06/24 09:02 Dose: 50 mg Documented By: Admin: 09/05/24 10:01 Dose: 50 mg Documented By: SS Sertraline HCl (Sertraline Hcl 100 Mg Tablet) [facility] Stop: 10/05/24 09:23 Last Admin: 09/07/24 09:01 Dose: 100 mg Documented By: Admin: 09/06/24 09:02 Dose: 100 mg Documented By: Admin: 09/05/24 10:01 Dose: 100 mg Documented By: SS Tramadol HCl (Tramadol Hcl 50 Mg Tablet) 100 mg PO [facility] Stop: 10/06/24 20:59 Last Admin: 09/06/24 20:43 Dose: 100 mg Documented By: HERBERT Vitamin D (Cholecalciferol 125 Mcg (5,000 Units) Tab) 125 mcg [facility] Stop: 10/05/24 09:23 Last Admin: 09/07/24 09:01 Dose: 125 mcg Documented By: Admin: 09/06/24 09:02 Dose: 125 mcg Documented By: Admin: 09/05/24 10:01 Dose: 125 mcg Documented By: PAUL Coding Level of Care Code 05923 IN/OBS CONSULT LVL 3,45M Diagnoses Portal hypertensive gastropathy K76.6; K31.89 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
[2024-09-07 10:37] VITALS: RESP 18; TEMP 97.9; O2SAT 97
[2024-09-07 11:55] VITALS: BP 134/82; PULSE 63
[2024-09-08 15:41] LABS: Marijuana Quant, GCMS Urine 2699 ng/mL (<5)
== END 2024-09-07 12:15 | disposition home or self-care (01) ==
LOC: SUATTDRO → 2S 00:23 → ED 00:23 → SUATTDRO 04:56 → 2S 08:25